=== PATIENT | female | born 1940 | race Caucasian/White ===

== ENCOUNTER 2017-01-22 14:42 | Observation (INO) | payer MEDICARE ==
[2017-01-22 16:17] LABS: #Basophils 0.1 thou/uL (0.0-0.2); #Eosinphils 0.3 thou/uL (0.0-0.7); #Lymphocytes 1.6 thou/uL (1.20-3.40); #Monocytes 0.5 thou/uL (0.11-0.59); #Neutrophils 5.8 thou/uL (1.40-6.50); %Basophils 1.3 % (0.0-1.0); %Eosinophils 4.1 % (0.0-10.0); %Lymphocytes 18.6 % (21.0-51.0); %Monocytes 6.5 % (0.0-10.0); Red Blood Cell (RBC) Count 4.32 mill/uL (4.20-5.40); White Blood Cell (WBC) Count 8.3 thou/uL (4.8-10.8)
[2017-01-22 16:23] LABS: PTT 33.2 SEC (22.9-36.1); Prothrombin Time 12.8 SEC (12.0-14.7)
--- NOTE | 2017-01-22 16:36 | CT ---
CT OF THE BRAIN WITHOUT CONTRAST: Date: 01/22/17 INDICATION: Multiple falls, patient feeling weak. COMPARISON: Prior exam dated 08/03/16. FINDINGS: Generalized cerebral atrophy is similar. Chronic small vessel white matter ischemic changes similar. Septum pellucidum and third ventricle are midline. Skull and extracranial soft tissues are unremark able. IMPRESSION: 1. No acute intracranial abnormality. 2. Stable chronic findings as above. POS: [facility]
[2017-01-22 16:43] LABS: Troponin I Less than 0.010 ng/mL (< 0.028)
[2017-01-22 17:20] LABS: Calcium 8.7 mg/dL (7.8-10.44); Chloride 104 mmol/L (98-107)
[2017-01-22 17:23] LABS: Anion Gap 17 mmol/L (10-20); Carbon Dioxide 21 mmol/L (23-31)
[2017-01-22 17:24] LABS: Calc. Creatinine Clearance 0 mL/min (70-130); Estimated GFR-MDRD 71
[2017-01-22 17:25] LABS: BUN (Urea Nitrogen) 35 mg/dL (9.8-20.1)
[2017-01-22 17:27] LABS: CK (CPK) 881 U/L (29-168)
[2017-01-22] MEDS ORDERED: Aspirin 325 MG TAB ONE ×2 (17:55→18:00)
[2017-01-22] MEDS ORDERED: Bacitracin Zinc 1 Packet ONE (18:59)
[2017-01-22 20:59] VITALS: BMI 16.2
[2017-01-23] MEDS ORDERED: Sodium Chloride 0.9% 1,000 ML IV SCH (03:45)
[2017-01-23] MEDS ORDERED: Acetaminophen 325 MG TAB PO PRN (04:04)
[2017-01-23] MEDS ORDERED: Ondansetron HCl/PF 4 MG/2 ML Vial IVP PRN (04:04)
[2017-01-23] MEDS ORDERED: Calcium Carbonate 500 MG ChewTAB PO PRN (04:04)
[2017-01-23] MEDS ORDERED: hydrALAZINE 20 MG/ML VIAL SLOW IVP PRN (04:04)
[2017-01-23] MEDS ORDERED: HYDROcodone/Acetaminophen 5/325 mg Tablet PO PRN (04:04)
[2017-01-23] MEDS ORDERED: Nicotine 21 MG PATCH TD SCH ×2 (04:30→09:00)
[2017-01-23] MEDS ORDERED: Levothyroxine Sodium 75 MCG TAB PO SCH (06:00)
[2017-01-23 06:11] LABS: #Basophils 0.1 thou/uL (0.0-0.2); #Eosinphils 0.3 thou/uL (0.0-0.7); #Lymphocytes 1.4 thou/uL (1.20-3.40); #Monocytes 0.6 thou/uL (0.11-0.59); #Neutrophils 4.6 thou/uL (1.40-6.50); %Basophils 0.7 % (0.0-1.0); %Eosinophils 4.6 % (0.0-10.0); %Lymphocytes 20.6 % (21.0-51.0); %Monocytes 8.3 % (0.0-10.0); Hematocrit 32.2 % (36.0-47.0); Mean Platelet Volume 8.3 fL (7.4-10.4); Red Blood Cell (RBC) Count 3.12 mill/uL (4.20-5.40)
[2017-01-23 06:22] LABS: Anion Gap 9 mmol/L (10-20); BUN (Urea Nitrogen) 28 mg/dL (9.8-20.1); Calc. Creatinine Clearance 52 mL/min (70-130); Calcium 8.4 mg/dL (7.8-10.44); Carbon Dioxide 25 mmol/L (23-31); Chloride 108 mmol/L (98-107); Cholesterol 110 mg/dl (< 200 Desired); Estimated GFR-MDRD Greater than 90; LDL Cholesterol, Calculated 62 mg/dL
[2017-01-23] MEDS: Ipratropium Bromide 2.5 ml Neb NEB SCH ×3 (07:03→18:26)
--- NOTE | 2017-01-23 07:33 | HP ---
CHIEF COMPLAINT: History of falls, right leg weakness, and weight loss. BRIEF HOSPITAL COURSE: This is a 76-year-old pleasant lady who came into the hospital for weakness and falls. She reports that 2 days ago she was walking fine without a walker and cane, but she repo rts this weakness and frequent falls for the last 2 weeks. She reports her right leg is weak and devine s been giving out and giving rise to the falls. Family also reported that the patient was trembling and called the PCP who told her to bring her to the hospital. Patient has also lost 35 pounds. Brooke jorge has been scheduled for outpatient colonoscopy. The patient smokes e-cigarettes for now, and says that she eats okay. The patient denies any chest pain, fever, chills or dizziness. PAST MEDICAL HISTORY: Significant for macular degeneration; coronary artery disease, status post st ent; restless leg syndrome; hypothyroidism; hyperlipidemia; hypertension; COPD on 3 liters of home O 2; right inguinal hernia; headache; osteoarthritis of both hips; osteoarthritis of the right shoulde r; some chronic cystitis in the past; degenerative disk disease of the lumbar spine; peripheral erickson rial disease. PAST SURGICAL HISTORY: Significant for monthly eye injections; cholecystectomy; cardiac stents x2, Dr. Howe is her insurance adviser; bladder wash in the past; right inguinal hernia repair with mesh; spin al surgery was done by Dr. Winslow earlier this year. PSYCHIATRIC HISTORY: Sometimes gets depressed. SOCIAL HISTORY: She was a former tobacco user, right now uses e-cigarettes. Denies alcohol use, de nies drug use. ALLERGIES: No known drug allergies. MEDICATIONS: Please see MAR. REVIEW OF SYSTEMS: Significant for right leg weakness, falls, and weight loss. Otherwise, no fever , no chills, no headache, no appetite, no hearing loss, no latencies. No cough, no chest pain, diar fifi, dysuria, or polyuria. No memory or mood changes. No neck pain. PHYSICAL EXAMINATION: VITAL SIGNS: Blood pressure is 120/81, pulse is 69, respiration is 16, temperature afebrile. GENERAL: Patient is sitting up in bed and right now in no apparent respiratory distress. HEENT: Atraumatic, normocephalic. Pupils equally round, react to light. Extraocular movements are intact. Mucous membranes are moist. Head shows moderate-sized bruise on the right forehead. CHEST: Breath sounds heard. No rales or rhonchi. HEART: S1, S2 normal. No murmurs or gallops. ABDOMEN: Soft, nontender. EXTREMITIES: No cyanosis, clubbing, or edema. Distal pulses present. NEUROLOGIC: Patient is alert, awake, oriented. No cranial deficits noted. Patient's motor strengt h on the right side is 4/5, left is 5/5, some hyporeflexia noted compared to the left side on the ri ght. Patient's speech is normal. No sensory deficits. SKIN: Normal. Warm and dry. LABORATORY AND DIAGNOSTIC DATA: EKG shows normal sinus rhythm at 65. ST segments are normal. Shima ent's CT scan was normal, short term stable chronic changes. Troponin is 0.01, creatinine is 0.7. Potassium is 3.9. WBC count is 8.3 and hemoglobin is 14. ASSESSMENT AND PLAN: 1. Falls with recent onset of right leg weakness for the last 2 days, rule out transient ischemic a ttack or possible causes could be central versus peripheral. We will do MRI of the brain. We will also consult neurology. The patient had surgery on the lumbar spine earlier this year as well. We will do echocardiogram and carotid Doppler as well and work with neurology and further caring for th e patient. 2. Underweight secondary to weight loss of 35 pounds. The patient has been scheduled for colonosco py as an outpatient. We will monitor for any concerning. We will monitor the patient for that as w ell this hospital stay. 3. Tobacco use, right now using e-cigarettes. Patient has been counseled about it. 4. Restless leg syndrome, stable. 5. Macular degeneration, appears to be stable. 6. Coronary artery disease, status post stent, stable. We will consult Dr. Howe if needed. 7. Hyperlipidemia, stable. 8. Hypertension, stable. 9. Chronic obstructive pulmonary disease with 3 liters of oxygen. We will continue home medication s and p.r.n. nebs. 10. Sequential compression devices for deep venous thrombosis prophylaxis. I will work with chantell burns and further caring for the patient.
--- NOTE | 2017-01-23 07:58 | RAD ---
2 VIEW CHEST: Date: 01/23/17 COMPARISON: 10/04/16. HISTORY: COPD. FINDINGS: Two views of the chest show a normal sized cardiomediastinal silhouette. Increased interstitial lung markings and hyperexpansion of lungs is likely secondary to COPD. There is no evidence of consolida tion, mass, or pleural effusions. Degenerative changes are seen in the spine. IMPRESSION: No evidence of acute cardiopulmonary disease. POS: [facility]
[2017-01-23 08:27] VITALS: TEMP 98.2
[2017-01-23] MEDS ORDERED: Aspirin 81 mg Enteric Coated Tablet PO SCH (09:00)
[2017-01-23] MEDS ORDERED: Lisinopril 10 MG TAB PO SCH (09:00)
[2017-01-23] MEDS ORDERED: Famotidine 20 MG TAB PO SCH (09:00)
--- NOTE | 2017-01-23 09:25 | MRI ---
MRI BRAIN WITHOUT CONTRAST: TECHNIQUE: Multiplanar, multisequential images of brain obtained according to brain protocol. HISTORY: Stroke. Multiple falls and weakness. COMPARISON: Correlation is made to CT scan of 01/22/17. FINDINGS: There is cortical atrophy. Moderate to severe chronic ischemic white matter changes are seen in bot h cerebral hemispheres. There is no evidence of restricted diffusion. No evidence of acute infarct . No mass or edema identified. The intracranial internal carotid arteries, proximal cerebral arteries, and basilar artery are paten t with flow voids seen. Paranasal sinuses and mastoids appear clear. IMPRESSION: Moderate cortical atrophy. Moderate to severe chronic ischemic white matter changes. No evidence o f acute infarct. POS: [facility]
[2017-01-23] MEDS ORDERED: Melatonin 3 MG TAB PO PRN (09:27)
--- NOTE | 2017-01-23 11:12 | ULT ---
CAROTID ULTRASOUND: History: Syncope. Technique: Multiplanar grayscale and color doppler images were obtained in a carotid ultrasound. Spe ctral analysis with doppler waveforms were performed. FINDINGS: There is a small amount of echogenic plaque seen in both carotid bifurcations. The doppler waveforms are normal bilaterally. Peak systolic velocity in the right ICA is 51 cm/sec. Peak systolic velocity in the right CCA is 67 cm/sec. The right ICA/CCA ratio is 0.9. Peak systolic velocity in the left ICA is 81 cm/sec. Peak systolic velocity in the left CCA is 75 cm /sec. The left ICA/CCA ratio is 1.1. Both vertebral arteries demonstrate antegrade flow without focal stenosis. IMPRESSION: No evidence of hemodynamically significant stenosis. POS: [facility]
--- NOTE | 2017-01-23 14:49 | PDOC.PN ---
- Subjective Encounter Start Date: 01/23/17 Encounter Start Time: 14:47 Subjective: still feels weak,maily on right side. -: denies any chest pain/palpitations/dizziness.no F/C.no cough/sob -: no dysuria - Objective MAR Reviewed: Yes Vital Signs & Weight: Vital Signs (12 hours) Temp Pulse Pulse Pulse Resp BP BP 01/23/17 13:38 76 14 01/23/17 11:50 98.2 F 68 16 01/23/17 10:30 74 67 141/72 H 01/23/17 10:10 118/63 01/23/17 08:00 98.2 F 68 16 01/23/17 07:33 98.2 F 70 18 01/23/17 07:03 70 12 01/23/17 04:20 98.4 F 73 20 BP BP Pulse Ox Pulse Ox Pulse Ox 01/23/17 13:38 97 01/23/17 11:50 133/73 96 01/23/17 10:30 133/75 96 95 01/23/17 10:10 01/23/17 08:00 01/23/17 07:33 118/63 96 01/23/17 07:03 01/23/17 04:20 113/62 94 L Weight Weight 94 lb 14.4 oz I&O: 01/22/17 01/23/17 01/24/17 06:59 06:59 06:59 Intake Total 395 Output Total 300 250 Balance 95 -250 Result Diagrams: 01/23/17 05:47 01/23/17 05:47 Additional Labs: Laboratory Tests 01/23/17 05:47 Triglycerides 54 Cholesterol 110 LDL Cholesterol, Calc 62 HDL Cholesterol 37 Radiology Reviewed by me: Yes (MRI-no acute infarct.carotid doppler-no stenosis) Phys Exam - Physical Examination Constitutional: NAD HEENT: PERRLA, moist MMs, sclera anicteric, oral pharynx no lesions Neck: no nodes, no JVD, supple, full ROM Respiratory: no wheezing, no rales, no rhonchi, clear to auscultation bilateral Cardiovascular: RRR, no significant murmur Gastrointestinal: soft, non-tender, no distention, positive bowel sounds Musculoskeletal: no edema, pulses present Neurological: non-focal, normal sensation, moves all 4 limbs Psychiatric: normal affect, A&O x 3 Skin: no rash Dx/Plan (1) Right sided weakness Code(s): R53.1 - WEAKNESS Status: Acute (2) CAD (coronary artery disease) Code(s): I25.10 - ATHSCL HEART DISEASE OF [place] CORONARY ARTERY W/O ANG PCTRS Status: Chronic (3) HTN (hypertension) Code(s): I10 - ESSENTIAL (PRIMARY) HYPERTENSION Status: Chronic (4) COPD (chronic obstructive pulmonary disease) Status: Chronic (5) Hypothyroid Code(s): E03.9 - HYPOTHYROIDISM, UNSPECIFIED Status: Chronic (6) Fall Code(s): W19.XXXA - UNSPECIFIED FALL, INITIAL ENCOUNTER Status: Acute Qualifiers: Encounter type: initial encounter Qualified Code(s): W19.XXXA - Unspecified fall, initial encounter - Plan PT/OT, out of bed/ambulate, DVT proph w/SCDs cont ASA w statin.ECHO pending.neurology consulted -: check UA. restart select home meds.avoid muscle relaxants -: restart coreg w close monitoring of BP. -: high BUN/Cr ratio-likley dehydration.cont IVF.add ensure -: Pt will benefit from rehab. * .check B12/FA level given macrocytosis .H/H lower today due to dilutional anemia Review of Systems - Review of Systems Constitutional: Weakness, Malaise. negative: Fever, Chills, Sweats, Other Respiratory: negative: Cough, Dry, Shortness of Breath, Hemoptysis, SOB with Excertion, Pleuritic Pain, Sputum, Wheezing Cardiovascular: negative: Chest Pain, Palpitations, Orthopnea, Paroxysmal Noc. Dyspnea, Edema, Light Headedness, Other Gastrointestinal: negative: Nausea, Vomiting, Abdominal Pain, Diarrhea, Constipation, Melena, Hematochezia, Other Genitourinary: negative: Dysuria, Frequency, Incontinence, Hematuria, Retention , Other Musculoskeletal: negative: Neck Pain, Shoulder Pain, Arm Pain, Back Pain, Hand Pain, Leg Pain, Foot Pain, Other Neurological: Weakness - Medications/Allergies Allergies/Adverse Reactions: Allergies Allergy/AdvReac Type Severity Reaction Status Date / Time No Known Drug Allergies Allergy Verified 01/22/17 20:29 Medications: Current Medications Acetaminophen (Tylenol) 650 mg PO Q4H PRN PRN Reason: Headache/Fever or Pain Hydrocodone Bitart/Acetaminophen ([place] 5/325) 1 tab PO Q4H PRN PRN Reason: Moderate Pain (4-6) Albuterol/Ipratropium (Duoneb) 3 ml NEB Q6H PRN PRN Reason: SOB &/or Wheezing Aspirin (Ecotrin) 81 mg PO DAILY [facility] Last Admin: 01/23/17 10:09 Dose: 81 mg Atorvastatin Calcium (Lipitor) 20 mg PO HS [facility] Calcium Carbonate (Tums) 1,000 mg PO Q4H PRN PRN Reason: Heartburn or Indigestion Famotidine (Pepcid) 20 mg PO BID [facility] Last Admin: 01/23/17 10:09 Dose: 20 mg Gabapentin (Neurontin) 300 mg PO DAILY [facility] Gabapentin (Neurontin) 600 mg PO HS [facility] Hydralazine HCl (Apresoline) 10 mg SLOW IVP Q4H PRN PRN Reason: BP > 220/110 Sodium Chloride (Normal Saline 0.9%) 1,000 mls @ 75 mls/hr IV .[id number] [facility] Stop: 01/24/17 03:46 Last Admin: 01/23/17 04:20 Dose: 1,000 mls Ipratropium [place] (Atrovent) 2.5 ml NEB [id number] [facility] Last Admin: 01/23/17 13:38 Dose: 2.5 ml Levothyroxine Sodium (Synthroid) 75 mcg PO 0600 [facility] Last Admin: 01/23/17 05:48 Dose: 75 mcg Lisinopril (Zestril) 10 mg PO BID [facility] Last Admin: 01/23/17 10:10 Dose: 10 mg Melatonin (Melatonin) 4.5 mg PO HS PRN PRN Reason: Insomnia Nicotine (Nicoderm Patch) 21 mg TD 0900 [facility] Last Admin: 01/23/17 10:10 Dose: 21 mg Ondansetron HCl (Zofran) 4 mg IVP Q6H PRN PRN Reason: Nausea/Vomiting Pramipexole Dihydrochloride (Mirapex) 0.25 mg PO BID [facility]
[2017-01-23 16:47] LABS: Bilirubin Negative (Negative); Blood, Urine Negative (Negative); Glucose, Urine (Dipstick) Negative (Negative); Ketone, Urine Negative (Negative); Nitrite Negative (Negative); Protein, Urine (Dipstick) Negative (Neg-Trace)
[2017-01-23 16:50] LABS: Bacteria/HPF None Seen HPF (None Seen); Hyaline Casts/LPF 0-3 HYALINE CAST LPF (0-3 Hyaline); RBC/HPF 0-3 HPF (0-3); Squamous Epithelial 0-3 HPF (0-3); WBC/HPF 21-50 HPF (0-3)
[2017-01-23] MEDS ORDERED: Carvedilol 3.125 MG TAB PO SCH (17:00)
[2017-01-23 18:15] VITALS: BP 135/77
[2017-01-23] MEDS ORDERED: Gabapentin 300 MG CAP PO SCH (21:00)
[2017-01-23] MEDS ORDERED: Pramipexole Di-HCl 0.25 MG TAB PO SCH (21:00)
[2017-01-23] MEDS ORDERED: Atorvastatin Calcium 20 MG TAB PO SCH (21:00)
--- NOTE | 2017-01-24 00:20 | CON ---
DATE OF CONSULTATION: 01/23/2017 NEUROLOGY CONSULTATION CONSULTING PHYSICIAN: Hospitalist Service. HISTORY OF PRESENT ILLNESS: Ms. Carias was admitted for evaluation of what she complained of a 3-da y history of right-sided weakness. She has been losing her balance and fallen on several occasions. She had an MRI of the brain done, which shows fairly extensive chronic small vessel ischemic valero es, but no acute abnormalities. Her CT of the brain did not show any evidence of bleeding. Her car otid ultrasound did not show any stenosis. Her CK was elevated at 881 likely secondary to her falls . Her exam at this time appears nonfocal. She is little unsteady on her feet. Her speech is fluen t and clear. I will continue her aspirin and statin as she has previously been taking. I will see her in the office for followup and have recommended that she use a walker on a regular ba sis to try to avoid further falls.
--- NOTE | 2017-01-24 08:49 | DIS ---
DATE OF ADMISSION: 01/22/2017 DATE OF DISCHARGE: 01/23/2017 CONDITION AT THE TIME OF DISCHARGE: Stable and improved. DISCHARGE DISPOSITION: Home with home health. PRIMARY CARE PHYSICIAN: Dr. Susanne Taveras in [place]. DISCHARGE MEDICATIONS: Resume the home medications including as follows, MiraLax daily, melatonin 5 mg at bedtime, docusate 100 mg daily, aspirin 325 mg daily, tizanidine 4 mg as needed every 8 hours , hydrochlorothiazide 25 mg daily, gabapentin 600 mg at bedtime, Coreg 3.125 mg p.o. b.i.d., Lipitor 40 mg daily, Synthroid 75 mcg daily, gabapentin 300 mg in the morning, lisinopril 10 mg p.o. b.i.d. , Mirapex 0.25 mg p.o. b.i.d., tramadol as needed, Spiriva daily, trazodone 100 mg at bedtime. New medication: Levofloxacin 500 mg p.o. daily, Florastor 250 mg p.o. daily. DISCHARGE DIAGNOSES: 1. Urinary tract infection. 2. Dehydration. 3. Transient ischemic attack, ruled out. 4. Rhabdomyolysis secondary to fall. PROCEDURES DURING THE HOSPITAL COURSE: 1. A CT scan of the brain upon admission, which showed chronic small vessel ischemic changes, but n o acute abnormality. 2. Chest x-ray, which was negative for any infiltrates. 3. MRI of the brain, which showed moderate cortical atrophy and [id number] chronic ischemic white matter changes, no evidence of acute infarction. 4. Carotid Doppler ultrasound, which is negative for any hemodynamically significant stenosis delroy zavala. CONSULTATIONS: Include Neurology, Dr. Casa Redding. HISTORY OF PRESENT ILLNESS: Ms. Carias is a pleasant 76-year-old female with past medical history o f coronary artery disease, hypothyroidism, hypertension, dyslipidemia, chronic respiratory failure d ue to chronic obstructive pulmonary disease on home oxygen, who presented to the emergency room with complaints of 3-day onset of weakness and falls. She was admitted under observation status for TIA rule out. The patient gave history of poor appetite and nutrition leading to weight loss. Upon ad mission, she was found to be somewhat dehydrated with elevated BUN to creatinine ratio, but was othe rwise hemodynamically stable with normal neurological exam as per the HPI. Please see admission his tory and physical for further details. HOSPITAL COURSE: The patient underwent the CVA/TIA workup, which was unremarkable. She was seen by Dr. Redding who agreed that this was not TIA and she can be discharged home. She was treated with IV fluids for mild rhabdomyolysis after fall as well as mild dehydration and her symptoms improved. She was walking in the hallways with the help of a walker and physical therapist. Home health ther apy was arranged for her. She was encouraged to add Ensure type supplements to her daily meals 3 ti mes a day for nutrition improvement. She was found to have a urinalysis with moderate leukocyte esterase and WBCs 21-50 with urine cultur e pending at the time of discharge. For this reason, she was treated with empiric antibiotics, whic h she will finish as an outpatient. She was seen and examined on the day of discharge and is hemodynamically stable and eager to go home . She lives with her daughter who is here to pick her up. Discharge plan was discussed with the ayden vann who verbalized understanding. She is instructed to follow up with Neurology and PCP as an out patient.
[2017-01-24] MEDS ORDERED: Gabapentin 300 MG CAP PO SCH (09:00)
== END 2017-01-23 19:00 | disposition home or self-care (01) ==
LOC: ERS 14:42 → 2SW 18:45
PROVIDERS: ADMIT Internal Medicine; ATTEND Internal Medicine
DX: N39.0 Urinary tract infection, site not specified (principal); E86.0 Dehydration; M62.82 Rhabdomyolysis; I25.10 Atherosclerotic heart disease of native coronary artery without angina pectoris; E03.9 Hypothyroidism, unspecified; I10 Essential (primary) hypertension; E78.5 Hyperlipidemia, unspecified; J96.10 Chronic respiratory failure, unspecified whether with hypoxia or hypercapnia; J44.9 Chronic obstructive pulmonary disease, unspecified; R63.4 Abnormal weight loss; I73.9 Peripheral vascular disease, unspecified; F17.290 Nicotine dependence, other tobacco product, uncomplicated; H35.30 Unspecified macular degeneration; G25.81 Restless legs syndrome; M16.0 Bilateral primary osteoarthritis of hip; M19.011 Primary osteoarthritis, right shoulder; M51.36 Other intervertebral disc degeneration, lumbar region; Z68.1 Body mass index [BMI] 19.9 or less, adult; Z79.82 Long term (current) use of aspirin; Z79.899 Other long term (current) drug therapy; Z99.81 Dependence on supplemental oxygen; Z95.818 Presence of other cardiac implants and grafts; Z90.49 Acquired absence of other specified parts of digestive tract; Z98.890 Other specified postprocedural states; Z91.81 History of falling
CPT/HCPCS: 70450; 70551; 71020; 80048 ×2; 80061; 81001; 82550; 82553; 82607; 82746; 84484; 85025 ×2; 85610; 85730; 86850; 86900; 86901; 93005; 93880; 94640 ×2; 96360 ×2; 96361; 97116; 97139 ×3; 97530; 99285; 99406; G0378; G8978; G8979; G8987; G8988; 36415; G8996-GN-CH; G8997-GN-CH; J7644

== ENCOUNTER 2017-03-31 14:29 | Inpatient (IN) | payer MEDICARE ==
--- NOTE | 2017-03-31 15:05 | RAD ---
SINGLE VIEW OF THE CHEST: Comparison: 10-04-16 History: COPD exacerbation for two weeks. FINDINGS: Single view of the chest shows a normal sized cardiomediastinal silhouette. Increased interstitial ma rkings are present. There is no evidence of consolidation, mass, or pleural effusion. Degenerative ch anges are seen in the spine. IMPRESSION: 1. No evidence of acute cardiopulmonary disease. 2. Increased interstitial lung disease in the lung bases. POS: [facility]
[2017-03-31] MEDS ORDERED: methylPREDNISolone Sod Succ/PF 125 MG/2 ML VIAL ONE (15:34)
[2017-03-31] MEDS ORDERED: Magnesium Sulfate 2 GM/100 ML BAG ONE (15:34)
[2017-03-31 16:05] LABS: #Basophils 0.1 thou/uL (0.0-0.2); #Eosinphils 0.5 thou/uL (0.0-0.7); #Lymphocytes 0.8 thou/uL (1.20-3.40); #Monocytes 0.3 thou/uL (0.11-0.59); #Neutrophils 5.3 thou/uL (1.40-6.50); %Basophils 1.1 % (0.0-1.0); %Eosinophils 7.3 % (0.0-10.0); %Lymphocytes 11.9 % (21.0-51.0); %Monocytes 4.4 % (0.0-10.0); %Neutrophils 75.3 % (42.0-75.0); Hemoglobin 13.9 g/dL (12.0-16.0); Mean Corpuscular HGB CONC 33.2 g/dL (32.0-36.0); Mean Corpuscular Hemoglobin 34.9 pg (27.0-31.0); Mean Platelet Volume 8.6 fL (7.4-10.4); Platelet Count 185 thou/uL (130-400); RBC Distribution Width 12.4 % (11.5-14.5); White Blood Cell (WBC) Count 7.1 thou/uL (4.8-10.8)
[2017-03-31 16:24] LABS: ALT (SGPT) 15 U/L (8-55); AST (SGOT) 24 U/L (5-34); Alkaline Phosphatase 89 U/L (40-150); Anion Gap 15 mmol/L (10-20); BUN (Urea Nitrogen) 11 mg/dL (9.8-20.1); Bilirubin, Total 0.5 mg/dL (0.2-1.2); Calc. Creatinine Clearance 0 mL/min (70-130); Calcium 9.2 mg/dL (7.8-10.44); Carbon Dioxide 24 mmol/L (23-31); Chloride 96 mmol/L (98-107); Estimated GFR-MDRD Greater than 90; Globulin 2.5 g/dL (2.4-3.5); Glucose 111 mg/dL (83-110); Potassium 3.7 mmol/L (3.5-5.1); Protein, Total 6.5 g/dL (6.0-8.3); Sodium 131 mmol/L (136-145)
[2017-03-31 16:28] LABS: CKMB 2.2 ng/mL (0-6.6); Troponin I 0.022 ng/mL (< 0.028)
--- NOTE | 2017-03-31 20:40 | HP ---
DATE OF ADMISSION: 03/31/2017 CHIEF COMPLAINT: Shortness of breath. HISTORY OF PRESENT ILLNESS: This is a 76-year-old white female patient of Dr. Vickers, has a known hist ory of COPD, has been suffering with some cough and congestion for the past 1 week, which progressive ly got worsen this afternoon where she was unable to breathe. The patient said that she was supposed to see Dr. Vickers this following Friday, but her cough was getting worse and she tried to take nebu lizer treatments every 3 hours, which did not work. She tried her steroid, which did not work and sh e decided to come to the ER. When patient presented to the ER, her saturations are 88% on room air a nd her respiratory rate was 22-25. She was started on albuterol nebulizer treatments along with the DuoNebs. Saturations did come up to 95%, but she was acutely short of breath and even with mild exer tions. The patient was admitted for further monitoring of her COPD. The patient is a nonsmoker and she continues to smoke and she lives with her daughter who is also a smoker. She denies having any c hest pain, denies having any recent fever or any sick contacts. She did get a flu vaccine this seaso n. PAST MEDICAL HISTORY: 1. Coronary artery disease status post stents. 2. Restless leg syndrome. 3. Hypothyroidism. 4. Hyperlipidemia. 5. Hypertension. 6. History of COPD, on home oxygen of 2 liters. 7. History of osteoarthritis in both hips. 8. Chronic cystitis. 9. Peripheral arterial disease. PAST SURGICAL HISTORY: 1. Cholecystectomy. 2. Cardiac stents x2 by Dr. Howe, who is a short order fry cook. 3. Right inguinal hernia repair with mesh and spinal surgery by Dr. Winslow. SOCIAL HISTORY: The patient is a known smoker. She continues to smoke. She lives with her daughter who is also a smoker. Denies any alcohol. No history of illicit drug use. ALLERGIES: No known drug allergies. MEDICATIONS: Medications have been reconciled. Please see the medication list. REVIEW OF SYSTEMS: All 12 systems are reviewed with the patient thoroughly and found to be negative at this time. The following complete review of systems was negative, unless otherwise mentioned in t he HPI or below: Constitutional: Weight loss or gain, sense of well-being, ability to conduct usual activities, exerc ise tolerance. Skin/Breast: Rash, itching, changes in hair growth or loss, nail changes, breast lumps, tenderness, swelling, nipple discharge. Eyes: Vision, double vision, tearing, blind spots, pain. ENT/Mouth: Headaches (location, time of onset, duration, precipitating factors), vertigo, lightheade dness, injury. Vision, double vision, tearing, blind spots, pain, nose bleeding, colds, obstruction, discharge, dental difficulties, gingival bleeding, dentures, neck stiffness, pain, tenderness, masses in thyroid or other areas. Cardiovascular: Precordial pain, substernal distress, palpitations, syncope, dyspnea on exertion, or thopnea, nocturnal paroxysmal dyspnea, edema, cyanosis, hypertension, heart murmurs, varicosities, ph lebitis, claudication. Respiratory: Pain, shortness of breath, wheezing, stridor, cough, hemoptysis, fever or night sweats. Gastrointestinal: Poor appetite, dysphagia, indigestion, abdominal pain, heartburn, eructation, naus ea, vomiting, hematemesis, jaundice, constipation, or diarrhea, abnormal stools (terri-colored, tarry, bloody, greasy, foul smelling), flatulence, hemorrhoids, recent changes in bowel habits. Genitourinary: Urgency, frequency, dysuria, nocturia, hematuria, polyuria, oliguria, unusual (or pierre nge in) color of urine, stones, hesitancy, change in size of stream, dribbling, acute retention or in continence, libido, potency. Musculoskeletal: Pain, swelling, redness or heat of muscles or joints, limitation, of motion, muscul ar weakness, atrophy, cramps. Neurologic/Psychiatric: Convulsions, paralyses, tremor, incoordination, paresthesias, difficulties w ith memory of speech, sensory or motor disturbances, or muscular coordination (ataxia, tremor), emoti onal problems, anxiety, depression, previous psychiatric care, unusual perceptions, hallucinations. Allergy/Immunologic: Skin rash, anemia, bleeding tendency, polydipsia, polyuria, intolerance to heat or cold. PHYSICAL EXAMINATION: VITAL SIGNS: Blood pressures are 110/80, heart rate is 88, respiratory rate is 22. Saturation is 92 % on 3 liters. GENERAL: The patient is moderately built, moderately nourished. She does not appear in acute distre ss at this time. HEENT: Atraumatic, normocephalic. PERRLA. Extraocular muscles were intact. Oral mucosa is pink an d moist. CARDIOVASCULAR: S1, S2 normal. No murmurs, no rubs or gallops. LUNGS: Bilateral air entry was equal. No wheezing, no crackles. ABDOMEN: Soft, nontender, no guarding, no rebound tenderness. Bowel sounds normal. MUSCULOSKELETAL: No calf tenderness. No pedal edema, no joint tenderness, no joint swelling. SKIN: No cyanosis, no erythema, no rash, no pallor. MIXER FOAM RUBBER: Cranial nerve examination II-XII intact. No focal deficits were noted. NECK: No thyromegaly. No lymphadenopathy was noted. PSYCHIATRIC: No signs of suicidal ideation, no signs of marlo was noted. LABORATORY DATA: WBC 7.1, hemoglobin 13.9, hematocrit is 42, platelets 485. Sodium 131, potassium 3 .7, chloride is 96, BUN is 11, creatinine is 0.59. ASSESSMENT: 1. Acute chronic obstructive pulmonary disease exacerbation. 2. History of coronary artery disease, status post stents. 3. History of restless leg syndrome. 4. Active smoker. 5. History of macular degeneration. 6. History of hyperlipidemia. 7. History of hypertension. PLAN: 1. The plan is to admit this patient and to closely monitor her saturations. Dr. Vickers has been cons ulted. We will follow his recommendations. At this time, we will start the patient on Solu-Medrol a t 40 mg IV q.6 hours and we will do DuoNebs q.4 hours scheduled and albuterol nebulizer treatments ev mellissa 2 hours as needed, and we will do Mucinex 1200 mg p.o. b.i.d. The patient does not report any di scolored sputum. At this time, we will not start any antibiotics. 2. The patient has coronary artery disease. We will restart the patient's home medications. Start the patient on aspirin, beta blockers, and statin. 3. The patient has a known history of hypertension. We will continue the patient's home medications . Blood pressure seems to be very stable at this time. 4. History of chronic smoker. We will continue to genetic counselor the patient to quit smoking. We will do a nicotine patch 14 mcg. 5. Deep venous thrombosis prophylaxis. Lovenox 40 mg subcu daily. I spent 70 minutes of this patient.
[2017-03-31] MEDS ORDERED: Sodium Chloride 0.9% 1,000 ML IV SCH (21:28)
[2017-03-31] MEDS ORDERED: Ondansetron HCl/PF 4 MG/2 ML Vial IVP PRN ×2 (21:28→21:35)
[2017-03-31] MEDS ORDERED: Ondansetron ODT 4 MG TAB SL PRN (21:28)
[2017-03-31] MEDS ORDERED: Albuterol Sulfate 2.5 mg/3 ml Neb NEB PRN (21:35)
[2017-03-31] MEDS ORDERED: HYDROcodone/Acetaminophen 5/325 mg Tablet PO PRN (21:35)
[2017-03-31] MEDS ORDERED: Ondansetron ODT 4 MG TAB PO PRN (21:35)
[2017-03-31] MEDS ORDERED: Pramipexole Di-HCl 0.25 MG TAB PO SCH (22:00)
[2017-04-01 05:09] LABS: #Lymphocytes 0.7 thou/uL (1.20-3.40); #Monocytes 0.8 thou/uL (0.11-0.59); #Neutrophils 4.8 thou/uL (1.40-6.50); %Basophils 0.3 % (0.0-1.0); %Eosinophils 0.3 % (0.0-10.0); %Lymphocytes 11.8 % (21.0-51.0); %Monocytes 11.9 % (0.0-10.0); %Neutrophils 75.7 % (42.0-75.0); Hemoglobin 12.2 g/dL (12.0-16.0); Mean Corpuscular HGB CONC 33.9 g/dL (32.0-36.0); Mean Corpuscular Hemoglobin 35.8 pg (27.0-31.0); Mean Platelet Volume 8.7 fL (7.4-10.4); Platelet Count 166 thou/uL (130-400); RBC Distribution Width 12.2 % (11.5-14.5); Red Blood Cell (RBC) Count 3.41 mill/uL (4.20-5.40); White Blood Cell (WBC) Count 6.3 thou/uL (4.8-10.8)
[2017-04-01 05:36] LABS: Anion Gap 14 mmol/L (10-20); BUN (Urea Nitrogen) 16 mg/dL (9.8-20.1); Calc. Creatinine Clearance 53 mL/min (70-130); Calcium 8.7 mg/dL (7.8-10.44); Carbon Dioxide 24 mmol/L (23-31); Chloride 101 mmol/L (98-107); Estimated GFR-MDRD Greater than 90; Glucose 116 mg/dL (83-110); Potassium 3.9 mmol/L (3.5-5.1); Sodium 135 mmol/L (136-145)
[2017-04-01] MEDS: Enoxaparin Sodium 40 MG/0.4 ML SYRINGE SC SCH (08:14)
[2017-04-01] MEDS: Docusate 100 MG CAP PO SCH ×3 (08:14→20:24)
[2017-04-01] MEDS: Aspirin 325 mg Enteric Coated Tablet PO SCH (08:14)
[2017-04-01] MEDS: Saccharomyces boulardii 250 MG CAP PO SCH (08:14)
[2017-04-01] MEDS: Lisinopril 10 MG TAB PO SCH ×2 (08:14→20:25)
[2017-04-01] MEDS: Nicotine 14 MG PATCH TD SCH (08:14)
[2017-04-01] MEDS: Gabapentin 300 MG CAP PO SCH ×2 (08:14→20:24)
[2017-04-01] MEDS: Pramipexole Di-HCl 0.25 MG TAB PO SCH ×2 (08:14→20:25)
[2017-04-01] MEDS: Famotidine/PF 20 mg/2ml Vial SLOW IVP SCH ×2 (08:14→20:24)
[2017-04-01] MEDS: Carvedilol 3.125 MG TAB PO SCH ×2 (08:14→17:16)
[2017-04-01] MEDS ORDERED: Spiriva 18 MCG CAP (Box of 5 Caps) INH SCH (09:00)
[2017-04-01 09:25] VITALS: BMI 16.2
[2017-04-01] MEDS: Acetaminophen 325 MG TAB PO PRN ×2 (09:59→20:25)
--- NOTE | 2017-04-01 10:33 | CON ---
DATE OF CONSULTATION: 04/01/2017 She is well known to me who has a history of chronic obstructive pulmonary disease, asthma. She pre sented with increasing shortness of breath and cough without any associated fever or chills. Unrespo nsive to usual home medication. An x-ray taken yesterday which showed some nonspecific bibasilar atelectatic changes. No obvious con solidation was seen. She is now admitted. She was here recently in January with apparently a TIA issue. She was seen in the office shortly th ereafter. She has been doing well. Her discharge diagnosis included a TIA. PAST MEDICAL HISTORY: Severe chronic obstructive pulmonary disease, coronary artery disease, reflux, restless leg. PAST SURGICAL HISTORY: Cataract, gallbladder. A recent TIA. Recent cardiac catheterization. Gayle LOVELACE. MEDICATIONS FROM HOME: Trazodone 100, tramadol, tizanidine, Spiriva, lisinopril 10, Synthroid 75, Ne urontin 600, gabapentin, Coreg 3.125, calcium 40, aspirin. She is now started on steroids, scheduled neb treatment. ALLERGIES: None. SOCIAL HISTORY: Former smoker. REVIEW OF SYSTEMS: Ten point negative. PHYSICAL EXAMINATION: VITAL SIGNS: Blood pressure is 143/74, saturation is 94%, respirations 16, temperature 98. CHEST: Chest revealed decreased breath sounds and bilateral wheezing. CARDIAC: Sinus tachycardia. ABDOMEN: Soft. No masses. LABORATORY: White count 6000, H&H 12 and 37, platelet count is normal. IMPRESSION: 1. Chronic obstructive pulmonary disease exacerbation. 2. Bronchitis. 3. Congestive heart failure. PLAN: I agree with present treatment, steroids, neb treatments, supportive care. Hopefully, stable enough in the next 24-48 hours may be able to discharge her home.
--- NOTE | 2017-04-01 11:32 | CON ---
consult deleted. MTDD
--- NOTE | 2017-04-01 12:22 | PDOC.PN ---
- Subjective Encounter Start Date: 04/01/17 Encounter Start Time: 12:21 Subjective: feels better. coughing and SOB improved - Objective MAR Reviewed: Yes Vital Signs & Weight: Vital Signs (12 hours) Temp Pulse Resp BP Pulse Ox 04/01/17 11:34 97.6 F 75 16 101/61 94 L 04/01/17 10:03 92 20 93 L 04/01/17 08:34 98.5 F 92 16 143/74 H 93 L 04/01/17 08:00 98.5 F 92 16 93 L 04/01/17 05:57 81 16 94 L 04/01/17 04:00 97.8 F 81 20 99/61 94 L 04/01/17 02:09 86 14 95 Weight Admit Weight 98 lb Weight 98 lb Result Diagrams: 04/01/17 04:49 04/01/17 04:49 Additional Labs: Microbiology 03/31/17 22:35 Sputum Respiratory Culture - Preliminary 03/31/17 22:08 Venous blood - Right Arm Blood Culture - Preliminary Specimen has been received and culture in progress. No Growth to date. 03/31/17 22:08 Venous blood - Left Arm Blood Culture - Preliminary Specimen has been received and culture in progress. No Growth to date. Phys Exam - Physical Examination Constitutional: NAD sitting up in chair HEENT: PERRLA, moist MMs, sclera anicteric, oral pharynx no lesions Neck: no nodes, no JVD, supple, full ROM Respiratory: no wheezing, no rales, no rhonchi, clear to auscultation bilateral Cardiovascular: RRR, no significant murmur Gastrointestinal: soft, non-tender, no distention, positive bowel sounds Musculoskeletal: no edema, pulses present Neurological: non-focal, normal sensation, moves all 4 limbs Psychiatric: normal affect, A&O x 3 Skin: no rash Dx/Plan (1) Acute respiratory failure Code(s): J96.00 - ACUTE RESPIRATORY FAILURE, UNSP W HYPOXIA OR HYPERCAPNIA Status: Acute (2) Acute exacerbation of chronic obstructive pulmonary disease (COPD) Code(s): J44.1 - CHRONIC OBSTRUCTIVE PULMONARY DISEASE W (ACUTE) EXACERBATION Status: Acute (3) Chronic respiratory failure Code(s): J96.10 - CHRONIC RESPIRATORY FAILURE, UNSP W HYPOXIA OR HYPERCAPNIA Status: Acute (4) HLD (hyperlipidemia) Code(s): E78.5 - HYPERLIPIDEMIA, UNSPECIFIED Status: Acute (5) CAD (coronary artery disease) Code(s): I25.10 - ATHSCL HEART DISEASE OF [place] CORONARY ARTERY W/O ANG PCTRS Status: Chronic (6) HTN (hypertension) Code(s): I10 - ESSENTIAL (PRIMARY) HYPERTENSION Status: Chronic (7) Hypothyroid Code(s): E03.9 - HYPOTHYROIDISM, UNSPECIFIED Status: Chronic - Plan continue antibiotics, PT/OT, respiratory therapy, incentive spirometry, out of bed/ambulate, DVT proph w/SCDs cont nebs,steroids,O2 prn,Dulera,ABx.clinically better -: PCCM following -: home meds as below.Hemodynamically stable. -: restart ASA,statin,BB,irena-I. -: am labs * . Review of Systems - Review of Systems Constitutional: weakness, malaise. negative: fever, chills, sweats, other Respiratory: SOB with Excertion. negative: Cough, Dry, Shortness of Breath, Hemoptysis, Pleuritic Pain, Sputum, Wheezing Cardiovascular: negative: chest pain, palpitations, orthopnea, paroxysmal nocturnal dyspnea, edema, light headedness, other Gastrointestinal: negative: Nausea, Vomiting, Abdominal Pain, Diarrhea, Constipation, Melena, Hematochezia, Other Genitourinary: negative: Dysuria, Frequency, Incontinence, Hematuria, Retention , Other Musculoskeletal: negative: Neck Pain, Shoulder Pain, Arm Pain, Back Pain, Hand Pain, Leg Pain, Foot Pain, Other Neurological: negative: Weakness, Numbness, Incoordination, Change in Speech, Confusion, Seizures, Other - Medications/Allergies Allergies/Adverse Reactions: Allergies Allergy/AdvReac Type Severity Reaction Status Date / Time No Known Drug Allergies Allergy Verified 03/31/17 21:37 Medications: Current Medications Acetaminophen (Tylenol) 650 mg PO Q4H PRN PRN Reason: Headache/Fever or Pain Last Admin: 04/01/17 09:59 Dose: 650 mg Hydrocodone Bitart/Acetaminophen ([place] 5/325) 1 tab PO Q4H PRN PRN Reason: Moderate Pain (4-6) Albuterol Sulfate (Ventolin) 2.5 mg NEB Q2H PRN PRN Reason: SOB &/or Wheezing Albuterol/Ipratropium (Duoneb) 3 ml NEB [id number] [facility] Last Admin: 04/01/17 10:03 Dose: 3 ml Aspirin (Ecotrin) 325 mg PO DAILY [facility] Last Admin: 04/01/17 08:14 Dose: 325 mg Atorvastatin Calcium (Lipitor) 40 mg PO HS [facility] Bisacodyl (Dulcolax) 10 mg PO DAILYPRN PRN PRN Reason: Constipation Carvedilol (Coreg) 3.125 mg PO BID-[facility] Last Admin: 04/01/17 08:14 Dose: 3.125 mg Docusate Sodium (Colace) 100 mg PO BID [facility] Last Admin: 04/01/17 08:14 Dose: 100 mg Docusate Sodium (Colace) 100 mg PO DAILY [facility] Last Admin: 04/01/17 08:14 Dose: Not Given Doxycycline Hyclate (Vibramycin) 100 mg PO BID [facility] Enoxaparin Sodium (Lovenox) 40 mg SC 0900 [facility] Last Admin: 04/01/17 08:14 Dose: 40 mg Famotidine (Pepcid) 20 mg SLOW IVP Q12HR [facility] Last Admin: 04/01/17 08:14 Dose: 20 mg Gabapentin (Neurontin) 300 mg PO DAILY [facility] Last Admin: 04/01/17 08:14 Dose: 300 mg Gabapentin (Neurontin) 600 mg PO HS [facility] Guaifenesin/Dextromethorphan (Robitussin Dm) 15 ml PO Q4H PRN PRN Reason: Cough Levothyroxine Sodium (Synthroid) 75 mcg PO 0600 [facility] Lisinopril (Zestril) 10 mg PO BID [facility] Last Admin: 04/01/17 08:14 Dose: 10 mg Methylprednisolone Sodium Succinate (Solu-Medrol) 40 mg IVP Q6HR [facility] Last Admin: 04/01/17 12:02 Dose: 40 mg Mometasone Furoate/Formoterol Fumar (Dulera 200 Mcg/5 Mcg Inhaler) 2 puff INH BID-RT [facility] Nicotine (Nicoderm Patch) 14 mg TD Q24HR [facility] Last Admin: 04/01/17 08:14 Dose: 14 mg Ondansetron HCl (Zofran Odt) 4 mg PO Q6H PRN PRN Reason: Nausea/Vomiting Ondansetron HCl (Zofran) 4 mg IVP Q6H PRN PRN Reason: Nausea/Vomiting Pramipexole Dihydrochloride (Mirapex) 0.25 mg PO BID [facility] Last Admin: 04/01/17 08:14 Dose: 0.25 mg Saccharomyces Boulardii (Florastor) 250 mg PO DAILY [facility] Last Admin: 04/01/17 08:14 Dose: 250 mg Sodium Chloride (Flush - Normal Saline) 10 ml IVF Q12HR [facility] Last Admin: 04/01/17 08:15 Dose: Not Given Sodium Chloride (Flush - Normal Saline) 10 ml IVF PRN PRN PRN Reason: Saline Flush Tramadol HCl (Ultram) 50 mg PO Q6H PRN PRN Reason: Pain Trazodone HCl (Desyrel) 100 mg PO HS [facility]
[2017-04-01] MEDS: Mometasone/Formoterol 120 PUFF INHALER INH SCH (18:21)
[2017-04-01] MEDS: Doxycycline 100 MG CAP PO SCH (20:24)
[2017-04-01] MEDS: Atorvastatin Calcium 40 MG TAB PO SCH (20:24)
[2017-04-01] MEDS: traZODone HCl 50 MG TAB PO SCH (20:25)
[2017-04-02] MEDS: Guaifenesin DM 100-10/5 ML UDCUP PO PRN ×2 (02:57→20:52)
[2017-04-02] MEDS: Levothyroxine Sodium 75 MCG TAB PO SCH (06:10)
[2017-04-02] MEDS: Mometasone/Formoterol 120 PUFF INHALER INH SCH ×2 (06:24→20:31)
[2017-04-02 06:31] LABS: Anion Gap 14 mmol/L (10-20); BUN (Urea Nitrogen) 16 mg/dL (9.8-20.1); Calc. Creatinine Clearance 51 mL/min (70-130); Calcium 8.7 mg/dL (7.8-10.44); Carbon Dioxide 24 mmol/L (23-31); Chloride 101 mmol/L (98-107); Estimated GFR-MDRD 88; Glucose 127 mg/dL (83-110); Potassium 4.9 mmol/L (3.5-5.1); Sodium 134 mmol/L (136-145)
[2017-04-02] MEDS: Carvedilol 3.125 MG TAB PO SCH ×2 (07:58→17:56)
[2017-04-02] MEDS: Docusate 100 MG CAP PO SCH ×3 (07:58→20:51)
[2017-04-02] MEDS: Nicotine 14 MG PATCH TD SCH (08:00)
[2017-04-02] MEDS: Saccharomyces boulardii 250 MG CAP PO SCH (08:01)
[2017-04-02] MEDS: Aspirin 325 mg Enteric Coated Tablet PO SCH (08:01)
[2017-04-02] MEDS: Gabapentin 300 MG CAP PO SCH ×2 (08:02→20:50)
[2017-04-02] MEDS: Doxycycline 100 MG CAP PO SCH ×2 (08:02→20:50)
[2017-04-02] MEDS: Famotidine/PF 20 mg/2ml Vial SLOW IVP SCH ×2 (08:02→20:51)
[2017-04-02] MEDS: Pramipexole Di-HCl 0.25 MG TAB PO SCH ×2 (08:02→20:50)
[2017-04-02] MEDS: Enoxaparin Sodium 40 MG/0.4 ML SYRINGE SC SCH (08:03)
[2017-04-02] MEDS: Lisinopril 10 MG TAB PO SCH ×2 (08:04→20:50)
--- NOTE | 2017-04-02 10:57 | PRG ---
DATE OF SERVICE: 04/02/2017 SUBJECTIVE: This morning, she is better. She is less short of breath, less coughing, less wheezing. OBJECTIVE: VITAL SIGNS: Blood pressure 158/50, O2 sats 95% on 2 liters, temperature 98. CHEST: Chest reveals decreased breath sounds, no wheezing. CARDIAC: Normal S1, S2. No gallops. ABDOMEN: Soft, no masses. IMPRESSION: 1. Chronic obstructive pulmonary disease exacerbation. 2. Bronchitis. PLAN: Switch over to oral prednisone. If she is ambulating, tomorrow we will consider discharge. In the meantime, neb treatments, steroids, and antibiotics. We will follow.
[2017-04-02] MEDS: Bisacodyl 5 MG TAB PO PRN (12:06)
--- NOTE | 2017-04-02 13:20 | PDOC.PN ---
- Subjective Encounter Start Date: 04/02/17 Encounter Start Time: 13:18 Subjective: feels better - Objective MAR Reviewed: Yes Vital Signs & Weight: Vital Signs (12 hours) Temp Pulse Resp BP BP BP Pulse Ox 04/02/17 12:07 98.4 F 85 16 102/69 91 L 04/02/17 09:31 86 12 93 L 04/02/17 08:04 155/88 H 04/02/17 08:00 98.7 F 86 12 04/02/17 07:45 98.7 F 83 16 155/88 H 92 L 04/02/17 06:24 75 16 94 L 04/02/17 06:22 75 16 94 L 04/02/17 06:00 97.8 F 76 19 120/76 93 L 04/02/17 02:33 71 16 94 L Weight Admit Weight 98 lb Weight 98 lb I&O: 04/01/17 04/02/17 04/03/17 06:59 06:59 06:59 Intake Total 480 240 Balance 480 240 Result Diagrams: 04/01/17 04:49 04/02/17 04:58 Phys Exam - Physical Examination Constitutional: NAD HEENT: PERRLA, moist MMs, sclera anicteric, TM's clear, oral pharynx no lesions , 2+ tonsils Respiratory: wheezing present Cardiovascular: RRR, no significant murmur Gastrointestinal: soft, non-tender, no distention, positive bowel sounds Musculoskeletal: no edema, pulses present Neurological: non-focal, normal sensation, moves all 4 limbs Psychiatric: normal affect, A&O x 3 Skin: no rash Dx/Plan (1) Acute exacerbation of chronic obstructive pulmonary disease (COPD) Code(s): J44.1 - CHRONIC OBSTRUCTIVE PULMONARY DISEASE W (ACUTE) EXACERBATION Status: Acute (2) Acute respiratory failure Code(s): J96.00 - ACUTE RESPIRATORY FAILURE, UNSP W HYPOXIA OR HYPERCAPNIA Status: Resolved (3) Chronic respiratory failure Code(s): J96.10 - CHRONIC RESPIRATORY FAILURE, UNSP W HYPOXIA OR HYPERCAPNIA Status: Acute (4) HLD (hyperlipidemia) Code(s): E78.5 - HYPERLIPIDEMIA, UNSPECIFIED Status: Acute (5) CAD (coronary artery disease) Code(s): I25.10 - ATHSCL HEART DISEASE OF [place] CORONARY ARTERY W/O ANG PCTRS Status: Chronic (6) HTN (hypertension) Code(s): I10 - ESSENTIAL (PRIMARY) HYPERTENSION Status: Chronic (7) Hypothyroid Code(s): E03.9 - HYPOTHYROIDISM, UNSPECIFIED Status: Chronic (8) Malnutrition Code(s): E46 - UNSPECIFIED PROTEIN-CALORIE MALNUTRITION Status: Acute Qualifiers: Malnutrition type: protein-calorie malnutrition Protein-calorie malnutrition severity: moderate Qualified Code(s): E44.0 - Moderate protein- calorie malnutrition - Plan continue antibiotics, PT/OT, respiratory therapy, incentive spirometry, out of bed/ambulate Clinically better.cont steroids,nebs,O2,ABx -: OT,PT. -: Home when ok w PCCM.willl need HH -: hemodynamically stable.increase ambulation * . Review of Systems - Review of Systems Constitutional: malaise. negative: fever, chills, sweats, weakness, other ENT: negative: Ear Pain, Ear Discharge, Nose Pain, Nose Discharge, Nose Congestion, Mouth Pain, Mouth Swelling, Throat Pain, Throat Swelling, Other Respiratory: SOB with Excertion. negative: Cough, Dry, Shortness of Breath, Hemoptysis, Pleuritic Pain, Sputum, Wheezing Cardiovascular: negative: chest pain, palpitations, orthopnea, paroxysmal nocturnal dyspnea, edema, light headedness, other Gastrointestinal: negative: Nausea, Vomiting, Abdominal Pain, Diarrhea, Constipation, Melena, Hematochezia, Other Genitourinary: negative: Dysuria, Frequency, Incontinence, Hematuria, Retention , Other Musculoskeletal: negative: Neck Pain, Shoulder Pain, Arm Pain, Back Pain, Hand Pain, Leg Pain, Foot Pain, Other Neurological: negative: Weakness, Numbness, Incoordination, Change in Speech, Confusion, Seizures, Other - Medications/Allergies Allergies/Adverse Reactions: Allergies Allergy/AdvReac Type Severity Reaction Status Date / Time No Known Drug Allergies Allergy Verified 03/31/17 21:37 Medications: Current Medications Acetaminophen (Tylenol) 650 mg PO Q4H PRN PRN Reason: Headache/Fever or Pain Last Admin: 04/01/17 20:25 Dose: 650 mg Hydrocodone Bitart/Acetaminophen ([place] 5/325) 1 tab PO Q4H PRN PRN Reason: Moderate Pain (4-6) Albuterol Sulfate (Ventolin) 2.5 mg NEB Q2H PRN PRN Reason: SOB &/or Wheezing Albuterol/Ipratropium (Duoneb) 3 ml NEB A8CG-HB [facility] Last Admin: 04/02/17 09:31 Dose: 3 ml Aspirin (Ecotrin) 325 mg PO DAILY [facility] Last Admin: 04/02/17 08:01 Dose: 325 mg Atorvastatin Calcium (Lipitor) 40 mg PO HS [facility] Last Admin: 04/01/17 20:24 Dose: 40 mg Bisacodyl (Dulcolax) 10 mg PO DAILYPRN PRN PRN Reason: Constipation Last Admin: 04/02/17 12:06 Dose: 10 mg Carvedilol (Coreg) 3.125 mg PO BID-[facility] Last Admin: 04/02/17 07:58 Dose: 3.125 mg Docusate Sodium (Colace) 100 mg PO BID [facility] Last Admin: 04/02/17 07:58 Dose: 100 mg Docusate Sodium (Colace) 100 mg PO DAILY [facility] Last Admin: 04/02/17 08:04 Dose: Not Given Doxycycline Hyclate (Vibramycin) 100 mg PO BID [facility] Last Admin: 04/02/17 08:02 Dose: 100 mg Enoxaparin Sodium (Lovenox) 40 mg SC 0900 [facility] Last Admin: 04/02/17 08:03 Dose: 40 mg Famotidine (Pepcid) 20 mg SLOW IVP Q12HR [facility] Last Admin: 04/02/17 08:02 Dose: 20 mg Gabapentin (Neurontin) 300 mg PO DAILY [facility] Last Admin: 04/02/17 08:02 Dose: 300 mg Gabapentin (Neurontin) 600 mg PO HS [facility] Last Admin: 04/01/17 20:24 Dose: 600 mg Guaifenesin/Dextromethorphan (Robitussin Dm) 15 ml PO Q4H PRN PRN Reason: Cough Last Admin: 04/02/17 02:57 Dose: 15 ml Levothyroxine Sodium (Synthroid) 75 mcg PO 0600 [facility] Last Admin: 04/02/17 06:10 Dose: 75 mcg Lisinopril (Zestril) 10 mg PO BID [facility] Last Admin: 04/02/17 08:04 Dose: 10 mg Mometasone Furoate/Formoterol Fumar (Dulera 200 Mcg/5 Mcg Inhaler) 2 puff INH BID-RT [facility] Last Admin: 04/02/17 06:24 Dose: 2 puff Nicotine (Nicoderm Patch) 14 mg TD Q24HR [facility] Last Admin: 04/02/17 08:00 Dose: 14 mg Ondansetron HCl (Zofran Odt) 4 mg PO Q6H PRN PRN Reason: Nausea/Vomiting Ondansetron HCl (Zofran) 4 mg IVP Q6H PRN PRN Reason: Nausea/Vomiting Pramipexole Dihydrochloride (Mirapex) 0.25 mg PO BID [facility] Last Admin: 04/02/17 08:02 Dose: 0.25 mg Prednisone (Prednisone) 20 mg PO BID [facility] Saccharomyces Boulardii (Florastor) 250 mg PO DAILY [facility] Last Admin: 04/02/17 08:01 Dose: 250 mg Sodium Chloride (Flush - Normal Saline) 10 ml IVF Q12HR [facility] Last Admin: 04/02/17 08:04 Dose: 10 ml Sodium Chloride (Flush - Normal Saline) 10 ml IVF PRN PRN PRN Reason: Saline Flush Tramadol HCl (Ultram) 50 mg PO Q6H PRN PRN Reason: Pain Trazodone HCl (Desyrel) 100 mg PO HS [facility] Last Admin: 04/01/17 20:25 Dose: 100 mg
--- NOTE | 2017-04-02 14:39 | PQF ---
Date: 04-02-17 ATTN: DR. ROSAURA FARAH Please exercise your independent, professional judgment in responding to the clarification form. Clinical indicators are provided on the bottom of this form for your review Please check appropriate box(s): [X ] Protein Calorie Malnutrition: [ ] Mild [ X] Moderate [ ] Cachexia [ ] Other diagnosis [ ] Unable to determine In addition, please specify: Present on Admission (POA): [X ] Yes [ ] No [ ] Unable to determine CLINICAL INDICATORS - SIGNS / SYMPTOMS / LABS BMI of 16.3 WASTE SPECIALIST CONSULT 04-01-17: The pt notes her appetite was low at home for a couple of weeks, but it has improved since admit. She denies having any GI issues, just says she was not hungry.1 year ago she weighed 125# and she has lost down to 94-96# slowly over time. At home she takes 3 Ensure per day, POOR APPETITE, 22% wt loss in last 1 year, poor intake for last 2 weeks RISK FACTORS: H&P: HX OF COPD, SMOKER WASTE SPECIALIST CONSULT 04-01-17: CAD, restless leg syndrome, hypothyroidism, HTN, hyperlipidemia, COPD, osteoarthritis in both hips, chronic cystitis, peripheral artery disease TREATMENT:WASTE SPECIALIST CONSULT 04-01-17: DIETARY CONSULT: 22% wt loss in last 1 year, poor intake for last 2 weeks (This form is maintained as a part of the permanent medical record) 2014 [employer], [employer]. All Rights Reserved [email or web address] Office: [phone] [facility]
[2017-04-02] MEDS: traMADol HCl 50 MG TAB PO PRN (16:30)
[2017-04-02] MEDS: traZODone HCl 50 MG TAB PO SCH (20:50)
[2017-04-02] MEDS: Atorvastatin Calcium 40 MG TAB PO SCH (20:51)
[2017-04-02] MEDS: predniSONE 20 MG TAB PO SCH (20:51)
[2017-04-03] MEDS: traMADol HCl 50 MG TAB PO PRN (04:55)
[2017-04-03] MEDS: Levothyroxine Sodium 75 MCG TAB PO SCH (05:11)
[2017-04-03] MEDS: Bisacodyl 5 MG TAB PO PRN (05:11)
[2017-04-03] MEDS: Mometasone/Formoterol 120 PUFF INHALER INH SCH (07:10)
[2017-04-03] MEDS: predniSONE 20 MG TAB PO SCH (08:31)
[2017-04-03] MEDS: Gabapentin 300 MG CAP PO SCH (08:31)
[2017-04-03] MEDS: Saccharomyces boulardii 250 MG CAP PO SCH (08:31)
[2017-04-03] MEDS: Carvedilol 3.125 MG TAB PO SCH (08:32)
[2017-04-03] MEDS: Aspirin 325 mg Enteric Coated Tablet PO SCH (08:32)
[2017-04-03] MEDS: Docusate 100 MG CAP PO SCH ×2 (08:32→11:11)
[2017-04-03] MEDS: Lisinopril 10 MG TAB PO SCH (08:32)
[2017-04-03] MEDS: Pramipexole Di-HCl 0.25 MG TAB PO SCH (08:33)
[2017-04-03] MEDS: Doxycycline 100 MG CAP PO SCH (08:33)
[2017-04-03] MEDS: Enoxaparin Sodium 40 MG/0.4 ML SYRINGE SC SCH (08:33)
[2017-04-03] MEDS: Famotidine/PF 20 mg/2ml Vial SLOW IVP SCH (08:33)
[2017-04-03] MEDS: Nicotine 14 MG PATCH TD SCH (08:40)
--- NOTE | 2017-04-03 09:49 | PRG ---
DATE OF SERVICE: 04/03/2017 This morning she is awake, alert, responsive. She is better. She wants to go home. PHYSICAL EXAMINATION: VITAL SIGNS: Sats are 90% on 2 liters, blood pressure 104/67, temperature 97, respirations 18. CHEST: Chest reveals decreased breath sounds, no wheezing. CARDIAC: Normal S1, S2. ABDOMEN: Soft, no masses. IMPRESSION: 1. Chronic obstructive pulmonary disease exacerbation. 2. Bronchitis. PLAN: She can be discharged home today on oral antibiotics, tapering dose of steroids. Follow up wi th her primary care physician and Dr. Vickers.
[2017-04-03 11:33] VITALS: BP 129/79; TEMP 97.1
--- NOTE | 2017-04-03 21:43 | DIS ---
DATE OF ADMISSION: 03/31/2017 DATE OF DISCHARGE: 04/03/2017 CONDITION AT THE TIME OF DISCHARGE: Stable and improved. DISCHARGE DISPOSITION: Home with home health. PRIMARY CARE PHYSICIAN: Dr. Roseanna Faust. PRIMARY NITRO MAN: Dr. Yves Vickers. DISCHARGE MEDICATIONS: Doxycycline 100 mg p.o. b.i.d., Advair Diskus 250/50 one inhalation b.i.d., D uoNebs as needed, Medrol Dosepak nebulizers as needed, nicotine patch 14 mg daily. PROCEDURE DONE IN THE HOSPITAL: Chest x-ray. CONSULTATIONS: Pulmonary Medicine, Dr. Vickers and Dr. Fountain. DISCHARGE DIAGNOSES: 1. Acute respiratory failure due to acute chronic obstructive pulmonary disease exacerbation. 2. Chronic respiratory failure on home oxygen. 3. Dyslipidemia. 4. Coronary artery disease. 5. Hypertension. 6. Hypothyroidism. 7. Moderate protein calorie malnutrition. HISTORY OF PRESENTING ILLNESS: Ms. Carias is a very pleasant 77-year-old female with a [facility] history of coronary artery disease, status post stenting, hypothyroidism, dyslipidemia, hypertensi on, COPD on chronic home oxygen of 2 liters, who presented to the emergency room with complaints of w orsening shortness of breath. She tried to take nebulizer treatment at home which did not work. She tried her steroids which did not work and she came to the ER. Upon presentation to the ER, her oxyg en saturation was 88% on room air and she was somewhat tachypneic with a respiratory rate of 22-25. Her situation improved with nebulizers, was admitted with a presumptive diagnosis of acute respirator y failure due to acute chronic obstructive pulmonary disease exacerbation. She was started on nebuli zer as well as IV steroids and all the supportive care. Pulmonary Medicine was consulted. She is a patient of Dr. Vickers as an outpatient. HOSPITAL COURSE: The patient had significant improvement over the course of the next few days. She was seen by Pulmonary Medicine and they followed along. Eventually the patient was back to her [facility] [place] and was cleared for discharge by Dr. Vickers this morning. She was seen and examined prior to discharge. Home health has been arranged for her. PHYSICAL EXAMINATION: This morning includes, VITAL SIGNS: Temperature 97.1, pulse of 71, respirations 16, saturating 94% on 2 liters oxygen, blo od pressure 129/79. GENERAL: No acute distress, awake, alert, oriented. CHEST: Clear to auscultation with very few rhonchi without any significant wheezes. Rate and rhythm is regular. NEUROLOGICAL: Nonfocal. She is awake, alert, oriented x3, in no acute respiratory distress. LABORATORY DATA: CBC unremarkable. Serum chemistries show sodium 134, blood sugar 127. BNP is 108. Blood culture negative x2 till date. Respiratory culture without any organisms. At this time, she will follow up with primary care physician as an outpatient and finish the course o f antibiotics and oral steroids as an outpatient as well. She will also follow with Pulmonary Medici ne as an outpatient basis. Discharge plan was discussed with the patient who verbalized yung goldman
== END 2017-04-03 14:41 | disposition home health service (06) | DRG 189 ==
LOC: ERS 14:29 → T4-A 21:32
PROVIDERS: ADMIT Family Medicine; ATTEND Family Medicine
DX: J96.20 Acute and chronic respiratory failure, unspecified whether with hypoxia or hypercapnia (principal); E44.0 Moderate protein-calorie malnutrition; Z99.81 Dependence on supplemental oxygen; J44.1 Chronic obstructive pulmonary disease with (acute) exacerbation; Z68.1 Body mass index [BMI] 19.9 or less, adult; E78.5 Hyperlipidemia, unspecified; F17.210 Nicotine dependence, cigarettes, uncomplicated; Z95.5 Presence of coronary angioplasty implant and graft; I10 Essential (primary) hypertension; I25.10 Atherosclerotic heart disease of native coronary artery without angina pectoris; E03.9 Hypothyroidism, unspecified; Z86.73 Personal history of transient ischemic attack (TIA), and cerebral infarction without residual deficits; G25.81 Restless legs syndrome; M16.0 Bilateral primary osteoarthritis of hip; I73.9 Peripheral vascular disease, unspecified; H35.30 Unspecified macular degeneration
CPT/HCPCS: 36415; 71045; 80048; 80053; 82553; 83880; 84484; 85025; 87040; 87070; 87205; 93005; 94640; 94664; 96365; 96375; A4216; G8978-GP-CJ; G8979-GP-CJ; G8980-GP-CJ; G8987-GO-CI; G8988-GO-CI; G8989-GO-CI; J1650; J2920; J2930; J3475; J7506; J7620; S0028

== ENCOUNTER 2017-05-29 16:32 | Inpatient (IN) | payer MEDICARE ==
[~2017-05-29 16:32] MED LIST: ISOVUE-370 76%-LOCM 1 ML ONE
[2017-05-29 17:11] LABS: #Eosinphils 0.2 thou/uL (0.0-0.7); #Lymphocytes 0.4 thou/uL (1.20-3.40); #Monocytes 0.5 thou/uL (0.11-0.59); #Neutrophils 12.2 thou/uL (1.40-6.50); %Basophils 0.2 % (0.0-1.0); %Eosinophils 1.4 % (0.0-10.0); %Lymphocytes 3.2 % (21.0-51.0); %Monocytes 3.9 % (0.0-10.0); %Neutrophils 91.3 % (42.0-75.0); Hemoglobin 13.7 g/dL (12.0-16.0); Mean Corpuscular HGB CONC 33.9 g/dL (32.0-36.0); Mean Corpuscular Hemoglobin 33.8 pg (27.0-31.0); Mean Corpuscular Volume 99.7 fl (81.0-99.0); Mean Platelet Volume 8.1 fL (7.4-10.4); Platelet Count 166 thou/uL (130-400); Red Blood Cell (RBC) Count 4.05 mill/uL (4.20-5.40); White Blood Cell (WBC) Count 13.3 thou/uL (4.8-10.8)
[2017-05-29 17:34] LABS: Lactic Acid 1.7 mmol/L (0.5-2.2)
[2017-05-29 17:38] LABS: ALT (SGPT) 18 U/L (8-55); AST (SGOT) 25 U/L (5-34); Alkaline Phosphatase 112 U/L (40-150); Anion Gap 14 mmol/L (10-20); BUN (Urea Nitrogen) 19 mg/dL (9.8-20.1); Bilirubin, Total 0.6 mg/dL (0.2-1.2); CK (CPK) 64 U/L (29-168); Calc. Creatinine Clearance 0 mL/min (70-130); Calcium 9.1 mg/dL (7.8-10.44); Carbon Dioxide 26 mmol/L (23-31); Chloride 95 mmol/L (98-107); Estimated GFR-MDRD 90; Globulin 2.6 g/dL (2.4-3.5); Glucose 105 mg/dL (83-110); Potassium 4.2 mmol/L (3.5-5.1); Protein, Total 6.6 g/dL (6.0-8.3); Sodium 131 mmol/L (136-145)
[2017-05-29 17:40] LABS: CKMB 1.4 ng/mL (0-6.6); Troponin I Less than 0.010 ng/mL (< 0.028)
[2017-05-29] MEDS ORDERED: Acetaminophen 500 MG TAB ONE (18:15)
[2017-05-29] MEDS ORDERED: Piperacillin/Tazobactam 3.375 GM in Sodium Chloride 0.9% 100 ML IVPB SCH (18:30)
--- NOTE | 2017-05-29 20:43 | RAD ---
PORTABLE CHEST: 05/29/17 HISTORY: Dyspnea. Shortness of breath. COMPARISON: 03/31/17. Diffuse interstitial prominence again seen throughout both lungs. This is a stable finding. No new in filtrate or atelectasis seen. Heart is mildly enlarged and stable. The aortic calcification and hilar node calcification again noted. IMPRESSION: Interstitial markings again noted. The chest findings are stable from prior exam. POS: TE
--- NOTE | 2017-05-29 21:30 | CT ---
CT PULMONARY ANGIO OF CHEST WITH CONTRAST: 05/29/17 Multiple axial tomograms were obtained through the chest following pulmonary angio protocol. Multipla luis reconstruction. Postprocessing obtained. HISTORY: Cough, dyspnea, COPD, fever. Pulmonary arteries show adequate opacification. No evidence of pulmonary embolus identified. The lungs show severe chronic change with bullous changes and hyperexpansion. No interstitial thicken ing. Early honeycombing. Bullous changes are prominent in the posterior lung bases. There is a focal area of patchy infiltrate in the posterior right lung base abutting the diaphragm. T his could represent inflammatory infiltrate given history of fever. Mild linear atelectasis in the left lung base. Mediastinum unremarkable. Images through upper abdomen unremarkable. there is compression deformity involving a lower thoracic vertebra. Scoliotic curvature of the upper thoracic spine. The thoracic aorta shows atherosclerotic change but no evidence of dissection or aneurysmal dilatatio n. IMPRESSION: 1. No evidence of pulmonary embolus. 2. Severe chronic lung changes. 3. Patchy infiltrate in the right lung base abutting the diaphragm worrisome for pneumonia given history of fever. POS: [facility]
[2017-05-29] MEDS ORDERED: Ondansetron HCl/PF 4 MG/2 ML Vial IVP PRN (21:37)
[2017-05-29] MEDS ORDERED: Acetaminophen 325 MG TAB PO PRN (21:37)
[2017-05-29] MEDS ORDERED: Ondansetron ODT 4 MG TAB SL PRN (21:37)
[2017-05-29] MEDS ORDERED: traZODone HCl 50 MG TAB PO SCH (23:00)
[2017-05-29] MEDS ORDERED: Gabapentin 300 MG CAP PO SCH (23:00)
[2017-05-29] MEDS ORDERED: tiZANidine HCl 4 MG TAB PO SCH (23:00)
[2017-05-29] MEDS ORDERED: Melatonin 3 MG TAB PO SCH (23:00)
[2017-05-29] MEDS ORDERED: Pramipexole Di-HCl 0.25 MG TAB PO SCH (23:59)
[2017-05-30 00:19] VITALS: BMI 21.7
[2017-05-30] MEDS ORDERED: Acetaminophen 325 MG TAB PO PRN (01:31)
[2017-05-30] MEDS ORDERED: Mag-Al 1200 mg/1200 mg/30 ML UDCUP PO PRN (01:31)
[2017-05-30] MEDS ORDERED: traMADol HCl 50 MG TAB PO PRN (01:31)
[2017-05-30] MEDS ORDERED: Senokot 8.6 MG TAB PO PRN (01:31)
[2017-05-30] MEDS ORDERED: Guaifenesin DM 100-10/5 ML UDCUP PO PRN (01:31)
[2017-05-30] MEDS ORDERED: Calcium Carbonate 500 MG ChewTAB PO PRN (01:31)
--- NOTE | 2017-05-30 03:21 | HP ---
REASON FOR ADMISSION: COPD exacerbation, right lung pneumonia. HISTORY OF PRESENT ILLNESS: The patient gives history of having fever, shaking chills, and shortness of breath with feeling of freezing from yesterday evening. On arrival, she had temperature of 100 degrees here. She has a cough with expectoration of clear sputum. The patient is normally on 2 liters nasal cannula at bedtime, but has been using it during daytime as well. She has been using her nebulizer 4 times a day. She has no complaints of urinary frequency or urgency. No complaints of chest pain or palpitation. PAST MEDICAL AND SURGICAL HISTORY: History of COPD on home oxygen, coronary artery disease with prior stent, restless leg syndrome, hypertension, dyslipidemia, hypothyroidism, COPD on home oxygen, osteoarthritis, peripheral vascular disease, cholecystectomy, right inguinal hernia repair, spine surgery, coronary artery disease with cardiac catheterization done on 08/06/2016. CURRENT MEDICATIONS: The patient is on aspirin 325 mg p.o. daily, Lipitor 40 mg p.o. daily, Coreg 3.125 mg p.o. twice daily, Colace 100 mg p.o. daily, Advair Diskus 250/50 mcg inhaler twice daily, Breo Ellipta inhaler daily, gabapentin 600 mg at bedtime, hydrochlorothiazide 25 mg daily, DuoNeb 4 times daily p.r.n., levothyroxine 75 mcg daily, lisinopril 10 mg twice daily, melatonin 5 mg p.o. at bedtime, MiraLax 17 grams daily, pramipexole 0.25 mg p.o. twice daily, tizanidine p.r.n., Ultram p.r.n., trazodone 100 mg p.o. at bedtime. ALLERGIES: No known drug allergies. PERSONAL HISTORY: Smokes one pack a day. Does not abuse alcohol or drugs. She stays with her daughter. The patient states she quit smoking for 3 years, but started back after her a year and three months back. FAMILY HISTORY: Mother of old age at the age of 78 years. Father had unknown cancer and in his 70s. REVIEW OF SYSTEMS: The following complete review of systems was negative, unless otherwise mentioned in the HPI or below: Constitutional: Weight loss or gain, ability to conduct usual activities. Skin: Rash, itching. Eyes: Double vision, pain. ENT/Mouth: Nose bleeding, neck stiffness, pain, tenderness. Cardiovascular: Palpitations, dyspnea on exertion, orthopnea. Respiratory: Shortness of breath, wheezing, cough, hemoptysis, fever or night sweats. Gastrointestinal: Poor appetite, abdominal pain, heartburn, nausea, vomiting, constipation, or diarrhea. Genitourinary: Urgency, frequency, dysuria, nocturia. Musculoskeletal: Pain, swelling. Neurologic/Psychiatric: Anxiety, depression. Allergy/Immunologic: Skin rash, bleeding tendency. CODE STATUS: DNR, this was confirmed with patient at bedside. PHYSICAL EXAMINATION: GENERAL: The patient is a 77-year-old female who is currently not in any acute distress. VITAL SIGNS: Blood pressure 136/64, pulse 100 per minute, respiratory rate 24 per minute, temperature 100.3 degrees Fahrenheit, saturating 98% on 3 liters nasal cannula. NECK: Supple, no elevated JVD. HEENT: Eyes: Extraocular muscles intact. Pupils reacting to light. Oral cavity mucous membranes are moist. No exudates or congestion. CARDIOVASCULAR SYSTEM: S1, S2 heard. Regular rhythm. RESPIRATORY SYSTEM: Air entry 1+ bilateral. Scattered wheezes plus bilateral. ABDOMEN: Soft, bowel sounds heard. No tenderness, rigidity or guarding. EXTREMITIES: There is mild peripheral edema, no calf tenderness. VASCULAR SYSTEM: Peripheral pulses 1+ bilateral, no ischemic ulcerations or gangrene. CENTRAL NERVOUS SYSTEM: No gross focal deficits noted. The patient is alert, awake, and oriented well. PSYCHIATRIC SYSTEM: The patient's mood is euthymic. No hallucinations or delusions. LABORATORY DATA AND X-RAY FINDINGS: CT angio chest done shows no evidence of PE. There are chronic lung changes seen, this suspected patchy infiltrate at the right lung base. Sodium 131, potassium 4.2, serum bicarbonate 26, BUN 19, creatinine 0.6, glucose 105. Liver enzymes within normal limits. Cardiac enzymes are negative. Albumin is 4.0. Influenza A and B antigens are negative. Lactic acid is 1.7. White count of 13, H and H 13 and 40, platelet count 166 with 91% neutrophils, MCV is 99. EKG done shows sinus tachycardia at 126 beats per minute. CLINICAL IMPRESSION AND PLAN: The patient will be admitted to telemetry for acute on chronic obstructive pulmonary disease exacerbation with likely right lung pneumonia. Blood cultures have been obtained in the ER. She will be placed on Levaquin along with DuoNebs. She will also have steroid in view of her history of chronic obstructive pulmonary disease on home oxygen. It is unclear if patient is steroid dependent at home. We will consult Dr. Vickers, her microbiology teacher during her stay here. She will also continue her aspirin, Lipitor , Coreg, Colace, Neurontin, Synthroid, melatonin, MiraLax, Mirapex, Ultram and trazodone as before. Code status was discussed with the patient and she would like to be a DNR. The patient can most likely be transferred to medical floor once she is more stable today. Please note I have seen and examined the patient on 05/29/2017. VILMA
[2017-05-30 05:46] LABS: Anion Gap 11 mmol/L (10-20); BUN (Urea Nitrogen) 21 mg/dL (9.8-20.1); Calc. Creatinine Clearance 61 mL/min (70-130); Calcium 8.2 mg/dL (7.8-10.44); Carbon Dioxide 26 mmol/L (23-31); Chloride 97 mmol/L (98-107); Estimated GFR-MDRD 87; Glucose 111 mg/dL (83-110); Potassium 3.9 mmol/L (3.5-5.1); Sodium 130 mmol/L (136-145)
[2017-05-30] MEDS: Levothyroxine Sodium 75 MCG TAB PO SCH (05:48)
[2017-05-30 05:57] LABS: Band 15 % (5-11); Eosinophils 1 % (0-10); Hemoglobin 11.4 g/dL (12.0-16.0); Lymphocytes 4 % (21-51); MDiff Complete? YES; Mean Corpuscular HGB CONC 32.7 g/dL (32.0-36.0); Mean Corpuscular Hemoglobin 33.5 pg (27.0-31.0); Mean Platelet Volume 8.7 fL (7.4-10.4); Monocytes 3 % (0-10); Neutrophil 76 % (42-75); Platelet Count 158 thou/uL (130-400); RBC Distribution Width 11.9 % (11.5-14.5); Reactive Lymphocytes 1 % (0-10); White Blood Cell (WBC) Count 19.6 thou/uL (4.8-10.8)
[2017-05-30] MEDS: Carvedilol 3.125 MG TAB PO SCH ×2 (08:52→17:27)
[2017-05-30] MEDS: Gabapentin 300 MG CAP PO SCH ×2 (08:52→21:11)
[2017-05-30] MEDS: Famotidine 20 MG TAB PO SCH ×2 (08:52→21:10)
[2017-05-30] MEDS: Atorvastatin Calcium 40 MG TAB PO SCH (08:52)
[2017-05-30] MEDS: Pramipexole Di-HCl 0.25 MG TAB PO SCH ×2 (08:53→21:09)
[2017-05-30] MEDS: Saccharomyces boulardii 250 MG CAP PO SCH (08:53)
[2017-05-30] MEDS: Docusate 100 MG CAP PO SCH (08:53)
[2017-05-30] MEDS: Polyethylene Glycol 3350 17 GM Packet PO SCH (08:53)
[2017-05-30] MEDS: Aspirin 325 mg Enteric Coated Tablet PO SCH (08:53)
[2017-05-30] MEDS: Enoxaparin Sodium 30 MG/0.3 ML SYRINGE SC SCH (08:54)
[2017-05-30] MEDS: Nicotine 21 MG PATCH TD SCH (08:54)
[2017-05-30] MEDS ORDERED: Vancomycin HCl 1.5 GM in Sodium Chloride 0.9% 250 ML 300 ML IVPB ONE (11:50)
[2017-05-30] MEDS ORDERED: cefTRIAXone Sodium 2 MG in Syringe 0 ML IVPB SCH (12:00)
[2017-05-30] MEDS: Vancomycin HCl 500 MG in Sodium Chloride 0.9% 100 ML IVPB SCH (12:36)
[2017-05-30] MEDS: cefTRIAXone\\ROCEPHIN 2 GM in Sodium Chloride 0.9% 100 ML IVPB SCH (12:40)
--- NOTE | 2017-05-30 12:59 | CON ---
DATE OF CONSULTATION: 05/30/2017 HISTORY: A 77-year-old female admitted with chronic obstructive pulmonary disease exacerbation, vijaya mathew. She is well known to me, has severe end-stage chronic obstructive pulmonary disease. She de nies any chest pain, chills, sweats, hemoptysis. In fact, she was just recently discharged from the hospital, no more than several months ago. X-ray on admission shows no acute infiltrates. A CT of t he chest was done to rule out pulmonary emboli, shows no evidence of any infiltrates, questionable so me scarring in the bibasilar areas, left greater than right. Her sputum is clear. The patient on can barely walk even 20 feet without getting markedly short of breath. PAST MEDICAL HISTORY: Pertinent otherwise for COPD, coronary artery disease, reflux, restless leg. PAST SURGICAL HISTORY: Previous cardiac cath, gallbladder surgery, cataract surgery. MEDICATIONS FROM HOME: Includes trazodone 100, tramadol, tizanidine 4, Spiriva inhaler, Mirapex 0.25 , nicotine patch, nebulizer, lisinopril 10, Synthroid 75, hydrochlorothiazide 25 Advair inhaler, Core g 3.25, aspirin. ALLERGIES: None. SOCIAL/FAMILY HISTORY: Tobacco abuse. It is unclear whether she is going to quit smoking. Alcohol: None. REVIEW OF SYSTEMS: Otherwise, 10 point negative. Please note I reviewed her old x-rays and chart personally. No family members to get additional info rmation. PHYSICAL EXAMINATION: VITAL SIGNS: Blood pressure is 102/52, sats are 98 on 3 liters, temperature 97, pulse 88. CHEST: Chest revealed diffuse wheezing. CARDIAC: Normal S1, S2. No gallops. ABDOMEN: Soft, no masses. LABORATORY: White count 19,000, H&H 9 and 34, platelet count is 158. Electrolytes are normal. Sodi um was 130. Influenza titer was negative. IMPRESSION: 1. Chronic obstructive pulmonary disease exacerbation. 2. Bronchitis. 3. Tobacco abuse. 4. Coronary disease. 5. Severe deconditioning. PLAN: She has scheduled neb treatments, antibiotic, Synthroid, steroids. I added Dulera. Prognosis is guarded. She is to refrain from smoking. She is a full code. This is a consultation note, 70 minutes, 50% of that time was with direct patient care.
[2017-05-30] MEDS: Mometasone/Formoterol 120 PUFF INHALER INH SCH (19:22)
--- NOTE | 2017-05-30 20:10 | PDOC.PN ---
- Subjective Encounter Start Date: 05/30/17 Encounter Start Time: 12:45 Subjective: pt up in bed appears ill - Objective Resuscitation Status: Resuscitation Status DNR:Do Not Resuscitate Vital Signs & Weight: Vital Signs (12 hours) Temp Pulse Resp BP BP Pulse Ox 05/30/17 19:26 92 L 05/30/17 19:24 93 L 05/30/17 19:22 94 L 05/30/17 16:11 97.3 F L 86 14 98/60 91 L 05/30/17 15:45 97.5 F L 70 18 103/59 L 90 L 05/30/17 13:20 90 14 05/30/17 12:09 98.1 F 80 16 117/59 L 88 L Weight Weight 118 lb 6.4 oz I&O: 05/29/17 05/30/17 05/31/17 06:59 06:59 06:59 Intake Total 1050 240 Output Total 450 Balance 600 240 Result Diagrams: 05/30/17 04:31 05/30/17 04:31 Phys Exam - Physical Examination HEENT: PERRLA Neck: no nodes Respiratory: wheezing present mild rhonchi all over Cardiovascular: RRR Gastrointestinal: soft, non-tender Musculoskeletal: no edema, pulses present Neurological: non-focal Dx/Plan - Plan * 1) sepsis * 2) pna * 3) bactremia * 4) copd exab secondary to pna * * plan: pt's blood cx positive for strep pneumonia. will change abx and consult id. pt still smokes recommended not stop. pt has a nicotine patch on. will continue iv steroids bid. pt on duonebs. Review of Systems - Review of Systems ENT: negative: Ear Pain, Ear Discharge, Nose Pain, Nose Discharge, Nose Congestion, Mouth Pain, Mouth Swelling, Throat Pain, Throat Swelling, Other Respiratory: Shortness of Breath Cardiovascular: negative: chest pain, palpitations, orthopnea, paroxysmal nocturnal dyspnea, edema, light headedness, other Gastrointestinal: negative: Nausea, Vomiting, Abdominal Pain, Diarrhea, Constipation, Melena, Hematochezia, Other - Medications/Allergies Allergies/Adverse Reactions: Allergies Allergy/AdvReac Type Severity Reaction Status Date / Time No Known Drug Allergies Allergy Verified 05/29/17 22:09 Medications: Current Medications Acetaminophen (Tylenol) 650 mg PO Q4H PRN PRN Reason: Headache/Fever or Pain Last Admin: 05/30/17 15:52 Dose: 650 mg Al Hydroxide/Mg Hydroxide (Maalox) 30 ml PO Q6H PRN PRN Reason: Heartburn or Indigestion Albuterol/Ipratropium (Duoneb) 3 ml NEB [id number] [facility] Last Admin: 05/30/17 19:24 Dose: 3 ml Aspirin (Ecotrin) 325 mg PO DAILY [facility] Last Admin: 05/30/17 08:53 Dose: 325 mg Atorvastatin Calcium (Lipitor) 40 mg PO DAILY [facility] Last Admin: 05/30/17 08:52 Dose: 40 mg Calcium Carbonate (Tums) 1,000 mg PO Q4H PRN PRN Reason: Heartburn or Indigestion Carvedilol (Coreg) 3.125 mg PO BID-[facility] Last Admin: 05/30/17 17:27 Dose: 3.125 mg Docusate Sodium (Colace) 100 mg PO DAILY [facility] Last Admin: 05/30/17 08:53 Dose: 100 mg Enoxaparin Sodium (Lovenox) 30 mg SC 0900 [facility] Last Admin: 05/30/17 08:54 Dose: 30 mg Famotidine (Pepcid) 20 mg PO BID [facility] Last Admin: 05/30/17 08:52 Dose: 20 mg Gabapentin (Neurontin) 300 mg PO DAILY [facility] Last Admin: 05/30/17 08:52 Dose: 300 mg Gabapentin (Neurontin) 600 mg PO HS [facility] Guaifenesin/Dextromethorphan (Robitussin Dm) 15 ml PO Q4H PRN PRN Reason: Cough Ceftriaxone Sodium 2 gm/ (Sodium Chloride) 100 mls @ 200 mls/hr IVPB Q24HR [facility] Stop: 06/04/17 23:59 Last Admin: 05/30/17 12:40 Dose: 100 mls Vancomycin HCl 500 mg/ Sodium (Chloride) 100 mls @ 100 mls/hr IVPB 0100,1300 [facility] Last Admin: 05/30/17 12:36 Dose: 100 mls Levothyroxine Sodium (Synthroid) 75 mcg PO 0600 [facility] Last Admin: 05/30/17 05:48 Dose: 75 mcg Melatonin (Melatonin) 6 mg PO [facility] Methylprednisolone Sodium Succinate (Solu-Medrol) 40 mg IVP BID [facility] Miscellaneous Medication (Pharmacy To Dose) 1 each IVPB ONE PRN PRN Reason: Pharmacy to dose Stop: 06/29/17 11:46 Mometasone Furoate/Formoterol Fumar (Dulera 200 Mcg/5 Mcg Inhaler) 2 puff INH BID-RT [facility] Last Admin: 05/30/17 19:22 Dose: 2 puff Nicotine (Nicoderm Patch) 21 mg TD 0900 [facility] Last Admin: 05/30/17 08:54 Dose: 21 mg Polyethylene Glycol (Miralax) 17 gm PO DAILY [facility] Last Admin: 05/30/17 08:53 Dose: 17 gm Pramipexole Dihydrochloride (Mirapex) 0.25 mg PO BID [facility] Last Admin: 05/30/17 08:53 Dose: 0.25 mg Saccharomyces Boulardii (Florastor) 250 mg PO DAILY [facility] Last Admin: 05/30/17 08:53 Dose: 250 mg Senna (Senokot) 2 tab PO HSPRN PRN PRN Reason: Constipation Tramadol HCl (Ultram) 50 mg PO Q6H PRN PRN Reason: Pain Last Admin: 05/30/17 15:51 Dose: 50 mg Trazodone HCl (Desyrel) 100 mg PO HS [facility]
[2017-05-30] MEDS: Melatonin 3 MG TAB PO SCH (21:09)
[2017-05-30] MEDS: traZODone HCl 50 MG TAB PO SCH (21:10)
[2017-05-30] MEDS ORDERED: diphenhydrAMINE 25 MG CAP PO SCH (22:00)
[2017-05-31] MEDS: Vancomycin HCl 500 MG in Sodium Chloride 0.9% 100 ML IVPB SCH (00:35)
[2017-05-31] MEDS: Levothyroxine Sodium 75 MCG TAB PO SCH (05:25)
[2017-05-31] MEDS: Mometasone/Formoterol 120 PUFF INHALER INH SCH ×2 (06:30→19:40)
[2017-05-31] MEDS: Saccharomyces boulardii 250 MG CAP PO SCH (08:44)
[2017-05-31] MEDS: Polyethylene Glycol 3350 17 GM Packet PO SCH (08:44)
[2017-05-31] MEDS: Enoxaparin Sodium 30 MG/0.3 ML SYRINGE SC SCH (08:44)
[2017-05-31] MEDS: Nicotine 21 MG PATCH TD SCH (08:44)
[2017-05-31] MEDS: Docusate 100 MG CAP PO SCH (08:44)
[2017-05-31] MEDS: Carvedilol 3.125 MG TAB PO SCH ×2 (08:45→17:27)
[2017-05-31] MEDS: Gabapentin 300 MG CAP PO SCH ×2 (08:45→21:39)
[2017-05-31] MEDS: Aspirin 325 mg Enteric Coated Tablet PO SCH (08:45)
[2017-05-31] MEDS: Atorvastatin Calcium 40 MG TAB PO SCH (08:45)
[2017-05-31] MEDS: Famotidine 20 MG TAB PO SCH ×2 (08:45→21:40)
[2017-05-31] MEDS: Pramipexole Di-HCl 0.25 MG TAB PO SCH ×2 (09:15→21:41)
[2017-05-31] MEDS: cefTRIAXone\\ROCEPHIN 2 GM in Sodium Chloride 0.9% 100 ML IVPB SCH (12:12)
--- NOTE | 2017-05-31 14:02 | PDOC.PN ---
- Subjective Encounter Start Date: 05/31/17 Encounter Start Time: 11:45 Subjective: pt up in bed no complains today - Objective Resuscitation Status: Resuscitation Status DNR:Do Not Resuscitate Vital Signs & Weight: Vital Signs (12 hours) Temp Pulse Resp BP BP Pulse Ox 05/31/17 13:34 72 24 H 05/31/17 12:10 98.0 F 73 18 143/72 H 94 L 05/31/17 08:40 97.9 F 77 18 105/59 L 93 L 05/31/17 06:30 84 20 92 L 05/31/17 06:15 92 L 05/31/17 06:11 64 20 92 L 05/31/17 04:15 97.4 F L 80 13 110/55 L 93 L Weight Weight 118 lb I&O: 05/30/17 05/31/17 06/01/17 06:59 06:59 06:59 Intake Total 1050 640 Output Total 450 Balance 600 640 Result Diagrams: 05/30/17 04:31 05/30/17 04:31 Phys Exam - Physical Examination HEENT: PERRLA Neck: no nodes Respiratory: wheezing present mild rhonchi all over lungs Cardiovascular: RRR, no significant murmur Gastrointestinal: soft, non-tender Musculoskeletal: no edema Dx/Plan - Plan * . 1) sepsis * 2) pna * 3) bactremia * 4) copd exab secondary to pna * 5) smoking cessation * * plan: pt's blood cx positive for strep pneumonia. will change abx and consult id. pt still smokes recommended not stop. pt has a nicotine patch on. will continue iv steroids bid. pt on duonebs. * 05/31 pt up ambulating is doing well today. oxygen at 3L which is at baseline. pt uses oxygen 3L at night and prn day time. pt on ceftriaxone Review of Systems - Review of Systems Eyes: negative: Pain, Vision Change, Conjunctivae Inflammation, Eyelid Inflammation, Redness, Other ENT: negative: Ear Pain, Ear Discharge, Nose Pain, Nose Discharge, Nose Congestion, Mouth Pain, Mouth Swelling, Throat Pain, Throat Swelling, Other Respiratory: negative: Cough, Dry, Shortness of Breath, Hemoptysis, SOB with Excertion, Pleuritic Pain, Sputum, Wheezing Cardiovascular: negative: chest pain, palpitations, orthopnea, paroxysmal nocturnal dyspnea, edema, light headedness, other - Medications/Allergies Allergies/Adverse Reactions: Allergies Allergy/AdvReac Type Severity Reaction Status Date / Time No Known Drug Allergies Allergy Verified 05/29/17 22:09 Medications: Current Medications Acetaminophen (Tylenol) 650 mg PO Q4H PRN PRN Reason: Headache/Fever or Pain Last Admin: 05/30/17 15:52 Dose: 650 mg Al Hydroxide/Mg Hydroxide (Maalox) 30 ml PO Q6H PRN PRN Reason: Heartburn or Indigestion Albuterol/Ipratropium (Duoneb) 3 ml NEB [id number] [facility] Last Admin: 05/31/17 13:34 Dose: 3 ml Aspirin (Ecotrin) 325 mg PO DAILY [facility] Last Admin: 05/31/17 08:45 Dose: 325 mg Atorvastatin Calcium (Lipitor) 40 mg PO DAILY [facility] Last Admin: 05/31/17 08:45 Dose: 40 mg Calcium Carbonate (Tums) 1,000 mg PO Q4H PRN PRN Reason: Heartburn or Indigestion Carvedilol (Coreg) 3.125 mg PO BID-[facility] Last Admin: 05/31/17 08:45 Dose: 3.125 mg Docusate Sodium (Colace) 100 mg PO DAILY [facility] Last Admin: 05/31/17 08:44 Dose: 100 mg Enoxaparin Sodium (Lovenox) 30 mg SC 0900 [facility] Last Admin: 05/31/17 08:44 Dose: 30 mg Famotidine (Pepcid) 20 mg PO BID [facility] Last Admin: 05/31/17 08:45 Dose: 20 mg Gabapentin (Neurontin) 300 mg PO DAILY [facility] Last Admin: 05/31/17 08:45 Dose: 300 mg Gabapentin (Neurontin) 600 mg PO HS [facility] Last Admin: 05/30/17 21:11 Dose: 600 mg Guaifenesin/Dextromethorphan (Robitussin Dm) 15 ml PO Q4H PRN PRN Reason: Cough Ceftriaxone Sodium 2 gm/ (Sodium Chloride) 100 mls @ 200 mls/hr IVPB Q24HR [facility] Stop: 06/04/17 23:59 Last Admin: 05/31/17 12:12 Dose: 100 mls Levothyroxine Sodium (Synthroid) 75 mcg PO 0600 [facility] Last Admin: 05/31/17 05:25 Dose: 75 mcg Melatonin (Melatonin) 6 mg PO HS [facility] Last Admin: 05/30/17 21:09 Dose: 6 mg Methylprednisolone Sodium Succinate (Solu-Medrol) 40 mg IVP BID [facility] Last Admin: 05/31/17 08:44 Dose: 40 mg Miscellaneous Medication (Pharmacy To Dose) 1 each IVPB ONE PRN PRN Reason: Pharmacy to dose Stop: 06/29/17 11:46 Mometasone Furoate/Formoterol Fumar (Dulera 200 Mcg/5 Mcg Inhaler) 2 puff INH BID-RT [facility] Last Admin: 05/31/17 06:30 Dose: 2 puff Nicotine (Nicoderm Patch) 21 mg TD 0900 [facility] Last Admin: 05/31/17 08:44 Dose: 21 mg Polyethylene Glycol (Miralax) 17 gm PO DAILY [facility] Last Admin: 05/31/17 08:44 Dose: 17 gm Pramipexole Dihydrochloride (Mirapex) 0.25 mg PO BID [facility] Last Admin: 05/31/17 09:15 Dose: 0.25 mg Saccharomyces Boulardii (Florastor) 250 mg PO DAILY [facility] Last Admin: 05/31/17 08:44 Dose: 250 mg Senna (Senokot) 2 tab PO HSPRN PRN PRN Reason: Constipation Tramadol HCl (Ultram) 50 mg PO Q6H PRN PRN Reason: Pain Last Admin: 05/30/17 15:51 Dose: 50 mg Trazodone HCl (Desyrel) 100 mg PO [facility] Last Admin: 05/30/17 21:10 Dose: 100 mg
--- NOTE | 2017-05-31 15:22 | CON ---
DATE OF CONSULTATION: 05/31/2017 REASON FOR CONSULTATION: Pneumonia, bacteremia. HISTORY OF PRESENT ILLNESS: A 77-year-old patient with history of COPD, on home oxygen, and still ac tively smoking as well as coronary artery disease, hypertension with new onset of fevers, shaking chi lls, and worsening dyspnea for the 24 hours prior to admission. On arrival, the patient had a BP 130 /60, pulse 100, respiratory rate 24, and temperature 100.3, O2 sat 98% on 3 liters nasal cannula O2. Pertinent findings on the exam on admission showed scattered wheezing. The remainder of the exam wa s not remarkable. A CT chest showed no evidence of pulmonary embolism, and there was a patchy infilt rate right lung base. Creatinine 0.6 and glucose 105, liver profile normal, and the white cell count of 13,000 with predominance of mature neutrophils, albumin 4.0. Patient's initial impression was po ssible decompensation of COPD with pneumonia. She was given antimicrobial therapy with Levaquin. Hu vann has now developed a positive blood culture for Streptococcus pneumoniae. The influenza nasal s wab was negative. She is sitting by the bedside at this time. Awake, oriented, in no distress. No headaches, visual symptoms, sore throat, odynophagia, dysphagia, no cough or sputum production or jan st pain, no abdominal pain or diarrhea. She is having cramps and was a little bit constipated and to ok some laxative. No neurological symptoms. PAST MEDICAL HISTORY: COPD, coronary artery disease. She is on home O2 and is still actively smokin g, history of hypertension, dyslipidemia, hypothyroidism, osteoarthritis, PVD, cholecystectomy, ingui nal hernia, spine surgery. Previous cardiac catheterization. ALLERGIES: None. MEDICATIONS: Aspirin, Lipitor, Coreg, Colace, Advair, gabapentin, hydrochlorothiazide, inhalers, lev othyroxine, lisinopril, melatonin, Marlex, pramipexole, tizanidine, trazodone, and currently in the h ospital, she is on Tylenol, Maalox, DuoNeb, Ecotrin, Lipitor, Tums, Coreg, ceftriaxone, Colace, gabap entin. SOCIAL HISTORY: The patient is still actively smoking a pack a day. Lives with daughter. FAMILY HISTORY: Noncontributory. PHYSICAL EXAMINATION: VITAL SIGNS: T-max 98.3, currently 98.0; BP 140/72; pulse 72; respirations 18-24; O2 saturation 94% on 3 liters. SKIN EXAM: No areas of skin breakdown. Peripheral IV access. She is voiding spontaneously. No lym phadenopathy. HEENT: Ocular movements conjugate. Oral cavity with no abnormalities. NECK: Supple. LUNGS: With faint wheezing, left side. No crackles. HEART: S1, S2, regular rate. No S3 or S4. ABDOMEN: Soft, not distended or tender. Bowel sounds are present. EXTREMITIES: No joint inflammatory activity. No edema. Pulses 1+ in dorsalis pedis. Cap refill is normal. Plantar responses are flexor. NEUROLOGIC: Cognitive function appears to be intact. LABORATORY DATA: White cell count is up to 19,000, hemoglobin 11, platelets 158, 76% neutrophils. S odium 131. All other elements of the chemistry is not remarkable. ASSESSMENT: Chronic obstructive pulmonary disease with still actively smoking despite being on home O2, now with community-acquired pneumonia secondary to Streptococcus pneumoniae. The patient recalls having been given a pneumococcal vaccine last year. This needs to be verified and see which type th at she received. She might be eligible for Prevnar, which is the conjugate vaccine if she received t he polysaccharide vaccine last year. If she received the Prevnar last year then she would get a deep ter with the polysaccharide this year. Continue Rocephin and eventually transition to oral antimicro bial for discharge planning depending on susceptibility profile results. No evidence of complication s at this point, such as empyema, bone or joint involvement.
--- NOTE | 2017-05-31 17:34 | PRG ---
DATE OF SERVICE: 05/31/2017 SUBJECTIVE: She states she is better this morning. She is coughing up some clear sputum. OBJECTIVE: VITAL SIGNS: Temperature is 97, sats 92% on 3 liters, respiration 18, blood pressure 130/80. CHEST: With diffuse wheezing upon expiration. CARDIAC: Normal S1, S2. ABDOMEN: Soft, no masses. IMPRESSION: 1. Streptococcus pneumonia and sepsis. 2. Chronic obstructive pulmonary disease exacerbation. 3. Ongoing tobacco abuse. PLAN: Vancomycin is being discontinued today. The Rocephin should be more than adequate. Switch ov er to oral medication tomorrow. Continue IV steroids, nebulizer treatment. We will follow.
[2017-05-31] MEDS: traZODone HCl 50 MG TAB PO SCH (21:40)
[2017-05-31] MEDS: Melatonin 3 MG TAB PO SCH (21:40)
[2017-06-01 00:25] LABS: Vancomycin, Trough 6.6 ug/mL
[2017-06-01] MEDS: Levothyroxine Sodium 75 MCG TAB PO SCH (06:07)
[2017-06-01] MEDS: Mometasone/Formoterol 120 PUFF INHALER INH SCH (07:04)
[2017-06-01] MEDS: Nicotine 21 MG PATCH TD SCH (08:04)
[2017-06-01] MEDS: Enoxaparin Sodium 30 MG/0.3 ML SYRINGE SC SCH (08:04)
[2017-06-01] MEDS: Polyethylene Glycol 3350 17 GM Packet PO SCH (08:04)
[2017-06-01] MEDS: Saccharomyces boulardii 250 MG CAP PO SCH (08:05)
[2017-06-01] MEDS: Atorvastatin Calcium 40 MG TAB PO SCH (08:05)
[2017-06-01] MEDS: Docusate 100 MG CAP PO SCH (08:05)
[2017-06-01] MEDS: Gabapentin 300 MG CAP PO SCH (08:05)
[2017-06-01] MEDS: Aspirin 325 mg Enteric Coated Tablet PO SCH (08:05)
[2017-06-01] MEDS: Pramipexole Di-HCl 0.25 MG TAB PO SCH (08:05)
[2017-06-01] MEDS: Famotidine 20 MG TAB PO SCH (08:05)
[2017-06-01] MEDS: Carvedilol 3.125 MG TAB PO SCH (08:05)
[2017-06-01] MEDS ORDERED: Cefdinir 300 MG CAP PO SCH (09:00)
[2017-06-01 09:50] VITALS: BP 135/75; TEMP 97.6
--- NOTE | 2017-06-01 14:03 | PRG ---
DATE OF SERVICE: 06/01/2017 SUBJECTIVE: She is better, less short of breath, less coughing. OBJECTIVE: VITAL SIGNS: Sats are 90% on 4 liters, respirations 22, temperature 97, pulse 80, blood pressure 130 /75. CHEST: Decreased breath sounds, no wheezing. CARDIAC: Normal S1, S2. No gallops. IMPRESSION: 1. Streptococcus pneumonia sepsis. 2. Severe chronic obstructive pulmonary disease. 3. Tobacco abuse. PLAN: Discharge home on pain medication. Follow up with primary care physician and health program specialist in next several weeks.
--- NOTE | 2017-06-01 17:19 | DIS ---
DATE OF ADMISSION: 05/29/2017 DATE OF DISCHARGE: 06/01/2017 PRIMARY DIAGNOSES: Streptococcal pneumonia, sepsis, severe chronic obstructive pulmonary disease and tobacco abuse. SECONDARY DIAGNOSES: Coronary artery disease, hypertension, hypothyroidism, chronic respiratory failure on 3 liters home oxygen, hyperlipidemia and malnutrition. HOSPITAL COURSE: A 77-year-old female who presented to the emergency room with history of fever, chills and shortness of breath, which started the day before presentation. At the emergency room, she was found to have a temperature of 100 degrees. She had a cough with clear sputum. She usually uses oxygen at nighttime, but has been increasingly using it during the day and used her nebulizer 4 times daily without much improvement in her symptoms. She had no urinary symptoms. There was no chest pain or palpitations. Physical examination was significant for reduced air entries bilaterally with scattered wheezes. Labs and x-ray findings: CT angio showed no evidence of PE. There were chronic lung changes seen with suspected patchy infiltrates at the right lung base. Influenza A and B antigens were negative. She had leukocytosis with 91% neutrophils. EKG done showed sinus tachycardia at 126 beats per minute. She was admitted for acute on chronic COPD and right lung pneumonia. Microbiology grew Streptococcal pneumonia. She was started on nebulizer therapy , steroids and antibiotics intravenously. She was eventually converted to p.o. antibiotics and deemed stable for discharge home. Infectious Disease and Pulmonology were also on board and their recommendations were greatly appreciated. On day of discharge, the patient felt she was back to her baseline and was agreeable with the plan to be sent home. DISCHARGE MEDICATIONS: Cefdinir 300 mg twice daily, guaifenesin 50 mg every 4 hours as needed for cough, prednisone 40 mg orally, tiotropium 18 mcg inhaled daily, levothyroxine 75 mcg daily, lisinopril 10 mg daily, atorvastatin 40 mg daily, pramipexole 0.25 mg twice a day, trazodone 100 mg at bedtime, gabapentin 300 mg daily, carvedilol 3.125 mg twice a day with meals, acetaminophen 500- 1000 mg orally every 6 hours as needed for pain, MiraLax 17 grams daily, melatonin 5 mg at bedtime, docusate 100 mg daily, aspirin 325 mg daily, tizanidine 4 mg every 8 hours as needed for pain, hydrochlorothiazide 25 mg daily, gabapentin 600 mg at bedtime, tramadol 50 mg every 6 hours as needed for pain, Saccharomyces boulardii 250 mg daily, nicotine patch 14 mg transdermally daily, ipratropium/albuterol sulfate 3 mL nebulized 4 times daily as needed for shortness of breath or wheezing, Advair 1 inhalation twice daily and fluticasone /vilanterol one inhalation daily. DISCONTINUED MEDICATIONS: Doxycycline 100 mg twice a day. PHYSICAL EXAMINATION: The patient was examined on the day of discharge. VITAL SIGNS: Temperature 97.6 degree Fahrenheit, pulse rate 80, respiratory rate 20, oxygen saturation 90% on 4 liters of oxygen and blood pressure 135/75. GENERAL: Not in acute distress, sitting comfortably on the chair and playing cards. HEENT: Normocephalic and atraumatic. Not pale, anicteric. EOMI. PERRLA. RESPIRATORY: Vesicular breath sounds bilaterally with no wheezes or rales. CARDIOVASCULAR: S1 and S2, only. Regular rate and rhythm. No murmurs, rubs or gallops. ABDOMEN: Soft, nontender and nondistended. Bowel sounds positive. No hepatosplenomegaly. MUSCULOSKELETAL: No edema. SKIN: Warm, dry and well-perfused. NEUROLOGIC: Alert and oriented with no focal deficit. PSYCHIATRIC: Normal mood and affect. LABORATORY DATA: WBC 19.6, hemoglobin 11.4 and platelet counts 158. Chemistry with a sodium of 130, potassium 3.9, chloride 97, carbon dioxide 26, anion gap 11, BUN 21, creatinine 0.66, glucose 111 and calcium 8.2. IMAGING DATA: CTA chest and chest x-ray results as described in HPI. CONSULTS: Pulmonology and Infectious Disease. CONDITION AT DISCHARGE: Stable and improved. PROCEDURES: None. DIET: Heart healthy. CARE GOALS: To follow up with Pulmonology after discharge. She will also follow up with her primary care physician within 1 week of discharge. ACTIVITY: To resume as tolerated. Discharge time 65 minutes including chart review and documentation. VILMA
--- NOTE | 2017-06-22 00:24 | EKG ---
Test Reason : Blood Pressure : / mmHG Vent. Rate : 126 BPM Atrial Rate : 126 BPM P-R Int : 118 ms QRS Dur : 074 ms QT Int : 300 ms P-R-T Axes : 079 -21 041 degrees QTc Int : 434 ms Sinus tachycardia with Premature supraventricular complexes with occasional Premature ventricular com plexes and Fusion complexes Nonspecific T wave abnormality Abnormal ECG Confirmed by HOLLIE MATHEW ([id number]), slot editor KEERTHI PARKER ([id number]) on 06/22/2017 12:24:06 AM Referred By: Confirmed By:HOLLIE MATHEW
== END 2017-06-01 12:54 | disposition home or self-care (01) | DRG 871 ==
LOC: ERS 16:32 → 2NO 19:40
PROVIDERS: ADMIT Emergency Medicine; ATTEND Emergency Medicine
DX: A40.3 Sepsis due to Streptococcus pneumoniae (principal); J96.21 Acute and chronic respiratory failure with hypoxia; E46 Unspecified protein-calorie malnutrition; Z99.81 Dependence on supplemental oxygen; J13 Pneumonia due to Streptococcus pneumoniae; J44.0 Chronic obstructive pulmonary disease with (acute) lower respiratory infection; J44.1 Chronic obstructive pulmonary disease with (acute) exacerbation; I25.10 Atherosclerotic heart disease of native coronary artery without angina pectoris; Z95.5 Presence of coronary angioplasty implant and graft; I10 Essential (primary) hypertension; E78.5 Hyperlipidemia, unspecified; E03.9 Hypothyroidism, unspecified; I73.9 Peripheral vascular disease, unspecified; F17.210 Nicotine dependence, cigarettes, uncomplicated; Z66 Do not resuscitate; Z68.20 Body mass index [BMI] 20.0-20.9, adult; K21.9 Gastro-esophageal reflux disease without esophagitis
CPT/HCPCS: 36415; 71045; 71275; 80048; 80053; 80202; 82550; 82553; 83605; 84484; 85025; 87040; 87070; 87077; 87149; 87186; 87205; 87804; 93005; 94640; 94760; 96365; 96367; J0696; J1650; J1956; J2543; J2920; J3370; J7050; J7620

== ENCOUNTER 2017-06-16 22:01 | Emergency (ER) | payer MEDICARE ==
--- NOTE | 2017-06-16 22:54 | RAD ---
SEMIUPRIGHT PORTABLE CHEST ONE VIEW: HISTORY: A 77-year-old female with a history of dyspnea, weakness, and shortness of breath for three days. Hi story of COPD and hypotension previously. COMPARISON: 05/29/2017 FINDINGS: Fairly extensive chronic appearing linear and interstitial parenchymal changes noted throughout both lungs, evidence for fairly extensive underlying chronic interstitial lung disease. Atherosclerosis o f the aorta with ectasia. No confluent pneumonia or overt edema. IMPRESSION: stable appearing bilateral mostly interstitial chronic appearing lung disease. No new confluent proc ess. POS: [facility]
[2017-06-16 22:58] LABS: #Eosinphils 0.4 thou/uL (0.0-0.7); #Lymphocytes 1.4 thou/uL (1.20-3.40); #Monocytes 0.8 thou/uL (0.11-0.59); #Neutrophils 2.8 thou/uL (1.40-6.50); %Basophils 0.9 % (0.0-1.0); %Eosinophils 7.3 % (0.0-10.0); %Lymphocytes 26.3 % (21.0-51.0); %Monocytes 13.8 % (0.0-10.0); %Neutrophils 51.6 % (42.0-75.0); Hemoglobin 12.2 g/dL (12.0-16.0); Mean Corpuscular HGB CONC 32.9 g/dL (32.0-36.0); Mean Corpuscular Hemoglobin 33.1 pg (27.0-31.0); Mean Platelet Volume 8.5 fL (7.4-10.4); Platelet Count 135 thou/uL (130-400); RBC Distribution Width 12.7 % (11.5-14.5); White Blood Cell (WBC) Count 5.4 thou/uL (4.8-10.8)
[2017-06-16 23:16] LABS: ALT (SGPT) 18 U/L (8-55); AST (SGOT) 27 U/L (5-34); Albumin 3.4 g/dL (3.4-4.8); Alkaline Phosphatase 81 U/L (40-150); Anion Gap 12 mmol/L (10-20); BUN (Urea Nitrogen) 20 mg/dL (9.8-20.1); Bilirubin, Total 0.4 mg/dL (0.2-1.2); CK (CPK) 42 U/L (29-168); Calc. Creatinine Clearance 0 mL/min (70-130); Calcium 8.6 mg/dL (7.8-10.44); Carbon Dioxide 31 mmol/L (23-31); Chloride 98 mmol/L (98-107); Estimated GFR-MDRD 80; Globulin 2.4 g/dL (2.4-3.5); Glucose 89 mg/dL (83-110); Potassium 3.6 mmol/L (3.5-5.1); Protein, Total 5.8 g/dL (6.0-8.3); Sodium 137 mmol/L (136-145)
[2017-06-16 23:20] LABS: CKMB 1.1 ng/mL (0-6.6); Troponin I Less than 0.010 ng/mL (< 0.028)
[2017-06-17] MEDS ORDERED: Albuterol Sulfate 2.5 mg/3 ml Neb ONE (00:58)
== END 2017-06-17 02:55 | disposition home or self-care (01) ==
LOC: ERS 22:01
DX: J44.1 Chronic obstructive pulmonary disease with (acute) exacerbation (principal); I25.10 Atherosclerotic heart disease of native coronary artery without angina pectoris; E03.9 Hypothyroidism, unspecified; E78.5 Hyperlipidemia, unspecified; I10 Essential (primary) hypertension; M16.0 Bilateral primary osteoarthritis of hip; M19.011 Primary osteoarthritis, right shoulder; M19.049 Primary osteoarthritis, unspecified hand; M17.11 Unilateral primary osteoarthritis, right knee; F17.210 Nicotine dependence, cigarettes, uncomplicated; Z79.899 Other long term (current) drug therapy
CPT/HCPCS: 36415; 71045; 80053; 82553; 84484; 85025; 93005; J7611

== ENCOUNTER 2017-07-09 12:39 | Observation (INO) | payer MEDICARE ==
[2017-07-09 13:21] LABS: #Eosinphils 0.5 thou/uL (0.0-0.7); #Lymphocytes 1.5 thou/uL (1.20-3.40); #Monocytes 0.5 thou/uL (0.11-0.59); %Basophils 0.7 % (0.0-1.0); %Eosinophils 9.4 % (0.0-10.0); %Lymphocytes 26.7 % (21.0-51.0); %Monocytes 8.8 % (0.0-10.0); %Neutrophils 54.3 % (42.0-75.0); Mean Corpuscular HGB CONC 32.8 g/dL (32.0-36.0); Mean Corpuscular Hemoglobin 32.8 pg (27.0-31.0); Mean Platelet Volume 8.7 fL (7.4-10.4); Platelet Count 128 thou/uL (130-400); RBC Distribution Width 13.2 % (11.5-14.5); Red Blood Cell (RBC) Count 3.98 mill/uL (4.20-5.40); White Blood Cell (WBC) Count 5.5 thou/uL (4.8-10.8)
[2017-07-09] MEDS ORDERED: Albuterol Sulfate 2.5 mg/0.5 ml Neb ONE (13:30)
--- NOTE | 2017-07-09 13:40 | RAD ---
AP CHEST: HISTORY: Shortness of breath. Cough. COMPARISON: 06/16/2017 and 05/29/2017 FINDINGS: There are chronic lung changes again noted with hyperexpansion and interstitial prominence. Patchy a telectatic change in the lung bases, more prominent on the right, has a similar appearance to the CT chest of 05/29/2017. An element of acute inflammatory infiltrate cannot be excluded. The lungs othe rwise appear clear and unchanged. IMPRESSION: Bibasilar atelectasis and/or infiltrates, more prominent on the right. The findings are similar in a ppearance to the CT from 05/29/2017. POS: [facility]
[2017-07-09 13:41] LABS: ALT (SGPT) 15 U/L (8-55); AST (SGOT) 26 U/L (5-34); Albumin 3.9 g/dL (3.4-4.8); Alkaline Phosphatase 88 U/L (40-150); Anion Gap 12 mmol/L (10-20); BUN (Urea Nitrogen) 15 mg/dL (9.8-20.1); Bilirubin, Total 0.6 mg/dL (0.2-1.2); Calc. Creatinine Clearance 0 mL/min (70-130); Calcium 9.4 mg/dL (7.8-10.44); Carbon Dioxide 32 mmol/L (23-31); Chloride 93 mmol/L (98-107); Estimated GFR-MDRD 90; Globulin 2.7 g/dL (2.4-3.5); Glucose 99 mg/dL (83-110); Potassium 4.3 mmol/L (3.5-5.1); Protein, Total 6.6 g/dL (6.0-8.3); Sodium 133 mmol/L (136-145)
[2017-07-09 13:46] LABS: CKMB 1.4 ng/mL (0-6.6); Troponin I Less than 0.010 ng/mL (< 0.028)
[2017-07-09] MEDS ORDERED: Ibuprofen 200 MG TAB ONE (15:19)
--- NOTE | 2017-07-09 16:26 | HP ---
PRIMARY CARE PHYSICIAN: Dr. Roseanna Faust. REASON FOR ADMISSION: COPD exacerbation. HISTORY OF PRESENT ILLNESS: A 77-year-old female who has severe COPD; chronic respiratory failure, o n home oxygen, who came to emergency room with complaint of increasing shortness of breath. The steve ent is sick for last 2-3 weeks, but her shortness of breath gradually gotten worse. She does have co ugh with scanty amount of sputum. She does report chest pain with coughing. For the last couple of days, she was not able to sleep during night time. She was trying all her inhalers without any signi ficant improvement. She does not have any fever or chills. She does not have any upper respiratory infections. She denies any flu-like illness. She denies any constipation, diarrhea, melena or hemat ochezia. The patient denies any UTI symptoms. The patient was not feeling good and that is why she decided to come to emergency room. When she came to emergency room, she appeared in mild respiratory distress. She was saturating 88% on room air. The patient was given DuoNeb x3, Solu-Medrol. Even after that , the patient was continued to wheeze in her lungs and she was not feeling good to go home from emerg ency room and that is why we decided to keep this patient in the hospital for observation. Lately, the patient has several admissions in our hospital for COPD flare up. Her most recent admiss ion was in 05/30/2017, and she was discharged home on 06/01/2017. REVIEW OF SYSTEMS: Please see my HPI for pertinent positive and negative. All other review of syste ms reviewed and negative except as mentioned in the HPI. Constitutional: Weight loss or gain, ability to conduct usual activities. Skin: Rash, itching. Eyes: Double vision, pain. ENT/Mouth: Nose bleeding, neck stiffness, pain, tenderness. Cardiovascular: Palpitations, dyspnea on exertion, orthopnea. Respiratory: Shortness of breath, wheezing, cough, hemoptysis, fever or night sweats. Gastrointestinal: Poor appetite, abdominal pain, heartburn, nausea, vomiting, constipation, or diarrhea. Genitourinary: Urgency, frequency, dysuria, nocturia. Musculoskeletal: Pain, swelling. Neurologic/Psychiatric: Anxiety, depression. Allergy/Immunologic: Skin rash, bleeding tendency. ALLERGIES: No known drug allergy. CURRENT HOME MEDICATIONS: Aspirin 325 mg p.o. daily, Lipitor 40 mg p.o. daily, Coreg 3.125 mg p.o. b .i.d., Colace 100 mg p.o. b.i.d., Advair inhalation b.i.d., Breo Ellipta one inhalation daily, gabape ntin 300 mg p.o. daily in the morning and 600 mg p.o. at bedtime, hydrochlorothiazide 25 mg p.o. elena y, DuoNeb q.6 hourly, Synthroid 75 mcg p.o. daily, lisinopril 10 mg p.o. b.i.d., melatonin 5 mg p.o. at bedtime, Mirapex 0.25 mg p.o. b.i.d., MiraLax 17 grams p.o. daily, Spiriva 18 mcg inhalation daily , Zanaflex 4 mg q.8 hourly p.r.n., tramadol 50 mg q.6 hourly p.r.n., trazodone 100 mg p.o. at bedtime . PAST MEDICAL HISTORY: Chronic respiratory failure, on home oxygen; severe COPD; moderate protein enrico orie malnutrition; coronary artery disease with stent; restless leg syndrome; hypertension; dyslipide all; hypothyroidism; osteoarthritis; peripheral vascular disease; history of recurrent UTI; oropharyn geal dysphagia; lumbar degenerative spine disease. PAST SURGICAL HISTORY: Cholecystectomy, cardiac catheterization with stent placement, cystoscopy, ri ght inguinal hernia repair with mesh, spinal surgery for lumbar stenosis. PAST PSYCHIATRIC HISTORY: Anxiety and depression. SOCIAL HISTORY: The patient lives at home with her daughter. The patient currently denies any alcoh ol abuse. He denies any other illicit drug abuse. The patient has a history of smoking about 1 pack per day. He is still actively smoking. FAMILY HISTORY: No strong family history of stroke. The patient's mother in her old age, by ag e of 78. Father also from cancer by age of 70. EMERGENCY ROOM COURSE: The patient is given DuoNeb therapy, albuterol nebulization therapy. The pat ient is given Solu-Medrol by paramedics and several times DuoNeb prior to arrival by paramedics. The patient is also given Motrin 400 mg. PHYSICAL EXAMINATION: VITAL SIGNS: On arrival, blood pressure 113/79, pulse 93, respiratory rate 23, temperature 98.3, sat uration 99% on room air, weight 49.4 kilograms. GENERAL: The patient is currently alert, awake, follows command. No obvious acute distress. HEAD: Normocephalic, atraumatic. EYES: Pupils round, reactive to light. Extraocular muscle intact. ENT: Oropharynx within normal limits. Moist mucous membranes. No oral lesion, no pharyngeal erythe ma, no exudate. NECK: Supple, no JVD, no thyromegaly, no carotid bruit. LUNGS: Bilateral end expiratory wheezing. No accessory muscles of respiration in use. No partially partially breathing, no rales noted. CARDIAC: S1, S2 regular. No murmur, no gallop, no rub. ABDOMEN: Soft, bowel sounds present, nontender, nondistended. No organomegaly, no mass, no suprapub ic tenderness. BACK: Unremarkable, no CVA tenderness. EXTREMITIES: Upper extremity: Passive movements of all joints are normal. Lower extremities: No e ingrid. Good peripheral pulsation, no calf tenderness. SKIN: No skin rash. HEMATOLOGICAL: No lymphadenopathy. PSYCHIATRIC: Normal affect. NEUROLOGIC: Nonfocal examination. She moves all 4 limbs. Plantar bilateral flexor. No cerebellar sign. Sensation intact. SIGNIFICANT LABS: EKG showing normal sinus rhythm, sinus arrhythmia. Chest x-ray based on my review , COPD changes, bibasilar atelectasis and/or infiltration, more on the right side. No change from pr evious. CBC: WBC 5.5, hemoglobin 13.0, MCV 100, platelet 128. BMP: Sodium 133, potassium 4.3, chl oride 93, carbon dioxide 32, BUN 15, creatinine 0.64, glucose 99, calcium 9.4. LFT: AST 26, ALT 15, alkaline phosphatase 88, albumin 3.9, CK-MB 1.4, troponin I less than 0.010. B BLACK LEATHER BUFFER 76.3. ASSESSMENT AND PLAN: 1. Acute on chronic respiratory failure with hypoxia. This patient was hypoxic on arrival. The pat ient's saturation is currently maintained with her home oxygen therapy likely respiratory failure is related with a chronic obstructive pulmonary disease flareup. 2. Acute on chronic obstructive pulmonary disease exacerbation, failed emergency room treatment. We will keep this patient in the hospital for observation. We are hoping that with conservative optimu m treatment for chronic obstructive pulmonary disease should get better in 24-48 hours. If her condi tion does not improve, then we will consider changing to inpatient status, but looking at her current situation, I am hoping that within 24 hours this should get better. We will treat her aggressively with DuoNeb every 4 hourly, Solu-Medrol 40 mg IV q.6 hourly, Dulera two puff inhalation b.i.d., Mucin ex 600 mg twice daily, Tessalon and Robitussin p.r.n. basis, empiric antibiotic therapy with azithrom ycin 250 mg p.o. daily. We will also continue Spiriva 18 mcg inhalation daily. Upon discharge, we w ill prescribe tapering doses of prednisone. 3. Dyslipidemia. Continue Lipitor 40 mg p.o. at bedtime. 4. Coronary artery disease. We will do serial cardiac enzymes to rule out acute coronary syndrome. The patient does not have any real anginal chest pain. EKG is not showing any ischemic changes. We will continue aspirin 81 mg p.o. daily, Coreg 3.125 mg twice daily along with statin therapy, SWETA in hibitor. 5. Hypertension. If blood pressure permits, then we will continue lisinopril 10 mg p.o. b.i.d., Cor eg 3.125 mg p.o. b.i.d. We will hold blood pressure medication for systolic blood pressure less than 120. 6. Hypothyroidism. We will continue Synthroid 75 mcg p.o. daily. 7. Protein calorie malnutrition, moderate. The patient will be given nutritional supplement with En sure b.i.d. 8. Macrocytosis. We will start folic acid and vitamin B12 therapy. 9. Chronic low back pain. We will continue gabapentin 300 mg p.o. daily and 600 mg p.o. at bedtime along with Zanaflex q.8 hourly p.r.n., [place] will be given p.r.n. basis and tramadol. will be given p.r.n. basis for pain. 9. Deep venous thrombosis prophylaxis not needed because, we are expecting discharge in 24-48 hours. 10. Gastrointestinal prophylaxis, Protonix 40 mg p.o. daily. CODE STATUS: I spoke with the patient and the patient wants to be a DNR. The patient's daughter is surrogate decision maker. Disposition plan based on clinical course. We are expecting patient's stay in hospital 24-48 hours. Plan of care discussed with the patient in detail.
[2017-07-09] MEDS ORDERED: Milk Of Magnesia 30 ML UDCUP PO PRN (17:22)
[2017-07-09] MEDS ORDERED: Loperamide HCl 2 MG CAP PO PRN (17:22)
[2017-07-09] MEDS ORDERED: Loratadine 10 MG TAB PO PRN (17:22)
[2017-07-09] MEDS ORDERED: Ondansetron ODT 4 MG TAB PO PRN (17:22)
[2017-07-09] MEDS ORDERED: Sodium Chloride 0.65% Nasal 44 ML BOT EA NARE PRN (17:22)
[2017-07-09] MEDS ORDERED: traMADol HCl 50 MG TAB PO PRN (17:22)
[2017-07-09] MEDS ORDERED: HYDROcodone/Acetaminophen 5/325 mg Tablet PO PRN (17:22)
[2017-07-09] MEDS ORDERED: Artificial Tears 18 DROP/0.9 ML EA EYE PRN (17:22)
[2017-07-09] MEDS ORDERED: Mag-Al 1200 mg/1200 mg/30 ML UDCUP PO PRN (17:22)
[2017-07-09] MEDS ORDERED: cloNIDine 0.1 MG TAB PO PRN (17:22)
[2017-07-09] MEDS ORDERED: Chloraseptic Spray 180 ml Bottle PO PRN (17:22)
[2017-07-09] MEDS ORDERED: Eucerin (Mineral Oil/Petrolatum,White) 30 gm Jar TOP PRN (17:22)
[2017-07-09] MEDS ORDERED: Docusate 100 MG CAP PO PRN (17:22)
[2017-07-09] MEDS ORDERED: Benzonatate 100 MG CAP PO PRN (17:22)
[2017-07-09] MEDS ORDERED: hydrALAZINE 20 MG/ML VIAL SLOW IVP PRN (17:22)
[2017-07-09] MEDS ORDERED: Diabetic Tussin 200 MG/10 ML UDCUP PO PRN (17:22)
[2017-07-09] MEDS ORDERED: traZODone HCl 50 MG TAB PO PRN (17:22)
[2017-07-09] MEDS ORDERED: Senokot 8.6 MG TAB PO PRN (17:22)
[2017-07-09] MEDS ORDERED: Ondansetron HCl/PF 4 MG/2 ML Vial IVP PRN (17:22)
[2017-07-09 17:23] VITALS: BMI 18.8
[2017-07-09 17:23] LABS: Troponin I Less than 0.010 ng/mL (< 0.028)
[2017-07-09] MEDS ORDERED: Carvedilol 3.125 MG TAB PO SCH (17:45)
[2017-07-09] MEDS: Mometasone/Formoterol 120 PUFF INHALER INH SCH (19:12)
[2017-07-09 19:54] LABS: Troponin I Less than 0.010 ng/mL (< 0.028)
[2017-07-09] MEDS: Atorvastatin Calcium 40 MG TAB PO SCH (20:13)
[2017-07-09] MEDS: Lisinopril 10 MG TAB PO SCH (20:14)
[2017-07-09] MEDS: Gabapentin 300 MG CAP PO SCH (20:14)
[2017-07-09] MEDS: Nicotine 14 MG PATCH TOP SCH (20:15)
[2017-07-09] MEDS: Pramipexole Di-HCl 0.25 MG TAB PO SCH (20:17)
[2017-07-10] MEDS: Acetaminophen 325 MG TAB PO PRN ×3 (00:16→20:12)
[2017-07-10] MEDS: Levothyroxine Sodium 75 MCG TAB PO SCH (05:22)
[2017-07-10] MEDS: Mometasone/Formoterol 120 PUFF INHALER INH SCH ×2 (06:35→18:28)
[2017-07-10] MEDS: Carvedilol 3.125 MG TAB PO SCH ×2 (07:48→17:11)
[2017-07-10] MEDS: Pramipexole Di-HCl 0.25 MG TAB PO SCH ×2 (08:03→20:11)
[2017-07-10] MEDS: Azithromycin 250 MG TAB PO SCH (08:03)
[2017-07-10] MEDS: Saccharomyces boulardii 250 MG CAP PO SCH (08:04)
[2017-07-10] MEDS: Gabapentin 300 MG CAP PO SCH ×2 (08:04→20:09)
[2017-07-10] MEDS: Lisinopril 10 MG TAB PO SCH ×2 (08:04→20:09)
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
[2017-07-10] MEDS: Atorvastatin Calcium 40 MG TAB PO SCH (20:09)
[2017-07-10] MEDS: Nicotine 14 MG PATCH TOP SCH (20:12)
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
[2017-07-11] MEDS: Melatonin 3 MG TAB PO PRN (00:22)
[2017-07-11] MEDS: Acetaminophen 325 MG TAB PO PRN ×4 (00:22→18:46)
[2017-07-11] MEDS: Mometasone/Formoterol 120 PUFF INHALER INH SCH ×2 (06:03→18:25)
[2017-07-11] MEDS: Levothyroxine Sodium 75 MCG TAB PO SCH (06:23)
[2017-07-11] MEDS: Pramipexole Di-HCl 0.25 MG TAB PO SCH ×2 (08:23→20:40)
[2017-07-11] MEDS: predniSONE 20 MG TAB PO SCH (08:23)
[2017-07-11] MEDS: Saccharomyces boulardii 250 MG CAP PO SCH (08:24)
[2017-07-11] MEDS: Azithromycin 250 MG TAB PO SCH (08:24)
[2017-07-11] MEDS: Carvedilol 3.125 MG TAB PO SCH ×2 (08:24→17:33)
[2017-07-11] MEDS: Lisinopril 10 MG TAB PO SCH ×2 (08:24→20:39)
[2017-07-11] MEDS: Gabapentin 300 MG CAP PO SCH ×2 (08:25→20:39)
--- NOTE | 2017-07-11 09:17 | PRG ---
DATE OF SERVICE: 07/11/2017 She is still short of breath, still wheezing, but better. No fever or chills. Ongoing tobacco abuse. She is not going to quit smoking until she dies. PHYSICAL EXAMINATION: VITAL SIGNS: Sats are 97% on 2 liters, blood pressure 110/72, temperature 98, respiration rate 18. CHEST: Bilateral wheezing. CARDIAC: Normal S1, S2, no gallops. IMPRESSION: 1. Chronic obstructive pulmonary disease, end-stage. 2. DNR. 3. Ongoing tobacco use. 4. Bronchitis. PLAN: Continue prednisone, neb treatments, supportive care. Hopefully, when the wheezing gets makenzie r she can be discharged home.
--- NOTE | 2017-07-11 10:03 | PDOC.PN ---
- Subjective Encounter Start Date: 07/11/17 Encounter Start Time: 10:02 Subjective: nsg notes rev, twin ovn, pt on phone conversing, no new c/o - Objective Resuscitation Status: Resuscitation Status DNR:Do Not Resuscitate Vital Signs & Weight: Vital Signs (12 hours) Temp Pulse Resp BP BP Pulse Ox 07/11/17 09:33 84 18 97 07/11/17 08:24 111/72 07/11/17 08:00 98.1 F 84 18 95/58 L 97 07/11/17 06:03 78 16 94 L 07/11/17 06:01 78 16 94 L 07/11/17 04:00 97.7 F 76 16 101/64 07/11/17 02:11 72 18 94 L 07/11/17 00:00 97.8 F 83 18 107/60 07/10/17 22:42 78 16 94 L Weight Admit Weight 110 lb Weight 110 lb I&O: 07/10/17 07/11/17 07/12/17 06:59 06:59 06:59 Intake Total 3.0 1010 Output Total 400 Balance 3.0 610 Result Diagrams: 07/09/17 13:08 07/09/17 13:08 Phys Exam - Physical Examination Constitutional: NAD seated in hospital bed HEENT: moist MMs, sclera anicteric, oral pharynx no lesions Respiratory: no rales, no rhonchi diminished throughout with end exp wheezes Cardiovascular: RRR, no rub Gastrointestinal: soft, non-tender, no distention, positive bowel sounds Musculoskeletal: pulses present Neurological: moves all 4 limbs Psychiatric: normal affect Dx/Plan - Plan * copd exac * with 3LNC baseline * was recently burning brush yesterday befpre onset of SOB * apprec pulm c/s * transition to oral regimen and monitor respiratory status HLD stable hx CAD stable HTN stable tobacco use - counseling re: cessation, pt is contemplative w/o plan diet: cardiac activity: as sagrario dvt ppx Review of Systems - Medications/Allergies Allergies/Adverse Reactions: Allergies Allergy/AdvReac Type Severity Reaction Status Date / Time No Known Drug Allergies Allergy Verified 05/29/17 22:09 Medications: Current Medications Acetaminophen (Tylenol) 650 mg PO Q4H PRN PRN Reason: Headache/Fever or Pain Last Admin: 07/11/17 04:30 Dose: 650 mg Hydrocodone Bitart/Acetaminophen ([place] 5/325) 1 tab PO Q4H PRN PRN Reason: Moderate Pain (4-6) Al Hydroxide/Mg Hydroxide (Maalox) 30 ml PO Q6H PRN PRN Reason: Heartburn or Indigestion Albuterol/Ipratropium (Duoneb) 3 ml NEB [id number] [facility] Last Admin: 07/11/17 09:33 Dose: 3 ml Artificial Tears (Tears Naturale) 0 drop EA EYE PRN PRN PRN Reason: Dry Eyes Aspirin (Aspirin Chewable) 81 mg PO DAILY [facility] Last Admin: 07/11/17 08:24 Dose: 81 mg Atorvastatin Calcium (Lipitor) 40 mg PO [facility] Last Admin: 07/10/17 20:09 Dose: 40 mg Azithromycin (Zithromax) 250 mg PO DAILY [facility] Stop: 07/13/17 09:01 Last Admin: 07/11/17 08:24 Dose: 250 mg Benzonatate (Tessalon) 100 mg PO Q4H PRN PRN Reason: Cough Carvedilol (Coreg) 3.125 mg PO BID-[facility] Last Admin: 07/11/17 08:24 Dose: 3.125 mg Clonidine (Catapres) 0.1 mg PO Q4H PRN PRN Reason: Systolic BP > 180 Docusate Sodium (Colace) 100 mg PO BIDPRN PRN PRN Reason: Constipation Gabapentin (Neurontin) 300 mg PO DAILY [facility] Last Admin: 07/11/17 08:25 Dose: 300 mg Gabapentin (Neurontin) 600 mg PO [facility] Last Admin: 07/10/17 20:09 Dose: 600 mg Guaifenesin (Robitussin Sf) 200 mg PO Q4H PRN PRN Reason: Cough Hydralazine HCl (Apresoline) 10 mg SLOW IVP Q4H PRN PRN Reason: Systolic BP > 180 Levothyroxine Sodium (Synthroid) 75 mcg PO 0600 [facility] Last Admin: 07/11/17 06:23 Dose: 75 mcg Lisinopril (Zestril) 10 mg PO BID [facility] Last Admin: 07/11/17 08:24 Dose: 10 mg Loperamide HCl (Imodium) 2 mg PO PRN PRN PRN Reason: Diarrhea/Loose Stools Loratadine (Claritin) 10 mg PO DAILYPRN PRN PRN Reason: Sinus Symptoms Magnesium Hydroxide (Milk Of Magnesium) 30 ml PO DAILYPRN PRN PRN Reason: Constipation Melatonin (Melatonin) 6 mg PO HS PRN PRN Reason: Insomnia Last Admin: 07/11/17 00:22 Dose: 6 mg Mineral Oil/White Petrolatum (Eucerin Cream) 0 gm TOP BIDPRN PRN PRN Reason: Dry Skin Mometasone Furoate/Formoterol Fumar (Dulera 200 Mcg/5 Mcg Inhaler) 2 puff INH BID-RT [facility] Last Admin: 07/11/17 06:03 Dose: 2 puff Nicotine (Nicoderm Patch) 14 mg TOP Q24HR [facility] Last Admin: 07/10/17 20:12 Dose: 14 mg Ondansetron HCl (Zofran Odt) 4 mg PO Q6H PRN PRN Reason: Nausea/Vomiting Ondansetron HCl (Zofran) 4 mg IVP Q6H PRN PRN Reason: Nausea/Vomiting Pantoprazole Sodium (Protonix) 40 mg PO DAILY [facility] Last Admin: 07/11/17 08:24 Dose: 40 mg Phenol (Chloraseptic [place] 180 Ml Bot) 0 ml PO PRN PRN PRN Reason: Sore Throat Pramipexole Dihydrochloride (Mirapex) 0.25 mg PO BID [facility] Last Admin: 07/11/17 08:23 Dose: 0.25 mg Prednisone (Prednisone) 40 mg PO QA-[facility] Last Admin: 07/11/17 08:23 Dose: 40 mg Saccharomyces Boulardii (Florastor) 250 mg PO DAILY [facility] Last Admin: 07/11/17 08:24 Dose: 250 mg Senna (Senokot) 2 tab PO HSPRN PRN PRN Reason: Constipation Sodium Chloride ([place] Nasal [place] 0.65%) 0 ml EA NARE QIDPRN PRN PRN Reason: Nasal Congestion Tizanidine HCl (Zanaflex) 4 mg PO TID PRN PRN Reason: Muscle Spasm Tramadol HCl (Ultram) 50 mg PO Q6H PRN PRN Reason: Pain Trazodone HCl (Desyrel) 50 mg PO HS PRN PRN Reason: Insomnia Last Admin: 07/10/17 00:16 Dose: 50 mg
[2017-07-11] MEDS: Nicotine 14 MG PATCH TOP SCH (20:39)
[2017-07-11] MEDS: Atorvastatin Calcium 40 MG TAB PO SCH (20:39)
[2017-07-12] MEDS: Melatonin 3 MG TAB PO PRN (00:44)
[2017-07-12] MEDS: Levothyroxine Sodium 75 MCG TAB PO SCH (05:52)
[2017-07-12] MEDS: Mometasone/Formoterol 120 PUFF INHALER INH SCH (06:33)
[2017-07-12] MEDS: predniSONE 20 MG TAB PO SCH (08:36)
[2017-07-12] MEDS: tiZANidine HCl 4 MG TAB PO PRN ×2 (08:36→14:52)
[2017-07-12] MEDS: Azithromycin 250 MG TAB PO SCH (08:37)
[2017-07-12] MEDS: Lisinopril 10 MG TAB PO SCH (08:37)
[2017-07-12] MEDS: Saccharomyces boulardii 250 MG CAP PO SCH (08:37)
[2017-07-12] MEDS: Gabapentin 300 MG CAP PO SCH (08:37)
[2017-07-12] MEDS: Carvedilol 3.125 MG TAB PO SCH ×2 (08:37→16:41)
--- NOTE | 2017-07-12 10:29 | PDOC.PN ---
- Subjective Encounter Start Date: 07/12/17 Encounter Start Time: 10:29 Subjective: nsg notes rev, twin ovn, pt feels overall that her breathing is better. did -: not sleep well overnight. will try to quit smoking when she gets home. - Objective Resuscitation Status: Resuscitation Status DNR:Do Not Resuscitate Vital Signs & Weight: Vital Signs (12 hours) Temp Pulse Resp BP BP Pulse Ox 07/12/17 10:01 70 16 91 L 07/12/17 08:37 119/71 07/12/17 08:00 97.7 F 63 18 119/71 96 07/12/17 06:35 76 16 91 L 07/12/17 06:33 76 16 91 L 07/12/17 03:19 60 18 95 07/12/17 01:02 95 22 H 93 L Weight Admit Weight 110 lb Weight 110 lb I&O: 07/11/17 07/12/17 07/13/17 06:59 06:59 06:59 Intake Total 1010 1200 Output Total 400 Balance 610 1200 Result Diagrams: 07/09/17 13:08 07/09/17 13:08 Phys Exam - Physical Examination Constitutional: NAD lying in hospital bed HEENT: moist MMs, sclera anicteric, oral pharynx no lesions Respiratory: no rales end expiratory wheezing throughout, coarse and rhonchorous throughout Cardiovascular: RRR, no rub Gastrointestinal: soft, positive bowel sounds Musculoskeletal: no edema, pulses present Neurological: moves all 4 limbs Psychiatric: normal affect, A&O x 3 Dx/Plan - Plan * copd exac * with 3LNC baseline * was recently burning brush yesterday befpre onset of SOB * apprec pulm c/s * transition to oral regimen HLD stable hx CAD stable HTN stable tobacco use - counseling re: cessation pt states she quit for 3 yrs but then her and she picked up smoking again diet: cardiac activity: as sagrario, consult PT, will likely need home PT/ OT dvt ppx d/w pt and bedside nsg t/c d/c Review of Systems - Review of Systems Constitutional: chills - Medications/Allergies Allergies/Adverse Reactions: Allergies Allergy/AdvReac Type Severity Reaction Status Date / Time No Known Drug Allergies Allergy Verified 05/29/17 22:09 Medications: Current Medications Acetaminophen (Tylenol) 650 mg PO Q4H PRN PRN Reason: Headache/Fever or Pain Last Admin: 07/11/17 18:46 Dose: 650 mg Hydrocodone Bitart/Acetaminophen ([place] 5/325) 1 tab PO Q4H PRN PRN Reason: Moderate Pain (4-6) Last Admin: 07/12/17 00:54 Dose: 1 tab Al Hydroxide/Mg Hydroxide (Maalox) 30 ml PO Q6H PRN PRN Reason: Heartburn or Indigestion Albuterol/Ipratropium (Duoneb) 3 ml NEB [id number] [facility] Last Admin: 07/12/17 10:01 Dose: 3 ml Artificial Tears (Tears Naturale) 0 drop EA EYE PRN PRN PRN Reason: Dry Eyes Aspirin (Aspirin Chewable) 81 mg PO DAILY [facility] Last Admin: 07/12/17 08:37 Dose: 81 mg Atorvastatin Calcium (Lipitor) 40 mg PO HS [facility] Last Admin: 07/11/17 20:39 Dose: 40 mg Azithromycin (Zithromax) 250 mg PO DAILY [facility] Stop: 07/13/17 09:01 Last Admin: 07/12/17 08:37 Dose: 250 mg Benzonatate (Tessalon) 100 mg PO Q4H PRN PRN Reason: Cough Carvedilol (Coreg) 3.125 mg PO BID-[facility] Last Admin: 07/12/17 08:37 Dose: 3.125 mg Clonidine (Catapres) 0.1 mg PO Q4H PRN PRN Reason: Systolic BP > 180 Docusate Sodium (Colace) 100 mg PO BIDPRN PRN PRN Reason: Constipation Gabapentin (Neurontin) 300 mg PO DAILY [facility] Last Admin: 07/12/17 08:37 Dose: 300 mg Gabapentin (Neurontin) 600 mg PO HS [facility] Last Admin: 07/11/17 20:39 Dose: 600 mg Guaifenesin (Robitussin Sf) 200 mg PO Q4H PRN PRN Reason: Cough Hydralazine HCl (Apresoline) 10 mg SLOW IVP Q4H PRN PRN Reason: Systolic BP > 180 Levothyroxine Sodium (Synthroid) 75 mcg PO 0600 [facility] Last Admin: 07/12/17 05:52 Dose: 75 mcg Lisinopril (Zestril) 10 mg PO BID [facility] Last Admin: 07/12/17 08:37 Dose: 10 mg Loperamide HCl (Imodium) 2 mg PO PRN PRN PRN Reason: Diarrhea/Loose Stools Loratadine (Claritin) 10 mg PO DAILYPRN PRN PRN Reason: Sinus Symptoms Magnesium Hydroxide (Milk Of Magnesium) 30 ml PO DAILYPRN PRN PRN Reason: Constipation Last Admin: 07/11/17 20:44 Dose: 30 ml Melatonin (Melatonin) 6 mg PO HS PRN PRN Reason: Insomnia Last Admin: 07/12/17 00:44 Dose: 6 mg Mineral Oil/White Petrolatum (Eucerin Cream) 0 gm TOP BIDPRN PRN PRN Reason: Dry Skin Mometasone Furoate/Formoterol Fumar (Dulera 200 Mcg/5 Mcg Inhaler) 2 puff INH BID-RT [facility] Last Admin: 07/12/17 06:33 Dose: 2 puff Nicotine (Nicoderm Patch) 14 mg TOP Q24HR [facility] Last Admin: 07/11/17 20:39 Dose: 14 mg Ondansetron HCl (Zofran Odt) 4 mg PO Q6H PRN PRN Reason: Nausea/Vomiting Ondansetron HCl (Zofran) 4 mg IVP Q6H PRN PRN Reason: Nausea/Vomiting Pantoprazole Sodium (Protonix) 40 mg PO DAILY [facility] Last Admin: 07/12/17 08:37 Dose: 40 mg Phenol (Chloraseptic [place] 180 Ml Bot) 0 ml PO PRN PRN PRN Reason: Sore Throat Pramipexole Dihydrochloride (Mirapex) 0.25 mg PO BID [facility] Last Admin: 07/11/17 20:40 Dose: 0.25 mg Prednisone (Prednisone) 40 mg PO QAM-[facility] Last Admin: 07/12/17 08:36 Dose: 40 mg Saccharomyces Boulardii (Florastor) 250 mg PO DAILY [facility] Last Admin: 07/12/17 08:37 Dose: 250 mg Senna (Senokot) 2 tab PO HSPRN PRN PRN Reason: Constipation Sodium Chloride ([place] Nasal [place] 0.65%) 0 ml EA NARE QIDPRN PRN PRN Reason: Nasal Congestion Tizanidine HCl (Zanaflex) 4 mg PO TID PRN PRN Reason: Muscle Spasm Last Admin: 07/12/17 08:36 Dose: 4 mg Tramadol HCl (Ultram) 50 mg PO Q6H PRN PRN Reason: Pain Last Admin: 07/11/17 20:47 Dose: 50 mg Trazodone HCl (Desyrel) 50 mg PO HS PRN PRN Reason: Insomnia Last Admin: 07/10/17 00:16 Dose: 50 mg
--- NOTE | 2017-07-12 14:10 | PRG ---
DATE OF SERVICE: 07/12/2017 SERVICE: Pulmonary Medicine. INTERVAL HISTORY: The patient is doing really well from a respiratory standpoint. She is up walking around her room. She indicates that she is essentially back to baseline. She has been in the [facility] for about 3 days now. Since being here, she had a profound improvement in her symptoms. Otherwi se, there has been no interval change to her condition. She continues to cough and has a little bit of sputum production. This is much improved. PHYSICAL EXAMINATION: VITAL SIGNS: Afebrile, pulse 72, blood pressure 97/60, respirations 18, saturation 97% on 2 liters n carlos cannula. GENERAL: The patient is awake, alert, no apparent distress. LUNGS: Reduced air entry. There is polyphonic wheezing and rhonchi present. I do not appreciate an y crackles. HEART: Normal rate and regular. ABDOMEN: Soft, nontender, nondistended. Bowel sounds positive. MUSCULOSKELETAL: No cyanosis or clubbing. No pitting in the bilateral lower extremities. NEUROLOGIC: Grossly nonfocal. LABORATORY DATA: Respiratory virus panel was negative. ASSESSMENT: 1. Acute on chronic hypoxic respiratory failure, resolved to baseline. 2. Chronic obstructive pulmonary disease with acute exacerbation. 3. Tobacco abuse, ongoing. PLAN: We can continue steroids, nebulized medications, and antibiotics. At this point, she is stabl e for transition home. She can complete a 7-day course of steroids and antibiotics. Pulmonary will continue to follow while she remains in this location. When she leaves the hospital, she can follow up with Dr. Vickers in 2-4 weeks.
[2017-07-12 16:26] VITALS: BP 91/51; TEMP 97.6
== END 2017-07-12 16:50 | disposition home or self-care (01) ==
LOC: ERS 12:39 → T4-A 15:32
PROVIDERS: ADMIT Internal Medicine; ATTEND Internal Medicine
DX: J44.1 Chronic obstructive pulmonary disease with (acute) exacerbation (principal); J96.21 Acute and chronic respiratory failure with hypoxia; G25.81 Restless legs syndrome; G89.29 Other chronic pain; M54.5 Low back pain; I73.9 Peripheral vascular disease, unspecified; D75.89 Other specified diseases of blood and blood-forming organs; I25.10 Atherosclerotic heart disease of native coronary artery without angina pectoris; I10 Essential (primary) hypertension; E78.5 Hyperlipidemia, unspecified; M19.90 Unspecified osteoarthritis, unspecified site; F32.9 Major depressive disorder, single episode, unspecified; F41.9 Anxiety disorder, unspecified; F17.210 Nicotine dependence, cigarettes, uncomplicated; E44.0 Moderate protein-calorie malnutrition; Z79.899 Other long term (current) drug therapy; Z99.81 Dependence on supplemental oxygen; Z95.5 Presence of coronary angioplasty implant and graft; Z98.890 Other specified postprocedural states
CPT/HCPCS: 71045; 80053; 82553; 83880; 84484 ×2; 85025; 87633; 87798 ×2; 93005; 94640 ×9; 96374; 96376; 99285; 99406; G0378 ×2; 36415; J2920; J7506; J7611; J7620

== ENCOUNTER 2017-09-10 10:06 | Inpatient (IN) | payer MEDICARE ==
[2017-09-10] MEDS ORDERED: Fentanyl 100 MCG/2 ML VIAL ONE ×3 (11:00→15:15)
[2017-09-10 11:22] LABS: #Basophils 0.1 thou/uL (0.0-0.2); #Eosinphils 0.2 thou/uL (0.0-0.7); #Monocytes 0.9 thou/uL (0.11-0.59); #Neutrophils 7.7 thou/uL (1.40-6.50); %Basophils 0.6 % (0.0-1.0); %Eosinophils 2.2 % (0.0-10.0); %Lymphocytes 9.9 % (21.0-51.0); %Monocytes 8.8 % (0.0-10.0); %Neutrophils 78.6 % (42.0-75.0); Hemoglobin 12.5 g/dL (12.0-16.0); Mean Corpuscular HGB CONC 32.3 g/dL (32.0-36.0); Mean Corpuscular Hemoglobin 33.2 pg (27.0-31.0); Mean Platelet Volume 8.4 fL (7.4-10.4); Platelet Count 171 thou/uL (130-400); RBC Distribution Width 13.9 % (11.5-14.5); Red Blood Cell (RBC) Count 3.78 mill/uL (4.20-5.40); White Blood Cell (WBC) Count 9.8 thou/uL (4.8-10.8)
--- NOTE | 2017-09-10 11:27 | RAD ---
LEFT WRIST THREE VIEWS: 09/10/2017 HISTORY: Fall. Trauma. Pain. COMPARISON: None. FINDINGS: There is an obliquely oriented, impacted distal left ulnar fracture. There is also a mildly displace d fracture at the base of the ulnar styloid. There is an impacted transverse fracture of the distal left radius. There is dorsal displacement and mild dorsal angulation of the distal radial and ulnar fractures, best seen on the lateral examination. There is prominent degenerative change involving th e distal carpal row laterally, in the first carpometacarpal joint. IMPRESSION: Impacted, displaced, and angulated fractures of the distal left radius and ulna. POS: TERESO
--- NOTE | 2017-09-10 11:29 | RAD ---
FRONTAL RADIOGRAPH CHEST: 09/10/2017 HISTORY: Fall. Trauma. Pain. COMPARISON: 08/25/2017 FINDINGS: Interstitial density with pulmonary hyperinflation suggesting COPD. Multiple old left-sided rib fractures are noted. There is no pneumothorax, lobar consolidation, or a lveolar edema. There is a questionable nodule in the left lung base versus an osseous shadow. A fol low-up nonemergent PA and lateral chest radiograph is best advised. IMPRESSION: Interstitial prominence and pulmonary hyperinflation suggests chronic obstructive pulmonary disease. Possible 1.5cm pulmonary nodule versus vascular shadow in left costophrenic angle. Follow-up PA and lateral chest imaging advised. CODE LN POS: TE
[2017-09-10] MEDS ORDERED: Lidocaine 1% w/Epinephrine 1:100K 20 ML VIAL ONE (11:46)
[2017-09-10] MEDS ORDERED: Lidocaine 1% PF 5 ML VIAL ONE ×2 (11:47→14:40)
[2017-09-10 11:51] LABS: ALT (SGPT) 17 U/L (8-55); AST (SGOT) 35 U/L (5-34); Albumin 3.5 g/dL (3.4-4.8); Alkaline Phosphatase 69 U/L (40-150); Anion Gap 14 mmol/L (10-20); BUN (Urea Nitrogen) 35 mg/dL (9.8-20.1); Bilirubin, Total 0.6 mg/dL (0.2-1.2); Calc. Creatinine Clearance 0 mL/min (70-130); Calcium 9.1 mg/dL (7.8-10.44); Carbon Dioxide 26 mmol/L (23-31); Chloride 100 mmol/L (98-107); Estimated GFR-MDRD 77; Globulin 3.2 g/dL (2.4-3.5); Glucose 81 mg/dL (83-110); Potassium 5.5 mmol/L (3.5-5.1); Protein, Total 6.7 g/dL (6.0-8.3); Sodium 134 mmol/L (136-145)
[2017-09-10] MEDS ORDERED: Adacel (T-DAP) 0.5 ML VIAL ONE ×2 (12:05)
[2017-09-10] MEDS ORDERED: CEFAZOLIN/Water 2 GM/20 ML SYRINGE SLOW IVP SCH (12:15)
[2017-09-10] MEDS ORDERED: CEFAZOLIN/Water 2 GM/20 ML SYRINGE ONE (12:45)
--- NOTE | 2017-09-10 13:19 | RAD ---
LEFT WRIST THREE VIEWS: History: Post reduction films. FINDINGS/IMPRESSION: The fracture of the distal radius and ulna are again noted. These fractures continue to show dorsal d isplacement of the distal fragments. There has been slight reduction. Splint material is noted. POS: TE
--- NOTE | 2017-09-10 13:35 | HP ---
DATE OF ADMISSION: 09/10/2017 ADMITTING PHYSICIAN: Dr. Devyn Ornelas. CONSULTING PHYSICIAN: Dr. Skinner, Orthopedics. PRESENTING COMPLAINT: Fall with left arm pain. HISTORY OF PRESENT ILLNESS: Ms. Carias is a 77-year-old female who reports that she was standing in her bedroom today when she was rolling up her oxygen tubing and fell to the ground landing on her lef t wrist. She denies syncope, weakness, dizziness, loss of consciousness, chest pain or any other com plaint. She reports that she simply lost her balance and fell onto her left arm and laid on the floo r for approximately 30 minutes until her daughter who lives with her found her on the floor and was a ble to [facility] in EMS. She was transported to [facility] where a left open radiu s and ulnar fracture were identified. She continues to deny any other pain. She does report that sh e bit her lip as she fell. She was recently admitted earlier this month for COPD exacerbation. She has been admitted 3 other times this year for the same. Dr. Skinner, Orthopedics, was consulted by ER physician. The patient was placed in a left arm splint. Dr. Skinner plans to take patient to OR later today for fixation of fracture. PAST MEDICAL HISTORY: 1. Macular degeneration. 2. Chronic obstructive pulmonary disease. 3. Gastroesophageal reflux disease. 4. Coronary artery disease. 5. Restless legs syndrome. 6. Hypertension. 7. Hyperlipidemia. 8. Hypothyroidism. 9. Osteoarthritis. 10. Peripheral vascular disease. PAST SURGICAL HISTORY: 1. Cholecystectomy. 2. Right inguinal hernia repair. 3. Cardiac catheterization with stent placement x2. 4. Cystoscopy. 5. Spinal surgery for lumbar stenosis. SOCIAL HISTORY: Tobacco: The patient stopped smoking cigarettes 3 weeks ago. Alcohol, none. Drugs , none. ALLERGIES: No known drug allergies. MEDICATIONS: 1. Aspirin 325 mg at bedtime. 2. Atorvastatin 10 mg daily. 3. Tylenol 500-1000 mg q.6 hours as needed. 4. Carvedilol 3.125 mg twice daily. 5. Docusate 100 mg daily. 6. Advair Diskus 1 inhalation b.i.d. 7. Breo Ellipta 1 inhalation b.i.d. 8. Gabapentin 100 mg daily, 300 mg at bedtime. 9. Hydrochlorothiazide 25 mg daily. 10. DuoNeb 3 mL q.i.d. p.r.n. 11. Levothyroxine 25 mcg daily. 12. Lisinopril 10 mg b.i.d. 13. Melatonin 5 mg at bedtime. 14. Mirtazapine 30 mg daily. 15. Dulera inhaler 2 puffs b.i.d. 16. Protonix 40 mg daily. 17. MiraLax 17 grams daily. 18. Pramipexole 0.25 mg b.i.d. 19. Saccharomyces boulardii 250 mg daily. 20. Spiriva 18 mcg daily. 21. Tizanidine 2 mg q.8 hours p.r.n. 22. Tramadol 50 mg q.6 hours p.r.n. 23. Trazodone 100 mg at bedtime. LABORATORY DATA AND IMAGING DATA: CBC: WBC 9.8, RBC 3.78, hemoglobin 12.5, hematocrit 38.9, platele ts 171. Chemistry: Sodium 134, potassium 5.5, chloride 100, carbon dioxide 26, anion gap 14, BUN 35 , creatinine 0.73, GFR 77, glucose 81, and calcium 9.1. EKG sinus rhythm with PVCs. Imaging of left distal and ulna fracture. REVIEW OF SYSTEMS: CONSTITUTIONAL: The patient denies chills, fever, generalized malaise or recent weight loss. HEENT: Denies eye pain, vision changes, sore throat, or neck pain. CARDIOVASCULAR: D enies chest pain, syncope, palpitations. RESPIRATORY: Reports using 3 liters O2 nasal cannula at [facility]. Denies any recent increase in shortness of breath. ABDOMEN: Denies abdominal pain, nausea, vom iting, diarrhea or constipation. GENITOURINARY: Denies dysuria, hematuria. MUSCULOSKELETAL/EXTREMI TIES: Reports left arm pain. SKIN: Denies rash or skin changes. NEUROLOGIC: Denies headache, diz ziness, seizures. Denies abnormal bleeding. PHYSICAL EXAMINATION: VITAL SIGNS: Blood pressure 124/71, pulse 74, respirations 20, O2 sat 95% on 4 liters O2. CONSTITUTIONAL: Elderly female lying in bed in no acute distress, nontoxic appearing. HEENT: Dried blood around lips. Small avulsion noted to upper lip. No active bleeding. No other o ral trauma noted. NECK: Nontender. Trachea midline. RESPIRATORY: Bilateral breath sounds are clear. No respiratory distress. Chest movement symmetrica l. CARDIOVASCULAR: Regular rate and rhythm. Heart sounds normal. ABDOMEN: Soft, nontender and nondistended. Bowel sounds normal. Pelvis stable. EXTREMITIES: Left upper extremity with splint in place. Cap refill brisk. Neurovascular intact all extremities. NEUROLOGIC: GCS 15. Awake, alert and oriented x3. No focal deficits. SKIN: Warm and dry, normal in color. ASSESSMENT AND PLAN: 1. Status post ground level fall. 2. Left radius and ulna fracture. 3. History of chronic obstructive pulmonary disease, present on admission. 4. History of hypertension, present on admission. 5. History of coronary artery disease, present on admission. 6. History of hypothyroidism, present on admission. 7. Acute traumatic pain. PLAN: 1. Admit to hospital by Trauma Services. 2. Patient to go to OR today with Dr. Skinner for repair of fracture. 3. Antibiotics per Orthopedic Service. 4. N.p.o. and IV fluids. 5. IV analgesia. 6. Resume home medications as appropriate postoperatively. 7. PT/OT consult. 8. Case management consult for discharge planning. The patient was reviewed with Dr. Ornelas at the time of this dictation. Dr. Ornelas, attending surgeon, agrees with plan.
[2017-09-10] MEDS ORDERED: ePHEDrine/0.9% NaCl/PF SYRINGE 50 mg/10 ml ONE (14:40)
[2017-09-10] MEDS ORDERED: Metoclopramide HCl 10 MG/2 ML VIAL ONE (14:40)
[2017-09-10] MEDS ORDERED: Ketorolac Tromethamine 30 MG/ML VIAL ONE (14:40)
[2017-09-10] MEDS ORDERED: Dexamethasone 20 MG/5 ML VIAL ONE (14:40)
[2017-09-10] MEDS ORDERED: PROPOFOL 200 MG/20 ML VIAL ONE (14:40)
[2017-09-10] MEDS ORDERED: Ondansetron HCl/PF 4 MG/2 ML Vial ONE (14:40)
[2017-09-10] MEDS ORDERED: PHENYLEPHRINE-NS 100 MCG/ML 10 ML SYRINGE ONE ×2 (14:40)
--- NOTE | 2017-09-10 16:55 | RAD ---
FLUOROSCOPY 09/10/17 HISTORY: Fracture. ORIF. EXPOSURE: 14.7 seconds. 0.24 mGy. FINDINGS: Two fluoroscopic images demonstrate a minimally displaced distal ulnar fracture. There is a fusion pl ate with osseous screws involving the distal radius. Alignment is near anatomic. IMPRESSION: Internal fixation as above. POS: TERESO
[2017-09-10] MEDS ORDERED: Acetaminophen 500 MG TAB PO SCH (18:25)
[2017-09-10] MEDS ORDERED: Dextrose 50% Abboject 50 ML SYRINGE SLOW IVP PRN (18:25)
[2017-09-10] MEDS ORDERED: Dextrose 5% in Water 1,000 ML IV PRN (18:25)
[2017-09-10] MEDS ORDERED: traMADol HCl 50 MG TAB PO SCH (18:30)
[2017-09-10] MEDS: CEFAZOLIN 1 GM in Sodium Chloride 0.9% 100 ML IVPB SCH (21:46)
[2017-09-11] MEDS: traMADol HCl 50 MG TAB PO SCH ×3 (02:31→12:26)
[2017-09-11] MEDS: Acetaminophen 500 MG TAB PO SCH ×3 (02:33→12:26)
[2017-09-11] MEDS: CEFAZOLIN 1 GM in Sodium Chloride 0.9% 100 ML IVPB SCH (06:56)
[2017-09-11 08:43] LABS: #Basophils 0.1 thou/uL (0.0-0.2); #Lymphocytes 1.2 thou/uL (1.20-3.40); #Monocytes 0.7 thou/uL (0.11-0.59); #Neutrophils 6.3 thou/uL (1.40-6.50); %Basophils 0.7 % (0.0-1.0); %Eosinophils 0.5 % (0.0-10.0); %Lymphocytes 14.8 % (21.0-51.0); %Monocytes 8.1 % (0.0-10.0); %Neutrophils 75.9 % (42.0-75.0); Hemoglobin 10.8 g/dL (12.0-16.0); Mean Corpuscular HGB CONC 32.1 g/dL (32.0-36.0); Mean Corpuscular Hemoglobin 32.8 pg (27.0-31.0); Mean Platelet Volume 8.1 fL (7.4-10.4); Platelet Count 169 thou/uL (130-400); RBC Distribution Width 13.8 % (11.5-14.5); Red Blood Cell (RBC) Count 3.28 mill/uL (4.20-5.40); White Blood Cell (WBC) Count 8.3 thou/uL (4.8-10.8)
[2017-09-11] MEDS ORDERED: Bisacodyl 10 MG SUPP PR SCH (09:00)
[2017-09-11 09:05] LABS: Anion Gap 11 mmol/L (10-20); BUN (Urea Nitrogen) 30 mg/dL (9.8-20.1); Calc. Creatinine Clearance 50 mL/min (70-130); Calcium 8.8 mg/dL (7.8-10.44); Carbon Dioxide 30 mmol/L (23-31); Chloride 100 mmol/L (98-107); Estimated GFR-MDRD 80; Glucose 134 mg/dL (83-110); Magnesium 1.7 mg/dL (1.6-2.6); Phosphorus 3.1 mg/dL (2.3-4.7); Potassium 4.8 mmol/L (3.5-5.1); Sodium 136 mmol/L (136-145)
[2017-09-11 15:31] VITALS: BP 148/73; TEMP 97.6
--- NOTE | 2017-09-12 01:37 | DIS-2 ---
DATE OF ADMISSION: 09/10/2017 DATE OF DISCHARGE: 09/11/2017 RESIDENT: Richard Werner MD ADMITTING ATTENDING: Devyn Ornelas DO DISCHARGE ATTENDING: Devyn Ornelas DO CONSULTATIONS: Orthopedics, Dr. Skinner; and Case Management. PROCEDURES: 1. On 09/10/2017, the patient underwent a wrist x-ray of the left wrist that showed impacted, displa keren, and angulated fracture of the distal left radius and ulna. 2. On 09/10/2017, the patient underwent a chest x-ray that showed an interstitial prominence and pul monary hyperinflation suggesting COPD, possible 1.5-cm pulmonary nodule versus vascular shadow in lef t costophrenic angle. 3. On 09/10/2017, the patient had a followup left wrist x-ray after reduction that showed the fractu re of the distal radius and ulna are again noted. Fractures continued to show dorsal displacement of the distal fragments. There has been slight reduction. Splint material was noted. 4. On 09/10/2017, the patient underwent ORIF of the left radius and ulnar fracture by Dr. Skinner. 5. On 09/10/2017, the patient underwent a wrist x-ray that showed internal fixation described above as a minimally displaced distal ulna fracture, fusion plate with osseous screws involving the distal radius. Alignment is near anatomic. PRIMARY DIAGNOSES: 1. Status post ground level fall. 2. Left radius and ulna fracture, postop day 1. 3. History of chronic obstructive pulmonary disease. 4. History of hypertension. 5. History of coronary artery disease. 6. History of hypothyroidism. 7. Acute traumatic pain. DISCHARGE MEDICATIONS: 1. Spiriva 18 mcg inhaled daily. 2. Synthroid 75 mcg p.o. daily. 3. Lisinopril 10 mg p.o. b.i.d. 4. Atorvastatin 10 mg p.o. daily. 5. Trazodone 100 mg p.o. at bedtime. 6. Carvedilol 3.125 mg p.o. b.i.d. with meals. 7. Acetaminophen 500 mg p.o. q.6 hours p.r.n. 8. MiraLax 17 grams p.o. daily. 9. Melatonin 5 mg p.o. at bedtime. 10. Docusate 100 mg p.o. at bedtime. 11. Aspirin 325 mg p.o. at bedtime. 12. Tizanidine 2 mg p.o. q.8 hours p.r.n. 13. Hydrochlorothiazide 25 mg p.o. b.i.d. 14. Gabapentin 600 mg p.o. at bedtime. 15. Tramadol 50 mg p.o. q.6 hours p.r.n. 16. Florastor 250 mg p.o. daily. 17. Advair Diskus 250/50 one inhaled b.i.d. 18. Breo Ellipta 100 mcg/25 mcg one inhaled daily. 19. Robitussin DM 50 mL p.o. q.4 hours p.r.n. 20. Prednisone 40 mg p.o. b.i.d. with meals. 21. Mirtazapine 30 mg p.o. daily. 22. Protonix 40 mg p.o. daily. 23. Mirapex 0.25 mg p.o. b.i.d. 24. Potassium chloride 10 mEq p.o. b.i.d. 25. Dulera 200 mcg/5 mcg, 2 puffs inhaled daily. 26. DuoNeb 3 mL nebs t.i.d. DISCONTINUED MEDICATIONS: None. HISTORY OF PRESENT ILLNESS AND HOSPITAL COURSE: The patient is a 77-year-old female who reports that she was standing in the bedroom today when she was rolling up her oxygen tubing and fell to the [facility], landing on her left wrist. Denies extremity weakness, dizziness, loss of consciousness, chest pa in, or any other complaint. She reports she simply lost her balance and fell on to her left arm and laid on the floor for approximately 30 minutes until her daughter who lives with her found her on the floor and was able to summon EMS. She was transported to [place] ED, where left open radius and ulnar fracture were identified. She continued to deny any other pain. She does report that she bit her lip as well. She was recently admitted earlier this month for COPD exacerbation. She has been a dmitted 3 other times here for the same. Dr. Skinner of Orthopedics was consulted by the ER giuliana lopez. The patient was placed on a left arm splint. The patient remained afebrile during this hospitalization, had normotensive blood pressure and a norm al rate pulse. The patient was at her baseline oxygen flow rate that she uses at home. She had some notable lab values of white blood cell count of 8.3, platelet count of 169 on day of discharge. Her sodium was 136, potassium 4.8. Her BUN was 30 and creatinine was 0.71 on day of discharge. The pat ient otherwise underwent the procedure by Dr. Skinner with an open reduction internal fixation of th e open wound. Had a successful and noncomplicated postoperative course and was deemed ready for disc harge. The patient will follow up with Dr. Skinner for a routine postop care in the outpatient sett ing. Otherwise, the patient tolerated the hospitalization well and was discharged in appropriate con dition. PHYSICAL EXAMINATION: On day of discharge, VITAL SIGNS: Temperature 98.3, pulse of 69, respirations 14, oxygen saturation was 94% on 3 liters, blood pressure was 137/73. GENERAL: Elderly female resting in a chair. No acute distress. HEENT: Atraumatic, normocephalic. NECK: Nontender. Trachea midline. RESPIRATORY: Clear lungs to auscultation bilaterally. No wheezing. CARDIOVASCULAR: Regular rate and rhythm. No murmurs. ABDOMEN: Soft, nontender, nondistended. Bowel sounds normoactive. EXTREMITIES: Left upper extremity has a postoperative dressing, which is clean, dry, and intact. Ne urovascularly intact in all extremities. NEUROLOGIC: GCS of 15. She is awake, alert, and oriented x4. No focal deficits. SKIN: Warm and dry. Normal color. This patient was seen and evaluated previously by Dr. Ornelas, the trauma attending, and he is in agree ment with this plan and for discharge. DISPOSITION: Stable. DISCHARGE INSTRUCTIONS: 1. Location: To be discharged home under the care of herself and her daughter. 2. Diet will be as tolerated with no restrictions. 3. Activity will be with orthopedic limitations of her left wrist following the surgery. 4. Followup will be with Dr. Skinner with Orthopedic Surgery in 10 days as well as her primary care provider within the next week.
== END 2017-09-11 16:19 | disposition home or self-care (01) | DRG 512 ==
LOC: ERS 10:06 → SURG B 18:19
PROVIDERS: ADMIT Surgery; ATTEND Surgery
PROC: 0PSL04Z Reposition Left Ulna with Internal Fixation Device, Open Approach (ICD-10-PCS; principal; 2017-09-10)
PROC: 0PSJ04Z Reposition Left Radius with Internal Fixation Device, Open Approach (ICD-10-PCS; 2017-09-10)
DX: S52.602A Unspecified fracture of lower end of left ulna, initial encounter for closed fracture (principal); W18.39XA Other fall on same level, initial encounter; S52.502A Unspecified fracture of the lower end of left radius, initial encounter for closed fracture; I10 Essential (primary) hypertension; I25.10 Atherosclerotic heart disease of native coronary artery without angina pectoris; E03.9 Hypothyroidism, unspecified; E78.5 Hyperlipidemia, unspecified; J44.9 Chronic obstructive pulmonary disease, unspecified; K21.9 Gastro-esophageal reflux disease without esophagitis; I73.9 Peripheral vascular disease, unspecified; Z79.82 Long term (current) use of aspirin; M16.0 Bilateral primary osteoarthritis of hip
CPT/HCPCS: 25565; 36415; 71045; 76001; 80048; 80053; 83735; 84100; 85025; 90471; 90715; 93005; 96361; 96374; 96376; C1713; G0390; J0131; J0690; J1100; J1885; J2001; J2405; J2704; J2765; J3010; J7050

== ENCOUNTER 2017-12-26 02:49 | Inpatient (IN) | payer MEDICARE ==
[2017-12-26] MEDS ORDERED: cefTRIAXone\\ROCEPHIN 1 GM in Sodium Chloride 0.9% 100 ML IVPB SCH (09:00)
[2017-12-26] MEDS ORDERED: NS 0.9% w/ 20 MEQ KCL 1,000 ML IV SCH (09:00)
[2017-12-26 12:14] LABS: CKMB 3.9 ng/mL (0-6.6); Troponin I Less than 0.010 ng/mL (< 0.028)
--- NOTE | 2017-12-26 12:16 | CT ---
CT HEAD NONCONTRAST: Date: 12/26/17 INDICATION: Syncope. FINDINGS: There is prominent patient motion. No intracranial hemorrhage, mass effect, or midline shift. There i s prominence of the ventricular system, which may be on the basis of parenchymal atrophy, as well as moderate chronic ischemic disease. IMPRESSION: No acute intracranial hemorrhage or mass effect. POS: [facility]
[2017-12-26 12:25] LABS: Actual Bicarbonate (HCO3a) 28.4 mEq/L (22-28); Analyzer IN Cardio ER; CO2 Tension 57.1 mmHg (35.0-45.0); Calcium, Ionized 1.12 mmol/L (1.12-1.30); Carboxyhemoglobin (COHb) 2.4 gm% (0.0-3.0); Hemoglobin (Hb) 13.3 g/dL (12.0-16.0); O2 Tension (PaO2) 60.7 mmHg (> 70.0); Potassium - ABG Lab 3.69 mmol/L (3.70-5.30); pH, Arterial 7.31 (7.35-7.45)
[2017-12-26 12:26] LABS: ALV-art Gradient 67.565 (0-20); Puncture Site RBA
[2017-12-26 12:26] LABS: Clarity CLOUDY (Clear)
[2017-12-26] MEDS ORDERED: hydrALAZINE 20 MG/ML VIAL SLOW IVP PRN (12:26)
[2017-12-26] MEDS ORDERED: Ondansetron ODT 4 MG TAB PO PRN ×2 (12:26→13:44)
[2017-12-26] MEDS ORDERED: Artificial Tears 18 DROP/0.9 ML EA EYE PRN (12:26)
[2017-12-26] MEDS ORDERED: Eucerin (Mineral Oil/Petrolatum,White) 30 gm Jar TOP PRN (12:26)
[2017-12-26] MEDS ORDERED: Chloraseptic Spray 180 ml Bottle PO PRN (12:26)
[2017-12-26] MEDS ORDERED: HYDROcodone/Acetaminophen 5/325 mg Tablet PO PRN (12:26)
[2017-12-26] MEDS ORDERED: Loperamide HCl 2 MG CAP PO PRN ×3 (12:26→13:36)
[2017-12-26] MEDS ORDERED: Calcium Carbonate 500 MG ChewTAB PO PRN ×2 (12:26→13:43)
[2017-12-26] MEDS ORDERED: Sodium Chloride 0.65% Nasal 44 ML BOT EA NARE PRN ×2 (12:26→13:36)
[2017-12-26] MEDS ORDERED: Loratadine 10 MG TAB PO PRN ×2 (12:26→13:44)
[2017-12-26] MEDS ORDERED: Ondansetron HCl/PF 4 MG/2 ML Vial IVP PRN ×2 (12:26→13:36)
[2017-12-26] MEDS ORDERED: Acetaminophen 325 MG TAB PO PRN (12:26)
[2017-12-26] MEDS ORDERED: Zolpidem Tartrate 5 MG TAB PO PRN (12:26)
[2017-12-26] MEDS ORDERED: Senokot S 8.6-50 MG TAB PO PRN ×2 (12:26→13:45)
[2017-12-26 12:27] LABS: Leukocyte Moderate (Negative); Nitrite Negative (Negative); Specific Gravity, Urine 1.016 (1.002-1.036); pH, Urine 5.5 (5.0-9.0)
[2017-12-26 12:28] LABS: Bacteria/HPF None Seen HPF (None Seen); Bilirubin Negative (Negative); Blood, Urine Moderate (Negative); Glucose, Urine (Dipstick) Negative (Negative); Hyaline Casts/LPF NONE SEEN LPF (0-3 Hyaline); Protein, Urine (Dipstick) Trace mg/dL (Neg-Trace); Squamous Epithelial 0-3 HPF (0-3); Urobilinogen 0.2 mg/dL (0.2-1.0)
--- NOTE | 2017-12-26 12:44 | HP ---
PRIMARY CARE PHYSICIAN: Dr. Darcy Skinner. REASON FOR ADMISSION: Altered mental status. HISTORY OF PRESENT ILLNESS: A 77-year-old female who lives at home with her daughter. She has a history of COPD and she is using 2 liter nasal cannula oxygen. Last night, the patient woke up for bathroom and as she did not use her oxygen. She was feeling very weak. She fell down stairs. The patient's daughter called paramedics and paramedics checked her blood pressure which was very low and that is why she was sent to emergency room. In the emergency room without doing anything, her blood pressure improved. She was given oxygen, her oxygen saturation was normal. The patient was planned for discharge from the ER , but patient became unresponsive. She was lethargic, weak and less responsive and that is why ER physician did CT brain which was unremarkable. When I saw this morning, at that time, patient appeared to be lethargic and we suspected CO2 retention and that is why ABG was done and ABG was not super impressive. Subsequently, patient became more alert and she was talking and following commands. At that point, we thought that the patient did not have any good quality sleep last night. That is why she was lethargic this morning. It was unclear what happened to patient's altered mental status and she did not have any focal weakness, but she was having overall weak. There was concern of TIA versus stroke and that is why we admitted this patient in the hospital for observation. REVIEW OF SYSTEMS: The following complete review of systems was negative, unless otherwise mentioned in the HPI or below: Constitutional: Weight loss or gain, ability to conduct usual activities. Skin: Rash, itching. Eyes: Double vision, pain. ENT/Mouth: Nose bleeding, neck stiffness, pain, tenderness. Cardiovascular: Palpitations, dyspnea on exertion, orthopnea. Respiratory: Shortness of breath, wheezing, cough, hemoptysis, fever or night sweats. Gastrointestinal: Poor appetite, abdominal pain, heartburn, nausea, vomiting, constipation, or diarrhea. Genitourinary: Urgency, frequency, dysuria, nocturia. Musculoskeletal: Pain, swelling. Neurologic/Psychiatric: Anxiety, depression. Allergy/Immunologic: Skin rash, bleeding tendency. Please see my HPI for pertinent positive and negative. All other review of systems reviewed and negative except as mentioned in the HPI. PAST MEDICAL HISTORY: Hypertension, dyslipidemia, hypothyroidism, macular degeneration, restless legs syndrome, COPD, tobacco abuse disorder, chronic respiratory failure on home oxygen therapy, osteoarthritis. PAST SURGICAL HISTORY: Patient requires monthly eye injection, cholecystectomy , cardiac catheterization with stent placement, cystoscopy, right inguinal hernia repair with mesh, back surgery. PAST PSYCHIATRIC HISTORY: Anxiety and depression. SOCIAL HISTORY: The patient is living at home with her daughter. She smokes about 1 pack per day. She denies any alcohol abuse. She denies any other illicit drug abuse. FAMILY HISTORY: No strong family history of coronary artery disease, stroke or cancer. ALLERGIES: No known drug allergy. CURRENT HOME MEDICATIONS: Diazepam 2.5 mg daily at bedtime, Lasix 20 mg every other day, potassium chloride one tablet daily, trazodone 50 mg p.o. at bedtime , Flexeril 5 mg q.8 hourly p.r.n., Mobic 7.5 mg daily, Fosamax 70 mg every weekly, Synthroid 75 mcg p.o. daily, Incruse Ellipta 1 inhalation daily, Lipitor 40 mg p.o. at bedtime, lisinopril 10 mg p.o. b.i.d., pramipexole 0.25 mg twice daily, ICAPS 1 capsule p.o. daily, Ecotrin 325 mg p.o. daily, Tylenol # 3 one tablet q.4 hourly p.r.n., senna laxative one tablet daily. EMERGENCY ROOM COURSE: Reviewed. PHYSICAL EXAMINATION: VITAL SIGNS: On arrival, temperature 98.5, pulse 98, respiratory rate 16, saturation 98% on 2-liter oxygen, blood pressure 140/60. GENERAL: Patient is currently chronically ill, frail. HEENT: Normocephalic, atraumatic. Eyes: Pupils round, reactive to light. Extraocular muscle intact. ENT: Oropharynx within normal limits. Moist mucous membranes. No oral lesion, no pharyngeal erythema, no exudate. NECK: Supple, no JVD, no thyromegaly, no carotid bruit. LUNGS: Air entry reduced bilaterally, but no wheeze, no rhonchi, no rales. CARDIAC: S1, S2 regular without any significant murmur. No gallop. No rub. ABDOMEN: Soft, bowel sounds present, no organomegaly, no mass, no peritoneal sign, no suprapubic tenderness. BACK: Unremarkable. No CVA tenderness. EXTREMITIES: Upper extremities; passive movement of all joints are normal. Lower extremities; no edema. Good distal pulsation. SKIN: No rash. PSYCHIATRIC: Normal affect. NEUROLOGIC: Nonfocal examination. SIGNIFICANT LABORATORY DATA AND IMAGING DATA: Cardiac enzymes negative. The patient's CBC is unremarkable. BMP is also unremarkable. LFTs are unremarkable without any abnormality. The patient had CT chest at other emergency room which showed emphysema, right lower lobe infiltrate, nodular changes in left lower chest. Patient had an emergency room visit yesterday evening and patient was given Rocephin, azithromycin, and patient was given empiric antibiotic therapy. ASSESSMENT AND PLAN: 1. Acute altered mental status, etiology uncertain suspecting from hypotension and poor perfusion. Orthostatic hypotension is also possible, underlying volume depletion is also possible, focal neurological deficit is not obvious on clinical examination, so less likely to be stroke, but we will do neuro check and obtain MRI brain, carotid Doppler for further evaluation. We will obtain echocardiography as well to assess ejection fraction and other structural abnormality. 2. Right lower lobe pneumonia. Patient will be given Rocephin 1 gram q.24 hours, Levaquin 500 mg IV daily and Mucinex 600 mg twice daily. 3. Chronic obstructive pulmonary disease. Without any gross flareup we will continue DuoNeb q.6 hourly, Dulera two puffs inhalation b.i.d., Mucinex 600 mg twice daily along with empiric antibiotic therapy. 4. Chronic low back pain. We will continue Flexeril 5 mg q.8 hourly p.r.n., diazepam 2.5 mg at bedtime along with [place] on a p.r.n. basis. 5. Anxiety and depression. Continue trazodone and diazepam as per home dosage. 6. Hypothyroidism. Continue Synthroid 75 mcg p.o. daily. 7. Dyslipidemia. Continue Lipitor 40 mg p.o. at bedtime. 8. Hypertension, but currently low blood pressure and that is why we will hold on antihypertensive medication. We will continue with IV fluid and we will monitor vitals while in hospital. 9. Tobacco abuse disorder. Smoking cessation counseling given. Healthy lifestyle measures discussed with the patient. 10. Hypotension was found at home, but currently normotensive. We will hold on antihypertensive medication. We will check lactic acid. 11. Deep venous thrombosis prophylaxis, Lovenox 30 mg subcutaneously daily. 12. Gastrointestinal prophylaxis, Pepcid 20 mg p.o. b.i.d. 13. Code status: The patient is FULL CODE. Patient's daughter is surrogate decision maker. Disposition plan based on clinical course. We are expecting patient's stay in hospital 24-48 hours. Plan of care discussed with the patient in detail. MTDD
[2017-12-26] MEDS: Cyanocobalamin (Vitamin B-12) 1,000 MCG TAB PO SCH (12:59)
[2017-12-26] MEDS: Aspirin 325 MG TAB PO SCH (12:59)
[2017-12-26] MEDS: Folic Acid 1 MG TAB PO SCH (12:59)
[2017-12-26] MEDS: Multivitamin W/ Minerals 1 TAB PO SCH (13:00)
[2017-12-26 13:11] VITALS: BMI 23.8
[2017-12-26] MEDS ORDERED: Diabetic Tussin 200 MG/10 ML UDCUP PO PRN (13:36)
[2017-12-26] MEDS ORDERED: cloNIDine 0.1 MG TAB PO PRN (13:36)
[2017-12-26] MEDS ORDERED: Hydrocerin (Eucerin) Cream 120 gm Jar TOP PRN (13:36)
[2017-12-26] MEDS ORDERED: Artificial Tear Sol 15 ML BOT EA EYE PRN (13:36)
[2017-12-26] MEDS ORDERED: Acetaminophen 500 MG TAB PO PRN ×2 (13:36)
[2017-12-26] MEDS ORDERED: hydrALAZINE 20 MG/ML VIAL IVP PRN (13:36)
--- NOTE | 2017-12-26 13:37 | RAD ---
PORTABLE CHEST: HISTORY: Syncope. COMPARISON: 12/09/2017 FINDINGS: Patchy infiltrate in the right lower lung is more prominent today. Mild left basilar atelectasis. T he lungs otherwise appear well aerated and clear. Location distorts the chest and mediastinum. IMPRESSION: Evidence of right basilar infiltrate or atelectasis. POS: [facility]
[2017-12-26 13:43] LABS: Hemoglobin 13.1 g/dL (12.0-16.0); Mean Corpuscular HGB CONC 32.4 g/dL (32.0-36.0); Mean Corpuscular Hemoglobin 32.3 pg (27.0-31.0); Mean Corpuscular Volume 99.7 fL (78.0-98.0); Mean Platelet Volume 9.4 fL (7.4-10.4); Platelet Count 145 thou/uL (130-400); RBC Distribution Width 12.9 % (11.5-14.5); Red Blood Cell (RBC) Count 4.07 mill/uL (4.20-5.40); White Blood Cell (WBC) Count 7.5 thou/uL (4.8-10.8)
[2017-12-26] MEDS ORDERED: Bisacodyl 10 MG SUPP PR PRN (13:44)
[2017-12-26] MEDS ORDERED: Temazepam 15 MG CAP PO PRN (13:46)
[2017-12-26 15:00] LABS: ALT (SGPT) 14 U/L (8-55); AST (SGOT) 28 U/L (5-34); Albumin 3.6 g/dL (3.4-4.8); Alkaline Phosphatase 68 U/L (40-150); Anion Gap 15 mmol/L (10-20); BUN (Urea Nitrogen) 25 mg/dL (9.8-20.1); Bilirubin, Total 0.3 mg/dL (0.2-1.2); CK (CPK) 253 U/L (29-168); Calc. Creatinine Clearance 33 mL/min (70-130); Calcium 8.6 mg/dL (7.8-10.44); Carbon Dioxide 24 mmol/L (23-31); Chloride 99 mmol/L (98-107); Estimated GFR-MDRD 41; Globulin 2.5 g/dL (2.4-3.5); Glucose 102 mg/dL (83-110); Potassium 3.5 mmol/L (3.5-5.1); Protein, Total 6.1 g/dL (6.0-8.3); Sodium 134 mmol/L (136-145)
[2017-12-26] MEDS: cefTRIAXone\\ROCEPHIN 1 GM in Sodium Chloride 0.9% 100 ML IVPB SCH (15:40)
[2017-12-26] MEDS ORDERED: Prevnar 13-Val Conj/PF 0.5 ML SYRINGE IM ONE (15:45)
[2017-12-26] MEDS ORDERED: Sodium Chloride 0.9% 1,000 ML IV SCH (15:45)
--- NOTE | 2017-12-26 15:45 | ULT ---
CAROTID ULTRASOUND WITH CONNELLY SCALE AND DOPPLER DUPLEX COLOR FLOW IMAGING SPECTRAL ANALYSIS PERFORMED: CLINICAL INDICATION: Syncope, altered mental status. FINDINGS: There is mild to moderate scattered atherosclerotic calcification of the carotid arteries. PEAK SYSTOLIC VELOCITY (CM/S): Right CCA 83 Left CCA 94 Right ICA 81 Left ICA 129 There is antegrade flow within the visualized bilateral vertebral arteries. IMPRESSION: 1. Elevated velocity indicating moderate (50-69%) stenosis of the left internal carotid artery. 2. No hemodynamically significant stenosis of the visualized right internal carotid artery. POS: TE
--- NOTE | 2017-12-26 15:48 | PRG ---
DATE OF SERVICE: 12/26/2017 Please see my history and physical dictated earlier today for further details. This patient was reevaluated and she became hypotensive with systolic blood pressure 71/45 and then reduced to 60 systolic. Patient was mentating well. We decided to change to inpatient status. We are going to give her 1 liter IV fluid bolus and we are also starting Solu-Medrol 20 mg IV q.8 hourly. We will closely monitor for any further drop in her blood pressure. At this point, the patient also has another problem as urinary tract infection, but patient is already kept on Rocephin and Levaquin and we will follow up on urine culture result. Patient's status is changed from observation to inpatient status Her AMS is likley related with encephalopathy due to sepsis with acute organ dysfunction with hypotension due to CAP and UTI. MTDD
[2017-12-26] MEDS: NS 0.9% w/ 20 MEQ KCL 1,000 ML/1,000 ML BAG IV SCH (17:03)
[2017-12-26] MEDS: Mometasone/Formoterol 120 PUFF INHALER INH SCH (19:24)
[2017-12-26 19:36] LABS: Lactic Acid 0.9 mmol/L (0.5-2.2)
[2017-12-26 19:46] LABS: CKMB 2.4 ng/mL (0-6.6); Troponin I Less than 0.010 ng/mL (< 0.028)
[2017-12-26] MEDS ORDERED: Famotidine 20 MG TAB PO SCH (21:00)
[2017-12-26] MEDS ORDERED: Atorvastatin Calcium 40 MG TAB PO SCH (21:00)
[2017-12-26] MEDS ORDERED: Pramipexole Di-HCl 0.125 MG TAB PO SCH (21:00)
[2017-12-26] MEDS: Pramipexole Di-HCl 0.25 MG TAB PO SCH (21:32)
[2017-12-26] MEDS: Famotidine 20 MG TAB PO SCH (21:32)
[2017-12-26] MEDS: guaiFENesin ER 600 MG TAB PO SCH (21:32)
[2017-12-26 22:38] LABS: CKMB 2.3 ng/mL (0-6.6); Troponin I Less than 0.010 ng/mL (< 0.028)
[2017-12-27] MEDS: NS 0.9% w/ 20 MEQ KCL 1,000 ML/1,000 ML BAG IV SCH ×2 (04:19→14:30)
[2017-12-27 04:36] LABS: #Lymphocytes 0.6 thou/uL (1.20-3.40); #Monocytes 0.2 thou/uL (0.11-0.59); #Neutrophils 5.7 thou/uL (1.40-6.50); %Basophils 0.3 % (0.0-1.0); %Eosinophils 0.4 % (0.0-10.0); %Lymphocytes 8.7 % (21.0-51.0); %Monocytes 2.6 % (0.0-10.0); Hemoglobin 11.8 g/dL (12.0-16.0); Mean Corpuscular HGB CONC 31.4 g/dL (32.0-36.0); Mean Corpuscular Hemoglobin 31.5 pg (27.0-31.0); Mean Platelet Volume 9.3 fL (7.4-10.4); Platelet Count 144 thou/uL (130-400); RBC Distribution Width 12.8 % (11.5-14.5); Red Blood Cell (RBC) Count 3.73 mill/uL (4.20-5.40); White Blood Cell (WBC) Count 6.5 thou/uL (4.8-10.8)
[2017-12-27 04:41] LABS: Anion Gap 10 mmol/L (10-20); BUN (Urea Nitrogen) 15 mg/dL (9.8-20.1); Calc. Creatinine Clearance 57 mL/min (70-130); Calcium 7.9 mg/dL (7.8-10.44); Carbon Dioxide 23 mmol/L (23-31); Chloride 106 mmol/L (98-107); Estimated GFR-MDRD 79; Glucose 180 mg/dL (83-110); Potassium 4.7 mmol/L (3.5-5.1); Sodium 134 mmol/L (136-145)
[2017-12-27] MEDS ORDERED: Levothyroxine 150 MCG TAB PO SCH (06:00)
[2017-12-27] MEDS ORDERED: Levothyroxine Sodium 75 MCG TAB PO SCH (06:00)
[2017-12-27] MEDS: Mometasone/Formoterol 120 PUFF INHALER INH SCH ×2 (06:55→18:45)
[2017-12-27] MEDS: Cyanocobalamin (Vitamin B-12) 1,000 MCG TAB PO SCH (08:18)
[2017-12-27] MEDS: Aspirin 325 MG TAB PO SCH (08:18)
[2017-12-27] MEDS: Pramipexole Di-HCl 0.25 MG TAB PO SCH ×2 (08:19→20:29)
[2017-12-27] MEDS: Multivitamin W/ Minerals 1 TAB PO SCH (08:19)
[2017-12-27] MEDS: Folic Acid 1 MG TAB PO SCH (08:19)
[2017-12-27] MEDS: guaiFENesin ER 600 MG TAB PO SCH ×2 (08:19→20:29)
[2017-12-27] MEDS: Famotidine 20 MG TAB PO SCH ×2 (08:19→20:29)
[2017-12-27] MEDS: Diabetic Tussin 200 MG/10 ML UDCUP PO PRN ×4 (08:22→23:25)
[2017-12-27] MEDS ORDERED: Enoxaparin Sodium 30 MG/0.3 ML SYRINGE SC SCH ×2 (09:00)
[2017-12-27] MEDS ORDERED: Saccharomyces boulardii 250 MG CAP PO SCH (09:00)
--- NOTE | 2017-12-27 11:38 | MRI ---
BRAIN MRI NONCONTRAST: Date: 12/27/17 INDICATION: Altered mental status with syncope. FINDINGS: There is parenchymal volume loss with compensatory dilatation of the ventricular system. No acute ter ritorial infarction, mass effect, or midline shift. Moderate chronic ischemic disease of the cerebral white matter is present. There is a right mastoid effusion. [place] intraocular lenses are absent. Im aged skull base flow-voids are grossly patent. IMPRESSION: 1. No acute territorial infarction or mass effect. 2. Moderate chronic ischemic disease. POS: TE
[2017-12-27] MEDS: cefTRIAXone\\ROCEPHIN 1 GM in Sodium Chloride 0.9% 100 ML IVPB SCH (12:24)
--- NOTE | 2017-12-27 14:32 | PDOC.PN ---
- Subjective Encounter Start Date: 12/27/17 Encounter Start Time: 14:10 Pt seen for followup re: pneumonia. Reports feeling better. Cough+, no sputum. c/o generalized weakness. No nausea or vomiting. - Objective Resuscitation Status: Resuscitation Status FULL:Full Resuscitation MAR Reviewed: Yes Vital Signs & Weight: Vital Signs (12 hours) Temp Pulse Pulse Pulse Resp BP BP 12/27/17 14:00 76 16 12/27/17 12:00 98.1 F 76 20 12/27/17 09:10 74 84 118/60 136/63 12/27/17 08:00 98.0 F 77 16 12/27/17 07:30 12/27/17 06:58 12/27/17 06:53 80 18 12/27/17 04:00 98.0 F 71 19 BP Pulse Ox Pulse Ox Pulse Ox 12/27/17 14:00 95 12/27/17 12:00 130/61 92 L 12/27/17 09:10 90 L 80 L 12/27/17 08:00 138/63 92 L 12/27/17 07:30 93 L 12/27/17 06:58 88 L 12/27/17 06:53 88 L 12/27/17 04:00 100/51 L 86 L Weight Weight 122 lb 5 oz I&O: 12/26/17 12/27/17 12/28/17 06:59 06:59 06:59 Intake Total 300 Output Total 250 Balance -250 300 Result Diagrams: 12/27/17 03:59 12/27/17 03:59 EKG Reviewed by me: Yes (Tele: NSR) Phys Exam - Physical Examination Constitutional: NAD HEENT: moist MMs, sclera anicteric, oral pharynx no lesions, 2+ tonsils Neck: no nodes, no JVD, supple, full ROM Respiratory: no rales, no rhonchi, wheezing present Cardiovascular: RRR, no rub S1, S2 Gastrointestinal: soft, non-tender, no distention, positive bowel sounds Neurological: moves all 4 limbs Psychiatric: normal affect Deviation from normal: Oriented to person and place, not to time Dx/Plan (1) Pneumonia Code(s): J18.9 - PNEUMONIA, UNSPECIFIED ORGANISM Status: Acute Qualifiers: Laterality: right Comment: continue IV ceftriaxone and levofloxacin (2) UTI (urinary tract infection) Status: Acute Comment: continue IV ceftriaxone and levofloxacin (3) CAD (coronary artery disease) Code(s): I25.10 - ATHSCL HEART DISEASE OF [place] CORONARY ARTERY W/O ANG PCTRS Status: Chronic Qualifiers: Coronary Disease-Associated Artery/Lesion type: unspecified vessel or lesion type [place] vs. transplanted heart: [place] heart Associated angina: without angina Qualified Code(s): I25.10 - Atherosclerotic heart disease of [place] coronary artery without angina pectoris Comment: Stable (4) COPD (chronic obstructive pulmonary disease) Status: Chronic Comment: stable (5) HLD (hyperlipidemia) Code(s): E78.5 - HYPERLIPIDEMIA, UNSPECIFIED Status: Chronic Qualifiers: Hyperlipidemia type: unspecified Qualified Code(s): E78.5 - Hyperlipidemia , unspecified Comment: continue statin (6) HTN (hypertension) Code(s): I10 - ESSENTIAL (PRIMARY) HYPERTENSION Status: Chronic Qualifiers: Hypertension type: essential hypertension Qualified Code(s): I10 - Essential (primary) hypertension Comment: controlled (7) Hypothyroid Code(s): E03.9 - HYPOTHYROIDISM, UNSPECIFIED Status: Chronic Qualifiers: Hypothyroidism type: unspecified Qualified Code(s): E03.9 - Hypothyroidism , unspecified Comment: continue synthroid - Plan * . check CTA chest to r/o PE, pt has pulmonary hypertension on 2D echo. Review of Systems - Review of Systems Constitutional: weakness. negative: fever, chills, sweats, malaise Respiratory: Cough, Sputum. negative: Dry, Shortness of Breath, Hemoptysis, SOB with Excertion, Pleuritic Pain, Wheezing Cardiovascular: negative: chest pain, palpitations, orthopnea, paroxysmal nocturnal dyspnea, edema, light headedness Gastrointestinal: negative: Nausea, Vomiting, Abdominal Pain, Diarrhea, Constipation, Melena, Hematochezia Genitourinary: negative: Dysuria, Frequency, Incontinence, Hematuria, Retention Skin: negative: Rash, Lesions, Gus, Bruising - Medications/Allergies Allergies/Adverse Reactions: Allergies Allergy/AdvReac Type Severity Reaction Status Date / Time No Known Drug Allergies Allergy Verified 09/10/17 20:04 Medications: Current Medications Acetaminophen (Tylenol) 500 mg PO Q4H PRN PRN Reason: Fever > 101 Acetaminophen (Tylenol) 1,000 mg PO Q6H PRN PRN Reason: Mild Pain (1-3) Acetaminophen (Tylenol) 650 mg PO Q4H PRN PRN Reason: Headache/Fever/Mild Pain (1-3) Hydrocodone Bitart/Acetaminophen ([place] 5/325) 1 tab PO Q4H PRN PRN Reason: Moderate Pain (4-6) Albuterol/Ipratropium (Duoneb) 3 ml NEB [id number] [facility] Last Admin: 12/27/17 14:00 Dose: 3 ml Artificial Tears (Tears Naturale) 0 drop EA EYE PRN PRN PRN Reason: Dry Eyes Aspirin (Aspirin) 325 mg PO DAILY [facility] Last Admin: 12/27/17 08:18 Dose: 325 mg Atorvastatin Calcium (Lipitor) 40 mg PO HS [facility] Last Admin: 12/26/17 21:32 Dose: 40 mg Bisacodyl (Dulcolax) 10 mg PA DAILY PRN PRN Reason: Constipation Calcium Carbonate (Tums) 1,000 mg PO Q4H PRN PRN Reason: Heartburn or Indigestion Clonidine (Catapres) 0.1 mg PO Q4H PRN PRN Reason: Blood Pressure Cyanocobalamin (Vitamin B-12) 1,000 mcg PO DAILY [facility] Last Admin: 12/27/17 08:18 Dose: 1,000 mcg Emollient Cream (Hydrocerin Cream) 0 gm TOP Q12H PRN PRN Reason: Dry Skin Enoxaparin Sodium (Lovenox) 30 mg SC 0900 [facility] Last Admin: 12/27/17 08:18 Dose: 30 mg Famotidine (Pepcid) 20 mg PO BID [facility] Last Admin: 12/27/17 08:19 Dose: 20 mg Folic Acid (Folvite) 1 mg PO DAILY [facility] Last Admin: 12/27/17 08:19 Dose: 1 mg Guaifenesin (Mucinex) 600 mg PO Q12HR [facility] Last Admin: 12/27/17 08:19 Dose: 600 mg Guaifenesin (Robitussin Sf) 200 mg PO Q4H PRN PRN Reason: Cough Last Admin: 12/27/17 12:35 Dose: 200 mg Hydralazine HCl (Apresoline) 10 mg IVP Q4H PRN PRN Reason: SBP Greater Than 180 Hydralazine HCl (Apresoline) 10 mg SLOW IVP Q4H PRN PRN Reason: Systolic BP > 180 Levofloxacin 500 mg/ Device 100 mls @ 100 mls/hr IVPB DAILY [facility] Last Admin: 12/27/17 08:13 Dose: 100 mls Ceftriaxone Sodium 1 gm/ (Sodium Chloride) 100 mls @ 200 mls/hr IVPB Q24HR [facility] Last Admin: 12/27/17 12:24 Dose: 100 mls Iron/Minerals/Multivitamins (Theragran M) 1 tab PO DAILY [facility] Last Admin: 12/27/17 08:19 Dose: 1 tab Levothyroxine Sodium (Synthroid) 75 mcg PO 0600 [facility] Last Admin: 12/27/17 06:00 Dose: 75 mcg Loperamide HCl (Imodium) 2 mg PO PRN PRN PRN Reason: Diarrhea/Loose Stools Loratadine (Claritin) 10 mg PO DAILYPRN PRN PRN Reason: Sinus Symptoms Methylprednisolone Sodium Succinate (Solu-Medrol) 20 mg IVP Q8HR [facility] Last Admin: 12/27/17 12:30 Dose: 20 mg Mineral Oil/White Petrolatum (Eucerin Cream) 0 gm TOP BIDPRN PRN PRN Reason: Dry Skin Mometasone Furoate/Formoterol Fumar (Dulera 100 Mcg/5 Mcg Inhaler) 2 puff INH BID-RT [facility] Last Admin: 12/27/17 06:55 Dose: 2 puff Ondansetron HCl (Zofran Odt) 4 mg PO Q6H PRN PRN Reason: Nausea/Vomiting Ondansetron HCl (Zofran) 4 mg IVP Q6H PRN PRN Reason: Nausea/Vomiting Phenol (Chloraseptic [place] 180 Ml Bot) 0 ml PO PRN PRN PRN Reason: Sore Throat Pramipexole Dihydrochloride (Mirapex) 0.5 mg PO BID [facility] Last Admin: 12/27/17 08:19 Dose: 0.5 mg Saccharomyces Boulardii (Florastor) 250 mg PO DAILY [facility] Last Admin: 12/27/17 08:19 Dose: 250 mg Senna/Docusate Sodium (Senokot S) 2 tab PO BID PRN PRN Reason: Constipation Sodium Chloride (Flush - Normal Saline) 10 ml IVF PRN PRN PRN Reason: Saline Flush Sodium Chloride (Flush - Normal Saline) 10 ml IVF Q12HR [facility] Last Admin: 12/27/17 08:18 Dose: Not Given Sodium Chloride (Lares Nasal [place] 0.65%) 0 ml EA NARE Q6H PRN PRN Reason: NASAL CONGESTION/DRAINAGE Temazepam (Restoril) 15 mg PO HS PRN PRN Reason: Insomnia Zolpidem Tartrate (Ambien) 5 mg PO HSPRN PRN PRN Reason: Insomnia
[2017-12-27] MEDS ORDERED: ISOVUE-370 76%-LOCM 1 ML ONE (15:13)
--- NOTE | 2017-12-27 15:36 | CT ---
CTA CHEST WITH CONTRAST AND 3D VOLUME RENDERING: Date: 12/27/17 INDICATION: Elevated pulmonary artery pressure, hypotension. COMPARISON: 12/25/17 CT thorax. FINDINGS: There is no significant filling defect of the pulmonary arteries. There is ectasia of the ascending t horacic aorta. Diffuse vascular disease, including coronary artery calcium, is present. There is bila teral mild pleural fluid with adjacent bilateral consolidation. Pulmonary emphysema is present diffus bennett, throughout each lung. Borderline size mediastinal lymph nodes are nonspecific. There is a modera te compression fracture of T10, similar to 12/25/17 exam. There are bilateral areas of remote appeari ng sclerosis of the ribs. IMPRESSION: 1. No definite evidence for pulmonary embolus. 2. Bilateral pleural effusions with adjacent consolidation, which may relate to progressive atelecta sis and/or pneumonia, given interval increase since recent exam 2 days prior. Continued follow-up is recommended. 3. Prominent pulmonary emphysema. POS: TE
[2017-12-27] MEDS ORDERED: Acetaminophen 500 MG TAB PO PRN (17:02)
[2017-12-27] MEDS ORDERED: Hydrocerin (Eucerin) Cream 120 gm Jar TOP PRN (17:02)
[2017-12-27] MEDS ORDERED: cloNIDine 0.1 MG TAB PO PRN (17:02)
[2017-12-27] MEDS ORDERED: hydrALAZINE 20 MG/ML VIAL IVP PRN (17:02)
[2017-12-27] MEDS ORDERED: Sodium Chloride 0.65% Nasal 44 ML BOT EA NARE PRN (17:03)
[2017-12-27] MEDS ORDERED: Bisacodyl 10 MG SUPP PR PRN (17:03)
[2017-12-27] MEDS ORDERED: Acetaminophen 325 MG TAB PO PRN (17:05)
[2017-12-27] MEDS ORDERED: hydrALAZINE 20 MG/ML VIAL SLOW IVP PRN (17:06)
[2017-12-27] MEDS ORDERED: Calcium Carbonate 500 MG ChewTAB PO PRN (17:06)
[2017-12-27] MEDS ORDERED: Artificial Tears 18 DROP/0.9 ML EA EYE PRN (17:06)
[2017-12-27] MEDS ORDERED: HYDROcodone/Acetaminophen 5/325 mg Tablet PO PRN (17:07)
[2017-12-27] MEDS ORDERED: Loperamide HCl 2 MG CAP PO PRN (17:07)
[2017-12-27] MEDS ORDERED: Loratadine 10 MG TAB PO PRN (17:09)
[2017-12-27] MEDS ORDERED: Eucerin (Mineral Oil/Petrolatum,White) 30 gm Jar TOP PRN (17:09)
[2017-12-27] MEDS ORDERED: Ondansetron ODT 4 MG TAB PO PRN (17:10)
[2017-12-27] MEDS ORDERED: Ondansetron HCl/PF 4 MG/2 ML Vial IVP PRN (17:10)
[2017-12-27] MEDS ORDERED: Chloraseptic Spray 180 ml Bottle PO PRN (17:10)
[2017-12-27] MEDS ORDERED: Senokot S 8.6-50 MG TAB PO PRN (17:11)
[2017-12-27] MEDS ORDERED: Zolpidem Tartrate 5 MG TAB PO PRN (17:12)
[2017-12-27] MEDS: Acetaminophen 500 MG TAB PO PRN (20:28)
[2017-12-27] MEDS ORDERED: Atorvastatin Calcium 40 MG TAB PO SCH (21:00)
[2017-12-28] MEDS: Nicotine 21 MG PATCH TOP SCH (04:29)
[2017-12-28] MEDS: Mometasone/Formoterol 120 PUFF INHALER INH SCH ×2 (06:53→18:19)
[2017-12-28] MEDS: Levothyroxine Sodium 75 MCG TAB PO SCH (07:13)
[2017-12-28 08:45] LABS: #Lymphocytes 0.9 thou/uL (1.20-3.40); #Monocytes 0.6 thou/uL (0.11-0.59); #Neutrophils 6.4 thou/uL (1.40-6.50); %Basophils 0.5 % (0.0-1.0); %Eosinophils 0.5 % (0.0-10.0); %Lymphocytes 11.2 % (21.0-51.0); %Monocytes 7.1 % (0.0-10.0); %Neutrophils 80.8 % (42.0-75.0); Hemoglobin 11.8 g/dL (12.0-16.0); Mean Corpuscular HGB CONC 32.8 g/dL (32.0-36.0); Mean Corpuscular Hemoglobin 32.6 pg (27.0-31.0); Mean Corpuscular Volume 99.2 fL (78.0-98.0); Mean Platelet Volume 8.9 fL (7.4-10.4); Platelet Count 146 thou/uL (130-400); RBC Distribution Width 12.9 % (11.5-14.5); Red Blood Cell (RBC) Count 3.64 mill/uL (4.20-5.40); White Blood Cell (WBC) Count 7.9 thou/uL (4.8-10.8)
[2017-12-28] MEDS: Aspirin 325 MG TAB PO SCH (08:54)
[2017-12-28] MEDS: Enoxaparin Sodium 30 MG/0.3 ML SYRINGE SC SCH (08:54)
[2017-12-28] MEDS: Cyanocobalamin (Vitamin B-12) 1,000 MCG TAB PO SCH (08:54)
[2017-12-28] MEDS: Folic Acid 1 MG TAB PO SCH (08:55)
[2017-12-28] MEDS: Famotidine 20 MG TAB PO SCH ×2 (08:55→21:20)
[2017-12-28] MEDS: Multivitamin W/ Minerals 1 TAB PO SCH (08:55)
[2017-12-28] MEDS: guaiFENesin ER 600 MG TAB PO SCH ×2 (08:55→21:21)
[2017-12-28] MEDS: Pramipexole Di-HCl 0.25 MG TAB PO SCH ×2 (08:55→21:22)
[2017-12-28] MEDS: Diabetic Tussin 200 MG/10 ML UDCUP PO PRN (08:56)
[2017-12-28 09:00] LABS: Anion Gap 14 mmol/L (10-20); BUN (Urea Nitrogen) 10 mg/dL (9.8-20.1); Calc. Creatinine Clearance 57 mL/min (70-130); Calcium 8.5 mg/dL (7.8-10.44); Carbon Dioxide 21 mmol/L (23-31); Chloride 101 mmol/L (98-107); Estimated GFR-MDRD 77; Glucose 120 mg/dL (83-110); Potassium 4.2 mmol/L (3.5-5.1); Sodium 132 mmol/L (136-145)
[2017-12-28] MEDS ORDERED: Saccharomyces boulardii 250 MG CAP PO SCH (09:00)
[2017-12-28] MEDS: cefTRIAXone\\ROCEPHIN 1 GM in Sodium Chloride 0.9% 100 ML IVPB SCH (12:48)
[2017-12-28] MEDS ORDERED: Senokot 8.6 MG TAB PO PRN (16:14)
[2017-12-28] MEDS ORDERED: Alendronate Sodium 70 mg Tablet PO SCH (16:15)
--- NOTE | 2017-12-28 17:18 | PDOC.PN ---
- Subjective Encounter Start Date: 12/28/17 Encounter Start Time: 07:40 Pt seen for followup re: pneumonia. Feels slightly better. Cough+, sputum+. No fevers. - Objective Resuscitation Status: Resuscitation Status FULL:Full Resuscitation MAR Reviewed: Yes Vital Signs & Weight: Vital Signs (12 hours) Temp Pulse Resp BP BP BP BP 12/28/17 17:13 91 148/70 H 12/28/17 16:00 98.3 F 95 20 186/85 H 186/85 H 12/28/17 14:20 81 18 12/28/17 12:00 98.5 F 79 16 169/77 H 12/28/17 08:20 98.2 F 98 24 H 147/81 H 12/28/17 07:42 12/28/17 07:11 12/28/17 06:53 75 15 Pulse Ox 12/28/17 17:13 12/28/17 16:00 90 L 12/28/17 14:20 92 L 12/28/17 12:00 95 12/28/17 08:20 90 L 12/28/17 07:42 90 L 12/28/17 07:11 95 12/28/17 06:53 95 Weight Weight 122 lb 5 oz I&O: 12/27/17 12/28/17 12/29/17 06:59 06:59 06:59 Intake Total 600 300 Output Total 250 Balance -250 600 300 Result Diagrams: 12/28/17 08:37 12/28/17 08:37 EKG Reviewed by me: Yes (Tele: NSR) Phys Exam - Physical Examination Constitutional: NAD HEENT: moist MMs Neck: supple Respiratory: clear to auscultation bilateral Cardiovascular: RRR Gastrointestinal: soft Neurological: moves all 4 limbs Psychiatric: normal affect Dx/Plan (1) Pneumonia Code(s): J18.9 - PNEUMONIA, UNSPECIFIED ORGANISM Status: Acute Qualifiers: Laterality: right Comment: on IV ceftriaxone and levofloxacin (2) UTI (urinary tract infection) Status: Acute Comment: on IV ceftriaxone and levofloxacin (3) Left carotid artery stenosis Code(s): I65.22 - OCCLUSION AND STENOSIS OF LEFT CAROTID ARTERY Status: Acute Comment: Moderate stenosis, no evidence of stroke on MRI (4) CAD (coronary artery disease) Code(s): I25.10 - ATHSCL HEART DISEASE OF [place] CORONARY ARTERY W/O ANG PCTRS Status: Chronic Qualifiers: Coronary Disease-Associated Artery/Lesion type: unspecified vessel or lesion type [place] vs. transplanted heart: [place] heart Associated angina: without angina Qualified Code(s): I25.10 - Atherosclerotic heart disease of [place] coronary artery without angina pectoris Comment: Stable (5) COPD (chronic obstructive pulmonary disease) Status: Chronic Comment: stable (6) HLD (hyperlipidemia) Code(s): E78.5 - HYPERLIPIDEMIA, UNSPECIFIED Status: Chronic Qualifiers: Hyperlipidemia type: unspecified Qualified Code(s): E78.5 - Hyperlipidemia , unspecified Comment: continue statin (7) HTN (hypertension) Code(s): I10 - ESSENTIAL (PRIMARY) HYPERTENSION Status: Chronic Qualifiers: Hypertension type: essential hypertension Qualified Code(s): I10 - Essential (primary) hypertension Comment: controlled (8) Hypothyroid Code(s): E03.9 - HYPOTHYROIDISM, UNSPECIFIED Status: Chronic Qualifiers: Hypothyroidism type: unspecified Qualified Code(s): E03.9 - Hypothyroidism , unspecified Comment: on synthroid - Plan * . No evidence of stroke Review of Systems - Review of Systems Respiratory: Cough, Sputum. negative: Shortness of Breath, SOB with Excertion, Pleuritic Pain, Wheezing Cardiovascular: negative: chest pain, palpitations, orthopnea, paroxysmal nocturnal dyspnea, edema, light headedness - Medications/Allergies Allergies/Adverse Reactions: Allergies Allergy/AdvReac Type Severity Reaction Status Date / Time No Known Drug Allergies Allergy Verified 09/10/17 20:04 Medications: Current Medications Acetaminophen (Tylenol) 500 mg PO Q4H PRN PRN Reason: Fever > 101 Acetaminophen (Tylenol) 1,000 mg PO Q6H PRN PRN Reason: Mild Pain (1-3) Last Admin: 12/27/17 20:28 Dose: 1,000 mg Acetaminophen (Tylenol) 650 mg PO Q4H PRN PRN Reason: Headache/Fever/Mild Pain (1-3) Last Admin: 12/28/17 08:56 Dose: 650 mg Hydrocodone Bitart/Acetaminophen ([place] 5/325) 1 tab PO Q4H PRN PRN Reason: Moderate Pain (4-6) Albuterol/Ipratropium (Duoneb) 3 ml NEB [id number] LAURA Last Admin: 12/28/17 14:20 Dose: 3 ml Artificial Tears (Tears Naturale) 0 drop EA EYE PRN PRN PRN Reason: Dry Eyes Aspirin (Aspirin) 325 mg PO DAILY [facility] Last Admin: 12/28/17 08:54 Dose: 325 mg Atorvastatin Calcium (Lipitor) 40 mg PO HS [facility] Bisacodyl (Dulcolax) 10 mg [place] DAILY PRN PRN Reason: Constipation Calcium Carbonate (Tums) 1,000 mg PO Q4H PRN PRN Reason: Heartburn or Indigestion Clonidine (Catapres) 0.1 mg PO Q4H PRN PRN Reason: Blood Pressure Cyanocobalamin (Vitamin B-12) 1,000 mcg PO DAILY [facility] Last Admin: 12/28/17 08:54 Dose: 1,000 mcg Docusate Sodium (Colace) 100 mg PO HS [facility] Emollient Cream (Hydrocerin Cream) 0 gm TOP Q12H PRN PRN Reason: Dry Skin Enoxaparin Sodium (Lovenox) 30 mg SC 0900 [facility] Last Admin: 12/28/17 08:54 Dose: 30 mg Famotidine (Pepcid) 20 mg PO BID [facility] Last Admin: 12/28/17 08:55 Dose: 20 mg Folic Acid (Folvite) 1 mg PO DAILY [facility] Last Admin: 12/28/17 08:55 Dose: 1 mg Gabapentin (Neurontin) 300 mg PO BID [facility] Guaifenesin (Mucinex) 600 mg PO Q12HR [facility] Last Admin: 12/28/17 08:55 Dose: 600 mg Guaifenesin (Robitussin Sf) 200 mg PO Q4H PRN PRN Reason: Cough Last Admin: 12/28/17 08:56 Dose: 200 mg Hydralazine HCl (Apresoline) 10 mg SLOW IVP Q4H PRN PRN Reason: Systolic BP > 180 Levofloxacin 500 mg/ Device 100 mls @ 100 mls/hr IVPB DAILY [facility] Last Admin: 12/28/17 08:46 Dose: 100 mls Ceftriaxone Sodium 1 gm/ (Sodium Chloride) 100 mls @ 200 mls/hr IVPB Q24HR@ 1300 [facility] Last Admin: 12/28/17 12:48 Dose: 100 mls Iron/Minerals/Multivitamins (Theragran M) 1 tab PO DAILY [facility] Last Admin: 12/28/17 08:55 Dose: 1 tab Levothyroxine Sodium (Synthroid) 75 mcg PO 0600 [facility] Last Admin: 12/28/17 07:13 Dose: 75 mcg Lisinopril (Zestril) 10 mg PO BID [facility] Loperamide HCl (Imodium) 2 mg PO PRN PRN PRN Reason: Diarrhea/Loose Stools Loratadine (Claritin) 10 mg PO DAILYPRN PRN PRN Reason: Sinus Symptoms Methylprednisolone Sodium Succinate (Solu-Medrol) 20 mg IVP Q8HR [facility] Last Admin: 12/28/17 12:48 Dose: 20 mg Mineral Oil/White Petrolatum (Eucerin Cream) 0 gm TOP BIDPRN PRN PRN Reason: Dry Skin Mometasone Furoate/Formoterol Fumar (Dulera 100 Mcg/5 Mcg Inhaler) 2 puff INH BID-RT [facility] Nicotine (Nicoderm Patch) 21 mg TOP Q24HR [facility] Last Admin: 12/28/17 04:29 Dose: 21 mg Ondansetron HCl (Zofran Odt) 4 mg PO Q6H PRN PRN Reason: Nausea/Vomiting Ondansetron HCl (Zofran) 4 mg IVP Q6H PRN PRN Reason: Nausea/Vomiting Phenol (Chloraseptic [place] 180 Ml Bot) 0 ml PO PRN PRN PRN Reason: Sore Throat Polyethylene Glycol (Miralax) 17 gm PO DAILY [facility] Pramipexole Dihydrochloride (Mirapex) 0.5 mg PO BID [facility] Last Admin: 12/28/17 08:55 Dose: 0.5 mg Primidone (Mysoline) 50 mg PO HS [facility] Saccharomyces Boulardii (Florastor) 250 mg PO DAILY [facility] Senna (Senokot) 1 tab PO HS PRN PRN Reason: Constipation Senna/Docusate Sodium (Senokot S) 2 tab PO BID PRN PRN Reason: Constipation Sodium Chloride (Flush - Normal Saline) 10 ml IVF PRN PRN PRN Reason: Saline Flush Sodium Chloride (Flush - Normal Saline) 10 ml IVF Q12HR [facility] Last Admin: 12/28/17 08:53 Dose: 10 ml Sodium Chloride ([place] Nasal [place] 0.65%) 0 ml EA NARE Q6H PRN PRN Reason: NASAL CONGESTION/DRAINAGE Temazepam (Restoril) 15 mg PO HS PRN PRN Reason: Insomnia Zolpidem Tartrate (Ambien) 5 mg PO HSPRN PRN PRN Reason: Insomnia
[2017-12-28] MEDS: Docusate 100 MG CAP PO SCH (21:20)
[2017-12-28] MEDS: Gabapentin 300 MG CAP PO SCH (21:20)
[2017-12-28] MEDS: Atorvastatin Calcium 40 MG TAB PO SCH (21:20)
[2017-12-28] MEDS: Lisinopril 10 MG TAB PO SCH (21:21)
[2017-12-28] MEDS: Primidone 50 MG TAB PO SCH (21:22)
[2017-12-28] MEDS: Acetaminophen 500 MG TAB PO PRN (21:24)
[2017-12-28] MEDS: Temazepam 15 MG CAP PO PRN (21:25)
[2017-12-29] MEDS: Nicotine 21 MG PATCH TOP SCH (03:50)
[2017-12-29] MEDS: Levothyroxine Sodium 75 MCG TAB PO SCH (06:07)
[2017-12-29] MEDS: Mometasone/Formoterol 120 PUFF INHALER INH SCH ×2 (06:36→19:16)
[2017-12-29] MEDS ORDERED: Polyethylene Glycol 3350 17 GM Packet PO SCH (09:00)
[2017-12-29] MEDS ORDERED: Spiriva 18 MCG CAP (Box of 5 Caps) INH SCH (09:00)
[2017-12-29] MEDS: guaiFENesin ER 600 MG TAB PO SCH ×2 (09:37→22:05)
[2017-12-29] MEDS: Multivitamin W/ Minerals 1 TAB PO SCH (09:37)
[2017-12-29] MEDS: Cyanocobalamin (Vitamin B-12) 1,000 MCG TAB PO SCH (09:37)
[2017-12-29] MEDS: Saccharomyces boulardii 250 MG CAP PO SCH (09:37)
[2017-12-29] MEDS: Famotidine 20 MG TAB PO SCH ×2 (09:37→22:04)
[2017-12-29] MEDS: Lisinopril 10 MG TAB PO SCH ×2 (09:41→22:05)
[2017-12-29] MEDS: Gabapentin 300 MG CAP PO SCH ×2 (09:41→22:05)
[2017-12-29] MEDS: Folic Acid 1 MG TAB PO SCH (09:41)
[2017-12-29] MEDS: Enoxaparin Sodium 30 MG/0.3 ML SYRINGE SC SCH (09:42)
[2017-12-29] MEDS: Pramipexole Di-HCl 0.25 MG TAB PO SCH ×2 (09:43→22:06)
[2017-12-29] MEDS: Aspirin 325 MG TAB PO SCH ×2 (10:04→22:04)
[2017-12-29] MEDS: cefTRIAXone\\ROCEPHIN 1 GM in Sodium Chloride 0.9% 100 ML IVPB SCH (13:15)
--- NOTE | 2017-12-29 16:08 | PDOC.PN ---
- Subjective Encounter Start Date: 12/29/17 Encounter Start Time: 13:40 -: old records requested/rev Pt seen and examined, chart reviewed in its entirety, this is my first visit with this patient No F/C,no N/V/D/C, no CP or SOB, cough, but non-productive. No acute events overnight, no new complaints All systems reviewed and neg except as above - Objective Resuscitation Status: Resuscitation Status FULL:Full Resuscitation MAR Reviewed: Yes Vital Signs & Weight: Vital Signs (12 hours) Temp Pulse Resp BP BP BP BP 12/29/17 15:42 98.6 F 85 14 161/99 H 12/29/17 14:00 174/90 H 156/83 H 151/77 H 12/29/17 13:09 85 18 12/29/17 11:26 98.1 F 93 20 137/75 12/29/17 08:00 97.5 F L 95 16 158/81 H 12/29/17 06:34 96 18 Pulse Ox 12/29/17 15:42 92 L 12/29/17 14:00 12/29/17 13:09 93 L 12/29/17 11:26 92 L 12/29/17 08:00 92 L 12/29/17 06:34 96 Weight Weight 122 lb 5 oz I&O: 12/28/17 12/29/17 12/30/17 06:59 06:59 06:59 Intake Total 600 1080 Balance 600 1080 Result Diagrams: 12/28/17 08:37 12/28/17 08:37 Radiology Reviewed by me: Yes EKG Reviewed by me: Yes Phys Exam - Physical Examination Constitutional: NAD HEENT: PERRLA, moist MMs, sclera anicteric, oral pharynx no lesions Neck: no nodes, no JVD, supple, full ROM Respiratory: no wheezing, no rhonchi coarse bilateral breath sounds Cardiovascular: RRR, no significant murmur, no rub Gastrointestinal: soft, non-tender, no distention, positive bowel sounds Musculoskeletal: no edema Neurological: non-focal, normal sensation, moves all 4 limbs Lymphatic: no nodes Psychiatric: normal affect, A&O x 3 Skin: no rash, normal turgor, cap refill <2 seconds Dx/Plan (1) Left carotid artery stenosis Code(s): I65.22 - OCCLUSION AND STENOSIS OF LEFT CAROTID ARTERY Status: Chronic Comment: Moderate stenosis, no evidence of stroke on MRI (2) Pneumonia Code(s): J18.9 - PNEUMONIA, UNSPECIFIED ORGANISM Status: Acute Qualifiers: Pneumonia type: due to unspecified organism Laterality: right Lung location: lower lobe of lung Qualified Code(s): J18.1 - Lobar pneumonia, unspecified organism Comment: on IV ceftriaxone and levofloxacin (3) UTI (urinary tract infection) Status: Acute Qualifiers: Urinary tract infection type: acute cystitis Hematuria presence: without hematuria Qualified Code(s): N30.00 - Acute cystitis without hematuria Comment: on IV ceftriaxone and levofloxacin (4) Acute exacerbation of chronic obstructive pulmonary disease (COPD) Code(s): J44.1 - CHRONIC OBSTRUCTIVE PULMONARY DISEASE W (ACUTE) EXACERBATION Status: Acute Comment: Improving with treatment. (5) Chronic respiratory failure Code(s): J96.10 - CHRONIC RESPIRATORY FAILURE, UNSP W HYPOXIA OR HYPERCAPNIA Status: Acute Qualifiers: Respiratory failure complication: hypoxia Qualified Code(s): J96.11 - Chronic respiratory failure with hypoxia Comment: on 3L NC at home, stable - Plan cont current plan of care, continue antibiotics, PT/OT, [employer] and crm, out of bed/ambulate * . plan home in 1-2 days with [facility]
[2017-12-29] MEDS: Atorvastatin Calcium 40 MG TAB PO SCH (22:04)
[2017-12-29] MEDS: Docusate 100 MG CAP PO SCH (22:04)
[2017-12-29] MEDS: Primidone 50 MG TAB PO SCH (22:06)
[2017-12-29] MEDS: Temazepam 15 MG CAP PO PRN (22:07)
[2017-12-29] MEDS: Acetaminophen 500 MG TAB PO PRN (22:07)
[2017-12-30] MEDS: Nicotine 21 MG PATCH TOP SCH (03:21)
[2017-12-30 04:22] LABS: #Lymphocytes 0.9 thou/uL (1.20-3.40); #Monocytes 0.6 thou/uL (0.11-0.59); #Neutrophils 5.3 thou/uL (1.40-6.50); %Basophils 0.2 % (0.0-1.0); %Eosinophils 0.3 % (0.0-10.0); %Lymphocytes 13.1 % (21.0-51.0); %Monocytes 9.2 % (0.0-10.0); %Neutrophils 77.2 % (42.0-75.0); Hemoglobin 13.2 g/dL (12.0-16.0); Mean Corpuscular HGB CONC 33.9 g/dL (32.0-36.0); Mean Corpuscular Hemoglobin 33.2 pg (27.0-31.0); Mean Corpuscular Volume 97.9 fL (78.0-98.0); Mean Platelet Volume 8.6 fL (7.4-10.4); Platelet Count 182 thou/uL (130-400); RBC Distribution Width 12.8 % (11.5-14.5); Red Blood Cell (RBC) Count 3.97 mill/uL (4.20-5.40); White Blood Cell (WBC) Count 6.9 thou/uL (4.8-10.8)
[2017-12-30 04:43] LABS: Anion Gap 13 mmol/L (10-20); BUN (Urea Nitrogen) 11 mg/dL (9.8-20.1); Calc. Creatinine Clearance 55 mL/min (70-130); Calcium 8.4 mg/dL (7.8-10.44); Carbon Dioxide 23 mmol/L (23-31); Chloride 96 mmol/L (98-107); Estimated GFR-MDRD 75; Glucose 114 mg/dL (83-110); Magnesium 1.9 mg/dL (1.6-2.6); Potassium 4.5 mmol/L (3.5-5.1); Sodium 127 mmol/L (136-145)
[2017-12-30] MEDS: Levothyroxine Sodium 75 MCG TAB PO SCH (05:35)
[2017-12-30] MEDS: Mometasone/Formoterol 120 PUFF INHALER INH SCH ×2 (06:52→19:03)
[2017-12-30] MEDS: Multivitamin W/ Minerals 1 TAB PO SCH (10:27)
[2017-12-30] MEDS: Polyethylene Glycol 3350 17 GM Packet PO SCH (10:28)
[2017-12-30] MEDS: Enoxaparin Sodium 30 MG/0.3 ML SYRINGE SC SCH (10:28)
[2017-12-30] MEDS: Pramipexole Di-HCl 0.25 MG TAB PO SCH ×2 (10:28→20:26)
[2017-12-30] MEDS: predniSONE 20 MG TAB PO SCH (10:29)
[2017-12-30] MEDS: guaiFENesin ER 600 MG TAB PO SCH ×2 (10:29→20:26)
[2017-12-30] MEDS: Saccharomyces boulardii 250 MG CAP PO SCH (10:29)
[2017-12-30] MEDS: Lisinopril 10 MG TAB PO SCH ×2 (10:30→20:24)
[2017-12-30] MEDS: Diabetic Tussin 200 MG/10 ML UDCUP PO PRN (10:31)
[2017-12-30] MEDS: Cyanocobalamin (Vitamin B-12) 1,000 MCG TAB PO SCH (10:31)
[2017-12-30] MEDS: Folic Acid 1 MG TAB PO SCH (10:31)
[2017-12-30] MEDS: Gabapentin 300 MG CAP PO SCH ×2 (10:31→20:25)
[2017-12-30] MEDS: Famotidine 20 MG TAB PO SCH ×2 (10:31→20:25)
[2017-12-30] MEDS ORDERED: ISOVUE-370 76%-LOCM 1 ML ONE (15:58)
--- NOTE | 2017-12-30 16:27 | CT ---
CT ANGIOGRAM GREAT VESSELS OF THE NECK WITH IV CONTRAST AND 3D MIP RECONSTRUCTIONS: 12/30/17 PROVIDED CLINICAL HISTORY: Altered mental status and syncope. FINDINGS: There is a normal three vessel configuration of the great vessels at the arch. There is mild calcifie d plaque involving the carotid bulbs bilaterally without evidence for significant stenosis. The subcl gisela innominate, common carotid and internal carotid arteries demonstrate no significant stenosis. T he vertebral arteries demonstrate no significant stenosis. The visualized lung apices demonstrate extensive emphysematous change and partially visualized, at le ast moderate if not large bilateral pleural effusions. The osseous structures demonstrate no concern ing lytic or blastic lesions. Degenerative changes are seen involving the cervical spine. IMPRESSION: No CT evidence for a hemodynamically significant stenosis involving the great vessels of the neck. POS: TE
--- NOTE | 2017-12-30 16:38 | PDOC.PN ---
- Subjective Encounter Start Date: 12/30/17 Encounter Start Time: 13:30 Subjective: pt up in bed no complains - Objective Resuscitation Status: Resuscitation Status FULL:Full Resuscitation Vital Signs & Weight: Vital Signs (12 hours) Temp Pulse Resp BP BP Pulse Ox 12/30/17 15:57 98 F 93 20 157/82 H 95 12/30/17 14:09 89 18 94 L 12/30/17 12:00 98.1 F 83 20 132/74 96 12/30/17 10:30 149/79 H 12/30/17 08:50 93 L 12/30/17 08:00 98.3 F 95 26 H 149/79 H 88 L 12/30/17 06:50 91 18 90 L Weight Weight 122 lb 5 oz I&O: 12/29/17 12/30/17 12/31/17 06:59 06:59 06:59 Intake Total 1080 480 840 Balance 1080 480 840 Result Diagrams: 12/30/17 04:08 12/30/17 04:08 Phys Exam - Physical Examination Neck: no nodes, no JVD, supple, full ROM Respiratory: no wheezing, no rales, no rhonchi, wheezing present, clear to auscultation bilateral Cardiovascular: RRR, no significant murmur, no rub, gallop, irregular Gastrointestinal: soft, non-tender, no distention, positive bowel sounds Dx/Plan (1) Pneumonia Code(s): J18.9 - PNEUMONIA, UNSPECIFIED ORGANISM Status: Acute Qualifiers: Pneumonia type: due to unspecified organism Laterality: right Lung location: lower lobe of lung Qualified Code(s): J18.1 - Lobar pneumonia, unspecified organism Comment: on IV ceftriaxone and levofloxacin (2) UTI (urinary tract infection) Status: Acute Qualifiers: Urinary tract infection type: acute cystitis Hematuria presence: without hematuria Qualified Code(s): N30.00 - Acute cystitis without hematuria Comment: on IV ceftriaxone and levofloxacin (3) Left carotid artery stenosis Code(s): I65.22 - OCCLUSION AND STENOSIS OF LEFT CAROTID ARTERY Status: Chronic Comment: Moderate stenosis, no evidence of stroke on MRI (4) Acute exacerbation of chronic obstructive pulmonary disease (COPD) Code(s): J44.1 - CHRONIC OBSTRUCTIVE PULMONARY DISEASE W (ACUTE) EXACERBATION Status: Acute Comment: Improving with treatment. - Plan pna possible gram + organism -: will get CT neck to make sure no significant stenosis -: will continue prednisone -: possible discharge in am * . Review of Systems - Review of Systems Respiratory: negative: Cough, Dry, Shortness of Breath, Hemoptysis, SOB with Excertion, Pleuritic Pain, Sputum, Wheezing Cardiovascular: negative: chest pain, palpitations, orthopnea, paroxysmal nocturnal dyspnea, edema, light headedness, other Gastrointestinal: negative: Nausea, Vomiting, Abdominal Pain, Diarrhea, Constipation, Melena, Hematochezia, Other - Medications/Allergies Allergies/Adverse Reactions: Allergies Allergy/AdvReac Type Severity Reaction Status Date / Time No Known Drug Allergies Allergy Verified 09/10/17 20:04 Medications: Current Medications Acetaminophen (Tylenol) 500 mg PO Q4H PRN PRN Reason: Fever > 101 Acetaminophen (Tylenol) 1,000 mg PO Q6H PRN PRN Reason: Mild Pain (1-3) Last Admin: 12/29/17 22:07 Dose: 1,000 mg Acetaminophen (Tylenol) 650 mg PO Q4H PRN PRN Reason: Headache/Fever/Mild Pain (1-3) Last Admin: 12/28/17 08:56 Dose: 650 mg Hydrocodone Bitart/Acetaminophen ([place] 5/325) 1 tab PO Q4H PRN PRN Reason: Moderate Pain (4-6) Albuterol/Ipratropium (Duoneb) 3 ml NEB [id number] [facility] Last Admin: 12/30/17 14:09 Dose: 3 ml Artificial Tears (Tears Naturale) 0 drop EA EYE PRN PRN PRN Reason: Dry Eyes Aspirin (Aspirin) 325 mg PO QPM [facility] Last Admin: 12/29/17 22:04 Dose: 325 mg Atorvastatin Calcium (Lipitor) 40 mg PO HS [facility] Last Admin: 12/29/17 22:04 Dose: 40 mg Bisacodyl (Dulcolax) 10 mg [place] DAILY PRN PRN Reason: Constipation Calcium Carbonate (Tums) 1,000 mg PO Q4H PRN PRN Reason: Heartburn or Indigestion Clonidine (Catapres) 0.1 mg PO Q4H PRN PRN Reason: Blood Pressure Cyanocobalamin (Vitamin B-12) 1,000 mcg PO DAILY [facility] Last Admin: 10/16/18 10:31 Dose: 1,000 mcg Diazepam (Valium) 5 mg PO HS [facility] Docusate Sodium (Colace) 100 mg PO HS [facility] Last Admin: 12/29/17 22:04 Dose: 100 mg Emollient Cream (Hydrocerin Cream) 0 gm TOP Q12H PRN PRN Reason: Dry Skin Enoxaparin Sodium (Lovenox) 30 mg SC 0900 [facility] Last Admin: 12/30/17 10:28 Dose: 30 mg Famotidine (Pepcid) 20 mg PO BID [facility] Last Admin: 12/30/17 10:31 Dose: 20 mg Folic Acid (Folvite) 1 mg PO DAILY [facility] Last Admin: 12/30/17 10:31 Dose: 1 mg Gabapentin (Neurontin) 300 mg PO BID [facility] Last Admin: 12/30/17 10:31 Dose: 300 mg Guaifenesin (Mucinex) 600 mg PO Q12HR [facility] Last Admin: 12/30/17 10:29 Dose: 600 mg Guaifenesin (Robitussin Sf) 200 mg PO Q4H PRN PRN Reason: Cough Last Admin: 12/30/17 10:31 Dose: 200 mg Hydralazine HCl (Apresoline) 10 mg SLOW IVP Q4H PRN PRN Reason: Systolic BP > 180 Levofloxacin 500 mg/ Device 100 mls @ 100 mls/hr IVPB DAILY [facility] Last Admin: 12/30/17 11:08 Dose: 100 mls Iron/Minerals/Multivitamins (Theragran M) 1 tab PO DAILY [facility] Last Admin: 12/30/17 10:27 Dose: 1 tab Levothyroxine Sodium (Synthroid) 75 mcg PO 0600 [facility] Last Admin: 12/30/17 05:35 Dose: 75 mcg Lisinopril (Zestril) 10 mg PO BID [facility] Last Admin: 12/30/17 10:30 Dose: 10 mg Loperamide HCl (Imodium) 2 mg PO PRN PRN PRN Reason: Diarrhea/Loose Stools Loratadine (Claritin) 10 mg PO DAILYPRN PRN PRN Reason: Sinus Symptoms Mineral Oil/White Petrolatum (Eucerin Cream) 0 gm TOP BIDPRN PRN PRN Reason: Dry Skin Mometasone Furoate/Formoterol Fumar (Dulera 100 Mcg/5 Mcg Inhaler) 2 puff INH BID-RT [facility] Last Admin: 12/30/17 06:52 Dose: 2 puff Nicotine (Nicoderm Patch) 21 mg TOP Q24HR [facility] Last Admin: 12/30/17 03:21 Dose: 21 mg Ondansetron HCl (Zofran Odt) 4 mg PO Q6H PRN PRN Reason: Nausea/Vomiting Ondansetron HCl (Zofran) 4 mg IVP Q6H PRN PRN Reason: Nausea/Vomiting Phenol (Chloraseptic [place] 180 Ml Bot) 0 ml PO PRN PRN PRN Reason: Sore Throat Polyethylene Glycol (Miralax) 17 gm PO QAM [facility] Last Admin: 12/30/17 10:28 Dose: 17 gm Pramipexole Dihydrochloride (Mirapex) 0.5 mg PO BID [facility] Last Admin: 12/30/17 10:28 Dose: 0.5 mg Prednisone (Prednisone) 40 mg PO QAM-WM [facility] Last Admin: 12/30/17 10:29 Dose: 40 mg Primidone (Mysoline) 50 mg PO HS [facility] Last Admin: 12/29/17 22:06 Dose: 50 mg Saccharomyces Boulardii (Florastor) 250 mg PO DAILY [facility] Last Admin: 12/30/17 10:29 Dose: 250 mg Senna (Senokot) 1 tab PO HS PRN PRN Reason: Constipation Senna/Docusate Sodium (Senokot S) 2 tab PO BID PRN PRN Reason: Constipation Last Admin: 12/30/17 15:27 Dose: 2 tab Sodium Chloride (Flush - Normal Saline) 10 ml IVF PRN PRN PRN Reason: Saline Flush Sodium Chloride (Flush - Normal Saline) 10 ml IVF Q12HR [facility] Last Admin: 12/30/17 10:32 Dose: 10 ml Sodium Chloride ([place] Nasal [place] 0.65%) 0 ml EA NARE Q6H PRN PRN Reason: NASAL CONGESTION/DRAINAGE Temazepam (Restoril) 15 mg PO HS PRN PRN Reason: Insomnia Last Admin: 12/29/17 22:07 Dose: 15 mg Zolpidem Tartrate (Ambien) 5 mg PO HSPRN PRN PRN Reason: Insomnia
--- NOTE | 2017-12-30 16:40 | PQF ---
CLINICAL DOCUMENTATION IMPROVEMENT CLARIFICATION FORM: ICD-10 Updated PLEASE DO AN ADDENDUM TO THE PROGRESS NOTE WITH ANY DOCUMENTATION UPDATES OR ADDITIONS AND CARRY THROUGH TO DC SUMMARY. THANK YOU. DATE: 12/30/17 ATTN: Dr. Kauffman Please exercise your independent, professional judgment in responding to the clarification form. Clinical indicators are provided on the bottom of this form for your review Please check appropriate box(s) to clarify if the following diagnosis has been ruled in or ruled out: SEPSIS WITH ACUTE ORGAN DYSFUNCTION WITH HYPOTENSION DUE TO CAP AND UTI__ [ x] Ruled in diagnosis [ ] Continue to treat [ ] Resolved [ ] Ruled out diagnosis [ ] Cannot rule out diagnosis [ ] Other diagnosis [ ] Unable to determine In addition, please specify: Present on Admission (POA): [ x ] Yes [ ] No [ ] Unable to determine For continuity of documentation, please document condition throughout progress notes and discharge summary. Thank You. CLINICAL INDICATORS - SIGNS / SYMPTOMS / LABS PN 12/26/17: PT WAS REEVALUATED AND SHE BECAME HYPOTENSIVE WITH SBP 71/45 AND REDUCED TO 60 SYSTOLIC. HER AMS IS LIKELY RELATED WITH ENCEPHALOPATHY DUE TO SEPSIS WITH ACUTE ORGAN DYSFUNCTION WITH HYPOTENSION DUE TO CAP AND UTI RISKS: H&P 12/26: ACUTE ALTERED MENTAL STATUS. R LOWER LOBE PNEUMONIA. COPD TREATMENT: ORDER 12/27: ROCEPHIN 1 GM. DC'D 12/30 ORDER 12/27: LEVAQUIN 500MG IV DAILY Thank you, Avani (This form is maintained as a part of the permanent medical record) 2015 [employer] All Rights Reserved Avani Lee RN, BSN [email or web address] Office: [phone] [facility]
[2017-12-30] MEDS: Docusate 100 MG CAP PO SCH (20:25)
[2017-12-30] MEDS: Aspirin 325 MG TAB PO SCH (20:25)
[2017-12-30] MEDS: Atorvastatin Calcium 40 MG TAB PO SCH (20:25)
[2017-12-30] MEDS: Primidone 50 MG TAB PO SCH (20:26)
[2017-12-30] MEDS ORDERED: Diazepam 5 MG TAB PO SCH (21:00)
[2017-12-31] MEDS: Nicotine 21 MG PATCH TOP SCH (03:48)
[2017-12-31] MEDS: Levothyroxine Sodium 75 MCG TAB PO SCH (05:19)
[2017-12-31] MEDS: Mometasone/Formoterol 120 PUFF INHALER INH SCH (07:16)
[2017-12-31] MEDS: Enoxaparin Sodium 30 MG/0.3 ML SYRINGE SC SCH (09:52)
[2017-12-31] MEDS: Multivitamin W/ Minerals 1 TAB PO SCH (09:53)
[2017-12-31] MEDS: Pramipexole Di-HCl 0.25 MG TAB PO SCH (09:53)
[2017-12-31] MEDS: Saccharomyces boulardii 250 MG CAP PO SCH (09:53)
[2017-12-31] MEDS: Polyethylene Glycol 3350 17 GM Packet PO SCH (09:53)
[2017-12-31] MEDS: predniSONE 20 MG TAB PO SCH (09:53)
[2017-12-31] MEDS: Folic Acid 1 MG TAB PO SCH (09:54)
[2017-12-31] MEDS: Lisinopril 10 MG TAB PO SCH (09:54)
[2017-12-31] MEDS: Gabapentin 300 MG CAP PO SCH (09:54)
[2017-12-31] MEDS: guaiFENesin ER 600 MG TAB PO SCH (09:54)
[2017-12-31] MEDS: Famotidine 20 MG TAB PO SCH (09:55)
[2017-12-31] MEDS: Cyanocobalamin (Vitamin B-12) 1,000 MCG TAB PO SCH (09:55)
[2017-12-31 11:56] VITALS: BP 137/78; TEMP 98.3
[2017-12-31 12:10] LABS: Anion Gap 9 mmol/L (10-20); BUN (Urea Nitrogen) 9 mg/dL (9.8-20.1); Calc. Creatinine Clearance 65 mL/min (70-130); Calcium 8.3 mg/dL (7.8-10.44); Carbon Dioxide 29 mmol/L (23-31); Chloride 93 mmol/L (98-107); Estimated GFR-MDRD Greater than 90; Glucose 90 mg/dL (83-110); Potassium 3.8 mmol/L (3.5-5.1); Sodium 127 mmol/L (136-145)
--- NOTE | 2017-12-31 21:41 | DIS ---
DATE OF ADMISSION: 12/26/2017 DATE OF DISCHARGE: 12/31/2017 DISCHARGE DIAGNOSES: As of the followin. Pneumonia. 2. Urinary tract infection. 3. Left carotid stenosis. 4. Possible sepsis. HOSPITAL COURSE: Patient is a very pleasant 77-year-old female who is a smoker who presented to the hospital on 12/26 with actually altered mental status. Patient is on chronic oxygen use. At this time, a CT brain was done, which was negative. ABG did not indicate significant hypercapnia or hypox ia. However, patient was admitted and was treated with broad spectrum antibiotics and stroke workup was also started on this patient. Patient improved throughout the hospital stay. She also had a bra in MRI done, which indicated no acute territorial infarct or masses. Moderate chronic small ischemic disease was noted. She also had an echocardiogram, which indicated EF of 60%-65% with some diastoli c dysfunction. She did have an enlarged right ventricle; however, everything else appeared to be sig nificantly normal. She had a carotid which indicated 50%-69% moderate stenosis in her left carotid, so at that time, she underwent a CT angiogram, which indicated no hemodynamically significant stenosi s of the great vessels of the neck. She also had a CTA of the chest, which did not indicate any pulm onary emboli, but indicated possible bilateral effusion with some consolidation. Patient improved th roughout the hospital stay. She will be discharged home. She is at baseline, she does not require a ny higher oxygen that she uses at home. Patient will follow up with her PCP and also with pulmonolog ist as an outpatient. PHYSICAL EXAMINATION: VITAL SIGNS: 98.3, 62, 14, 95% on 2 liters, 137/78. GENERAL: She is awake, alert, oriented x3, does not appear in distress. CARDIOVASCULAR: S1, S2 present. No murmurs, rubs, or gallops. ABDOMEN: Soft, nontender. Bowel sounds are present x2. EXTREMITIES: No edema. LUNGS: Clear to auscultation. HOME MEDICATIONS: As of the following: She is going to go home with diazepam 5 mg at bedtime, Senok ot 8.6 at bedtime p.r.n., Fosamax 70 mg every 7 days, trazodone 100 mg at bedtime, mirtazapine 50 mg at bedtime, lisinopril 10 mg b.i.d., Neurontin 300 b.i.d., Colace 100 mg at bedtime, Spiriva 18 mcg d aily, prednisone 40 mg for another day, lisinopril 20 b.i.d. as I mentioned, Levaquin 500 mg for anot her 4 days, folic acid 1 p.o. daily, Pepcid 20 mg b.i.d. for the next 5-10 days, and atorvastatin 40 mg daily. Patient was on hydrochlorothiazide; however, I have discontinued it since she did have some hyponatre all. I have increased her lisinopril to 20 mg b.i.d. dosing. She will follow up with her primary care doctor and also her PCP. Patient has been advised against s moking; however, she feels that she is not ready to quit yet, but she does want a patch, a nicotine p atch. I have advised her multiple times that she cannot have a patch on and also smoke cigarettes, b ecause that can be very hazardous and can cause a heart attack. She understands this and verbally ac knowledges it and states that she will not do so and again she will be discharged home. Follow up wi th her primary care doctor and auto travel counselor.
--- NOTE | 2018-01-03 12:30 | EKG ---
Test Reason : Blood Pressure : / mmHG Vent. Rate : 086 BPM Atrial Rate : 086 BPM P-R Int : 150 ms QRS Dur : 080 ms QT Int : 388 ms P-R-T Axes : 057 -22 021 degrees QTc Int : 464 ms Poor data quality, interpretation may be adversely affected Normal sinus rhythm Normal ECG Confirmed by DERICK HINTON D.O. ([id number]), movie editor HUBER PLUMMER ([id number]) on 01/03/2018 12:30:34 PM Referred By: Confirmed By:DERICK HINTON D.O.
== END 2017-12-31 15:17 | disposition home or self-care (01) | DRG 871 ==
LOC: ERS 02:49 → 2SE 11:54 → OBSVTOIN 15:36 → 2SE 18:34 → UNDODISIN 12-27 13:47
PROVIDERS: ADMIT Internal Medicine; ATTEND Internal Medicine
DX: A41.9 Sepsis, unspecified organism (principal); J18.9 Pneumonia, unspecified organism; N39.0 Urinary tract infection, site not specified; J44.1 Chronic obstructive pulmonary disease with (acute) exacerbation; J44.0 Chronic obstructive pulmonary disease with (acute) lower respiratory infection; J96.11 Chronic respiratory failure with hypoxia; I27.20 Pulmonary hypertension, unspecified; Z99.81 Dependence on supplemental oxygen; F41.9 Anxiety disorder, unspecified; F32.9 Major depressive disorder, single episode, unspecified; I10 Essential (primary) hypertension; E78.5 Hyperlipidemia, unspecified; E03.9 Hypothyroidism, unspecified; H35.30 Unspecified macular degeneration; G25.81 Restless legs syndrome; F17.210 Nicotine dependence, cigarettes, uncomplicated; M19.90 Unspecified osteoarthritis, unspecified site; Z79.899 Other long term (current) drug therapy; Z79.1 Long term (current) use of non-steroidal anti-inflammatories (NSAID); G89.29 Other chronic pain; M54.5 Low back pain; I65.22 Occlusion and stenosis of left carotid artery
CPT/HCPCS: 36415; 70450; 70498; 70551; 71045; 71275; 80048; 80053; 81001; 82550; 82553; 82805; 83605; 83735; 84443; 84484; 85025; 85027; 87086; 90471; 90662; 90670; 93005; 93306; 93880; 94640; 94664; G0008; G0009; G8978-GP-CI; G8979-GP-CI; G8980-GP-CI; G8987-GO-CI; G8988-GO-CI; G8989-GO-CI; J0696; J1650; J1956; J2920; J7050; J7506; J7620

== ENCOUNTER 2018-01-28 06:58 | Inpatient (IN) | payer MEDICARE ==
[2018-01-28 07:29] LABS: #Basophils 0.1 thou/uL (0.0-0.2); #Eosinphils 0.2 thou/uL (0.0-0.7); #Lymphocytes 1.5 thou/uL (1.20-3.40); #Monocytes 0.9 thou/uL (0.11-0.59); #Neutrophils 5.6 thou/uL (1.40-6.50); %Basophils 0.7 % (0.0-1.0); %Lymphocytes 18.3 % (21.0-51.0); %Monocytes 10.5 % (0.0-10.0); %Neutrophils 67.6 % (42.0-75.0); Hemoglobin 13.4 g/dL (12.0-16.0); Mean Corpuscular HGB CONC 31.7 g/dL (32.0-36.0); Mean Corpuscular Hemoglobin 32.1 pg (27.0-31.0); Platelet Count 169 thou/uL (130-400); RBC Distribution Width 13.6 % (11.5-14.5); Red Blood Cell (RBC) Count 4.18 mill/uL (4.20-5.40); White Blood Cell (WBC) Count 8.3 thou/uL (4.8-10.8)
[2018-01-28] MEDS ORDERED: Magnesium 2 GM/50 ML BAG (IN WATER) ONE (07:35)
[2018-01-28] MEDS ORDERED: methylPREDNISolone Sod Succ/PF 125 MG/2 ML VIAL ONE (07:35)
[2018-01-28 07:49] LABS: CKMB 1.9 ng/mL (0-6.6); Troponin I Less than 0.010 ng/mL (< 0.028)
[2018-01-28 07:51] LABS: ALT (SGPT) 15 U/L (8-55); AST (SGOT) 34 U/L (5-34); Alkaline Phosphatase 76 U/L (40-150); Anion Gap 17 mmol/L (10-20); BUN (Urea Nitrogen) 26 mg/dL (9.8-20.1); Bilirubin, Total 0.5 mg/dL (0.2-1.2); Calc. Creatinine Clearance 0 mL/min (70-130); Calcium 9.5 mg/dL (7.8-10.44); Carbon Dioxide 26 mmol/L (23-31); Chloride 95 mmol/L (98-107); Estimated GFR-MDRD 63; Globulin 3.2 g/dL (2.4-3.5); Glucose 121 mg/dL (83-110); Potassium 5.5 mmol/L (3.5-5.1); Protein, Total 7.2 g/dL (6.0-8.3); Sodium 132 mmol/L (136-145)
--- NOTE | 2018-01-28 08:09 | RAD ---
CHEST ONE VIEW: History: Dyspnea. Comparison: 12-26-17 FINDINGS: Cardiac silhouette is magnified by projection. Pulmonary vasculature is unremarkable. Mediastinum is midline allowing for slight rightward rotation of the patient. Calcification within the aorta. Left lung is approximately 50% collapsed. Displaced fracture at the lateral aspect of left ribs 5 thr ough 8. Extensive left chest wall gas. Old right rib fractures. IMPRESSION: Large left pneumothorax with left rib fractures and extensive left chest wall gas. Findings were called to Dr. Ellis in the Emergency Department at 0736 hours 01-28-18. Code CR POS: [facility]
[2018-01-28] MEDS ORDERED: Lidocaine 1% PF 5 ML VIAL ONE (08:12)
[2018-01-28] MEDS ORDERED: Lidocaine 1% (PF) 30 ML VIAL ONE (08:34)
--- NOTE | 2018-01-28 10:40 | RAD ---
FRONTAL VIEW CHEST: Comparison: 01-28-18 Indication: Emergency exam. Fall with injury. FINDINGS: There is extensive left chest and neck soft tissue emphysema. Left thoracostomy tube has been placed, with interval improvement in size of left pneumothorax with a mild residual component remaining, geronimo miguel at the apex. There is patchy density throughout the left lung and involving the right lung bas e. Evidence of CHF is present. Probable pleural fluid obscuring the left costophrenic sulcus. Re-demonstration of mildly displaced multilevel left rib fractures. IMPRESSION: 1. Interval placement of left sided chest tube with improved left pneumothorax, a mild component of w hich resides at the left apex. 2. Patchy opacities bilaterally with enlargement of the cardiac silhouette and pulmonary vasculature indicating CHF. 3. Left basilar density may relate to component of superimposed pleural fluid. 4. Recommend continued follow up. POS: [facility]
[2018-01-28] MEDS ORDERED: Promethazine HCl 25 MG/ML VIAL IM PRN (11:23)
[2018-01-28] MEDS ORDERED: Dextrose 50% Abboject 50 ML SYRINGE SLOW IVP PRN (11:23)
[2018-01-28] MEDS ORDERED: Dextrose 5% in Water 1,000 ML IV PRN (11:23)
[2018-01-28] MEDS ORDERED: Ondansetron ODT 4 MG TAB PO PRN (11:23)
[2018-01-28] MEDS ORDERED: Ondansetron PF 4 MG/2 ML Vial IVP PRN (11:23)
[2018-01-28] MEDS ORDERED: Rib Fracture Protocol PO SCH (11:30)
[2018-01-28] MEDS: Sodium Chloride 0.9% 1,000 ML IV SCH ×2 (13:07→22:46)
[2018-01-28] MEDS: Acetaminophen 500 MG TAB PO SCH ×3 (13:10→23:24)
[2018-01-28] MEDS: traMADol HCl 50 MG TAB PO SCH ×3 (13:10→23:24)
[2018-01-28] MEDS: Ibuprofen 600 MG TAB PO SCH ×2 (13:11→21:32)
[2018-01-28 13:12] VITALS: BMI 26.4
[2018-01-28] MEDS: Gabapentin 100 MG CAP PO SCH ×2 (15:48→20:15)
[2018-01-28] MEDS ORDERED: Senokot 8.6 MG TAB PO PRN (16:08)
[2018-01-28] MEDS: Mometasone/Formoterol 120 PUFF INHALER INH SCH (18:46)
[2018-01-28] MEDS: Docusate 100 MG CAP PO SCH (20:14)
[2018-01-28] MEDS: Aspirin 81 mg Enteric Coated Tablet PO SCH (20:14)
[2018-01-28] MEDS: Mirtazapine 15 MG TAB PO SCH (20:15)
[2018-01-28] MEDS: Famotidine 20 MG TAB PO SCH (20:15)
[2018-01-28] MEDS: Lisinopril 10 MG TAB PO SCH (20:16)
[2018-01-28] MEDS: Diazepam 5 MG TAB PO SCH (20:16)
[2018-01-28] MEDS: Gabapentin 300 MG CAP PO SCH (20:16)
[2018-01-28] MEDS ORDERED: Famotidine 20 MG TAB PO SCH (21:00)
[2018-01-28] MEDS ORDERED: tiZANidine HCl 4 MG TAB PO PRN (21:00)
[2018-01-28] MEDS ORDERED: traZODone HCl 50 MG TAB PO PRN (21:00)
[2018-01-28] MEDS ORDERED: Non-Formulary Item 1 EACH (Ipratropium/Albuterol Sulfate 3 ML) NEB SCH (21:00)
[2018-01-28] MEDS: Primidone 50 MG TAB PO SCH (21:31)
--- NOTE | 2018-01-28 23:32 | HP ---
DATE OF ADMISSION: 01/28/2018 HISTORY OF PRESENT ILLNESS: Ms. aCrias is a 77-year-old woman with significant history of COPD. The patient slipped and fell this morning, landing on her left side. She denies any head trau ma or loss of consciousness. She immediately felt a left-sided chest wall pain. The patient was bro ught to the emergency department by ground EMS. She arrived with Mingo coma scale of 15, complaini ng of dyspnea and left-sided chest pain. She is usually on 5 liters of FiO2 at home with that her ox ygen saturation was 75%. At the time of my arrival, she had received some intravenous analgesics. S he is on 5 liters by nasal cannula oxygen. Her oxygen saturation is improved to 92%. PAST MEDICAL HISTORY: Pertinent for severe COPD, essential hypertension, coronary artery disease, ch ronic congestive heart failure, bipolar disorder, chronic anxiety and depression. She also has hypot hyroidism, macular degeneration and degenerative arthritic disease. PAST SURGICAL HISTORY: Pertinent for cholecystectomy, coronary angiography with stent placement. Brooke jorge has had right inguinal herniorrhaphy with mesh and some back surgery, level unknown. She requires monthly injection to her eye for her history of macular degeneration. SOCIAL HISTORY: She has 1 pack per day cigarette smoking history which spans over 25 years. She den ies any ethanol or illicit drug abuse. FAMILY HISTORY: Noncontributory for this patient's age. PREHOSPITALIZATION MEDICATIONS: Include acetaminophen with codeine No. 3 p.o. q.6 hours p.r.n. pain, Fosamax 70 mg p.o. q.7 days, aspirin 81 mg p.o. daily, atorvastatin 40 mg p.o. daily, diazepam 5 mg p.o. at bedtime, Colace 100 mg p.o. at bedtime, Pepcid 20 mg p.o. b.i.d., Breo Ellipta 100 mcg/25 one inhalation daily, folic acid 1 mg p.o. daily, gabapentin 300 mg p.o. b.i.d., DuoNeb t.i.d., lisinopr il 20 mg p.o. b.i.d., mirtazapine 15 mg p.o. at bedtime, prednisone 40 mg p.o. daily, Mysoline 50 mg p.o. at bedtime, Florastor 250 mg p.o. daily, Senokot p.o. at bedtime, tizanidine 4 mg p.o. q.8 hours , tramadol 50 mg 1-2 p.o. q.6 hours p.r.n. pain, trazodone 100 mg p.o. at bedtime. ALLERGIES: The patient denies any known drug allergies. REVIEW OF SYSTEMS: A 10-point review of systems is essentially unremarkable except for as stated in past medical history and chief complaint. PHYSICAL EXAMINATION: GENERAL: This reveals a 77-year-old normally developed woman who is otherwise coherent and interacti ve and appears stated age. The patient is alert and oriented x3. She appears to be in moderate acut e distress secondary to chest wall pain. VITAL SIGNS: Initial vital signs this includes blood pressure 141/85, pulse 90, respiratory rate is 20, temperature 97.5 degrees Fahrenheit, oxygen saturation 100% by nonrebreather mask. HEENT: Reveals normocephalic and atraumatic. Pupils equal, round, and reactive to light and accommo dation. Extraocular muscles are intact bilaterally. HEART: Reveals regular rate and rhythm, no murmurs or gallops auscultated. LUNGS: Reveals scattered rhonchi. Breathing regular and unlabored with a few expiratory wheezes. ABDOMEN: Soft and nontender and nondistended. Liver and spleen nonpalpable below costal margin. EXTREMITIES: With 2+ radial and pedal pulses bilaterally. No ankle edema is present. NEUROLOGIC: Reveals no focal deficits present. MUSCULOSKELETAL: Reveals 5/5 muscle strength in both upper and lower extremities bilaterally. She h as no motor or sensory deficits identified. Palpation of the left chest wall and neck reveals subcut aneous crepitance. Cervical spine is nontender to palpation, active or passive range of motion. Tho racic and lumbar spine revealed no palpable bony step-offs or tenderness. LABORATORY FINDINGS: Today include CBC with 8300 white blood cell, hemoglobin and hematocrit 13.4 an d 42.2 respectively. Platelet count is 169,000. Metabolic profile: Sodium 132, potassium is 5.5, c hloride is 95, bicarbonate 26, BUN 26, creatinine 0.87, glucose 121. Total bilirubin 0.5, AST and AL T normal at 34 and 15 respectively. Beta natriuretic peptide is 81. Troponin I is less than 0.10. I have personally reviewed the chest x-ray which reveals large left pneumothorax with associated mult iple left-sided rib fractures involving ribs 5 through 8. There is fair amount of left-sided chest a nd neck subcutaneous emphysema. IMPRESSION: 1. Status post ground level fall. 2. Large left pneumothorax. 3. Multiple left rib fractures. 4. History of severe chronic obstructive pulmonary disease, home O2 and steroid dependent. 5. History of coronary artery disease. 6. History of essential hypertension. 7. History of chronic depression and bipolar disorder. PLAN: 1. Left-sided thoracostomy tube will be placed to resolve the left pneumothorax. The patient will b e admitted to the general surgical floor where we will continue to optimize pain management and pulmo nary toilet as this patient is at high risk for pulmonary decompensation. 2. We will initiate prophylaxis against VTE. 3. We will ask Physical and Occupational Therapy to evaluate the patient and increase activity as to lerated. We will also ask PM&R to evaluate the patient for possible inpatient rehabilitation post-di scharge. Above findings and plan discussed with the patient who indicates understanding of the information marija la. I have answered her questions.
[2018-01-29 05:41] LABS: #Lymphocytes 1.1 thou/uL (1.20-3.40); #Monocytes 1.1 thou/uL (0.11-0.59); #Neutrophils 5.3 thou/uL (1.40-6.50); %Basophils 0.5 % (0.0-1.0); %Eosinophils 0.3 % (0.0-10.0); %Lymphocytes 15.2 % (21.0-51.0); %Monocytes 14.1 % (0.0-10.0); %Neutrophils 69.8 % (42.0-75.0); Hemoglobin 12.2 g/dL (12.0-16.0); Mean Corpuscular HGB CONC 32.5 g/dL (32.0-36.0); Mean Corpuscular Hemoglobin 32.8 pg (27.0-31.0); Mean Platelet Volume 8.7 fL (7.4-10.4); Platelet Count 132 thou/uL (130-400); RBC Distribution Width 13.5 % (11.5-14.5); Red Blood Cell (RBC) Count 3.71 mill/uL (4.20-5.40); White Blood Cell (WBC) Count 7.5 thou/uL (4.8-10.8)
[2018-01-29] MEDS: traMADol HCl 50 MG TAB PO SCH ×3 (05:42→18:00)
[2018-01-29] MEDS: Ibuprofen 600 MG TAB PO SCH ×3 (05:44→21:11)
[2018-01-29] MEDS: Acetaminophen 500 MG TAB PO SCH ×3 (05:44→18:00)
[2018-01-29 05:56] LABS: Anion Gap 9 mmol/L (10-20); BUN (Urea Nitrogen) 28 mg/dL (9.8-20.1); Calc. Creatinine Clearance 63 mL/min (70-130); Calcium 8.4 mg/dL (7.8-10.44); Carbon Dioxide 30 mmol/L (23-31); Chloride 98 mmol/L (98-107); Estimated GFR-MDRD 73; Glucose 76 mg/dL (83-110); Magnesium 1.8 mg/dL (1.6-2.6); Potassium 4.2 mmol/L (3.5-5.1); Sodium 133 mmol/L (136-145)
[2018-01-29] MEDS: Mometasone/Formoterol 120 PUFF INHALER INH SCH ×2 (07:09→18:57)
--- NOTE | 2018-01-29 08:09 | RAD ---
CHEST 1 VIEW: Date: 01/29/18 HISTORY: Pneumothorax. Chest tube. Follow-up. COMPARISON: 01/28/18. FINDINGS: Cardiac silhouette is magnified and enlarged. Pulmonary vasculature is upper limits of normal. Medias tinum is midline with aortic calcification. Large caliber left thoracostomy tube remains in place. No significant residual pneumothorax. Large am ount of left chest wall gas is similar in appearance to the prior study. Bibasilar atelectasis, left greater than right. IMPRESSION: Left thoracostomy tube and other findings appear stable. POS: [facility]
[2018-01-29] MEDS: Sodium Chloride 0.9% 1,000 ML IV SCH ×2 (08:24→18:01)
[2018-01-29] MEDS: Saccharomyces boulardii 250 MG CAP PO SCH (08:26)
[2018-01-29] MEDS: Aspirin 81 mg Enteric Coated Tablet PO SCH ×2 (08:26→21:08)
[2018-01-29] MEDS: predniSONE 20 MG TAB PO SCH (08:26)
[2018-01-29] MEDS: Famotidine 20 MG TAB PO SCH ×2 (08:26→21:06)
[2018-01-29] MEDS: Gabapentin 300 MG CAP PO SCH ×2 (08:27→21:07)
[2018-01-29] MEDS: Folic Acid 1 MG TAB PO SCH (08:27)
[2018-01-29] MEDS: Lisinopril 10 MG TAB PO SCH ×2 (08:27→21:08)
--- NOTE | 2018-01-29 08:36 | PRG ---
DATE OF SERVICE: 01/29/2018 She is a 77-year-old female who is well known to me. She left the office, went home, fell at home, s ustained a fracture of ribs and pneumothorax. She has been admitted to Trauma. Her daughter came to my office to let me know that patient was hospitalized for me to see her. This morning, she is complaining of some chest pain and difficulty breathing, but no fever, chills or sweats. She has end-stage COPD, continues to smoke. She was in the hospital in December with a presumed diagnosis of pneumonia. The other time when I rev iewed her CAT scan I did not see any obvious pneumonia. She has bibasilar chronic scarring, small pl eural effusion. She can barely walk even 20 feet without getting markedly short of breath. PAST MEDICAL HISTORY: Extensive past medical history outlined in our notes. Chronic hypertension, h ypothyroidism, arthritis, multiple surgeries extensively outlined. PHYSICAL EXAMINATION: VITAL SIGNS: Sats are 93 on 4 liters, respiration 16, temperature 97, pulse 65, blood pressure 105/6 9. LUNGS: She has got crepitus in her left lung. CHEST: Chest reveals bilateral rhonchi. CARDIAC: Normal S1-S2. No gallops. ABDOMEN: Soft. No masses. LABORATORY: White count 7000. Sodium 133. Electrolytes are normal. X-ray shows subcutaneous air, questionable right basilar density. IMPRESSION: 1. Chronic obstructive pulmonary disease, end-stage. 2. Ongoing tobacco abuse. 3. Left-sided pneumothorax. PLAN: She is apparently as per her wishes to be a DNR. Continue neb treatments, supportive care. P T.
[2018-01-29] MEDS ORDERED: Magnesium 2 GM/50 ML 2 GM in Premix Bag 1 BAG IVPB SCH (09:00)
--- NOTE | 2018-01-29 10:44 | PRG-2 ---
DATE OF SERVICE: 01/29/2018 RESIDENT: Gabi Nuno M.D. ATTENDING: Dr. Ornelas. SUBJECTIVE: This is a 77-year-old female status post mechanical fall , found to have left-sided rib fractures with large left pneumothorax. Chest tube is in place. Upon exam this morning, the patient states her pain is a 2-3/ 10. The patient states she has been using the incentive spirometer already 20 times this morning. OBJECTIVE: VITAL SIGNS: Temperature 97.6, pulse 65, respirations 16, O2 saturation 93% on 4 liters nasal cannula, blood pressure 105/69. GENERAL: Elderly female resting in bed, no acute distress. HEENT: Normocephalic, atraumatic. Pupils are equal, round, and reactive to light and accommodation. Extraocular muscles intact. CARDIOVASCULAR: Regular rate and rhythm. No murmurs, rubs or gallops. RESPIRATORY: Bilateral symmetrical chest rise, nonlabored breathing, clear to auscultation bilaterally. ABDOMEN: Soft, nontender, nondistended. EXTREMITIES: Moves all four extremities, with 5/5 strength. NEUROLOGIC: Nonfocal exam. Alert and oriented x3. MUSCULOSKELETAL: Palpation of the left chest wall and neck reveals subcutaneous crepitance, improved from yesterday. LABORATORY DATA: WBC 7.5, hemoglobin 12.2, hematocrit 37.5, platelets 132. Sodium 133, potassium 4.2, BUN 28, creatinine 0.77. ASSESSMENT: 1. Status post ground level fall. 2. Large left pneumothorax, chest tube in place. 3. Multiple left rib fractures. 4. History of severe chronic obstructive pulmonary disease, home O2 and steroid dependent. 5. History of coronary artery disease. 6. History of essential hypertension. 7. History of chronic depression and bipolar disorder. PLAN: The patient had a chest x-ray this morning that showed left thoracostomy tube in place and other findings, stable. We will repeat chest x-ray tomorrow morning. Chest tube will be put on water-seal today. Importance of incentive spirometry and pulmonary toileting discussed with the patient extensively with her hx of recent pneumonia and COPD. The patient demonstrated using the incentive spirometer and got to 500 w/ difficulty. Patient's pain is being adequately controlled with p.o. analgesics. Patient will be participating with physical and occupational therapy today. Rehab screen in place. The patient was seen by Dr. Yves Vickers and will be followed by pulmonology. Dr. Vickers states the patient wishes to be DNR and to continue neb treatments and supportive care. The plan was discussed with the patient, who was in agreement. The patient was seen and evaluated by Dr. Ornelas. VILAM
--- NOTE | 2018-01-29 15:12 | PQF ---
CLINICAL DOCUMENTATION IMPROVEMENT CLARIFICATION FORM: ICD-10 Updated PLEASE DO AN ADDENDUM TO THE PROGRESS NOTE WITH ANY DOCUMENTATION UPDATES OR ADDITIONS AND CARRY THROUGH TO DC SUMMARY. THANK YOU. DATE: 01/29/18 ATTN: DR. WALKER Please exercise your independent, professional judgment in responding to the clarification form. Clinical indicators are provided on the bottom of this form for your review Please check appropriate box(s): [ ] Acute Respiratory Failure: [ ] with Hypoxia[ ] with Hypercapnia [ X ] Acute On Chronic Respiratory Failure: [X ] with Hypoxia [ ] with Hypercapnia [ ] Acute Respiratory Failure due to: (etiology) [ ] Chronic Respiratory Failure only [ ] with Hypoxia [ ] with Hypercapnia [ ] Other diagnosis [ ] Unable to determine In addition, please specify: Present on Admission (POA): [ ] Yes [X ] No [ ] Unable to determine For continuity of documentation, please document condition throughout progress notes and discharge summary. Thank You. CLINICAL INDICATORS - SIGNS / SYMPTOMS / LABS ER NOTE: "EMS REPORTS PATIENT ON 5L O2 AT HOME AND HAD AN O2 SAT OF 75%." "LABORED RESPIRATIONS" RR 32 RISKS: COPD CHF H/O TOBACCO USE CURRENT PNEUMOTHORAX RIB FRACTURES TREATMENT: SUPPLEMENTAL OXYGEN WITH USE OF NONREBREATHER MASK DUONEBS (ER-PRESENT) IV METHYLPREDNISOLONE (ER) PO PREDNISONE (STARTED 01/29) DULERA (03/30-PRESENT) CHEST TUBE INSERTION (This form is maintained as a part of the permanent medical record) 2014 [employer]. All Rights Reserved [email or web address] Office: [phone] [facility] HOSPITALHolly
[2018-01-29] MEDS: Primidone 50 MG TAB PO SCH (21:06)
[2018-01-29] MEDS: Docusate 100 MG CAP PO SCH (21:07)
[2018-01-29] MEDS: Mirtazapine 15 MG TAB PO SCH (21:11)
[2018-01-29] MEDS: Diazepam 5 MG TAB PO SCH (21:11)
[2018-01-30] MEDS: Cyclobenzaprine 10 MG TAB PO PRN ×2 (00:40→19:41)
[2018-01-30] MEDS: Acetaminophen 500 MG TAB PO SCH ×5 (00:40→23:34)
[2018-01-30] MEDS: traMADol HCl 50 MG TAB PO SCH ×5 (00:56→23:34)
[2018-01-30] MEDS: Sodium Chloride 0.9% 1,000 ML IV SCH (04:22)
[2018-01-30] MEDS: Ibuprofen 600 MG TAB PO SCH ×3 (06:35→19:35)
[2018-01-30] MEDS: Mometasone/Formoterol 120 PUFF INHALER INH SCH ×2 (07:06→18:36)
[2018-01-30] MEDS ORDERED: Magnesium 2 GM/50 ML 2 GM in Premix Bag 1 BAG IVPB SCH ×2 (08:00→08:15)
--- NOTE | 2018-01-30 08:06 | RAD ---
CHEST 1 VIEW: Date: 01/30/18 COMPARISON: 01/29/18. HISTORY: Left-sided chest tube placement. Pneumothorax. Follow-up exam. FINDINGS: Redemonstration of extensive left hemithoracic and left neck subcutaneous emphysema. Multiple left ri b fractures are redemonstrated. Left-sided chest tube is identified. Pneumothorax is not appreciated on the current exam. Persistent opacification of the lung parenchyma likely due to a combination of a telectasis and pulmonary contusion. Pneumonia cannot be excluded. Atherosclerosis of aorta. Stable ca rdiomegaly. IMPRESSION: No significant interval change. POS: [facility]
[2018-01-30] MEDS: Saccharomyces boulardii 250 MG CAP PO SCH (08:31)
[2018-01-30] MEDS: Famotidine 20 MG TAB PO SCH ×2 (08:31→19:35)
[2018-01-30] MEDS: Gabapentin 300 MG CAP PO SCH ×2 (08:31→19:35)
[2018-01-30] MEDS: Folic Acid 1 MG TAB PO SCH (08:31)
[2018-01-30] MEDS: Aspirin 81 mg Enteric Coated Tablet PO SCH ×2 (08:31→19:34)
[2018-01-30] MEDS: Polyethylene Glycol 3350 17 GM Packet PO SCH (08:32)
[2018-01-30] MEDS: predniSONE 20 MG TAB PO SCH (08:32)
[2018-01-30] MEDS: Lisinopril 10 MG TAB PO SCH ×2 (08:32→19:34)
--- NOTE | 2018-01-30 09:25 | PRG ---
DATE OF SERVICE: 01/30/2018 This morning she is awake, alert, responsive. She says she is feeling better, less pain. PHYSICAL EXAMINATION: VITAL SIGNS: Sats are 91 on 4 liters, blood pressure 163/88, temperature 97. CHEST: Chest reveals bilateral rhonchi and crackles. CARDIAC: Normal S1, S2. No gallops. ABDOMEN: Soft, no masses. X-ray shows bibasilar infiltrates, left greater than right, unchanged. A chest tube in place. IMPRESSION: 1. Fractured ribs. 2. Left pneumothorax. 3. Subcutaneous emphysema with end-stage chronic obstructive pulmonary disease. 4. Tobacco abuse. PLAN: Pulmonary souza, continue CT drainage. Home when CT is removed. Once again, neb treatments, s upportive care. Refrain from smoking.
[2018-01-30] MEDS ORDERED: Furosemide 40 MG/4 ML VIAL SLOW IVP SCH (09:30)
--- NOTE | 2018-01-30 12:46 | PRG ---
DATE OF SERVICE: 01/30/2018 SUBJECTIVE: Ms. Carias is a 77-year-old woman who fell from a ground level position, sustaining mult iple left rib fractures as well as a left pneumothorax which required a left tube thoracostomy. Ches t tube was placed to water seal yesterday. Today, she reports no dyspnea. She endorses adequate russell n control. She is tolerating general diet, having normal bowel and urinary function. Repeat chest x -ray today reveals no residual left pneumothorax. OBJECTIVE: VITAL SIGNS: Today includes blood pressure 146/80, pulse is 82, respiratory rate is 15, temperature is 97.5 degrees Fahrenheit, oxygen saturation is 92% on room air. HEENT: Pupils equal, round, reactive to light and accommodation. HEART: Reveals regular rate and rhythm, no murmurs or gallops auscultated. CHEST: Clear to auscultation bilaterally. Her breathing is regular and unlabored. ABDOMEN: Soft, nontender, nondistended. Chest tube is in place, no air leak. NEUROLOGIC: Reveals no focal deficits present. IMPRESSION: 1. Post-injury day #2, status post ground level fall. 2. Resolved acute left pneumothorax. 3. Multiple left rib fractures, patient is hemodynamically stable. 4. History of chronic obstructive pulmonary disease, no acute exacerbation. PLAN: Chest tube will be removed. We will increase activity per physical and occupational therapy a nd anticipate discharge to swing bed. Above findings and plan discussed with the patient who indicat es understanding of the information given. I have answered her questions.
[2018-01-30] MEDS: Diazepam 5 MG TAB PO SCH (19:34)
[2018-01-30] MEDS: Docusate 100 MG CAP PO SCH (19:35)
[2018-01-30] MEDS: Primidone 50 MG TAB PO SCH (19:35)
[2018-01-30] MEDS: Mirtazapine 15 MG TAB PO SCH (19:35)
[2018-01-31] MEDS: Cyclobenzaprine 10 MG TAB PO PRN ×2 (02:13→12:02)
[2018-01-31] MEDS: Ibuprofen 600 MG TAB PO SCH ×2 (05:22→13:23)
[2018-01-31] MEDS: Acetaminophen 500 MG TAB PO SCH ×2 (05:22→12:00)
[2018-01-31] MEDS: traMADol HCl 50 MG TAB PO SCH ×2 (05:22→12:00)
[2018-01-31] MEDS: Mometasone/Formoterol 120 PUFF INHALER INH SCH (06:41)
[2018-01-31] MEDS: Polyethylene Glycol 3350 17 GM Packet PO SCH (08:37)
[2018-01-31] MEDS: predniSONE 20 MG TAB PO SCH (08:37)
[2018-01-31] MEDS: Saccharomyces boulardii 250 MG CAP PO SCH (08:37)
[2018-01-31] MEDS: Famotidine 20 MG TAB PO SCH (08:37)
[2018-01-31] MEDS: Folic Acid 1 MG TAB PO SCH (08:38)
[2018-01-31] MEDS: Aspirin 81 mg Enteric Coated Tablet PO SCH (08:38)
[2018-01-31] MEDS: Gabapentin 300 MG CAP PO SCH (08:38)
[2018-01-31] MEDS: Lisinopril 10 MG TAB PO SCH (08:38)
--- NOTE | 2018-01-31 09:51 | RAD ---
RADIOGRAPH CHEST 1 VIEW: Date: 01/31/18 Time: 0757 hours HISTORY: 77-year-old female with pneumothorax, status post chest tube removal. COMPARISON: 01/30/18 at 0720 hours. FINDINGS: The left-sided chest tube has been removed. Again noted are the recent left lateral rib fractures. Sl ight interval improvement in the subcutaneous emphysema in left chest wall, axilla, and neck. Air spa ce densities bilateral lung bases remain unchanged. No pulmonary edema. No pneumothorax visible. Prob able bilateral small pleural effusions. IMPRESSION: 1. Interval removal of left-sided thoracostomy tube. 2. No pneumothorax visualized. 3. Several acute, traumatic, displaced left rib fractures. 4. Left-sided subcutaneous emphysema has improved. 5. No interval change in the air space opacities at bilateral lung bases, with probable small bilate ral pleural effusions. RENETTA [] POS: [facility]
[2018-01-31] MEDS ORDERED: Alendronate Sodium 70 mg Tablet PO SCH (10:45)
--- NOTE | 2018-01-31 11:53 | PRG-2 ---
DATE OF SERVICE: 01/31/2018 SUBJECTIVE: Mayi Carias is a 77-year-old female who is status post ground level fall resulting in m ultiple left rib fractures and a left pneumothorax status post chest tube placement. Chest tube was removed yesterday morning. This morning, she had a repeat chest x-ray which was stable. The patient states pain is well controlled. She is ambulating with physical therapy. She is back to her baseli ne oxygen requirements. The pain is controlled with p.o. analgesics and she is tolerating a general diet. OBJECTIVE: VITAL SIGNS: Temperature 97.4, pulse 90, respirations 16, O2 sat 94% on 4 liters nasal cannula, bloo d pressure 147/82. GENERAL: Elderly appearing female in no acute distress, sitting in a chair, out of bed. PULMONARY: Normal work of breathing. Symmetric rise. LUNGS: Coarse rhonchi bilaterally. CARDIOVASCULAR: Regular rate and rhythm. GASTROINTESTINAL: Soft, nontender, nondistended. MUSCULOSKELETAL: Moves all extremities x4. NEUROLOGIC: No focal deficit noted. LABORATORY FINDINGS: No new laboratory findings. RADIOGRAPHIC FINDINGS: X-ray on 01/31/2018 with no evidence of a recurrent pneumothorax, coarse inte rstitial markings bilaterally, multiple left-sided rib fractures, bibasilar atelectasis and subcutane ous emphysema. ASSESSMENT: 1. Status post ground level fall post-injury day #3. 2. Multiple left rib fractures. 3. Left traumatic pneumothorax status post tube thoracostomy. 4. History of chronic obstructive pulmonary disease and chronic hypoxic respiratory failure, stable. 5. Acute traumatic pain. 6. History of hypertension. 7. History of coronary artery disease. 8. History of chronic depression and bipolar disorder. PLAN: Continue pain management as ordered. Continue to encourage incentive spirometry and pulmonary toileting. Continue to encourage mobility. The patient is medically stable for discharge at this [facility]. We will follow up with case management regarding disposition. The patient has signed a choice letter from [facility]. Plan of care was discussed with the patient at bedside and all quest ions were answered at the time of this dictation. The patient was seen and evaluated with Dr. Ornelas.
--- NOTE | 2018-01-31 14:20 | PRG ---
DATE OF SERVICE: 01/31/2018 SUBJECTIVE: Chest tubes removed. She is doing well. She is weak. She is still coughing. PHYSICAL EXAMINATION: VITAL SIGNS: Sats are 94% on 4 liters, blood pressure 140/84, temperature 97, respirations 16. CHEST: Bilateral rhonchi and crackles. CARDIAC: Normal S1, S2, no gallops. ABDOMEN: Soft, no masses. IMPRESSION: 1. End-stage chronic obstructive pulmonary disease. 2. Pneumothorax, fractured left-sided rib. PLAN: I agree with rehabilitation. Continue present home medication, O2 nebs, steroids. She is to refrain from smoking. PROGNOSIS: Guarded.
[2018-01-31 14:51] VITALS: BP 163/92; TEMP 97.9
[2018-01-31] MEDS ORDERED: Atorvastatin Calcium 40 MG TAB PO SCH (21:00)
--- NOTE | 2018-02-02 09:34 | DIS ---
The patient was deemed medically stable for discharge to detention facility on 01/31/2018. DISCHARGE DISPOSITION: retirement facility. DISCHARGE CONDITION: Fair. PHYSICAL EXAMINATION: As documented in daily progress note dated 01/31/2018. DISCHARGE INSTRUCTIONS: Discharge instructions were provided to the patient and the accepting facili ty, are as documented in the electronic medical record. DISCHARGE MEDICATIONS: Discharge medications as documented in the electronic medical record, a list of which was provided to the accepting facility. FOLLOWUP APPOINTMENTS: The patient should follow up with her primary care provider and production support engineer for chronic medical illnesses and her COPD. She should follow up with [facility] in 2 weeks wi th a repeat chest x-ray prior to her appointment. This is merely a summary of the patient's hospital ization. For more in depth information, please see her medical record in its entirety. HOSPITAL COURSE: Mayi Carias is a 77-year-old female, who presented to [facility], status post m echanical fall. She was seen and evaluated in the emergency room and found to have the above injurie s. A left-sided chest tube was placed. The patient was admitted for pain control and further manage ment to the general surgical floor. Chest tube was placed to waterseal on hospital day #2 and remove d on hospital day #3. On hospital day #4, post-chest tube removal, chest x-ray demonstrated a stable reexpanded lung. She was on her home dose of nasal cannula . .
== END 2018-01-31 15:57 | DRG 199 ==
LOC: ERS 06:58 → ERHOLD 08:40 → SURG A 12:45
PROVIDERS: ADMIT Surgery; ATTEND Surgery
PROC: 0W9B30Z Drainage of Left Pleural Cavity with Drainage Device, Percutaneous Approach (ICD-10-PCS; principal; 2018-01-28)
PROC: 0WPBX0Z Removal of Drainage Device from Left Pleural Cavity, External Approach (ICD-10-PCS; 2018-01-31)
DX: S27.0XXA Traumatic pneumothorax, initial encounter (principal); J96.01 Acute respiratory failure with hypoxia; S22.42XA Multiple fractures of ribs, left side, initial encounter for closed fracture; I50.9 Heart failure, unspecified; J44.9 Chronic obstructive pulmonary disease, unspecified; I11.0 Hypertensive heart disease with heart failure; F20.9 Schizophrenia, unspecified; W01.0XXA Fall on same level from slipping, tripping and stumbling without subsequent striking against object, initial encounter; I25.10 Atherosclerotic heart disease of native coronary artery without angina pectoris; F31.9 Bipolar disorder, unspecified; F41.9 Anxiety disorder, unspecified; E03.9 Hypothyroidism, unspecified; H35.30 Unspecified macular degeneration; M19.90 Unspecified osteoarthritis, unspecified site; Z95.5 Presence of coronary angioplasty implant and graft; F17.210 Nicotine dependence, cigarettes, uncomplicated; Z79.899 Other long term (current) drug therapy; Z79.891 Long term (current) use of opiate analgesic; Z79.82 Long term (current) use of aspirin; Z79.52 Long term (current) use of systemic steroids; Z66 Do not resuscitate
CPT/HCPCS: 32551; 36415; 71045; 80048; 80053; 82553; 83735; 83880; 84484; 85025; 90471; 90662; 93005; 94640; 96365; 96375; G0008; G0390; G8978-GP-CM; G8979-GP-CJ; G8987-GO-CK; G8988-GO-CJ; J1940; J2001; J2930; J7506; J7620

== ENCOUNTER 2018-02-01 15:10 | Inpatient (IN) | payer MEDICARE ==
[2018-02-01] MEDS ORDERED: Dextrose 5% in Water 1,000 ML IV PRN (15:37)
[2018-02-01] MEDS ORDERED: Ondansetron ODT 4 MG TAB PO PRN (15:37)
[2018-02-01] MEDS ORDERED: Dextrose 50% Abboject 50 ML SYRINGE SLOW IVP PRN (15:37)
--- NOTE | 2018-02-01 15:43 | RAD ---
PORTABLE CHEST 1 VIEW: Date: 02/01/18 Time: 1436 hours HISTORY: Rib fractures, chest tube placement. FINDINGS/IMPRESSION: Comparison made with exam at 1300 hours. Multiple left-sided rib fractures are present. There is a left-sided chest tube. No significant pneum othorax is seen. There is subcutaneous emphysema in the left lateral chest wall. The heart size is st able. The aorta is tortuous. Bibasilar infiltrates are again noted with probable small effusions. POS: [facility]
[2018-02-01] MEDS ORDERED: Rib Fracture Protocol PO SCH (15:45)
[2018-02-01] MEDS ORDERED: Senokot 8.6 MG TAB PO SCH (16:15)
[2018-02-01] MEDS ORDERED: Cyclobenzaprine 10 MG TAB PO PRN (16:45)
[2018-02-01] MEDS: Acetaminophen 500 MG TAB PO SCH ×2 (18:29→23:57)
[2018-02-01] MEDS: traMADol HCl 50 MG TAB PO SCH ×2 (18:29→23:57)
[2018-02-01] MEDS: Mometasone/Formoterol 120 PUFF INHALER INH SCH (18:39)
--- NOTE | 2018-02-01 20:55 | HP ---
DATE OF SERVICE: 02/01/[address] Izaiah Xavier of the Emergency Department. TRAUMA ATTENDING: Gómez Wagoner MD HISTORY OF PRESENT ILLNESS: Ms. Carias is a 77-year-old female with a past medical history of COPD, recently discharged from our facility status post mechanical fall resulting in multiple left-sided rib fractures and a left pneumothorax. The patient had tube thoracostomy placed and subsequently had this removed over her hospital stay and was discharged on 01/31/2018 to [facility]. However, today started having some shortness of air after vomiting after breakfast this morning and had worsening shortness of air. She was taken to the Emergency Department, had a chest x-ray that demonstrated a left pneumothorax. A tube thoracostomy was placed. Resolution of the pneumothorax was seen and the patient was transferred to our facility for further management and evaluation. I have reviewed the films and previous hospitalization of Ms. Carias. She is now on 4 liters of oxygen nasal cannula saturating 92% with a left chest tube in place, 24-Portuguese mid axillary line, to wall suction with 400ml bloody output and a small air leak that is still noted. The patient states that her shortness of breath has completely resolved. She has not nauseated any longer. She has not had any fever and her pain is generally controlled. REVIEW OF SYSTEMS: Pertinent positive and negative per the HPI, otherwise is regarded as negative. PAST MEDICAL HISTORY: 1. Severe chronic obstructive pulmonary disease. 2. Hypertension. 3. Coronary artery disease. 4. Congestive heart failure. 5. Bipolar. 6. Chronic anxiety. 7. Hypothyroidism. 8. Macular degeneration. 9. Degenerative arthritis disease. PAST SURGICAL HISTORY: 1. Cholecystectomy. 2. Stent placement. 3. Right inguinal hernia repair. 4. Monthly eye injections. SOCIAL HISTORY: One pack per day smoking. Denies any illicit drugs or alcohol. FAMILY HISTORY: Noncontributory; however, reviewed in her hospitalization. ALLERGIES: No known drug allergies. MEDICATIONS: Prednisone 40 mg daily, Senna 8.6 mg nightly, mirtazapine 15 mg at night, lisinopril 20 mg daily, gabapentin 300 mg b.i.d., folic acid 1 mg daily, Pepcid 20 mg b.i.d., Colace 100 mg nightly, diazepam 5 mg at night, Flexeril 5 mg 3 times daily as needed, atorvastatin 40 mg daily, aspirin 81 mg b.i.d., Fosamax 70 mg weekly, Tylenol 1000 mg every 6 hours. PHYSICAL EXAMINATION: VITAL SIGNS: Today, temperature is 98.3, blood pressure 107/67, heart rate is 99. She is saturating 93% on 4 liters of oxygen nasal cannula, breathing 18 times per minute. GENERAL: This is a 77-year-old female lying supine in bed in no acute distress. HEENT: Normocephalic, atraumatic. Trachea is midline. NECK: No JVD is appreciated. RESPIRATORY: Equal rise and fall. She does have subcutaneous emphysema noted on the left. Left chest tube is in place. She does have lung sounds in all lung barth. Mild expiratory wheezes are appreciated. No tachypnea or retractions are noted. CARDIOVASCULAR: Regular rate and rhythm. No murmurs are appreciated. Strong pulses. ABDOMEN: Soft and nontender. PELVIS: Deferred. MUSCULOSKELETAL: Moves all extremities well. No deformities are appreciated. SKIN: Thermal, warm, and dry. NEUROLOGIC: Alert and oriented to person, place, time, and event. PSYCHIATRIC: Normal mood and affect. DIAGNOSTIC DATA: Today, chest x-ray does show a left pneumothorax approximately 30% initially and secondary chest x-ray shows a chest tube placement with resolution of the pneumothorax. LABORATORY DATA: Sodium is 128, potassium 4.8, chloride is 93, CO2 is 24, BUN is 23, creatinine 0.76, glucose 129, bilirubin total 0.6, albumin is 3.68. AST and ALT 22 and 13 respectively. CBC, white blood cell count of 10.6, platelets are 200, hemoglobin and hematocrit 14.2 and 43.1 respectively. Lactic acid was 1.7. She did have a venous blood gas, pH is 7.376, pCO2 is 46, bicarbonate of 27, base excess of 1.1, pO2 is 73. Troponin was less than 0.01 and a CK-MB of 2.9. ASSESSMENT: 1. Pneumothorax, recurrent. 2. Chronic obstructive pulmonary disease, acute on chronic. 3. Hyponatremia, acute on chronic. 4. Left-sided rib fractures. PLAN: 1. We will admit her to the surgery isbell. 2. Rib fracture protocol. 3. Continue IS and EzPAP. 4. Repeat chest x-ray now for CT placement/positioning. 5. Chest x-ray in the morning. 6. Continue chest tube to suction for tonight. 7. Oxygen as needed to maintain SpO2 equal or greater than 90%; the patient at home is 4 liters, which is where she is at now. 8. DuoNeb q.4 hours as needed. 9. Continue home medications. 10. Prophylaxis will be famotidine. 11. Activity: As tolerated. 12. Full code. 13. Access: Peripheral IVs and a left-sided chest tube. DISPOSITION: Surgery isbell. DIET: Cardiac diet. I have coordinated care with the Emergency Department physician. I have updated Mr. Carias at the bedside. This plan can be updated as needed. VILMA
[2018-02-01] MEDS: Aspirin 81 mg Enteric Coated Tablet PO SCH (20:56)
[2018-02-01] MEDS: Diazepam 5 MG TAB PO SCH (20:56)
[2018-02-01] MEDS: Senokot 8.6 MG TAB PO SCH (20:57)
[2018-02-01] MEDS: Mirtazapine 15 MG TAB PO SCH (20:57)
[2018-02-01] MEDS: Ibuprofen 600 MG TAB PO SCH (20:57)
[2018-02-01] MEDS: Famotidine 20 MG TAB PO SCH (20:57)
[2018-02-01] MEDS: Gabapentin 300 MG CAP PO SCH (20:57)
[2018-02-01] MEDS: Docusate 100 MG CAP PO SCH (20:57)
[2018-02-01] MEDS: Ascorbic Acid 500 mg Chewable Tablet PO SCH (20:57)
--- NOTE | 2018-02-01 22:36 | PDOC.EVN ---
Event Note - Event Note Event Note: Patient in room and fell. I happened to be on the surgical isbell at the time. Patient states she was unsteady and just fell to the floor. Has no pain. No hip pain, no neck pain, no cp, sob. She did strike her head with no LOC. Was having a BM. CT is still in place with + leak and output I did note on the repeat CXR from our facility the CT is not completely seated at the apex of the chest, will re-enforce so it does not come out. Advised to tape better. Patient was lifted up after exam. Mental status GCS of 15, A&O x4, no acute distress. Has hematoma noted to right forehead. Plan: No signs of new acute fracture to the lower extremity CT head and C-spine given fall and head trauma Replace IV as it came out Apply better tape to the Chest tube Requested a bed alarm Coordinated with RN and hot car charger of tower 3.
--- NOTE | 2018-02-01 23:08 | CT ---
HEAD CT WITHOUT CONTRAST: 02/01/2018 HISTORY: Fall. Trauma. Pain. COMPARISON: 12/16/2017 TECHNIQUE: Axial CT imaging at 5 mm intervals from the vertex through the skull base without contrast. FINDINGS: The imaged paranasal sinuses and mastoid air cells are well aerated. No displaced calvarial fracture . There is moderate diffuse cerebral volume loss with associated prominence of the CSF containing space s. There is periventricular deep and subcortical white matter hypodensity, evidence of small vessel disease. These findings are stable when compared to the prior exam. There is a focal area of mild s calp swelling in the right frontal region. No displaced calvarial fracture. IMPRESSION: No intracranial hemorrhage or displaced calvarial fracture. POS: [facility]
--- NOTE | 2018-02-01 23:26 | CT ---
CT CERVICAL SPINE WITHOUT CONTRAST: 02/01/2018 HISTORY: Fall. Trauma. Pain. COMPARISON: None. TECHNIQUE: Axial CT imaging at 2.5 mm intervals, from the lung apices through the skull base, without contrast. Coronal and sagittal reformatted imaging obtained. FINDINGS: Piston Maker imaging demonstrates an incompletely imaged left-sided chest tube. There is subcutaneous emphy sema in the left supraclavicular region and in the imaged left chest wall. There are severe emphysem atous changes noted within the imaged lung apices. The patient's head is tilted to the left, which slightly limits a detailed assessment of the osseous structures. Coronal imaging demonstrates a tiny pneumothorax in the left lung apex. The C1 ring is intact. The dens and the C1-C2 articulation appear within normal limits. The craniocervical junction and the atlantoaxial interspace demonstrate no acute findings. There is mild anterolisthesis at C4-C5 and at C5-C6. There is prominent multilevel facet hypertrophic change, most prominent on the left, at C3-C4, C4-C5, and C5-C6. No prevertebral soft tissue swelling. No displaced fracture or evidence of dislocation. IMPRESSION: 1. Multilevel cervical spine degenerative change with no displaced fracture or dislocation. 2. Tiny apical pneumothorax in left lung apex. 3. Prominent bilateral apical emphysematous change. 4. Subcutaneous emphysema noted within the left supraclavicular region and the imaged left chest wal l. POS: [facility]
[2018-02-02 01:23] VITALS: BMI 22.4
[2018-02-02] MEDS ORDERED: Sodium Chloride 0.9% 500 ML IVPB SCH (04:15)
[2018-02-02 05:13] LABS: ALT (SGPT) 13 U/L (8-55); AST (SGOT) 21 U/L (5-34); Albumin 2.6 g/dL (3.4-4.8); Alkaline Phosphatase 66 U/L (40-150); Anion Gap 13 mmol/L (10-20); BUN (Urea Nitrogen) 30 mg/dL (9.8-20.1); Bilirubin, Total 0.6 mg/dL (0.2-1.2); Calc. Creatinine Clearance 45 mL/min (70-130); Calcium 8.1 mg/dL (7.8-10.44); Carbon Dioxide 25 mmol/L (23-31); Chloride 94 mmol/L (98-107); Estimated GFR-MDRD 58; Globulin 1.7 g/dL (2.4-3.5); Glucose 85 mg/dL (83-110); Potassium 4.6 mmol/L (3.5-5.1); Protein, Total 4.3 g/dL (6.0-8.3); Sodium 127 mmol/L (136-145)
[2018-02-02 05:49] LABS: Hemoglobin 11.8 g/dL (12.0-16.0); Mean Corpuscular HGB CONC 31.7 g/dL (32.0-36.0); Mean Corpuscular Hemoglobin 31.9 pg (27.0-31.0); Platelet Count 125 thou/uL (130-400); RBC Distribution Width 13.7 % (11.5-14.5)
[2018-02-02 06:03] LABS: Band 3 % (5-11); Lymphocytes 22 % (21-51); MDiff Complete? YES; Macrocytosis SLIGHT = 6-15 cells (100X) (0-5/hpf); Monocytes 1 % (0-10); Neutrophil 74 % (42-75); PLT Morphology Comment Appears Decreased
[2018-02-02] MEDS: Ibuprofen 600 MG TAB PO SCH ×3 (06:04→22:50)
[2018-02-02] MEDS: traMADol HCl 50 MG TAB PO SCH ×3 (06:04→20:33)
[2018-02-02] MEDS: Acetaminophen 500 MG TAB PO SCH ×3 (06:04→20:50)
--- NOTE | 2018-02-02 07:45 | RAD ---
ONE VIEW CHEST: HISTORY: Chest tube. Low blood pressure. COMPARISON: 02/01/2018 at 2:36 p.m. FINDINGS: Left-sided chest tube appears to have changed in position. The side hole is now external to the pleu ral margin. Repositioning is recommended. Stable subcutaneous emphysema in the left hemithorax and left neck. Stable parenchymal change in the left lung. Pneumothorax is difficult to appreciate. Stable configuration of the cardiac silhouette. IMPRESSION: Left-sided chest tube as above. Side hole is external to the pleural margin. CODE T POS: [facility]
[2018-02-02] MEDS: Mometasone/Formoterol 120 PUFF INHALER INH SCH ×2 (08:07→18:37)
[2018-02-02] MEDS ORDERED: Lisinopril 20 MG TAB PO SCH (09:00)
[2018-02-02] MEDS ORDERED: Prevnar 13-Val Conj/PF 0.5 ML SYRINGE IM ONE (09:00)
[2018-02-02] MEDS ORDERED: Polyethylene Glycol 3350 17 GM Packet PO SCH (09:00)
[2018-02-02] MEDS: Famotidine 20 MG TAB PO SCH (09:27)
[2018-02-02] MEDS: predniSONE 20 MG TAB PO SCH (09:27)
[2018-02-02] MEDS: Gabapentin 300 MG CAP PO SCH ×3 (09:27→21:05)
[2018-02-02] MEDS: Ascorbic Acid 500 mg Chewable Tablet PO SCH ×2 (09:27→20:49)
[2018-02-02] MEDS: Folic Acid 1 MG TAB PO SCH (09:27)
[2018-02-02] MEDS: Aspirin 81 mg Enteric Coated Tablet PO SCH ×2 (09:27→20:49)
[2018-02-02] MEDS: Atorvastatin Calcium 40 MG TAB PO SCH (09:27)
[2018-02-02] MEDS ORDERED: Hydrocortisone Sod Succ/PF 100 mg/2 ml Vial IVP SCH (10:15)
[2018-02-02 10:54] LABS: Bilirubin Small (Negative); Blood, Urine Large (Negative); Clarity CLOUDY (Clear); Glucose, Urine (Dipstick) Negative (Negative); Leukocyte Small (Negative); Nitrite Negative (Negative); Protein, Urine (Dipstick) Negative (Neg-Trace); Specific Gravity, Urine 1.025 (1.002-1.036); Urobilinogen 0.2 mg/dL (0.2-1.0)
[2018-02-02 10:58] LABS: Bacteria/HPF None Seen HPF (None Seen); RBC/HPF GREATER THAN 50-TNTC HPF (0-3); WBC/HPF 0-3 HPF (0-3)
[2018-02-02] MEDS ORDERED: Calcium Chloride 1 GM/10 ML Abboject SYRINGE IVP SCH (11:00)
[2018-02-02 11:01] LABS: Pathc Cast-AUWi Flag 4.65 (0-2.49)
[2018-02-02 11:20] LABS: Hyaline Casts/LPF 0-3 HYALINE CAST LPF (0-3 Hyaline); Transitional Epithelial 0-3 HPF (0-3)
[2018-02-02 11:21] LABS: Other Casts/LPF None Seen LPF (0-3 Hyaline)
[2018-02-02 11:27] LABS: #Basophils 0.1 thou/uL (0.0-0.2); #Eosinphils 0.1 thou/uL (0.0-0.7); #Lymphocytes 1.5 thou/uL (1.20-3.40); #Monocytes 1.7 thou/uL (0.11-0.59); %Basophils 0.5 % (0.0-1.0); %Eosinophils 0.5 % (0.0-10.0); %Lymphocytes 8.7 % (21.0-51.0); %Monocytes 9.5 % (0.0-10.0); %Neutrophils 80.8 % (42.0-75.0); Hemoglobin 10.6 g/dL (12.0-16.0); MDiff Complete? YES; Mean Corpuscular HGB CONC 31.3 g/dL (32.0-36.0); Mean Corpuscular Hemoglobin 32.2 pg (27.0-31.0); Mean Platelet Volume 9.3 fL (7.4-10.4); PLT Morphology Comment Appears Decreased; Platelet Count 118 thou/uL (130-400); RBC Distribution Width 13.8 % (11.5-14.5); White Blood Cell (WBC) Count 17.3 thou/uL (4.8-10.8)
[2018-02-02 11:31] LABS: Troponin I 0.389 ng/mL (< 0.028)
--- NOTE | 2018-02-02 11:40 | PRG-2 ---
DATE OF SERVICE: 02/02/2018 The patient was seen with Dr. Devyn Ornelas. SUBJECTIVE: Ms. Carias is hospital day #1 after being readmitted for left pneumothorax that is recurrent in nature secondary to a fall and rib fractures. Over the night, the patient had somewhat of a difficult night. She fell, striking her head. CT head and CT C-spine were both negative. No loss of consciousness. No hip pain. Further the patient was noted to be hypotensive over the evening. Her blood pressure medicine was held. She was given 500 mL of fluid with some improvement, but decreased again. Mental status remains preserved. No chest pain, no shortness of air. However, on morning rounds, the patient was also noted to be hypotensive again with blood pressures as low as 60s systolic. She remains to have peripheral perfusion. No chest pain, no shortness of air. Mental status is preserved. An additional liter of fluid was ordered and 100 mg of hydrocortisone was given. OBJECTIVE: VITAL SIGNS: Temperature is 98.2, heart rate is 96, blood pressure 77/45, O2 sat is 92% on room air, respiratory rate is 20. GENERAL: This is a 77-year-old female sitting up in bed. Chest tube in place with no air leak. States that she feels much improved. HEENT: Normocephalic, atraumatic. Trachea is midline. She does have dry mucous membranes. NECK: No JVD is appreciated. CHEST: Equal rise and fall. Bilateral breath sounds are clear to auscultation upper and lower bilaterally with trace expiratory wheezes. CARDIOVASCULAR: Regular rate and rhythm. No murmurs. No edema. Strong pulses. ABDOMEN: Soft and nontender. CHEST WALL: She does have a [address] chest tube in place that is to wall suction. There is no air leak at this time, we placed this to a water seal. ABDOMEN: Soft, nontender. No grimace. Pelvis is stable. MUSCULOSKELETAL: Moves extremities well. NEUROLOGIC: Alert and oriented to person, place, time, and event. The patient did endorse hallucination earlier today, but is not currently hallucinating. PSYCHIATRIC: Normal mood and affect. SKIN: Dry, pink and warm. LABORATORY DATA: From today, sodium is 127, potassium is 4.6, chloride is 94, CO2 is 25, creatinine 0.93 with a BUN of 30. Glucose is 85, total bilirubin 0.6. AST, ALT 21 and 13 respectively, alkaline phosphatase of 66, albumin is 2.6. White blood cell count is 11.0, platelets 125, hemoglobin and hematocrit 11.8 and 37.3 respectively. Chest x-ray from this morning demonstrates a chest tube that is in place in the left chest, has moved in position; however, there is no pneumothorax visualized by chest x-ray. CT head overnight was negative for intracranial hemorrhage. CT C-spine showed no acute fracture, did have degenerative changes and a small apical left pneumothorax was appreciated on this film. ASSESSMENT AND PLAN: 1. Left-sided recurrent pneumothorax. 2. Left rib fractures. 3. Hyponatremia. 4. Dehydration with hypotension, preserved mental status. 5. Generalized weakness. PLAN: 1. We will place a Kovacs catheter to monitor in and out. 2. Additional 1 liter of fluid. 3. Encourage p.o. intake. 4. Continue steroids and given hydrocortisone today. 5. Likely consult Pulmonary as the patient follows with Dr. Vickers on last hospital visit. 6. Continue steroids and nebulizers. Currently, not in acute respiratory distress. 7. Chest tube to water seal. We will repeat chest x-ray in the morning. 8. Continue all other supportive care. 9. Monitor blood pressure closely. May need to be transferred to the IMCU. -Calcium given for contractility -Repeat cardiac Enzymes -Repeat EKG -Albumin ordered. 10. Obtain UA for occult infection as the patient has had UTIs in the past. 11. Activity with assistance only. 12. The patient is a DNR, orders have been reflected. 13. Prophylaxis will be famotidine and SCDs. 14. Access, or peripheral IVs tubes, left chest tube. DISPOSITION: Surgery [facility], may need transfer as noted. DIET: Regular diet. I have updated Ms. Carias at the bedside and answered all questions. Coordinated care with the bedside RN and Dr. Ornelas. VILMA
[2018-02-02 12:08] LABS: Actual Bicarbonate (HCO3a) 25.4 mEq/L (22-28); CO2 Tension 50.7 mmHg (35.0-45.0); Hemoglobin (Hb) 10.2 g/dL (12.0-16.0); O2 Tension (PaO2) 60.1 mmHg (> 70.0); Potassium - ABG Lab 4.36 mmol/L (3.70-5.30); pH, Arterial 7.32 (7.35-7.45)
[2018-02-02 12:11] LABS: ALV-art Gradient 133.205 (0-20); Puncture Site RRA
[2018-02-02] MEDS ORDERED: Aspirin 325 MG TAB PO SCH (13:30)
[2018-02-02 18:04] LABS: CKMB 2.9 ng/mL (0-6.6); Troponin I 0.141 ng/mL (< 0.028)
[2018-02-02] MEDS: Senokot 8.6 MG TAB PO SCH (20:49)
[2018-02-02] MEDS: Primidone 50 MG TAB PO SCH (20:49)
[2018-02-02] MEDS: Docusate 100 MG CAP PO SCH (20:49)
[2018-02-02] MEDS: Mirtazapine 15 MG TAB PO SCH (20:50)
[2018-02-02] MEDS: Diazepam 5 MG TAB PO SCH (20:54)
[2018-02-03] MEDS: Acetaminophen 500 MG TAB PO SCH ×4 (00:16→17:43)
[2018-02-03] MEDS: traMADol HCl 50 MG TAB PO SCH ×4 (00:16→17:43)
[2018-02-03 04:34] LABS: Anion Gap 12 mmol/L (10-20); BUN (Urea Nitrogen) 30 mg/dL (9.8-20.1); Calc. Creatinine Clearance 47 mL/min (70-130); Carbon Dioxide 26 mmol/L (23-31); Chloride 98 mmol/L (98-107); Estimated GFR-MDRD 62; Glucose 111 mg/dL (83-110); Potassium 4.3 mmol/L (3.5-5.1); Sodium 132 mmol/L (136-145)
[2018-02-03 04:45] LABS: Hemoglobin 9.9 g/dL (12.0-16.0); Mean Corpuscular HGB CONC 31.8 g/dL (32.0-36.0); Mean Corpuscular Hemoglobin 32.1 pg (27.0-31.0); Mean Platelet Volume 8.5 fL (7.4-10.4); Platelet Count 115 thou/uL (130-400); RBC Distribution Width 13.9 % (11.5-14.5); Red Blood Cell (RBC) Count 3.07 mill/uL (4.20-5.40); White Blood Cell (WBC) Count 12.7 thou/uL (4.8-10.8)
[2018-02-03 04:46] LABS: Band 35 % (5-11); Lymphocytes 10 % (21-51); MDiff Complete? YES; Metamyelocyte 2 % (0-0); Monocytes 7 % (0-10); Neutrophil 46 % (42-75); PLT Morphology Comment Appears Decreased
[2018-02-03] MEDS: Ibuprofen 600 MG TAB PO SCH ×3 (05:19→20:59)
[2018-02-03] MEDS: Mometasone/Formoterol 120 PUFF INHALER INH SCH ×2 (07:10→18:52)
--- NOTE | 2018-02-03 08:39 | RAD ---
PORTABLE CHEST 1 VIEW: DATE: 02/03/2018. TIME: 4:46 a.m. HISTORY: Pneumothorax. There is mild increase in the opacity at the right lung base. A tiny left apical pneumothorax is see n. Remainder of the exam is otherwise stable. POS: [facility]
[2018-02-03] MEDS: predniSONE 20 MG TAB PO SCH (09:25)
[2018-02-03] MEDS: Aspirin 81 mg Enteric Coated Tablet PO SCH ×2 (09:26→20:58)
[2018-02-03] MEDS: Ascorbic Acid 500 mg Chewable Tablet PO SCH ×2 (09:26→20:58)
[2018-02-03] MEDS: Atorvastatin Calcium 40 MG TAB PO SCH (09:26)
[2018-02-03] MEDS: Gabapentin 300 MG CAP PO SCH ×2 (09:26→20:59)
[2018-02-03] MEDS: Folic Acid 1 MG TAB PO SCH (09:26)
[2018-02-03] MEDS: Famotidine 20 MG TAB PO SCH (09:26)
[2018-02-03] MEDS: Piperacillin/Tazobactam 4.5 GM in Sodium Chloride 0.9% 100 ML IVPB SCH ×3 (09:34→20:59)
[2018-02-03] MEDS: Vancomycin HCl 1 GM in Premix Bag 1 BAG IVPB SCH (10:14)
--- NOTE | 2018-02-03 15:28 | PRG ---
DATE OF SERVICE: 02/03/2018 SUBJECTIVE: Ms. Carias is a 77-year-old woman with history of severe oxygen and steroid dependent CO PD. The patient sustained multiple left rib fractures, left pneumothorax following a ground level fa ll. This was treated with a tube thoracostomy. The patient was readmitted with recurrent left pneumothor ax. Chest tube was placed to water seal yesterday. There was no air leak. Today, the patient is evaluated, reporting adequate pain control. She reports worsening cough today, although with difficulty trying to expectorate. She denies any fevers or chills. She tolerates gen eral diet. Urinary output is adequate. OBJECTIVE: VITAL SIGNS: This morning include blood pressure 91/52, pulse is 84, respiratory rate is 24, tempera ture is 98.1 degrees Fahrenheit, oxygen saturation is 94% on 4 liters by nasal cannula oxygen. HEENT: Reveals pupils equal, round, and reactive to light and accommodation. She has no jugular savannah ous distention noted. HEART: Reveals regular rate and rhythm. No murmurs or gallops auscultated. LUNGS: Reveal bibasilar coarse rhonchi. Breathing is regular and unlabored. Chest tube remains in place, no air leaks noted. ABDOMEN: Soft, nontender, nondistended. EXTREMITIES: Reveal 2+ radial and pedal pulses bilaterally. No ankle edema is present. NEUROLOGIC: Reveals no focal deficits present. LABORATORY DATA: Today includes a CBC with 12,700 white blood cells, hemoglobin and hematocrit are 9 .9 and 31.1 respectively. Platelet count is 115,000. Differential counts as follows, 46 segmented n eutrophils, 35 bands, 10 lymphocytes, 7 monocytes. Metabolic Profile: Sodium 132, potassium is 4.3, chloride is 98, bicarbonate is 26, BUN is 30, creatinine is 0.89, glucose is 111. I have personally reviewed the chest x-ray obtained today which shows mild increase in the right basi lar opacification. There is a tiny residual left apical pneumothorax present. IMPRESSION: 1. Residual left apical pneumothorax. 2. Likely right lower lobe pneumonia. PLAN: 1. We will obtain respiratory cultures and initiate broad spectrum antibiotic therapy until studies and sensitivities return. 2. We will continue to maintain chest tube to waterseal. 3. Increase activity as tolerated. Above findings and plan discussed with the patient who indicates understanding of information given. We will discontinue Kovacs catheter at this time.
[2018-02-03] MEDS: Primidone 50 MG TAB PO SCH (20:58)
[2018-02-03] MEDS: Mirtazapine 15 MG TAB PO SCH (20:59)
[2018-02-03] MEDS: Docusate 100 MG CAP PO SCH (20:59)
[2018-02-03] MEDS: Diazepam 5 MG TAB PO SCH (21:00)
[2018-02-04] MEDS: Acetaminophen 500 MG TAB PO SCH ×4 (00:33→18:19)
[2018-02-04] MEDS: traMADol HCl 50 MG TAB PO SCH ×4 (00:33→18:19)
[2018-02-04] MEDS: Piperacillin/Tazobactam 4.5 GM in Sodium Chloride 0.9% 100 ML IVPB SCH ×4 (02:51→21:05)
[2018-02-04] MEDS: Ibuprofen 600 MG TAB PO SCH ×3 (06:16→21:05)
[2018-02-04] MEDS: Mometasone/Formoterol 120 PUFF INHALER INH SCH ×2 (08:02→19:03)
--- NOTE | 2018-02-04 08:32 | RAD ---
RADIOGRAPH CHEST 1 VIEW: Date: 02-04-18 Time: 7:39 a.m. HISTORY: 77-year-old female with pneumothorax. COMPARISON: 02-03-18 at 4:46 a.m. FINDINGS: The previously demonstrated small left apical pneumothorax is no longer visualized. The left sided ch est tube remains with distal tip near the apex. Again noted are the left rib fractures. No interval c hange in the bilateral pleural effusions and consolidations at the bilateral lung bases. IMPRESSION: 1. Left sided small pneumothorax is no longer visualized. 2. No other interval change. RENETTA POS: [facility]
[2018-02-04] MEDS: Atorvastatin Calcium 40 MG TAB PO SCH (09:14)
[2018-02-04] MEDS: Famotidine 20 MG TAB PO SCH (09:14)
[2018-02-04] MEDS: Gabapentin 300 MG CAP PO SCH ×2 (09:14→21:05)
[2018-02-04] MEDS: Ascorbic Acid 500 mg Chewable Tablet PO SCH ×2 (09:14→21:05)
[2018-02-04] MEDS: Aspirin 81 mg Enteric Coated Tablet PO SCH ×2 (09:14→21:05)
[2018-02-04] MEDS: predniSONE 20 MG TAB PO SCH (09:15)
[2018-02-04] MEDS: Folic Acid 1 MG TAB PO SCH (09:15)
[2018-02-04 09:30] LABS: Hemoglobin 11.5 g/dL (12.0-16.0); Mean Corpuscular HGB CONC 30.7 g/dL (32.0-36.0); Mean Corpuscular Hemoglobin 31.3 pg (27.0-31.0); Mean Platelet Volume 9.4 fL (7.4-10.4); Platelet Count 115 thou/uL (130-400); RBC Distribution Width 14.1 % (11.5-14.5); Red Blood Cell (RBC) Count 3.68 mill/uL (4.20-5.40); White Blood Cell (WBC) Count 11.8 thou/uL (4.8-10.8)
[2018-02-04 09:47] LABS: Anion Gap 13 mmol/L (10-20); BUN (Urea Nitrogen) 26 mg/dL (9.8-20.1); Calc. Creatinine Clearance 48 mL/min (70-130); Calcium 8.6 mg/dL (7.8-10.44); Carbon Dioxide 24 mmol/L (23-31); Chloride 98 mmol/L (98-107); Estimated GFR-MDRD 64; Glucose 76 mg/dL (83-110); Magnesium 1.9 mg/dL (1.6-2.6); Potassium 4.2 mmol/L (3.5-5.1); Sodium 131 mmol/L (136-145)
[2018-02-04 10:44] LABS: Band 42 % (5-11); Lymphocytes 8 % (21-51); MDiff Complete? YES; Monocytes 4 % (0-10); Neutrophil 46 % (42-75); PLT Morphology Comment Appears Decreased; Toxic Granulation SLIGHT
[2018-02-04] MEDS: Vancomycin HCl 1 GM in Premix Bag 1 BAG IVPB SCH (10:54)
--- NOTE | 2018-02-04 11:39 | PRG ---
DATE OF SERVICE: 02/04/2018 SUBJECTIVE: Ms. Carias is a 77-year-old woman with history of severe oxygen and steroid dependent CO PD. The patient sustained multiple left-sided rib fractures and left pneumothorax after a ground lev el fall She was successfully treated with a tube thoracostomy and readmitted with recurrent left pneumothorax which required a repeat thoracostomy tube placement. The chest tube was placed on waterseal 2 days ago. Chest x-ray yesterday revealed a small residual l eft apical pneumothorax. The chest tube was continued on waterseal over the last 24 hours. This mor mariusz the patient is awake and alert. She reports adequate pain control. The patient was started on empiric antibiotics yesterday for presumed pneumonia. This morning, she reports no dyspnea. She remains on 4 liters nasal cannula oxygen, which is her bas abdifatah. She tolerates general diet, having normal bowel and urinary function. PHYSICAL EXAMINATION: VITAL SIGNS: This morning includes blood pressure 165/88, pulse is 85, respiration rate is 17, tempe rature is 98.2 degrees Fahrenheit. Oxygen saturation is 96% on 4 liters by nasal cannula oxygen. HEENT: Reveals pupils equal, round, reactive to light and accommodation. She has no jugular venous distention noted. HEART: Reveals regular rate and rhythm. LUNGS: Reveals bilateral scattered rhonchi. Breathing regular and unlabored. ABDOMEN: Soft, nontender, nondistended. Bowel sounds in all 4 quadrants, appear normoactive. EXTREMITIES: Reveals 2+ radial and pedal pulses bilaterally. No ankle edema is present. NEUROLOGIC: Reveals no focal deficits present. LABORATORY DATA: Today includes a CBC with 11,800 white blood cells, hemoglobin and hematocrit 11.5 and 37.5 respectively. Platelet count is 115,000. Metabolic profile: Sodium 131, potassium is 4.2, chloride is 98, bicarbonate is 24, BUN is 26, creatinine is 0.86, glucose is 76. Magnesium 1.9, dillon sphorus is 3.0. Chest x-ray obtained today reveals no residual left pneumothorax. IMPRESSION: 1. Resolved recurrent left pneumothorax. 2. Severe chronic obstructive pulmonary disease, stable. 3. Presumed pneumonia, stable. We will begin to deescalate antibiotic therapy. The patient is hemodynamically stable for transfer t o the surgical floor where we will continue with her physical and occupational therapy in anticipatio n for discharge to inpatient rehabilitation in the next few days.
--- NOTE | 2018-02-04 14:50 | PQF ---
CLINICAL DOCUMENTATION IMPROVEMENT CLARIFICATION FORM: ICD-10 Updated PLEASE DO AN ADDENDUM TO THE PROGRESS NOTE WITH ANY DOCUMENTATION UPDATES OR ADDITIONS AND CARRY THROUGH TO DC SUMMARY. THANK YOU. DATE: 02/04/18 ATTN: Dr. Ornelas Please exercise your independent, professional judgment in responding to the clarification form. Clinical indicators are provided on the bottom of this form for your review Please check appropriate box(s): [ ] Aspiration Pneumonia [ ] Empirically treating Gram Negative Pneumonia [ ] Empirically treating Anaerobic Pneumonia [ ] Pneumonia secondary to [ x ] Simple Pneumonia (community acquired - nosocomial) [ ] Pneumonia of unknown etiology [ ] Other diagnosis [ ] Unable to determine In addition, please specify: Present on Admission (POA): [ x ] Yes [ ] No [ ] Unable to determine For continuity of documentation, please document condition throughout progress notes and discharge summary. Thank You. CLINICAL INDICATORS - SIGNS / SYMPTOMS / LABS H&P 02/01: On 4 liters of oxygen NC saturating 92% w/ a left chest tube in place PN 02/03: Chest X-ray obtained today shows mild increase in the r basilar opacification. Likely r lower lobe pneumonia RISKS: H&P 02/01: Recently discharged from our facility on 01/31/2018 to [facility]. S/p fall resulting in multiple l sided rib fractures and a l pneumothorax. Hx of Severe COPD. HTN. CAD. CHF. TREATMENT: ORDER 02/03 ZOSYN 4.5 gm IV ORDER 02/03: VANCOMYCIN HCL 1 gm IV ORDER 02/03: LEVAQUIN IV 750 MG Thank you, Avani (This form is maintained as a part of the permanent medical record) 2015 [employer]. All Rights Reserved Avani Lee RN, BSN [email or web address] Office: [phone] [facility]
[2018-02-04] MEDS: Mirtazapine 15 MG TAB PO SCH (21:05)
[2018-02-04] MEDS: Docusate 100 MG CAP PO SCH (21:05)
[2018-02-04] MEDS: Diazepam 5 MG TAB PO SCH (21:05)
[2018-02-04] MEDS: Primidone 50 MG TAB PO SCH (22:21)
[2018-02-05] MEDS: Acetaminophen 500 MG TAB PO SCH ×4 (00:03→17:24)
[2018-02-05] MEDS: traMADol HCl 50 MG TAB PO SCH ×4 (00:03→17:25)
[2018-02-05] MEDS: Piperacillin/Tazobactam 4.5 GM in Sodium Chloride 0.9% 100 ML IVPB SCH ×4 (03:33→21:08)
[2018-02-05] MEDS: Ibuprofen 600 MG TAB PO SCH ×3 (05:43→21:13)
[2018-02-05 06:03] LABS: Anion Gap 14 mmol/L (10-20); BUN (Urea Nitrogen) 24 mg/dL (9.8-20.1); Calc. Creatinine Clearance 53 mL/min (70-130); Calcium 7.9 mg/dL (7.8-10.44); Carbon Dioxide 23 mmol/L (23-31); Chloride 101 mmol/L (98-107); Estimated GFR-MDRD 72; Glucose 66 mg/dL (83-110); Magnesium 1.9 mg/dL (1.6-2.6); Phosphorus 2.5 mg/dL (2.3-4.7); Potassium 4.5 mmol/L (3.5-5.1); Sodium 133 mmol/L (136-145)
[2018-02-05 06:22] LABS: Band 31 % (5-11); Hemoglobin 12.4 g/dL (12.0-16.0); Lymphocytes 14 % (21-51); MDiff Complete? YES; Mean Corpuscular HGB CONC 32.2 g/dL (32.0-36.0); Mean Corpuscular Hemoglobin 31.6 pg (27.0-31.0); Mean Corpuscular Volume 98.1 fL (78.0-98.0); Mean Platelet Volume 8.9 fL (7.4-10.4); Monocytes 9 % (0-10); Neutrophil 46 % (42-75); Platelet Count 138 thou/uL (130-400); RBC Distribution Width 14.2 % (11.5-14.5); Red Blood Cell (RBC) Count 3.92 mill/uL (4.20-5.40); White Blood Cell (WBC) Count 19.6 thou/uL (4.8-10.8)
[2018-02-05] MEDS: Mometasone/Formoterol 120 PUFF INHALER INH SCH ×2 (07:10→19:41)
[2018-02-05] MEDS: Ascorbic Acid 500 mg Chewable Tablet PO SCH ×2 (07:52→21:11)
[2018-02-05] MEDS: Gabapentin 300 MG CAP PO SCH ×2 (07:52→21:10)
[2018-02-05] MEDS: Aspirin 81 mg Enteric Coated Tablet PO SCH ×2 (07:52→21:13)
[2018-02-05] MEDS: predniSONE 20 MG TAB PO SCH (07:52)
[2018-02-05] MEDS: Famotidine 20 MG TAB PO SCH (07:52)
[2018-02-05] MEDS: Atorvastatin Calcium 40 MG TAB PO SCH (07:52)
[2018-02-05] MEDS: Lisinopril 10 MG TAB PO SCH (07:52)
[2018-02-05] MEDS: Folic Acid 1 MG TAB PO SCH (07:53)
[2018-02-05 10:02] LABS: Vancomycin, Trough 10.4 ug/mL
[2018-02-05] MEDS: Vancomycin HCl 1 GM in Premix Bag 1 BAG IVPB SCH (10:19)
--- NOTE | 2018-02-05 10:19 | RAD ---
CHEST ONE VIEW: History: Follow up. Comparison: Prior day. FINDINGS: Multiple rib fractures. Thoracostomy tube is in place with side port outside the chest cavity. There is mild increased subcutaneous emphysema. Bilateral effusions. IMPRESSION: The thoracostomy tube side port is outside the chest cavity. Recommend advancing. POS: [facility]
--- NOTE | 2018-02-05 18:42 | PRG ---
DATE OF SERVICE: 02/05/2018 The patient is currently on the surgical floor. She is a 77-year-old woman who was admitted for recu rrent left pneumothorax which required a chest tube that was placed. The patient is currently on travon erseal for the second day starting on the third day. It was left in for an extended period of time d ue to continued small residual left apical pneumothorax. The patient overnight has not had any issues. She is tolerating her diet and her pain is controlled. She states that she is working with physical and occupational therapy. PHYSICAL EXAMINATION: VITAL SIGNS: Temperature is 97.7, heart rate 92, blood pressure 123/79, respirations 20, oxygen satu ration is 94% on 3 liters via nasal cannula. GENERAL: The patient is resting comfortably in bed. She is awake, alert, and oriented x3. [place] coma scale is 15. HEENT: Unremarkable. LUNGS: She has scattered rhonchi on the right, clear on the left. ABDOMEN: Soft, flat, nontender, active bowel sounds. EXTREMITIES: Neurovascularly intact x4. The left chest tube does not show an air leak. LABORATORY DATA: White blood cell count 19.6, hemoglobin 12.4, hematocrit 38.4, platelets 138. Sodi um 133, potassium 4.5, chloride 101, CO2 of 23, BUN 24, creatinine 0.78, glucose 66. Magnesium 1.9, phosphorus 2.5. Chest radiograph shows multiple rib fractures. Mild increase in subcutaneous emphys josephine what appears to be a residual apical pneumothorax and appears also that the tube site port was ou tside of the chest cavity. ASSESSMENT AND PLAN: 1. Status post recurrent left pneumothorax, improving. 2. Severe chronic obstructive pulmonary disease, stable. 3. Presumed pneumonia, awaiting respiratory cultures. Plan will be to continue IV antibiotics, supportive care, physical and occupational therapy and likel y consider discontinuing chest tube tomorrow.
[2018-02-05] MEDS: Mirtazapine 15 MG TAB PO SCH (21:12)
[2018-02-05] MEDS: Primidone 50 MG TAB PO SCH (21:12)
[2018-02-05] MEDS: Docusate 100 MG CAP PO SCH (21:12)
[2018-02-05] MEDS: Diazepam 5 MG TAB PO SCH (21:13)
[2018-02-06] MEDS: Acetaminophen 500 MG TAB PO SCH ×5 (00:36→23:32)
[2018-02-06] MEDS: traMADol HCl 50 MG TAB PO SCH ×5 (00:37→23:32)
[2018-02-06] MEDS: Piperacillin/Tazobactam 4.5 GM in Sodium Chloride 0.9% 100 ML IVPB SCH ×2 (03:25→10:22)
[2018-02-06] MEDS ORDERED: Vancomycin HCl 1 GM in Premix Bag 1 BAG IVPB SCH (04:00)
[2018-02-06] MEDS: Ibuprofen 600 MG TAB PO SCH ×3 (05:54→21:31)
[2018-02-06 06:08] LABS: Anion Gap 13 mmol/L (10-20); BUN (Urea Nitrogen) 19 mg/dL (9.8-20.1); Calc. Creatinine Clearance 59 mL/min (70-130); Carbon Dioxide 25 mmol/L (23-31); Chloride 101 mmol/L (98-107); Estimated GFR-MDRD 81; Glucose 79 mg/dL (83-110); Magnesium 1.9 mg/dL (1.6-2.6); Phosphorus 2.4 mg/dL (2.3-4.7); Potassium 4.3 mmol/L (3.5-5.1); Sodium 135 mmol/L (136-145)
[2018-02-06 06:16] LABS: Band 12 % (5-11); Hemoglobin 12.7 g/dL (12.0-16.0); Lymphocytes 9 % (21-51); MDiff Complete? YES; Mean Corpuscular HGB CONC 32.3 g/dL (32.0-36.0); Mean Platelet Volume 8.4 fL (7.4-10.4); Monocytes 11 % (0-10); Neutrophil 68 % (42-75); Platelet Count 150 thou/uL (130-400); RBC Distribution Width 14.4 % (11.5-14.5); Red Blood Cell (RBC) Count 3.96 mill/uL (4.20-5.40)
[2018-02-06] MEDS: Mometasone/Formoterol 120 PUFF INHALER INH SCH ×2 (06:40→19:24)
--- NOTE | 2018-02-06 08:57 | RAD ---
CHEST 1 VIEW: HISTORY: Chest pain. Followup. COMPARISON: 02/05/2018. FINDINGS: Cardiac silhouette is magnified and partially obscured by bibasilar infiltrates. Right pleural fluid has increased slightly. Mediastinum remains midline. Left thoracostomy tube is in place and has be en advanced slightly, now so that the proximal port lies just medial to the chest wall. Left chest w all gas is similar in appearance to the prior study. No recurrent pneumothorax. Mediastinum is midl ine. IMPRESSION: 1. Left thoracostomy tube now in good radiographic position. 2. Slight interval increase in right pleural fluid. POS: [facility]
[2018-02-06] MEDS: predniSONE 20 MG TAB PO SCH (10:21)
[2018-02-06] MEDS: Lisinopril 10 MG TAB PO SCH (10:21)
[2018-02-06] MEDS: Gabapentin 300 MG CAP PO SCH ×2 (10:21→21:30)
[2018-02-06] MEDS: Folic Acid 1 MG TAB PO SCH (10:22)
[2018-02-06] MEDS: Atorvastatin Calcium 40 MG TAB PO SCH (10:22)
[2018-02-06] MEDS: Famotidine 20 MG TAB PO SCH (10:22)
[2018-02-06] MEDS: Aspirin 81 mg Enteric Coated Tablet PO SCH ×2 (10:22→21:29)
[2018-02-06] MEDS: Ascorbic Acid 500 mg Chewable Tablet PO SCH ×3 (10:22→21:42)
--- NOTE | 2018-02-06 13:05 | PRG ---
DATE OF SERVICE: 02/06/2018 SUBJECTIVE: The patient is currently on the surgical floor. She is status post recurrent left pneum othorax that required a chest tube being placed. The chest tube has been on waterseal for the last 3 days and after viewing of this morning's radiograph, we will discontinue the chest tube this morning . The patient had no issues overnight. She is tolerating a diet. Her pain was controlled. She is continuing to work with physical and occupational therapy. PHYSICAL EXAMINATION: VITAL SIGNS: Temperature is 97.7, heart rate 92, blood pressure 130/81, respirations 16, oxygen satu ration is 97% on room air. GENERAL: The patient is resting comfortably in bed. She is awake, alert, oriented, conversant and a ppropriate. HEENT: Unremarkable. LUNGS: Clear to auscultation on the left. The right still has scant rhonchi, but has improved since yesterday. ABDOMEN: Soft, flat, nontender with active bowel sounds. EXTREMITIES: Neurovascularly intact x4. LABORATORY DATA: White blood cell count 23.0, hemoglobin 12.7, hematocrit 39.2, platelets 150. Sodi um 135, potassium 4.3, chloride 101, CO2 25, BUN 19, creatinine 0.70, glucose 79, magnesium 1.9, phos phorus 2.4. X-RAY FINDINGS: Chest x-ray this morning shows a left chest tube in place, slight increase of right pleural fluid. ASSESSMENT AND PLAN: 1. Status post recurrent left pneumothorax, resolved. 2. Severe chronic obstructive pulmonary disease, stable. 3. Presumed pneumonia. Respiratory culture shows moderate gram positive cocci in clusters, few gram positive cocci in pairs and rare yeast. Plan will be to continue IV antibiotics, discontinue chest tubes, a repeat chest x-ray in the morning . Continue physical and occupational therapy and likely the patient will be able to be placed tomorr ow. The evaluation and examination were done with Dr. Ornelas during rounds this morning.
[2018-02-06] MEDS: Diazepam 5 MG TAB PO SCH (21:29)
[2018-02-06] MEDS: Primidone 50 MG TAB PO SCH (21:30)
[2018-02-06] MEDS: Sulfameth/Trimethoprim DS 800-160mg TAB PO SCH (21:30)
[2018-02-06] MEDS: Mirtazapine 15 MG TAB PO SCH (21:30)
[2018-02-06] MEDS: Docusate 100 MG CAP PO SCH ×2 (21:31→21:43)
[2018-02-07] MEDS: traMADol HCl 50 MG TAB PO SCH ×3 (05:09→18:21)
[2018-02-07] MEDS: Acetaminophen 500 MG TAB PO SCH ×3 (05:12→18:21)
[2018-02-07] MEDS: Ibuprofen 600 MG TAB PO SCH ×3 (05:13→21:47)
[2018-02-07 06:21] LABS: Band 8 % (5-11); Hemoglobin 12.8 g/dL (12.0-16.0); Lymphocytes 12 % (21-51); MDiff Complete? YES; Mean Corpuscular HGB CONC 33.8 g/dL (32.0-36.0); Mean Corpuscular Hemoglobin 33.2 pg (27.0-31.0); Mean Corpuscular Volume 98.1 fL (78.0-98.0); Mean Platelet Volume 7.8 fL (7.4-10.4); Monocytes 10 % (0-10); Neutrophil 68 % (42-75); PLT Morphology Comment Appears Adequate; Platelet Count 166 thou/uL (130-400); RBC Distribution Width 14.4 % (11.5-14.5); Reactive Lymphocytes 2 % (0-10); Red Blood Cell (RBC) Count 3.85 mill/uL (4.20-5.40); White Blood Cell (WBC) Count 19.2 thou/uL (4.8-10.8)
[2018-02-07 06:24] LABS: Anion Gap 13 mmol/L (10-20); BUN (Urea Nitrogen) 15 mg/dL (9.8-20.1); Calc. Creatinine Clearance 65 mL/min (70-130); Calcium 8.3 mg/dL (7.8-10.44); Carbon Dioxide 27 mmol/L (23-31); Chloride 101 mmol/L (98-107); Estimated GFR-MDRD 90; Glucose 68 mg/dL (83-110); Magnesium 1.9 mg/dL (1.6-2.6); Phosphorus 2.4 mg/dL (2.3-4.7); Potassium 3.7 mmol/L (3.5-5.1); Sodium 137 mmol/L (136-145)
[2018-02-07] MEDS: Mometasone/Formoterol 120 PUFF INHALER INH SCH ×2 (06:40→19:48)
[2018-02-07] MEDS: Gabapentin 300 MG CAP PO SCH ×2 (08:12→20:39)
[2018-02-07] MEDS: Ascorbic Acid 500 mg Chewable Tablet PO SCH ×2 (08:12→20:39)
[2018-02-07] MEDS: Famotidine 20 MG TAB PO SCH (08:12)
[2018-02-07] MEDS: predniSONE 20 MG TAB PO SCH (08:12)
[2018-02-07] MEDS: Aspirin 81 mg Enteric Coated Tablet PO SCH ×2 (08:12→20:39)
[2018-02-07] MEDS: Folic Acid 1 MG TAB PO SCH (08:12)
[2018-02-07] MEDS: Atorvastatin Calcium 40 MG TAB PO SCH (08:13)
[2018-02-07] MEDS: Lisinopril 10 MG TAB PO SCH (08:13)
[2018-02-07] MEDS: Sulfameth/Trimethoprim DS 800-160mg TAB PO SCH ×2 (08:13→20:39)
--- NOTE | 2018-02-07 10:44 | RAD ---
CHEST 1 VIEW: HISTORY: Chest tube removal. COMPARISON: Radiograph of prior day. FINDINGS: Interval removal of the left-sided thoracostomy tube with small apical pneumothorax. Multiple segmen gisele left-sided rib fractures. Subcutaneous emphysema is improving. Layering right effusion. IMPRESSION: Interval removal of the thoracostomy tube with small left apical pneumothorax. POS: [facility]
--- NOTE | 2018-02-07 14:20 | DIS ---
DATE OF ADMISSION: 02/01/2018 DATE OF DISCHARGE: 02/08/2018 ADMISSION DIAGNOSES: 1. Recurrent pneumothorax status post previous fall with rib fractures on the left. 2. Chronic obstructive pulmonary disease, acute on chronic. 3. Hyponatremia, acute on chronic. 4. Left-sided rib fractures. CONSULTATIONS: None. PROCEDURES: Left chest tube placement. SUMMARY: The patient is a 77-year-old female who had recently been discharged from our facility after sustaining a fall with multiple left-sided rib fractures. She presented back to the hospital from her [facility] facility with shortness of breath. Repeat radiograph showed a left pneumothorax , which required a tube that was placed. This would stay in place for several days until it is able to be removed. At the time of discharge, she did again have a small residual apical pneumothorax, but this had remained the same for the last 2 days, so I felt safe to discharge her again with close followup. At the time of discharge, the patient was working with physical and occupational therapy. Her pain was controlled. She was tolerating a diet. Her bowel function had returned. The patient will follow up with [facility] 2 weeks with a repeat chest x-ray. She may return sooner as needed. VILMA
[2018-02-07] MEDS: Diazepam 5 MG TAB PO SCH (20:39)
[2018-02-07] MEDS: Docusate 100 MG CAP PO SCH (20:39)
[2018-02-07] MEDS: Mirtazapine 15 MG TAB PO SCH (20:40)
[2018-02-07] MEDS: Primidone 50 MG TAB PO SCH (21:18)
[2018-02-08] MEDS: traMADol HCl 50 MG TAB PO SCH ×3 (00:12→13:09)
[2018-02-08] MEDS: Acetaminophen 500 MG TAB PO SCH ×3 (00:12→13:08)
[2018-02-08] MEDS: Ibuprofen 600 MG TAB PO SCH (06:10)
[2018-02-08 06:49] LABS: Band 4 % (5-11); Eosinophils 1 % (0-10); Hemoglobin 10.7 g/dL (12.0-16.0); Lymphocytes 15 % (21-51); MDiff Complete? YES; Mean Corpuscular HGB CONC 32.6 g/dL (32.0-36.0); Mean Corpuscular Volume 98.4 fL (78.0-98.0); Mean Platelet Volume 7.6 fL (7.4-10.4); Monocytes 11 % (0-10); Myelocyte 2 % (0-0); Neutrophil 67 % (42-75); Platelet Count 182 thou/uL (130-400); RBC Distribution Width 14.5 % (11.5-14.5); Red Blood Cell (RBC) Count 3.33 mill/uL (4.20-5.40); White Blood Cell (WBC) Count 13.8 thou/uL (4.8-10.8)
[2018-02-08] MEDS: Mometasone/Formoterol 120 PUFF INHALER INH SCH (06:56)
--- NOTE | 2018-02-08 08:37 | RAD ---
UPRIGHT PORTABLE CHEST 1 VIEW: HISTORY: A 77-year-old female with a history of followup left side pneumothorax. COMPARISON: 02/07/2018. FINDINGS: Numerous displaced and nondisplaced left rib fractures. Again noted is a small left apical pneumotho rax showing little change from study. It certainly has not increased in size. Bilateral pleural eff usions and bibasilar pulmonary parenchymal changes, stable. IMPRESSION: Stable very small apical pneumothorax on the left side. Bibasilar pleural and parenchymal changes. Left rib fractures. Continued short-term followup. POS: [facility]
[2018-02-08] MEDS: Lisinopril 10 MG TAB PO SCH (09:42)
[2018-02-08] MEDS: Folic Acid 1 MG TAB PO SCH (09:42)
[2018-02-08] MEDS: Gabapentin 300 MG CAP PO SCH (09:42)
[2018-02-08] MEDS: Ascorbic Acid 500 mg Chewable Tablet PO SCH (09:43)
[2018-02-08] MEDS: Aspirin 81 mg Enteric Coated Tablet PO SCH (09:43)
[2018-02-08] MEDS: Sulfameth/Trimethoprim DS 800-160mg TAB PO SCH (09:43)
[2018-02-08] MEDS: Atorvastatin Calcium 40 MG TAB PO SCH (09:43)
[2018-02-08] MEDS: predniSONE 20 MG TAB PO SCH (09:43)
[2018-02-08] MEDS: Famotidine 20 MG TAB PO SCH (09:43)
[2018-02-08 12:42] VITALS: BP 138/84; TEMP 98.6
--- NOTE | 2018-02-08 21:20 | EKG ---
Test Reason : Blood Pressure : / mmHG Vent. Rate : 096 BPM Atrial Rate : 096 BPM P-R Int : 150 ms QRS Dur : 070 ms QT Int : 328 ms P-R-T Axes : 056 010 053 degrees QTc Int : 414 ms Normal sinus rhythm Normal ECG When compared with ECG of 28-JAN-2018 07:09, (Unconfirmed) Fusion complexes are no longer Present Non-specific change in ST segment in Inferior leads Confirmed by CANELO SALDAÑA (2) on 02/08/2018 9:19:52 PM Referred By: Rick ALLAN Confirmed By:CANELO SALDAÑA
== END 2018-02-08 14:00 | DRG 199 ==
LOC: ERS 15:10 → SURG A 15:23 → IMCU/EMU 02-02 12:56 → SURG A 02-04 16:01
PROVIDERS: ADMIT Surgery; ATTEND Surgery
PROC: 0W9B30Z Drainage of Left Pleural Cavity with Drainage Device, Percutaneous Approach (ICD-10-PCS; principal; 2018-02-01)
DX: S27.0XXA Traumatic pneumothorax, initial encounter (principal); J18.9 Pneumonia, unspecified organism; S22.42XA Multiple fractures of ribs, left side, initial encounter for closed fracture; J44.1 Chronic obstructive pulmonary disease with (acute) exacerbation; E87.1 Hypo-osmolality and hyponatremia; I10 Essential (primary) hypertension; I25.10 Atherosclerotic heart disease of native coronary artery without angina pectoris; I11.0 Hypertensive heart disease with heart failure; F31.9 Bipolar disorder, unspecified; S00.03XA Contusion of scalp, initial encounter; E86.0 Dehydration; I95.9 Hypotension, unspecified; I50.9 Heart failure, unspecified; F41.9 Anxiety disorder, unspecified; E03.9 Hypothyroidism, unspecified; H35.30 Unspecified macular degeneration; M19.90 Unspecified osteoarthritis, unspecified site; Z79.899 Other long term (current) drug therapy; Z79.52 Long term (current) use of systemic steroids; Z79.82 Long term (current) use of aspirin; W19.XXXA Unspecified fall, initial encounter
CPT/HCPCS: 36415; 70450; 71045; 72125; 80048; 80053; 80202; 81003; 81015; 82553; 82805; 83735; 84100; 84484; 85025; 87070; 87205; 89220; 93005; 93010; 93306; 94640; G8978-GP-CL; G8979-GP-CK; G8987-GO-CK; G8987-GO-CM; G8988-GO-CJ; G8988-GO-CK; J1956; J2543; J3370; J7050; J7506; J7620; P9045

== ENCOUNTER 2018-02-21 12:08 | Inpatient (IN) | payer MEDICARE ==
[2018-02-21] MEDS ORDERED: Piperacillin/Tazobactam 4.5 GM VIAL ONE (12:30)
[2018-02-21 12:42] LABS: #Basophils 0.1 thou/uL (0.0-0.2); #Lymphocytes 1.3 thou/uL (1.20-3.40); #Monocytes 0.9 thou/uL (0.11-0.59); %Basophils 0.9 % (0.0-1.0); %Eosinophils 0.6 % (0.0-10.0); %Lymphocytes 18.2 % (21.0-51.0); %Monocytes 12.1 % (0.0-10.0); %Neutrophils 68.2 % (42.0-75.0); Hemoglobin 9.3 g/dL (12.0-16.0); Mean Corpuscular HGB CONC 33.9 g/dL (32.0-36.0); Mean Corpuscular Hemoglobin 34.1 pg (27.0-31.0); Mean Platelet Volume 7.5 fL (7.4-10.4); Platelet Count 212 thou/uL (130-400); RBC Distribution Width 15.8 % (11.5-14.5); Red Blood Cell (RBC) Count 2.72 mill/uL (4.20-5.40); White Blood Cell (WBC) Count 7.3 thou/uL (4.8-10.8)
[2018-02-21 12:43] LABS: Bilirubin Negative (Negative); Blood, Urine Negative (Negative); Clarity CLEAR (Clear); Glucose, Urine (Dipstick) Negative (Negative); Leukocyte Negative (Negative); Nitrite Negative (Negative); Protein, Urine (Dipstick) Negative (Neg-Trace); Specific Gravity, Urine 1.014 (1.002-1.036); pH, Urine 7.5 (5.0-9.0)
--- NOTE | 2018-02-21 13:05 | RAD ---
PORTABLE CHEST: DATE: 02/21/2018. PROVIDED CLINICAL HISTORY: Dyspnea. FINDINGS: Comparison is made with a study dated 02/10/2018. Persistent and probably increased left basilar ple ural parenchymal opacity. Multiple left-sided rib fractures are redemonstrated. There is no definit e evidence for pneumothorax. Apical opacity on the left appears somewhat more conspicuous than on pr ior. Vascular calcification is again seen. Subsegmental atelectatic changes are seen at the right l herbie base. IMPRESSION: Cardiomegaly with persistent and probably increased left basilar pleural parenchymal opacity. POS: [facility]
[2018-02-21 13:08] LABS: ALT (SGPT) 22 U/L (8-55); AST (SGOT) 28 U/L (5-34); Albumin 3.1 g/dL (3.4-4.8); Alkaline Phosphatase 74 U/L (40-150); Anion Gap 14 mmol/L (10-20); BUN (Urea Nitrogen) 31 mg/dL (9.8-20.1); Bilirubin, Total 0.4 mg/dL (0.2-1.2); Calc. Creatinine Clearance 0 mL/min (70-130); Calcium 8.3 mg/dL (7.8-10.44); Carbon Dioxide 31 mmol/L (23-31); Chloride 95 mmol/L (98-107); Estimated GFR-MDRD 56; Glucose 144 mg/dL (83-110); Potassium 4.8 mmol/L (3.5-5.1); Protein, Total 5.1 g/dL (6.0-8.3); Sodium 135 mmol/L (136-145)
[2018-02-21] MEDS ORDERED: Vancomycin HCl 1.25 GM in Sodium Chloride 0.9% 250 ML 250 ML IVPB SCH (13:15)
[2018-02-21] MEDS ORDERED: Iopamidol 370 76% 100 ML VIAL ONE (13:36)
--- NOTE | 2018-02-21 14:22 | PDOC.FPRHP ---
- History of Present Illness Chief Complaint: AMS, SOB History of Present Illness: This is a 77 yo F who presents to the ED via EMS for AMS and SOB. Information obtained from ER records as patient is unable to provide a detailed history. Patient was GCS of 10 when EMS arrived and received duonebs and fluid. Patient had a reported SBP of 62 at this time. Patients GCS upon arrival to the ED was 14. Patient is able to nod/shake head and indicates yes or no. Patient is still currently GCS 14. Patient was recently hospitalized for left pneumothorax that required a chest tube. Patient was also hospitalized in Dec for PNA. ED Course: Patient given 2 L IVF, started on levofed, vanc and zosyn - Allergies/Adverse Reactions Allergies Allergy/AdvReac Type Severity Reaction Status Date / Time No Known Drug Allergies Allergy Verified 09/10/17 20:04 - Home Medications Medication Instructions Recorded Confirmed Type RX: Atorvastatin Calcium [Lipitor] 40 mg PO DAILY 03/13/13 02/02/18 History RX: Docusate [Colace] 100 mg PO HS 01/22/17 02/02/18 History RX: Gabapentin [Neurontin] 300 mg PO BID 01/22/17 02/02/18 History RX: Mirtazapine 15 mg PO HS 07/09/17 02/02/18 History RX: Alendronate Sodium [Fosamax] 70 mg PO Q7D 12/27/17 02/02/18 History RX: Diazepam 5 mg PO HS 12/27/17 02/02/18 History RX: Primidone [Mysoline] 50 mg PO HS 12/27/17 02/02/18 History RX: Folic Acid [Folvite] 1 mg PO DAILY #30 tab 12/31/17 02/02/18 Rx RX: Lisinopril [Zestril] 20 mg PO BID #60 tab 12/31/17 02/02/18 Rx RX: predniSONE [Prednisone] 40 mg PO DAILY #4 tablet 12/31/17 02/02/18 Rx RX: Acetaminophen [Tylenol Extra 1,000 mg PO Q6HR tab 01/31/18 02/02/18 Rx Strength] RX: Aspirin [Ecotrin Low Strength] 81 mg PO BID tab 01/31/18 02/02/18 Rx RX: Cyclobenzaprine [Flexeril] 5 mg PO TID PRN tab 01/31/18 02/02/18 Rx RX: Famotidine [Pepcid] 20 mg PO BID tab 01/31/18 02/02/18 Rx RX: Ibuprofen [Motrin] 600 mg PO Q8HR tab 01/31/18 02/02/18 Rx RX: Ipratropium/Albuterol Sulfate 3 ml NEB [id number] neb 01/31/18 02/02/18 Rx [DuoNeb] RX: Mometasone/Formoterol 100/5 2 puff INH BID 01/31/18 02/02/18 History [Dulera 100 mcg/5 mcg Inhaler] RX: Ondansetron [Zofran ODT] 4 mg PO Q6HR PRN 01/31/18 02/02/18 History RX: Polyethylene Glycol 3350 17 gm PO DAILY pk 01/31/18 02/02/18 Rx [Miralax] RX: Sennosides [Senna] 8.6 mg PO HS PRN 01/31/18 02/02/18 History RX: traMADol HCl [Ultram] 100 mg PO Q6HR tab 01/31/18 02/02/18 Rx RX: Nicotine [Nicoderm CQ] 21 mg TD DAILY #30 patch 02/01/18 02/02/18 Rx RX: Acetaminophen [Tylenol Extra 1,000 mg PO Q6HR tab 02/07/18 Rx Strength] RX: Ascorbic Acid [Vitamin C] 500 mg PO BID tab 02/07/18 Rx RX: Ibuprofen [Motrin] 600 mg PO Q8HR tab 02/07/18 Rx RX: Sulfamethoxazole/Trimethoprim 1 tab PO BID 6 Days tab 02/07/18 Rx [Bactrim DS] RX: traMADol HCl [Ultram] 100 mg PO Q6HR tab 02/07/18 Rx - History PMHx: COPD stage IV, CHF, HTN, HLD, hypothyroid, depression, anxiety, bipolar, recent pna, left sided rib fx PSHx: right inguinal hernia repair, recent chest tube for rib fx FHx: non contributory Social: current smoker, denies alcohol or drug use - Review of Systems General: denies: fever/chills, weight/appetite/sleep changes, night sweats Respiratory: reports: shortness of breath. denies: cough, congestion Cardiovascular: denies: chest pain, palpitation, edema Gastrointestinal: denies: nausea, vomiting, diarrhea, constipation, abdominal pain Musculoskeletal: denies: pain, tenderness - Vital signs BP: SBP 40-60s->105/70 HR: 89 RR: 19 Tmax: 99.3 Pox: 80% on Bipap Wt: 54kg - Physical Exam -Constitutional: elderly female, mod resp distress on bipap HEENT: normocephalic and atraumatic, PERRLA, EOMI Neck: supple, FROM Chest: no-tender to palpation, no lesions Heart: RRR, normal S1/S2 -Lungs: left sided crackles heard throughout Abdomen: soft, non-tender, bowel sounds present Musculoskeletal: normal structure, normal tone Neurological: no focal deficit FMR H&P: Results - Labs Result Diagrams: 02/22/18 03:30 02/22/18 03:30 Lab results: WBC 7.3 thou/uL (4.8-10.8) 02/21/18 12:24 Hgb 9.3 g/dL (12.0-16.0) L 02/21/18 12:24 Hct 27.3 % (36.0-47.0) L 02/21/18 12:24 MCV 101.0 fL (78.0-98.0) H 02/21/18 12:24 Plt Count 212 thou/uL (130-400) 02/21/18 12:24 Neutrophils % 68.2 % (42.0-75.0) 02/21/18 12:24 Sodium 135 mmol/L (136-145) L 02/21/18 12:24 Potassium 4.8 mmol/L (3.5-5.1) 02/21/18 12:24 Chloride 95 mmol/L (98-107) L 02/21/18 12:24 Carbon Dioxide 31 mmol/L (23-31) 02/21/18 12:24 BUN 31 mg/dL (9.8-20.1) H 02/21/18 12:24 Creatinine 0.96 mg/dL (0.6-1.1) 02/21/18 12:24 Glucose 144 mg/dL (83-110) H 02/21/18 12:24 Lactic Acid 2.7 mmol/L (0.5-2.2) H 02/21/18 12:24 Calcium 8.3 mg/dL (7.8-10.44) 02/21/18 12:24 Total Bilirubin 0.4 mg/dL (0.2-1.2) 02/21/18 12:24 AST 28 U/L (5-34) 02/21/18 12:24 ALT 22 U/L (8-55) 02/21/18 12:24 Alkaline Phosphatase 74 U/L (40-150) 02/21/18 12:24 Serum Total Protein 5.1 g/dL (6.0-8.3) L 02/21/18 12:24 Albumin 3.1 g/dL (3.4-4.8) L 02/21/18 12:24 Urine Ketones Negative mg/dL (Negative) 02/21/18 12:20 Urine Blood Negative (Negative) 02/21/18 12:20 Urine Nitrite Negative (Negative) 02/21/18 12:20 Ur Leukocyte Esterase Negative (Negative) 02/21/18 12:20 - Radiology Interpretation Chest x-ray Status: report reviewed by me (left pleural effusion) CT scan - chest Status: report reviewed by me (occlusion of left lower lobe bronchus; left lower lobe and lingular aspiration pneumonitis/pneumonia; large left and small right pleural effusions; no evidence of PE) FMR H&P: A/P - Problem List (1) Acute and chronic respiratory failure with hypoxia Current Visit: No Status: Acute Code(s): J96.21 - ACUTE AND CHRONIC RESPIRATORY FAILURE WITH HYPOXIA (2) CAD (coronary artery disease) Current Visit: No Status: Chronic Code(s): I25.10 - ATHSCL HEART DISEASE OF [place] CORONARY ARTERY W/O ANG PCTRS Qualifiers: Coronary Disease-Associated Artery/Lesion type: unspecified vessel or lesion type [place] vs. transplanted heart: [place] heart Associated angina: without angina Qualified Code(s): I25.10 - Atherosclerotic heart disease of [place] coronary artery without angina pectoris Comment: Stable (3) COPD (chronic obstructive pulmonary disease) Current Visit: No Status: Chronic Comment: stable (4) HLD (hyperlipidemia) Current Visit: No Status: Chronic Code(s): E78.5 - HYPERLIPIDEMIA, UNSPECIFIED Qualifiers: Hyperlipidemia type: unspecified Qualified Code(s): E78.5 - Hyperlipidemia , unspecified Comment: continue statin - Plan Acute Hypoxic Resp Failure 2/2 COPD vs PNA - patient satting 60% on arrival - currently on Bipap and satting mid 80s - Dr. Bryson notified in the ED - CXR showing L pleural effusion; CT confirming - Pt started on vanc and zosyn - will continue at this time - pt refusing intubation intially, but after discussion with the family, agree to intubate as Bipap in a patient with PNA could worsen prognosis. - thoracentesis on L side - Will continue to monitor resp status Sepsis 2/2 to LLL PNA - CTA r/o PE, did show LLL pleural effusion - ABG: - Blood and urine cx pending - continue vanc/zosyn - continue mIVF - pt will be intubated - lactic acid elevated to 2.7, repeat in 4 hours from initial - Levophed gtt to goal MAP > 65 COPD/Tobacco use - Dr Vickers pt - previously counseled on smoking cessation - on prednisone and dulera at home Hypotension - pt currently getting levofed through [facility] - Will place central line - pt/family consented; L subclavian - Pt intubate only - MPOA on way to provide paperwork Hyponatremia - patient getting fluids in the ED - Will monitor fluid status and trend HFpEF - Recent echo 01/2018 with EF 60-65% HTN/HLD/CAD/macular degeneration/hypothyroidism/osteoarthritis - Home meds when able DISPO: admit to CCU CODE: Intubate only vte ppx: lovenox GI ppx: protonix Case discussed with Dr. Singh FMR H&P: Upper Level - Pertinent history 77 yo F with 2 recent hospitalizations for L pneumothorax who presents via EMS from home for AMS. She reportedly called EMS for shortness of breath and when they arrived she was minimally responsive with BP and O2 sats both in the 60s. She was started on BiPAP in the ED and at this time is able to respond appropriately to questions though it is difficult for her to communicate with BiPAP. She denies any new LE edema or swelling/pain. She denies fever/chills and reports that she was doing well at home after recent SNF discharge. - Pertinent findings BP 100s/60s with MAP in the 70s on Levophed gtt @ 3. SpO2 100% on BiPAP 12/6 with FiO2 100%. P80. RR 10-14. Gen: awake, opens eyes when questioned, appropriately responding to questions, very thin HEENT: atraumatic, BiPAP in place CV: RRR, difficult to auscultate heart sounds over diffuse rhonchi RESP: Rhonchi diffusely, decreased air entry in LLL ABD: soft, nontender nondistended EXT: no edema - Plan Date/Time: 02/21/18 1419 77 yo F here with acute respiratory failure 2/2 suspected L pleural effusion/ empyema 1. Acute respiratory failure - ABG pending, suspect hypoxic - BiPAP started in ED, continue d/c if no hypercapnea - CTA pending to r/o PE and better characterize LLL finding on CXR - Dr. Bryson notified in ED - Lactic acid elevated to 2.7, will repeat in 4 hours 2. Sepsis 2/2 LLL PNA - BCx and UCx ordered in ED - Continue Vanc and Zosyn - s/p 2.6L in ED, continue maintenance fluids - Levophed gtt to goal MAP > 65 3. COPD/tobacco abuse - Dr. Vickers following on prior admissions - On prednisone & dulera at home 4. HFpEF - Recent echo 01/2018 with EF 60-65% 5. HTN/HLD/CAD/macular degeneration/hypothyroidism/osteoarthritis - Home meds when able DNR/DNI status confirmed with patient today. She is agreeable to central line if indicated. Will await CTA to discuss further recommendations. I, Maddie Chatterjee MD, PGY-3, have evaluated this patient and agree with findings/ plan as outlined by help desk internship resident. Pertinent changes/additions are listed here.
[2018-02-21 14:29] LABS: Bilirubin Negative (Negative); Blood, Urine Negative (Negative); Clarity CLEAR (Clear); Glucose, Urine (Dipstick) Negative (Negative); Leukocyte Negative (Negative); Nitrite Negative (Negative); Protein, Urine (Dipstick) 30 mg/dL (Neg-Trace); Specific Gravity, Urine 1.016 (1.002-1.036); pH, Urine 7.5 (5.0-9.0)
[2018-02-21 14:31] LABS: Bacteria/HPF None Seen HPF (None Seen); Pathc Cast-AUWi Flag 3.19 (0-2.49); RBC/HPF 0-3 HPF (0-3); Squamous Epithelial 0-3 HPF (0-3); WBC/HPF 0-3 HPF (0-3)
[2018-02-21 14:40] LABS: Other Casts/LPF 0-3 FINELY GRAN LPF (0-3 Hyaline)
[2018-02-21 14:41] LABS: Transitional Epithelial 0-3 HPF (0-3)
[2018-02-21 14:49] LABS: Actual Bicarbonate (HCO3a) 26.5 mEq/L (22-28); Analyzer IN Cardio ER; Base Excess (BEa) 0.8 mEq/L (-2.0 to +3.0); CO2 Tension 47.9 mmHg (35.0-45.0); Calcium, Ionized 1.07 mmol/L (1.12-1.30); Carboxyhemoglobin (COHb) 0.9 gm% (0.0-3.0); Hemoglobin (Hb) 9.6 g/dL (12.0-16.0); O2 Tension (PaO2) 95.8 mmHg (> 70.0); Potassium - ABG Lab 4.23 mmol/L (3.70-5.30); pH, Arterial 7.36 (7.35-7.45)
[2018-02-21 14:51] LABS: ALV-art Gradient 557.325 (0-20); Puncture Site LBA
--- NOTE | 2018-02-21 15:36 | CT ---
CT PULMONARY ANGIOGRAM WITH IV CONTRAST AND 3D MIP RECONSTRUCTIONS: DATE: 02/21/2018. PROVIDED CLINICAL HISTORY: Hypoxia, shortness of breath. FINDINGS: Comparison is made with the study dated 12/27/2017. There is no evidence for central or segmental pu lmonary embolus. The heart, pericardium, and great vessels demonstrate an unchanged CT appearance wi th respect to the prior study. There is material of increased density present within the dependent distal trachea. There is complet e opacification of the left lower lobe bronchus. Partial opacification of lingular bronchi. There is consolidation involving the entirety of the left lower lobe as well as a lingula. There is a large left pleural effusion. There is minimal probable atelectatic change at the right lung base and there is a small right pleural effusion. Conspicuous emphysematous changes are again seen. There is no e vidence for thoracic lymph node enlargement. The visualized portions of the upper abdomen demonstrat e apparent mural thickening involving a portion of the transverse colon. IMPRESSION: 1. Occlusion of the left lower lobe bronchus presumably on the basis of aspiration with associated l eft lower lobe and lingular aspiration pneumonitis/pneumonia. Large left and small right pleural eff usions. No evidence for central or segmental pulmonary embolus. 2. Nonspecific mural thickening involving colon. Correlate with concerns for colitis. POS: [facility]
[2018-02-21] MEDS ORDERED: Ondansetron PF 4 MG/2 ML Vial IVP PRN ×2 (15:41→20:28)
[2018-02-21] MEDS ORDERED: Ondansetron ODT 4 MG TAB SL PRN (15:41)
[2018-02-21] MEDS ORDERED: Norepinephrine 8 MG/250 ML BAG IVPB PRN (15:42)
[2018-02-21] MEDS ORDERED: Midazolam HCl 2 mg/2 ml Vial ONE (17:27)
--- NOTE | 2018-02-21 18:00 | PDOC.EVN ---
Event Note - Event Note Event Note: Findings and recommendation for central line and thoracentesis/decortication discussed with patient and daughter. At this time, patient and family agree to temporary intubation for procedures. L subclavian central line placed without issue (see operative note), and intubation performed with Dixie Scope, 2mg versed and 20 mg Etomidate without complication. STAT CXR ordered.
--- NOTE | 2018-02-21 18:01 | PDOC.OP ---
Operative Note - Operative Note Operative Note: L subclavian Central Line Placement INDICATION: Hemodynamic instability RESIDENTS: Maddie Chatterjee MD and Gabi Nuno MD ATTENDING PHYSICIAN: Cy Singh MD CONSENT: Obtained from patient and her daughter who is her designated medical decision maker Consent was obtained from patient and daugther prior to the procedure. Indications, risks, and benefits were explained at length. PROCEDURE SUMMARY: A time out was performed. Handwashing was performed immediately prior to procedure and sterile technique was observed. The patient was placed in Trendelenburg position. The left chest region was prepped using chlorhexidine scrub and draped in sterile fashion using a three quarter sheet drape. Anesthesia was achieved with 1% lidocaine. The introducer needle was inserted approximately two centimeters lateral to and 1 cm inferior to the normal curvature of the patient's clavicle. Venous blood was withdrawn. The guidewire was advanced through the syringe. The syringe was removed and a small incision was made at the skin surface with a scalpel and the dilator was introduced. The dilator was exchanged over the wire for a 7F central venous catheter. The wire was removed and the catheter was sutured in place at 17 cm. A sterile shield was placed over the catheter at the insertion site. The patient tolerated the procedure without any hemodynamic compromise. At time of procedure completion, all ports aspirated and flushed properly. Post-procedure chest x-ray showed appropriate placement. Estimaged blood loss is < 10 mL.
[2018-02-21] MEDS ORDERED: Lorazepam 2 MG/ML VIAL SLOW IVP PRN (18:08)
[2018-02-21] MEDS ORDERED: Morphine 2 MG/ML SYRINGE SLOW IVP PRN (18:08)
[2018-02-21] MEDS ORDERED: Propofol BOLUS 1,000 MG/100 ML VIAL IV PRN (18:08)
[2018-02-21] MEDS ORDERED: Fentanyl BOLUS 250 ML IVPB PRN (18:08)
[2018-02-21] MEDS ORDERED: Propofol 1,000 MG/100 ML VIAL IV PRN (18:08)
[2018-02-21] MEDS ORDERED: DISCONTINUE PREVIOUS NARCOTIC PAIN MEDICATIONS AND BENZODIAZEPINES FS SCH (18:08)
[2018-02-21] MEDS ORDERED: fentaNYL Citrate/PF 2,000 MCG in Sodium Chloride 0.9% 60 ML IV SCH (18:08)
[2018-02-21] MEDS ORDERED: Ventilator Sedation Protocol 1 EACH FS SCH (18:15)
--- NOTE | 2018-02-21 18:23 | RAD ---
PORTABLE AP CHEST X-RAY: 02/21/18 HISTORY: Central line placement. COMPARISON: 02/21/18 at 1130 hours. FINDINGS: Endotracheal tube is now noted in place with the tip overlying the level of the T4-5 level and above the level of the john. There has also been interval placement of left subclavian central venous cat heter with the tip overlying the expected location of the SVC. No pneumothorax is appreciated. Pleur al and parenchymal changes are seen throughout the left hemithorax related to large left pleural effu katerin with parenchymal changes which may be related to aspiration pneumonitis/pneumonia. Chronic lung changes are again seen on the right. Left cardiac border is obscured. Prominent vascular calcificatio n seen in the thoracic aorta. No other interval change. IMPRESSION: 1. Interval placement of endotracheal tube and left subclavian central venous catheter. No pneum othorax is seen. 2. Pleural and parenchymal changes left hemithorax with greater pleural based density extending along the left lateral chest to the left lung apex with increased density involving the previously se en aerated lung in the left upper lung zone. These findings again may be related to aspiration pneumo nitis and/or pneumonia as well as volume loss due to pleural effusion. POS: [facility]
[2018-02-21] MEDS: Piperacillin/Tazobactam 4.5 GM in Sodium Chloride 0.9% 100 ML IVPB SCH (18:31)
[2018-02-21] MEDS: Lactated Ringer's 1,000 ML IV SCH (18:37)
[2018-02-21 18:54] LABS: Lactic Acid 1.7 mmol/L (0.5-2.2)
[2018-02-21 18:58] LABS: Base Excess (BEa) 2.3 mEq/L (-2.0 to +3.0); CO2 Tension 56.5 mmHg (35.0-45.0); Calcium, Ionized 1.07 mmol/L (1.12-1.30); Carboxyhemoglobin (COHb) 1.4 gm% (0.0-3.0); Hemoglobin (Hb) 9.5 g/dL (12.0-16.0); pH, Arterial 7.33 (7.35-7.45)
[2018-02-21] MEDS ORDERED: Ondansetron ODT 4 MG TAB PO PRN (20:28)
[2018-02-21] MEDS ORDERED: Acetaminophen 325 MG TAB PO PRN (20:28)
--- NOTE | 2018-02-21 21:10 | CON ---
DATE OF CONSULTATION: 02/21/2018 SERVICE: Pulmonary Medicine. REASON FOR CONSULT: ICU patient. HISTORY OF PRESENT ILLNESS: The patient is a very pleasant 77-year-old white female with past medical history significant for 2 rounds of pneumothorax associated with some rib fractures remotely. She was in her usual state of health. She was working well with rehabilitation, ultimately got discharged to home. She did fantastic for a day and a half before she had an abrupt onset of increasing fatigue, and weakness. She was running some fevers and was brought to the emergency department. Her blood pressures were low. She got 3L of fluid. She responded to each one of these liters of fluid, but ultimately became hypotensive once again. As such, peripherally Levophed was initiated. She is finishing up her 3rd liter fluid now. She is a little encephalopathic, but remains awake. She has some conversational dyspnea. She denies any current nausea or vomiting. She did not have any dysuria, frequency, or diarrhea. Prior to the symptoms previously noted, she was actually doing quite well. PAST MEDICAL HISTORY: 1. COPD. 2. Hypertension. 3. Dyslipidemia. 4. Coronary artery disease. 5. Congestive heart failure. 6. Bipolar disorder. 7. Anxiety disorder. 8. Hypothyroidism. 9. Osteoarthritis. 10. Macular degeneration. PAST SURGICAL HISTORY: 1. Cholecystectomy. 2. Stent placement. 3. Right inguinal hernia repair. 4. Eye injections. 5. Left thoracostomy tubes x2. SOCIAL HISTORY: She up until recently smoked a pack of cigarettes on a daily basis. She denies any illicit drugs, or alcohol. She has no exposure to chemicals, dust, asbestos, or tuberculosis. FAMILY HISTORY: Noncontributory. ALLERGIES: NO KNOWN DRUG ALLERGIES. MEDICATIONS: List of her inpatient medications was reviewed. No specific updates were made at this time. REVIEW OF SYSTEMS: This cannot be obtained as the patient is currently a little somnolent. She is also wearing BiPAP. PHYSICAL EXAMINATION: VITAL SIGNS: Afebrile, pulse 76, blood pressure 98/44, respirations 18, and saturation 99% on 60% FiO2 and a PEEP of 8. HEENT: Normocephalic and atraumatic. Sclerae white. Conjunctivae pink. Oral mucosa is moist without lesions. LUNGS: Decent air entry. There is a prolonged expiratory phase. Wheezing is present. Rhonchi are also noted. HEART: Normal rate, regular. ABDOMEN: Soft, nontender, and nondistended. Bowel sounds are positive. MUSCULOSKELETAL: No cyanosis or clubbing. There is no pitting in the bilateral lower extremities. NEUROLOGIC: Grossly nonfocal. LABORATORY DATA: WBC is 7.3, hemoglobin 9.3, and platelets 212,000. pH 7.36, pCO2 of 47, pO2 of 95 despite the fact that she was on BiPAP with an FiO2 of 100%. Comprehensive metabolic profile is essentially unremarkable. Lactate 2.7. Urinalysis is unremarkable. IMAGING DATA: CTA of the chest is negative for any evidence of pulmonary embolism. She has got a loculated effusion in the left base. She also has dense consolidating changes in the left lower lobe with air bronchograms. I do not see any evidence of a pulmonary embolism. Nonspecific thickening of the colon is noted. ASSESSMENT: 1. Acute hypoxic and hypercapnic respiratory failure. 2. Septic shock. 3. Healthcare associated pneumonia. 4. Pleural effusion with loculations, suspecting empyema. 5. Chronic diastolic heart failure, currently hypovolemic. 6. Chronic obstructive pulmonary disease with acute exacerbation. DISCUSSION AND PLAN: In addition to appropriate HCAP antibiotics, we will initiate steroids and start frequent nebulized medications. We are in the process of putting a central line in. That way we can deliver her Levophed safely. After her hemodynamics are secured, we will likely proceed with intubation. Following this, we will be able to safely do a thoracentesis to prove whether or not she has an empyema. If present, in 24 to 48 hours, she may need to move forward with a VATS decortication. Bronchoscopy will be entertained to see if there is any significant sputum retained in the left lower lobe. Ultimately, the patient has multiple things that need to be done in order to verify that we were treating her correctly. Pulmonary Critical Care will certainly continue to follow through time. CRITICAL CARE TIME: 90 minutes. Job ID: [id number]
[2018-02-21] MEDS ORDERED: Prevnar 13-Val Conj/PF 0.5 ML SYRINGE IM ONE (22:30)
[2018-02-21 23:57] LABS: O2 Tension (PaO2) 56.6 mmHg (> 70.0)
[2018-02-21 23:58] LABS: Puncture Site LBA
[2018-02-21 23:59] LABS: ALV-art Gradient 157.975 (0-20)
[2018-02-22] MEDS: Piperacillin/Tazobactam 4.5 GM in Sodium Chloride 0.9% 100 ML IVPB SCH ×5 (00:10→23:22)
[2018-02-22 03:56] LABS: #Eosinphils 0.1 thou/uL (0.0-0.7); #Monocytes 0.7 thou/uL (0.11-0.59); #Neutrophils 4.4 thou/uL (1.40-6.50); %Basophils 0.6 % (0.0-1.0); %Eosinophils 1.4 % (0.0-10.0); %Lymphocytes 16.2 % (21.0-51.0); %Monocytes 11.5 % (0.0-10.0); %Neutrophils 70.3 % (42.0-75.0); Hemoglobin 8.1 g/dL (12.0-16.0); Mean Corpuscular HGB CONC 33.8 g/dL (32.0-36.0); Mean Corpuscular Hemoglobin 33.6 pg (27.0-31.0); Mean Corpuscular Volume 99.7 fL (78.0-98.0); Mean Platelet Volume 7.8 fL (7.4-10.4); Platelet Count 171 thou/uL (130-400); RBC Distribution Width 15.9 % (11.5-14.5); Red Blood Cell (RBC) Count 2.42 mill/uL (4.20-5.40); White Blood Cell (WBC) Count 6.3 thou/uL (4.8-10.8)
--- NOTE | 2018-02-22 04:03 | OP ---
DATE OF PROCEDURE: 02/21/2018 PROCEDURE PERFORMED: Emergent endotracheal intubation. CONSENT: Procedure was performed emergently secondary to clinical deterioration, and respiratory failure. STAFF PHYSICIAN: Vickey Bryson MD PROCEDURE EDUCATIONAL PROGRAMMING DIRECTOR: Maddie Chatterjee M.D. MEDICATIONS USED: 1. Versed 2 mg IV push. 2. Etomidate 20 mg IV push. PREPROCEDURE DIAGNOSES: 1. Acute hypoxic respiratory failure. 2. Septic shock. POSTPROCEDURE DIAGNOSES: 1. Acute hypoxic respiratory failure. 2. Septic shock. DESCRIPTION OF PROCEDURE: Vital signs monitoring was accomplished by noninvasive hemodynamic monitoring, pulse oximetry, and telemetry. In the supine position, the patient was preoxygenated with BiPAP. She was maintained with saturations of 100%. Following induction of anesthesia, a Glidescope was inserted through the mouth offering clear identification of the posterior oropharynx and laryngeal structures with a grade 1 view. An endotracheal tube was visualized passing through the vocal cords. Placement was confirmed by condensation in the endotracheal tube, and bi-axillary chest auscultation. Endotracheal tube was secured at 23 cm, measured at the teeth. The patient was placed on mechanical ventilation with good return of volumes. Postprocedure x-ray demonstrated good location of the endotracheal tube within the trachea. ESTIMATED BLOOD LOSS: None. COMPLICATIONS: None. Job ID: [id number]
[2018-02-22 04:05] LABS: Anion Gap 10 mmol/L (10-20); BUN (Urea Nitrogen) 24 mg/dL (9.8-20.1); Calc. Creatinine Clearance 58 mL/min (70-130); Calcium 7.4 mg/dL (7.8-10.44); Carbon Dioxide 29 mmol/L (23-31); Chloride 102 mmol/L (98-107); Estimated GFR-MDRD 82; Glucose 87 mg/dL (83-110); Potassium 3.9 mmol/L (3.5-5.1); Sodium 137 mmol/L (136-145)
[2018-02-22] MEDS: Lactated Ringer's 1,000 ML IV SCH ×2 (05:11→18:38)
[2018-02-22] MEDS ORDERED: Acetaminophen 325 MG/10.15 ML UDCUP PO PRN (08:00)
[2018-02-22] MEDS: Enoxaparin Sodium 40 MG/0.4 ML SYRINGE SC SCH (08:26)
[2018-02-22] MEDS: Pantoprazole 40 MG VIAL IVP SCH (08:26)
--- NOTE | 2018-02-22 09:05 | PDOC.FM ---
- Subjective Subjective: Patient intubated. She is able to nod to indicate understanding. Nursing noted no events overnight. - Objective MAR Reviewed: Yes Vital Signs & Weight: Vital Signs (12 hours) Pulse Resp BP Pulse Ox 02/22/18 07:39 79 82/56 L 98 02/22/18 06:00 13 02/22/18 04:00 13 02/22/18 02:00 13 02/22/18 00:00 13 02/21/18 22:00 13 Weight Weight 52 kg Most Recent Monitor Data Heart Rate from ECG 81 NIBP 91/52 NIBP BP-Mean 65 Respiration from ECG 23 SpO2 98 I&O: 02/21/18 02/22/18 02/23/18 06:59 06:59 06:59 Intake Total 2537 Output Total 795 50 Balance 1742 -50 Result Diagrams: 02/22/18 03:30 02/22/18 03:30 Phys Exam - Physical Examination Constitutional: NAD HEENT: sclera anicteric Intubated Neck: supple Respiratory: no wheezing, no rales, no rhonchi Decrease lung sound in lower lobe Cardiovascular: RRR, no significant murmur Gastrointestinal: soft, non-tender, no distention Musculoskeletal: no edema Neurological: non-focal, moves all 4 limbs Spontaneous eye opening, follows command Lymphatic: no nodes Psychiatric: normal affect Skin: no rash, cap refill <2 seconds Dx/Plan (1) Sepsis due to pneumonia Code(s): J18.9 - PNEUMONIA, UNSPECIFIED ORGANISM; A41.9 - SEPSIS, UNSPECIFIED ORGANISM Status: Acute (2) Acute and chronic respiratory failure with hypoxia Code(s): J96.21 - ACUTE AND CHRONIC RESPIRATORY FAILURE WITH HYPOXIA Status: Acute (3) COPD (chronic obstructive pulmonary disease) Status: Chronic (4) Sepsis associated hypotension Code(s): A41.9 - SEPSIS, UNSPECIFIED ORGANISM; I95.9 - HYPOTENSION, UNSPECIFIED Status: Acute (5) Hyponatremia Code(s): E87.1 - HYPO-OSMOLALITY AND HYPONATREMIA Status: Acute (6) HTN (hypertension) Code(s): I10 - ESSENTIAL (PRIMARY) HYPERTENSION Status: Chronic (7) HLD (hyperlipidemia) Code(s): E78.5 - HYPERLIPIDEMIA, UNSPECIFIED Status: Chronic (8) Hypothyroidism Code(s): E03.9 - HYPOTHYROIDISM, UNSPECIFIED Status: Chronic - Plan Plan: Acute Hypoxic Resp Failure 2/2 COPD vs PNA - Currently intubated, on volume control. Patient tolerating well, satting over 92% - Patient is doing well off of sedation. - Plan for thoracentesis. There is possibility of decortication and bronchoscopy to follow - Continue with vanc and zosyn. Sepsis 2/2 to LLL PNA - CTA r/o PE, did show LLL pleural effusion - Blood and urine cx pending - continue vanc/zosyn - Latic acid improving - DC levophed gtt, MAP over 65 COPD/Tobacco use - Dr Vickers pt - on prednisone and dulera at home. - Reconcile medication, neb treatment as needed Hypotension - Resolved issue. - Will restart levophed if needed, central line has been placed Hyponatremia - Resolved issue, sodium 137 today HFpEF - Recent echo 01/2018 with EF 60-65% HTN - Will reconcile home med, resume when patient is clearly recovered from sepsis HLD - Reconcile and continue when extubated Hypothyroidism - Reconcile and continue when extubated. If prolong extubation, consider IV
--- NOTE | 2018-02-22 10:20 | PRG ---
DATE OF SERVICE: 02/22/2018 SERVICE: Pulmonary Medicine. INTERVAL HISTORY: The patient is doing okay from a respiratory standpoint. She is breathing comfortably on mechanical ventilation. She is a little bit sleepy, but she is awake. She indicates she is not having any discomfort or shortness of breath. PHYSICAL EXAMINATION: VITAL SIGNS: Temperature max is 101.0, pulse 81, blood pressure 91/52, respirations 23, and saturation 98% on 30% FiO2. GENERAL: The patient is intubated and sedated. HEENT: Normocephalic, atraumatic. Sclerae are white. Conjunctivae pink. Oral mucosa is moist without lesions. LUNGS: Decent air entry. There is rhonchi present, particularly on the left. HEART: Normal rate. Regular. ABDOMEN: Soft, nontender, and nondistended. Bowel sounds are positive. MUSCULOSKELETAL: No cyanosis or clubbing. There is no pitting in the bilateral lower extremities. NEUROLOGIC: Grossly nonfocal. LABORATORY DATA: WBC 6.3, hemoglobin 8.1, platelets 171,000. Basic metabolic profile is unremarkable. Lactate has cleared to 1.7. ASSESSMENT: 1. Acute hypoxic and hypercapnic respiratory failure. 2. Septic shock, improving. 3. Healthcare-associated pneumonia. 4. Pleural effusion with loculation, suspecting empyema. 5. Chronic diastolic heart failure, currently hypovolemic. 6. Chronic obstructive pulmonary disease with acute exacerbation. DISCUSSION AND PLAN: The patient is on appropriate HCAP antibiotics. Pulmonary Critical Care will continue to follow along. Today, we will need to firm up her blood pressure. We will transduce a CVP. If it is low, additional boluses of fluid will be administered. I will titrate her Levophed to maintain a MAP of 65. Once this is done, we will set her up for diagnostic thoracentesis, so we can see whether or not this space is infected. If she has an empyema or a complicated parapneumonic pleural effusion, Thoracic Surgery will be called. Lastly, bronchoscopy will be entertained to make certain we clear any mucous or debris from the left lower lobe before extubation. CRITICAL CARE TIME: 30 minutes. Job ID: [id number]
[2018-02-22 11:22] LABS: Fluid, Triglycerides 29 mg/dL (Not Available); Pleural Fluid, Amylase Less than 30 U/L (Not Available); Pleural Fluid, Glucose 91 mg/dL; Pleural Fluid, LDH 174 U/L (Not Available); Pleural Fluid, Protein 2.3 g/dL
[2018-02-22 11:24] LABS: Body Fluid Source THORACENTESIS FLD; Clarity Cloudy/Turbid (Clear)
[2018-02-22 11:25] LABS: BF Color Yellow; RBC Background Count 0.001; RBC Count-Automated 1120000 /cumm; WBC/NonHematic-Auto 1400 /cumm
--- NOTE | 2018-02-22 11:59 | PDOC.OP ---
Operative Note - Operative Note Operative Note: Thoracentesis Procedure Note Indication: L pleural fluid collection, concerning for empyema or loculated effusion Resident: Maddie Chatterjee MD, PGY-3 Attending: Vickey Bryson MD Procedure in Detail: After risks, benefits and alternatives to the procedure were discussed with the patient and her daughter, they agreed to proceed. A time out was performed. The patient was positioned sitting and the L lower lung field was prepped and draped in the usual sterile fashion posteriorly after the area was visualized with ultrasound and a large pocket was identified. 1% Lidocaine was used to anesthetize the area directly superior to rib. A standard thoracentesis needle was introduced into the pleural space and bloody fluid was aspirated. The thoracentesis catheter was advanced and the needle was withdrawn. The fluid was sent for further analysis and a subsequent 650 mL ( total 700) of sanguinous fluid was aspirated from the L pleural cavity. The thoracentesis catheter was removed and a bandage was applied. The patients vital signs remained stable throughout the procedure and she was in no distress. The area was re-ultrasounded and showed the lung to have re-expanded. Complications: None EBL: 700 mL withdrawn, additional blood loss < [address] Bryson was present during the entire procedure.
[2018-02-22 12:10] LABS: BF Segmented Neutrophils 9 %; Cell Count Non Hematic 86 %; Lymphocytes 5 %
--- NOTE | 2018-02-22 14:04 | RAD ---
PORTABLE CHEST: DATE: 02/22/2018. PROVIDED CLINICAL HISTORY: Status post thoracentesis. FINDINGS: Comparison is made with the examination dated 02/21/2018. Interval reduction in the degree of hemitho racic pleural opacity compatible with the provided clinical history of interval thoracentesis. Left apical pleural gas is suspected. Lines and tubes appear stable. Additional significant interval pierre nge with respect to the prior study is not apparent. IMPRESSION: Interval reduction in degree of left pleural opacity status post thoracentesis. A very small left ap ical pneumothorax is suspected. POS: [facility]
[2018-02-22] MEDS: Vancomycin HCl 1.25 GM in Sodium Chloride 0.9% 250 ML 250 ML IVPB SCH (15:53)
[2018-02-22] MEDS ORDERED: Acetaminophen 650 MG/20.3 ML UDCUP PO PRN (16:15)
[2018-02-23] MEDS: Piperacillin/Tazobactam 4.5 GM in Sodium Chloride 0.9% 100 ML IVPB SCH ×4 (05:48→23:55)
[2018-02-23] MEDS: Lactated Ringer's 1,000 ML IV SCH (07:50)
[2018-02-23] MEDS: Pantoprazole 40 MG VIAL IVP SCH (07:59)
[2018-02-23] MEDS: Enoxaparin Sodium 40 MG/0.4 ML SYRINGE SC SCH (07:59)
--- NOTE | 2018-02-23 08:30 | RAD ---
CHEST 1 VIEW: HISTORY: Apical pneumothorax. COMPARISON: Radiograph from prior day. FINDINGS: The exam is severe limited due to rightward patient rotation. Multiple left-sided rib fractures. Li yuan left basilar pneumothorax. Endotracheal tube tip is above the john. Enteric tube tip is belo w the diaphragm out of the field of view. Layering effusions. Heart size is enlarged. IMPRESSION: Likely left basilar pneumothorax with numerous left-sided chest rib fractures. Given the history of thoracentesis, trapped lung is likely the cause of the left basilar lucency. POS: [facility]
[2018-02-23] MEDS ORDERED: Lidocaine 1% (PF) 30 ML VIAL ONE (09:22)
[2018-02-23] MEDS ORDERED: Fentanyl 100 MCG/2 ML VIAL ONE (09:25)
--- NOTE | 2018-02-23 09:28 | PDOC.FM ---
- Subjective Subjective: ULICES events overnight. Pt denies CP, SOB, fever, chills, abd pain. - Objective Vital Signs & Weight: Vital Signs (12 hours) Temp Pulse Resp BP 02/23/18 07:00 79 136/88 02/23/18 06:00 16 02/23/18 04:00 99.3 F 13 02/23/18 02:09 86 02/23/18 02:00 13 02/23/18 00:00 100.7 F H 15 02/22/18 22:11 82 02/22/18 22:00 18 Weight Weight 52 kg Most Recent Monitor Data Heart Rate from ECG 83 NIBP 132/77 NIBP BP-Mean 95 Respiration from ECG 20 SpO2 95 I&O: 02/22/18 02/23/18 02/24/18 06:59 06:59 06:59 Intake Total 2537 1783 Output Total 795 1535 Balance 1742 248 Result Diagrams: 02/22/18 03:30 02/22/18 03:30 <John Kearney - Last Filed: 02/23/18 09:27> - Objective Vital Signs & Weight: Vital Signs (12 hours) Temp Pulse Resp BP 02/23/18 10:23 72 120/68 02/23/18 07:00 79 136/88 02/23/18 06:00 16 02/23/18 04:00 99.3 F 13 02/23/18 02:09 86 02/23/18 02:00 13 Weight Weight 52 kg Most Recent Monitor Data Heart Rate from ECG 76 NIBP 120/68 NIBP BP-Mean 85 Respiration from ECG 16 SpO2 100 I&O: 02/22/18 02/23/18 02/24/18 06:59 06:59 06:59 Intake Total 2537 1783 Output Total 795 1535 Balance 1742 248 Result Diagrams: 02/22/18 03:30 02/22/18 03:30 <Patrick Antonio - Last Filed: 02/23/18 12:06> Phys Exam - Physical Examination Constitutional: NAD HEENT: PERRLA, moist MMs, sclera anicteric, oral pharynx no lesions Neck: no nodes, no JVD, supple Respiratory: no wheezing, no rales scattered rhonchi, diminished bases Cardiovascular: RRR, no significant murmur, no rub Gastrointestinal: soft, non-tender, no distention, positive bowel sounds Musculoskeletal: no edema Neurological: non-focal, normal sensation, moves all 4 limbs Psychiatric: normal affect, A&O x 3 Skin: no rash, normal turgor, cap refill <2 seconds <John Kearney - Last Filed: 02/23/18 09:27> Dx/Plan (1) Sepsis associated hypotension Code(s): A41.9 - SEPSIS, UNSPECIFIED ORGANISM; I95.9 - HYPOTENSION, UNSPECIFIED Status: Acute (2) Sepsis due to pneumonia Code(s): J18.9 - PNEUMONIA, UNSPECIFIED ORGANISM; A41.9 - SEPSIS, UNSPECIFIED ORGANISM Status: Acute (3) HCAP (healthcare-associated pneumonia) Code(s): J18.9 - PNEUMONIA, UNSPECIFIED ORGANISM Status: Acute (4) COPD (chronic obstructive pulmonary disease) Status: Chronic (5) HLD (hyperlipidemia) Code(s): E78.5 - HYPERLIPIDEMIA, UNSPECIFIED Status: Chronic Qualifiers: Hyperlipidemia type: unspecified Qualified Code(s): E78.5 - Hyperlipidemia , unspecified (6) HTN (hypertension) Code(s): I10 - ESSENTIAL (PRIMARY) HYPERTENSION Status: Chronic Qualifiers: Hypertension type: essential hypertension Qualified Code(s): I10 - Essential (primary) hypertension (7) Hypothyroid Code(s): E03.9 - HYPOTHYROIDISM, UNSPECIFIED Status: Chronic Qualifiers: Hypothyroidism type: unspecified Qualified Code(s): E03.9 - Hypothyroidism , unspecified (8) Acute respiratory failure Code(s): J96.00 - ACUTE RESPIRATORY FAILURE, UNSP W HYPOXIA OR HYPERCAPNIA Status: Resolved (9) Sepsis associated hypotension Code(s): A41.9 - SEPSIS, UNSPECIFIED ORGANISM Status: Resolved - Plan Plan: Acute Hypoxic Resp Failure 2/2 COPD vs PNA - Currently intubated, on AC. Patient tolerating well, satting over 92% - Patient is doing well off of sedation. - thoracentesis showed exudative by tam Guevara loculated effusion , vats vs chest tube placement, pt to remain intubated and managed per pulm - Continue with vanc and zosyn. Sepsis 2/2 to LLL PNA - LLL loculated effusion on CT - s/p thoracentesis w/ symptomatic improvement COPD/Tobacco use - Dr Vickers pt - on prednisone and dulera at home. - Reconcile medication, neb treatment as needed - stable; however, will need vats vs chest tube for loculated effusion Hypotension - resolved, levophed stopped and MAP >65 Hyponatremia - Resolved issue. Stable - monitor elytes HFpEF - Recent echo 01/2018 with EF 60-65% - no acute exacerbation - stable HTN - hold HTN meds for now and monitor pressures - consider restarting if BP stabilizes and increases HLD - Reconcile and continue when extubated Hypothyroidism - Reconcile and continue when extubated. If prolong extubation, consider IV Dispo: Pt will likley need vats vs chest tube for loculated effusion. Cont broad spectrum abx and cover for HAP. Cont ICU care. <John Kearney - Last Filed: 02/23/18 09:27> Attending Addendum - Attending Addendum Date/Time: 02/23/18 1205 I personally evaluated the patient and discussed the management with Dr. Kearney. I agree with and repeated the History, Examination, Assessment and Plan documented above with any addition or exceptions noted below. Please note pt not AOx3; she is intubated but responds purposely to stimuli. A small caliber ct has been placed with 200-300 out of ss drainage. Very small and intermittent leak. Continue current management. <Patrick Antoino - Last Filed: 02/23/18 12:06>
[2018-02-23] MEDS ORDERED: Midazolam HCl 2 mg/2 ml Vial ONE (09:49)
--- NOTE | 2018-02-23 10:20 | PRG ---
DATE OF SERVICE: 02/23/2018 SUBJECTIVE: This is a 77-year-old female, who is intubated on the vent, awake, responsive, presented with respiratory failure, required thoracentesis of 700 mL of fluid, apparently bloody this morning. OBJECTIVE: VITAL SIGNS: Her blood pressure is 136/88, pulse 79, saturations are 98%, respiratory rate 18. I's and O's 1783 in and 1535 out. CHEST: Decreased breath sounds. No wheezing. CARDIAC: Normal S1 and S2. No gallop. ABDOMEN: No masses. LABORATORY DATA: White count of 6000, hemoglobin and hematocrit 8 and 24, and platelet count 171. Lytes are normal. IMPRESSION: 1. Respiratory failure. 2. Chronic obstructive pulmonary disease. 3. Severe deconditioning. 4. Left-sided pleural effusion. 5. Recent fall with fractured multiple ribs. PLAN: She probably needs a chest tube on the left side. We will consult CV Surgery. Otherwise, continue antibiotics, neb treatments, supportive care. We will wean as tolerated. One half hour of critical care time. Job ID: [id number]
[2018-02-23] MEDS: Vancomycin HCl 1.25 GM in Sodium Chloride 0.9% 250 ML 250 ML IVPB SCH (13:31)
[2018-02-23 14:01] LABS: Vancomycin, Trough 12.3 ug/mL
--- NOTE | 2018-02-23 14:56 | RAD ---
CHEST 1 VIEW: Date: 02/23/18 HISTORY: Chest tube insertion. COMPARISON: Chest radiograph same date. FINDINGS: Left side thoracostomy tube tip at the level of the upper lung. Left basilar lucency is improving. Sm all right effusion. Ventricular tube tip is above the john, approximately 1.8 cm. IMPRESSION: Satisfactory position of the left thoracostomy tube. POS: [facility]
[2018-02-24] MEDS: Lactated Ringer's 1,000 ML IV SCH (06:06)
[2018-02-24] MEDS: Piperacillin/Tazobactam 4.5 GM in Sodium Chloride 0.9% 100 ML IVPB SCH ×3 (06:06→17:03)
--- NOTE | 2018-02-24 07:35 | OP ---
DATE OF PROCEDURE: 02/23/2018 PROCEDURE NOTE: This is a 77-year-old intubated female, who suffered trauma with a fall, breaking multiple rib fractures in the past. She was seen on the Trauma Service, receiving two chest tubes and then presented again with respiratory insufficiency and a left pleural effusion. Yesterday, she had thoracentesis at about 700 mL of fluid and I was asked today to place a chest tube with small bore by Dr. Vickers to assist with evacuation of fluid and weaning from the ventilator. After prepping and draping and after IV sedation with fentanyl and Versed, 1% lidocaine was used to infiltrate the skin. Incision was made. Tunnel created and the chest entered where a 20-Romanian chest tube was inserted without difficulty and about 300 mL of serosanguinous fluid evacuated, and the chest x-ray showed good lung re-expansion with perhaps a small effusion at the base, although the patient was supine. The patient tolerated the procedure well. Job ID: [id number]
[2018-02-24 07:57] LABS: #Eosinphils 0.1 thou/uL (0.0-0.7); #Lymphocytes 1.3 thou/uL (1.20-3.40); #Monocytes 0.8 thou/uL (0.11-0.59); #Neutrophils 4.9 thou/uL (1.40-6.50); %Basophils 0.5 % (0.0-1.0); %Eosinophils 0.9 % (0.0-10.0); %Lymphocytes 18.9 % (21.0-51.0); %Neutrophils 68.6 % (42.0-75.0); Hemoglobin 9.4 g/dL (12.0-16.0); Mean Corpuscular HGB CONC 32.2 g/dL (32.0-36.0); Mean Corpuscular Volume 99.3 fL (78.0-98.0); Mean Platelet Volume 8.2 fL (7.4-10.4); Platelet Count 191 thou/uL (130-400); Red Blood Cell (RBC) Count 2.94 mill/uL (4.20-5.40); White Blood Cell (WBC) Count 7.1 thou/uL (4.8-10.8)
[2018-02-24] MEDS: Pantoprazole 40 MG VIAL IVP SCH (07:59)
[2018-02-24] MEDS: Enoxaparin Sodium 40 MG/0.4 ML SYRINGE SC SCH (08:00)
[2018-02-24 08:04] LABS: Anion Gap 12 mmol/L (10-20); BUN (Urea Nitrogen) 20 mg/dL (9.8-20.1); Calc. Creatinine Clearance 56 mL/min (70-130); Calcium 7.5 mg/dL (7.8-10.44); Carbon Dioxide 23 mmol/L (23-31); Chloride 105 mmol/L (98-107); Estimated GFR-MDRD 88; Glucose 146 mg/dL (83-110); Potassium 3.2 mmol/L (3.5-5.1); Sodium 137 mmol/L (136-145)
--- NOTE | 2018-02-24 08:37 | PDOC.FM ---
- Subjective Subjective: ULICES overnight. Pt remains on ventilator as of this morning, plan to wean and extubate later. Denies cp, sob, difficulty breathing and pain. - Objective Vital Signs & Weight: Vital Signs (12 hours) Pulse Resp BP Pulse Ox 02/24/18 08:15 93 115/69 02/24/18 06:48 88 126/65 02/24/18 06:47 81 17 98 02/24/18 06:00 21 H 02/24/18 04:00 18 02/24/18 02:38 74 101/61 02/24/18 02:00 19 02/24/18 00:21 73 15 99 02/24/18 00:00 18 02/23/18 22:15 75 114/71 02/23/18 22:00 18 Weight Admit Weight 51.71 kg Weight 48.8 kg Most Recent Monitor Data Heart Rate from ECG 77 NIBP 126/65 NIBP BP-Mean 85 Respiration from ECG 21 SpO2 99 I&O: 02/23/18 02/24/18 02/25/18 06:59 06:59 06:59 Intake Total 1783 1639 Output Total 1535 2200 Balance 248 -561 Result Diagrams: 02/24/18 07:34 02/24/18 07:34 <John Kearney - Last Filed: 02/24/18 08:35> - Objective Vital Signs & Weight: Vital Signs (12 hours) Temp Pulse Resp BP Pulse Ox 02/24/18 08:15 93 115/69 02/24/18 08:00 23 H 02/24/18 07:00 98.5 F 02/24/18 06:48 88 126/65 02/24/18 06:47 81 17 98 02/24/18 06:00 21 H 02/24/18 04:00 18 02/24/18 02:38 74 101/61 02/24/18 02:00 19 02/24/18 00:21 73 15 99 02/24/18 00:00 18 Weight Admit Weight 51.71 kg Weight 48.8 kg Most Recent Monitor Data Heart Rate from ECG 86 NIBP 117/80 NIBP BP-Mean 92 Respiration from ECG 27 SpO2 93 I&O: 02/23/18 02/24/18 02/25/18 06:59 06:59 06:59 Intake Total 1783 1639 65 Output Total 1535 2200 53 Balance 248 -561 12 Result Diagrams: 02/24/18 07:34 02/24/18 07:34 <Patrick Antonio - Last Filed: 02/24/18 11:24> Phys Exam - Physical Examination Constitutional: NAD HEENT: PERRLA, moist MMs, sclera anicteric Neck: no nodes, no JVD Respiratory: no wheezing, no rales scattered rhonchi Cardiovascular: RRR, no significant murmur, no rub Gastrointestinal: soft, non-tender, no distention, positive bowel sounds Musculoskeletal: no edema, pulses present Neurological: non-focal, normal sensation, moves all 4 limbs Psychiatric: normal affect Skin: no rash, cap refill <2 seconds <John Kearney - Last Filed: 02/24/18 08:35> Dx/Plan (1) Sepsis associated hypotension Code(s): A41.9 - SEPSIS, UNSPECIFIED ORGANISM; I95.9 - HYPOTENSION, UNSPECIFIED Status: Resolved (2) Sepsis due to pneumonia Code(s): J18.9 - PNEUMONIA, UNSPECIFIED ORGANISM; A41.9 - SEPSIS, UNSPECIFIED ORGANISM Status: Resolved (3) HCAP (healthcare-associated pneumonia) Code(s): J18.9 - PNEUMONIA, UNSPECIFIED ORGANISM Status: Inactive (4) COPD (chronic obstructive pulmonary disease) Status: Chronic (5) HLD (hyperlipidemia) Code(s): E78.5 - HYPERLIPIDEMIA, UNSPECIFIED Status: Chronic Qualifiers: Hyperlipidemia type: unspecified Qualified Code(s): E78.5 - Hyperlipidemia , unspecified (6) HTN (hypertension) Code(s): I10 - ESSENTIAL (PRIMARY) HYPERTENSION Status: Chronic Qualifiers: Hypertension type: essential hypertension Qualified Code(s): I10 - Essential (primary) hypertension (7) Hypothyroid Code(s): E03.9 - HYPOTHYROIDISM, UNSPECIFIED Status: Chronic Qualifiers: Hypothyroidism type: unspecified Qualified Code(s): E03.9 - Hypothyroidism , unspecified (8) Acute respiratory failure Code(s): J96.00 - ACUTE RESPIRATORY FAILURE, UNSP W HYPOXIA OR HYPERCAPNIA Status: Resolved (9) Sepsis associated hypotension Code(s): A41.9 - SEPSIS, UNSPECIFIED ORGANISM Status: Resolved - Plan Plan: Acute Hypoxic Resp Failure 2/2 COPD vs PNA - Currently intubated, on volume control. Patient tolerating well, satting over 92% settings switched to CPAP while at bedside and attempting to wean and extubate - Patient is doing well off of sedation. - thoracentesis showed exudative by Lights criteria, likely loculated effusion - pigtail cath CT placed by CV surg has drained approx 450cc serosanguineous liquid from thorax - cont zosyn, vanc DCd per pulm Sepsis 2/2 to LLL PNA - LLL loculated effusion on CT - chest tube to remain in place - tam extubate today COPD/Tobacco use - Dr Vickers pt - on prednisone and dulera at home. - Reconcile medication, neb treatment as needed - duonebs, prednisone and albuterol PRN per pulm Hypotension - resolved, levophed stopped and MAP >65 - cont to monitor pressures, consider restarting home meds for elevated BPs Hyponatremia - Resolved issue - monitor elytes HFpEF - Recent echo 01/2018 with EF 60-65% - no acute exacerbation - stable HTN - hold HTN meds for now and monitor pressures HLD - Reconcile and continue when extubated, likely cont today Hypothyroidism - Reconcile and continue when extubated. - likely restart today after extubation Dispo: Chest tube remains in place and draining well. Cont baileysyn, leopoldo vanc. Pleural fluid culture pending. Cont ICU care. <John Kearney - Last Filed: 02/24/18 08:35> Attending Addendum - Attending Addendum Date/Time: 02/24/18 1123 I personally evaluated the patient and discussed the management with Dr. Kearney. I agree with and repeated the History, Examination, Assessment and Plan documented above with any addition or exceptions noted below. Patient in good spirits and conversant with no inc wob s/p extubation. No leak in CT. Monitor and likely can be xferred to IMCU vs tele pending course. Antibiotics deescalated by Dr. Vickers. Would continue gnr/anaerobic x 7 days. Being feeds. Consult PT. <Patrick Antonio - Last Filed: 02/24/18 11:24>
[2018-02-24] MEDS ORDERED: Potassium Chloride 40 MEQ in Premix Bag 1 BAG IVPB SCH (08:45)
--- NOTE | 2018-02-24 09:53 | PRG ---
DATE OF SERVICE: 02/24/2018 OBJECTIVE: GENERAL: She is awake, alert, responsive this morning. VITAL SIGNS: Blood pressure is 126/65, sats are 98% room air, respirations 17, pulse 81, temperature 99. CHEST: Decreased breath sounds and wheezing. CARDIAC: Normal S1 and S2. No gallops. ABDOMEN: No masses. LABORATORY DATA: White count 7000. Lytes are normal. Kidney function normal. Potassium 3.2. Blood cultures, coagulase negative staphylococcus is probably a contamination. IMPRESSION: 1. Respiratory failure. 2. Chronic obstructive pulmonary disease. 3. Pleural effusion. 4. Fractured ribs. PLAN: Observation. We will try wean and extubate this morning. In the meantime, continue antibiotics, neb treatment, and supportive care. One half hour of critical care time. Job ID: [id number]
--- NOTE | 2018-02-24 10:15 | RAD ---
PORTABLE AP CHEST RADIOGRAPH: Date: 02-24-18 History: On ventilator. Follow up evaluation. Comparison: 02-23-18 FINDINGS: Endotracheal tube, left subclavian central venous catheter, nasogastric tube and left sided thoracost teja tube remain in place and unchanged in position. No obvious pneumothorax is appreciated. There are increased interstitial densities seen within the left lung with multiple left sided rib fractures ag ain seen. Small right pleural effusion is present which appears improved. There is atelectasis at the left lung base. Nasogastric tube is in place. No other interval change. IMPRESSION: 1. Lines and tubes stable in position. No pneumothorax is seen. 2. Multiple left sided rib fractures. 3. Increased interstitial densities throughout the left lung, greater at the left lung base, overall stable. 4. Improvement in small right pleural effusion. POS: [facility]
[2018-02-24] MEDS ORDERED: DC Sedation Protocol FS ONE (10:32)
[2018-02-24] MEDS ORDERED: Vancomycin HCl 1.5 GM in Sodium Chloride 0.9% 250 ML 300 ML IVPB SCH (13:00)
[2018-02-25] MEDS: Piperacillin/Tazobactam 4.5 GM in Sodium Chloride 0.9% 100 ML IVPB SCH ×2 (00:07→05:36)
[2018-02-25 04:45] LABS: #Lymphocytes 0.7 thou/uL (1.20-3.40); #Monocytes 0.3 thou/uL (0.11-0.59); #Neutrophils 6.1 thou/uL (1.40-6.50); %Basophils 0.1 % (0.0-1.0); %Eosinophils 0.4 % (0.0-10.0); %Lymphocytes 9.1 % (21.0-51.0); %Monocytes 4.8 % (0.0-10.0); %Neutrophils 85.6 % (42.0-75.0); Hemoglobin 9.7 g/dL (12.0-16.0); Mean Corpuscular Hemoglobin 33.3 pg (27.0-31.0); Mean Platelet Volume 8.1 fL (7.4-10.4); Platelet Count 208 thou/uL (130-400); RBC Distribution Width 16.5 % (11.5-14.5); Red Blood Cell (RBC) Count 2.91 mill/uL (4.20-5.40); White Blood Cell (WBC) Count 7.1 thou/uL (4.8-10.8)
[2018-02-25 04:57] LABS: Anion Gap 10 mmol/L (10-20); BUN (Urea Nitrogen) 18 mg/dL (9.8-20.1); Calc. Creatinine Clearance 62 mL/min (70-130); Calcium 7.8 mg/dL (7.8-10.44); Carbon Dioxide 27 mmol/L (23-31); Chloride 106 mmol/L (98-107); Estimated GFR-MDRD Greater than 90; Glucose 141 mg/dL (83-110); Sodium 139 mmol/L (136-145)
--- NOTE | 2018-02-25 08:46 | CT ---
PRELIMINARY REPORT/[facility]/EMERGENTY AFTER-HOURS PROCEDURE CT Chest Without Contrast EXAM DATE/TIME: 02/25/2018 3:38 AM CLINICAL HISTORY: 77 years old, female; Condition or disease; Other: Chest tube/ hemo thorax; Patient HX: Hemothorax po st tube placement follow up TECHNIQUE: Axial computed tomography images of the chest without intravenous contrast. COMPARISON: CTA Angio Chest W WO Con 02/21/2018 3:09 PM FINDINGS: Tubes, catheters and devices: Left subclavian central line terminating in the SVC. Left chest tube al joshua the posteromedial pleural space at the mid hemithorax. Lungs: Severe centrilobular emphysematous changes. Improved aeration of the left lung with segmental/ subsegmental atelectasis medially in the left lower lobe. Complete atelectasis of the right lower lob e with mucus plugging. Pleural space: Small right pleural effusion, increased. No significant left pleural effusion. Heart: Minimal pericardial effusion, unchanged. Coronary calcifications. Aorta: Ectatic ascending aorta. Moderate atherosclerotic calcifications. Lymph nodes: Unremarkable. No enlarged lymph nodes. Bones/joints: Left scapular and left rib fractures again noted. T10 compression deformity, unchanged. Soft tissues: Unremarkable. Upper abdomen: Calcified splenic granulomas. Trace perihepatic fluid. IMPRESSION: Resolution of the left pleural fluid collection. Mild increased right pleural effusion and complete r ight lower lobe atelectasis with mucus plugging. Thank you for allowing us to participate in the care of your patient. Dictated and Authenticated by: Aditya Law MD 02/25/2018 4:56 AM Central Time ([place] & [place]) FINAL REPORT: CHEST CT WITHOUT CONTRAST Date: 02-25-18 Comparison: 12-25-17 History: Chest tube, hemothorax. FINDINGS: I agree with the preliminary [facility] report dictated by Dr. Aditya Law. The lack of contrast media limits assessment of the imaged viscera, vascular structures, and for lymp hadenopathy. No discrete axillary adenopathy is seen on either side. There is diffuse coronary arteri al calcification. There is diffuse calcification of the aortic arch, ascending aorta, proximal great vessels, and descending thoracic aorta. There are numerous granulomata noted within the spleen. There is trace paracardial fluid. There is an inferior left sided chest tube. There are severe emphysematous changes noted throughout both lungs. There is an apical pneumothorax o n the left seen on the coronal imaging measuring up to approximately 7 mm in craniocaudal dimension. There is a left sided vascular catheter, distal tip in the region of the origin of the superior vena cava. There is dense opacity within the right lower lobe with complete consolidation/collapse of right lowe r lobe and associated small right pleural effusion. There is opacification of the bronchi supplying t he right lower lobe suggesting extensive right lower lobe mucous plugging. Osseous structures demonstrate severe compression deformity of the T10 vertebral body. There are nume lukasz incompletely assessed old and new/acute left sided rib fractures. IMPRESSION: 1. Complete opacification of right lower lobe with associated right pleural effusion. Findings suspic ious for mucous plugging in this region. Small apical pneumothorax on the left. POS: [facility]
--- NOTE | 2018-02-25 08:56 | RAD ---
SINGLE VIEW OF THE CHEST: COMPARISON: 02/24/2018. HISTORY: Ventilated patient with respiratory failure. Right fractures and left pneumothorax. FINDINGS: A single view of the chest shows an enlarged but stable cardiomediastinal silhouette. The left chest tube and central venous catheter are unchanged in position. The endotracheal tube and NG tube have been removed. Multiple left rib fractures are seen. Biapical pleural thickening is seen. No pneumo thorax is present. IMPRESSION: Stale exam status post extubation. POS: [facility]
--- NOTE | 2018-02-25 09:07 | PDOC.FM ---
- Subjective Subjective: ULICES overnight. Pt reports she is breathing comfortably. Denies fever, chills, cp , sob, NVDC, abd pain. - Objective Vital Signs & Weight: Vital Signs (12 hours) Pulse Resp Pulse Ox 02/25/18 06:55 76 21 H 99 02/25/18 00:46 67 16 96 Weight Admit Weight 51.71 kg Weight 53.9 kg Most Recent Monitor Data Heart Rate from ECG 82 NIBP 122/69 NIBP BP-Mean 86 Respiration from ECG 24 SpO2 97 I&O: 02/24/18 02/25/18 02/26/18 06:59 06:59 06:59 Intake Total 1639 1008 Output Total 2200 767 Balance -561 241 Result Diagrams: 02/25/18 04:04 02/25/18 04:04 <John Kearney - Last Filed: 02/25/18 09:05> - Objective Vital Signs & Weight: Vital Signs (12 hours) Temp Pulse Pulse Resp BP BP Pulse Ox 02/25/18 13:13 97 02/25/18 13:05 97.4 F L 98 14 113/74 97 02/25/18 11:23 98.1 F 02/25/18 09:34 99 133/82 02/25/18 08:00 95 02/25/18 06:55 76 21 H 99 Pulse Ox 02/25/18 13:13 02/25/18 13:05 02/25/18 11:23 02/25/18 09:34 94 L 02/25/18 08:00 02/25/18 06:55 Weight Admit Weight 51.71 kg Weight 53.9 kg Most Recent Monitor Data Heart Rate from ECG 90 NIBP 123/83 NIBP BP-Mean 96 Respiration from ECG 25 SpO2 99 I&O: 02/24/18 02/25/18 02/26/18 06:59 06:59 06:59 Intake Total 1639 1008 Output Total 2200 767 147 Balance -561 241 -147 Result Diagrams: 02/25/18 04:04 02/25/18 04:04 <Patrick Antonio - Last Filed: 02/25/18 16:52> Phys Exam - Physical Examination Constitutional: NAD HEENT: PERRLA, sclera anicteric Neck: no nodes, no JVD Respiratory: no wheezing, no rales, no rhonchi, clear to auscultation bilateral Cardiovascular: RRR, no significant murmur, no rub Gastrointestinal: soft, non-tender, no distention, positive bowel sounds Musculoskeletal: no edema, pulses present Neurological: non-focal, moves all 4 limbs Skin: no rash, cap refill <2 seconds <John Kearney - Last Filed: 02/25/18 09:05> Dx/Plan (1) Sepsis associated hypotension Code(s): A41.9 - SEPSIS, UNSPECIFIED ORGANISM; I95.9 - HYPOTENSION, UNSPECIFIED Status: Resolved (2) Sepsis due to pneumonia Code(s): J18.9 - PNEUMONIA, UNSPECIFIED ORGANISM; A41.9 - SEPSIS, UNSPECIFIED ORGANISM Status: Resolved (3) COPD (chronic obstructive pulmonary disease) Status: Chronic (4) HLD (hyperlipidemia) Code(s): E78.5 - HYPERLIPIDEMIA, UNSPECIFIED Status: Chronic Qualifiers: Hyperlipidemia type: unspecified Qualified Code(s): E78.5 - Hyperlipidemia , unspecified (5) HTN (hypertension) Code(s): I10 - ESSENTIAL (PRIMARY) HYPERTENSION Status: Chronic Qualifiers: Hypertension type: essential hypertension Qualified Code(s): I10 - Essential (primary) hypertension (6) Hypothyroid Code(s): E03.9 - HYPOTHYROIDISM, UNSPECIFIED Status: Chronic Qualifiers: Hypothyroidism type: unspecified Qualified Code(s): E03.9 - Hypothyroidism , unspecified - Plan Plan: Acute Hypoxic Resp Failure 2/2 COPD vs PNA - extubated yesterday and currently satting well on 1L NC - pigtail ct removed yesterday - overall, resolved - ok for transfer to floor and continued pulse ox monitoring - add IS - wean O2 as tolerated Sepsis 2/2 to LLL PNA - resolved - off pressors - transfer to floor and switch abx zosyn-> augmentin per pulm recs to PO for 5 more days COPD/Tobacco use - stable, cont supportive care Hypotension - resume home BP meds when pressure stabilizes Hyponatremia - Resolved issue - monitor elytes HFpEF - no acute exacerbation - stable HTN - hold HTN meds for now and monitor pressures - resume when BP stabilizes HLD -resume home meds Hypothyroidism - resume home meds Dispo: Chest tube removed yesterday and pt doing well on 1L NC. Will transfer to floor, resume home meds, dc am labs and monitor vitals. Switch IV zosyn to PO augmentin per pulm recs. <John Kearney - Last Filed: 02/25/18 09:05> Attending Addendum - Attending Addendum Date/Time: 02/25/18 1259 I personally evaluated the patient and discussed the management with Dr. Kearney. I agree with and repeated the History, Examination, Assessment and Plan documented above with any addition or exceptions noted below. <Patrick Antonio - Last Filed: 02/25/18 16:52>
--- NOTE | 2018-02-25 09:51 | PRG ---
DATE OF SERVICE: 02/25/2018 SUBJECTIVE:_ awake, alert, and responsive. Chest tube removed. X-ray looks much improved, stable. No new findings. OBJECTIVE: VITAL SIGNS: Saturations of 98% on room air, respirations 21, pulse 76, and blood pressure 122/69. CHEST: No wheezing or crackles. CARDIAC: Normal S1 and S2. No gallops. ABDOMEN: No masses. LABORATORY DATA: Unremarkable. IMPRESSION: Status post respiratory failure; chronic obstructive pulmonary disease; tobacco abuse; effusion, resolved. PLAN: Switch over to oral medication. She can be transferred out of the ICU. When she is ambulating, she can be discharged home. She may need home health. Job ID: [id number] MTDD
[2018-02-25] MEDS: Enoxaparin Sodium 40 MG/0.4 ML SYRINGE SC SCH (10:09)
[2018-02-25] MEDS: Amoxicillin/Potassium Clav 500 MG TAB PO SCH ×2 (10:09→20:32)
[2018-02-25] MEDS: Pantoprazole 40 MG VIAL IVP SCH (10:09)
[2018-02-25 12:04] VITALS: BMI 23.2
[2018-02-25] MEDS: Lactated Ringer's 1,000 ML IV SCH (14:31)
[2018-02-25] MEDS: Gabapentin 300 MG CAP PO SCH (20:32)
[2018-02-25] MEDS: Atorvastatin Calcium 40 MG TAB PO SCH (20:32)
[2018-02-25] MEDS: Aspirin 81 mg Enteric Coated Tablet PO SCH (20:32)
[2018-02-25] MEDS: Famotidine 20 MG TAB PO SCH (20:32)
--- NOTE | 2018-02-26 08:52 | PDOC.FM ---
- Subjective Subjective: ULICES overnight. Pt reports she is doing well and is ambulating with PT. Reports no cp, sob, abd pain, NVDC. - Objective MAR Reviewed: Yes Vital Signs & Weight: Vital Signs (12 hours) Temp Pulse Resp BP Pulse Ox 02/26/18 06:39 91 18 96 02/26/18 05:01 97.4 F L 85 22 H 116/64 90 L 02/26/18 00:14 77 16 94 L 02/26/18 00:00 98.1 F 74 22 H 110/72 100 Weight Admit Weight 51.71 kg Weight 56.518 kg Most Recent Monitor Data Heart Rate from ECG 90 NIBP 123/83 NIBP BP-Mean 96 Respiration from ECG 25 SpO2 99 I&O: 02/25/18 02/26/18 02/27/18 06:59 06:59 06:59 Intake Total 1008 1000 Output Total 767 147 Balance 241 853 Result Diagrams: 02/25/18 04:04 02/25/18 04:04 <John Kearney - Last Filed: 02/26/18 08:50> - Objective Vital Signs & Weight: Vital Signs (12 hours) Temp Pulse Resp BP Pulse Ox 02/26/18 08:00 98.4 F 94 18 103/65 95 02/26/18 06:39 91 18 96 02/26/18 05:01 97.4 F L 85 22 H 116/64 90 L 02/26/18 00:14 77 16 94 L 02/26/18 00:00 98.1 F 74 22 H 110/72 100 Weight Admit Weight 51.71 kg Weight 56.518 kg Most Recent Monitor Data Heart Rate from ECG 90 NIBP 123/83 NIBP BP-Mean 96 Respiration from ECG 25 SpO2 99 I&O: 02/25/18 02/26/18 02/27/18 06:59 06:59 06:59 Intake Total 1008 1000 Output Total 767 147 Balance 241 853 Result Diagrams: 02/25/18 04:04 02/25/18 04:04 <Patrick Antonio - Last Filed: 02/26/18 10:52> Phys Exam - Physical Examination Constitutional: NAD HEENT: PERRLA, sclera anicteric Respiratory: no wheezing, no rales, no rhonchi, clear to auscultation bilateral Cardiovascular: RRR, no significant murmur, no rub Gastrointestinal: soft, non-tender, no distention, positive bowel sounds Musculoskeletal: no edema, pulses present Neurological: non-focal, moves all 4 limbs Psychiatric: normal affect Skin: no rash, cap refill <2 seconds <John Kearney - Last Filed: 02/26/18 08:50> Dx/Plan (1) Sepsis associated hypotension Code(s): A41.9 - SEPSIS, UNSPECIFIED ORGANISM; I95.9 - HYPOTENSION, UNSPECIFIED Status: Resolved (2) Sepsis due to pneumonia Code(s): J18.9 - PNEUMONIA, UNSPECIFIED ORGANISM; A41.9 - SEPSIS, UNSPECIFIED ORGANISM Status: Resolved (3) COPD (chronic obstructive pulmonary disease) Status: Chronic (4) HLD (hyperlipidemia) Code(s): E78.5 - HYPERLIPIDEMIA, UNSPECIFIED Status: Chronic Qualifiers: Hyperlipidemia type: unspecified Qualified Code(s): E78.5 - Hyperlipidemia , unspecified (5) HTN (hypertension) Code(s): I10 - ESSENTIAL (PRIMARY) HYPERTENSION Status: Chronic Qualifiers: Hypertension type: essential hypertension Qualified Code(s): I10 - Essential (primary) hypertension (6) Hypothyroid Code(s): E03.9 - HYPOTHYROIDISM, UNSPECIFIED Status: Chronic Qualifiers: Hypothyroidism type: unspecified Qualified Code(s): E03.9 - Hypothyroidism , unspecified - Plan Plan: Acute Hypoxic Resp Failure 2/2 COPD vs PNA - chest tube removed - currently satting at 96 on 2L NC - will perfomr walk test today to assess for home O2 needs - consider rehab consult/screen - add IS - cont PT OT Sepsis 2/2 to LLL PNA - resolved - cont augmentin COPD/Tobacco use - supportive care - add IS HFpEF - home meds - no exacerbation - monitor daily weights and Is/Os HTN - resume home meds HLD -resume home meds Hypothyroidism - resume home meds Dispo: Cont PT/OT and add IS today. Will await pulm recs, but tam SNF vs inpt rehab today or tomorrow. <John Kearney - Last Filed: 02/26/18 08:50> Attending Addendum - Attending Addendum Date/Time: 02/26/18 1052 I personally evaluated the patient and discussed the management with Dr. Kearney. I agree with and repeated the History, Examination, Assessment and Plan documented above with any addition or exceptions noted below. <Patrick Antonio - Last Filed: 02/26/18 10:52>
[2018-02-26] MEDS: Aspirin 81 mg Enteric Coated Tablet PO SCH ×2 (09:32→20:45)
[2018-02-26] MEDS: Amoxicillin/Potassium Clav 500 MG TAB PO SCH ×2 (09:32→20:44)
[2018-02-26] MEDS: Pantoprazole 40 MG VIAL IVP SCH (09:32)
[2018-02-26] MEDS: Enoxaparin Sodium 40 MG/0.4 ML SYRINGE SC SCH (09:32)
[2018-02-26] MEDS: predniSONE 20 MG TAB PO SCH (09:33)
[2018-02-26] MEDS: Gabapentin 300 MG CAP PO SCH ×2 (09:33→20:45)
[2018-02-26] MEDS: Famotidine 20 MG TAB PO SCH ×2 (09:39→20:44)
--- NOTE | 2018-02-26 10:33 | PRG ---
DATE OF SERVICE: 02/26/2018 SUBJECTIVE: Mayi Carias is a 77-year-old female, status post chest tube insertion for loculated pneumothorax, much better. OBJECTIVE: VITAL SIGNS: Saturations 93 on 2 L, respiratory rate 18, temperature 97, blood pressure 160/64. CHEST: Decreased breath sounds. No wheezing. CARDIAC: Normal S1 and S2. No gallops. ABDOMEN: No masses. She has COPD, tobacco abuse, pleural effusion, status post chest tube. She is stable enough to be discharged home. Antibiotics for 5 days or so. Taper prednisone. Otherwise, continue on home medication. I will be seeing her in the office in about a month. Job ID: [id number] MTDD
--- NOTE | 2018-02-26 14:14 | EKG ---
Test Reason : Blood Pressure : / mmHG Vent. Rate : 094 BPM Atrial Rate : 094 BPM P-R Int : 126 ms QRS Dur : 070 ms QT Int : 358 ms P-R-T Axes : 056 025 061 degrees QTc Int : 447 ms Sinus rhythm with sinus arrhythmia with occasional Premature ventricular complexes Low voltage QRS Abnormal ECG Confirmed by DEIRCK GARZA DO ([id number]), research editor KEERTHI PARKER ([id number]) on 02/26/2018 2:13:48 PM Referred By: Confirmed By:DERICK GARZA DO
[2018-02-26] MEDS ORDERED: Nicotine 14 MG PATCH TOP SCH (20:00)
[2018-02-26] MEDS: Atorvastatin Calcium 40 MG TAB PO SCH (20:45)
[2018-02-27] MEDS: Amoxicillin/Potassium Clav 500 MG TAB PO SCH (08:59)
[2018-02-27] MEDS: predniSONE 20 MG TAB PO SCH (09:00)
[2018-02-27] MEDS: Gabapentin 300 MG CAP PO SCH (09:00)
[2018-02-27] MEDS: Aspirin 81 mg Enteric Coated Tablet PO SCH (09:01)
[2018-02-27] MEDS: Enoxaparin Sodium 40 MG/0.4 ML SYRINGE SC SCH (09:01)
[2018-02-27] MEDS: Famotidine 20 MG TAB PO SCH (09:01)
--- NOTE | 2018-02-27 09:22 | PDOC.FM ---
- Subjective Subjective: Pt reports she is doing well and has no complaints. No sob, CP, abd pain, fever , chills, sweats. - Objective Vital Signs & Weight: Vital Signs (12 hours) Temp Pulse Resp BP Pulse Ox 02/27/18 08:18 99.0 F 75 18 124/72 94 L 02/27/18 00:32 67 16 93 L Weight Admit Weight 51.71 kg Weight 58.151 kg Most Recent Monitor Data Heart Rate from ECG 90 NIBP 123/83 NIBP BP-Mean 96 Respiration from ECG 25 SpO2 99 I&O: 02/26/18 02/27/18 02/28/18 06:59 06:59 06:59 Intake Total 1000 2080 Output Total 147 0 Balance 853 2079 Result Diagrams: 02/25/18 04:04 02/25/18 04:04 <John Kearney - Last Filed: 02/27/18 09:18> - Objective Vital Signs & Weight: Vital Signs (12 hours) Temp Pulse Resp BP Pulse Ox 02/27/18 08:18 99.0 F 75 18 124/72 94 L 02/27/18 08:00 93 L 02/27/18 00:32 67 16 93 L Weight Admit Weight 51.71 kg Weight 58.151 kg Most Recent Monitor Data Heart Rate from ECG 90 NIBP 123/83 NIBP BP-Mean 96 Respiration from ECG 25 SpO2 99 I&O: 02/26/18 02/27/18 02/28/18 06:59 06:59 06:59 Intake Total 1000 2080 Output Total 147 0 Balance 853 2079 Result Diagrams: 02/25/18 04:04 02/25/18 04:04 <Patrick Antonio - Last Filed: 02/27/18 11:47> Phys Exam - Physical Examination Constitutional: NAD HEENT: PERRLA Neck: no nodes Respiratory: no wheezing, no rales, no rhonchi, clear to auscultation bilateral Cardiovascular: RRR, no significant murmur, no rub Gastrointestinal: soft, non-tender, no distention, positive bowel sounds Musculoskeletal: no edema, pulses present Neurological: non-focal, moves all 4 limbs Skin: no rash, cap refill <2 seconds <oJhn Kearney - Last Filed: 02/27/18 09:18> Dx/Plan (1) Sepsis associated hypotension Code(s): A41.9 - SEPSIS, UNSPECIFIED ORGANISM; I95.9 - HYPOTENSION, UNSPECIFIED Status: Resolved (2) Sepsis due to pneumonia Code(s): J18.9 - PNEUMONIA, UNSPECIFIED ORGANISM; A41.9 - SEPSIS, UNSPECIFIED ORGANISM Status: Resolved (3) COPD (chronic obstructive pulmonary disease) Status: Chronic (4) HLD (hyperlipidemia) Code(s): E78.5 - HYPERLIPIDEMIA, UNSPECIFIED Status: Chronic Qualifiers: Hyperlipidemia type: unspecified Qualified Code(s): E78.5 - Hyperlipidemia , unspecified (5) HTN (hypertension) Code(s): I10 - ESSENTIAL (PRIMARY) HYPERTENSION Status: Chronic Qualifiers: Hypertension type: essential hypertension Qualified Code(s): I10 - Essential (primary) hypertension (6) Hypothyroid Code(s): E03.9 - HYPOTHYROIDISM, UNSPECIFIED Status: Chronic Qualifiers: Hypothyroidism type: unspecified Qualified Code(s): E03.9 - Hypothyroidism , unspecified - Plan Plan: Acute Hypoxic Resp Failure 2/2 COPD vs PNA - resolved - pt ok for DC to SNF vs rehab - waiting plaemnt and DC today Sepsis 2/2 to LLL PNA - resolved - cont augmentin - DC COPD/Tobacco use - supportive care - add IS - ok for DC HFpEF - home meds - no exacerbation - monitor daily weights and Is/Os - ok for DC HTN - resume home meds HLD -resume home meds Hypothyroidism - resume home meds Dispo: Stable for dc TO snf vs rehab. <John Kearney - Last Filed: 02/27/18 09:18> Attending Addendum - Attending Addendum Date/Time: 02/27/18 1146 I personally evaluated the patient and discussed the management with Dr. Kearney. I agree with the History, Examination, Assessment and Plan documented above with any addition or exceptions noted below. Scant crackles LLL otherwise reassuring exam. <Patrick Antonio - Last Filed: 02/27/18 11:47>
--- NOTE | 2018-02-27 10:34 | PRG ---
DATE OF SERVICE: 02/27/2018 SUBJECTIVE: This morning, she is much better, less short of breath, less cough. They are trying to get into [place], to a rehab over there, swing bed. OBJECTIVE: VITAL SIGNS: Sats are 94% on 2 L, respirations 18, temperature 99, blood pressure was 120/72. CHEST: Decreased breath sounds. No wheezing. CARDIAC: Normal S1 and S2. No gallop. ABDOMEN: No masses. IMPRESSION: 1. Chronic obstructive pulmonary disease, end stage. 2. Left-sided hemothorax, status post chest tube. PLAN: Transfer to the rehab. Supportive care, PT. Job ID: [id number]
[2018-02-27 13:16] VITALS: BP 143/83; TEMP 98.1
== END 2018-02-27 13:56 | DRG 871 ==
LOC: ERS 12:08 → CCU 13:45 → T4-B 02-25 12:59
PROVIDERS: ADMIT Family Medicine; ATTEND Family Medicine
PROC: 02HV33Z Insertion of Infusion Device into Superior Vena Cava, Percutaneous Approach (ICD-10-PCS; principal; 2018-02-21)
PROC: 0BH17EZ Insertion of Endotracheal Airway into Trachea, Via Natural or Artificial Opening (ICD-10-PCS; 2018-02-21)
PROC: 5A1945Z Respiratory Ventilation, 24-96 Consecutive Hours (ICD-10-PCS; 2018-02-21)
PROC: 0W9B3ZZ Drainage of Left Pleural Cavity, Percutaneous Approach (ICD-10-PCS; 2018-02-22)
PROC: 0W9B30Z Drainage of Left Pleural Cavity with Drainage Device, Percutaneous Approach (ICD-10-PCS; 2018-02-23)
DX: A41.9 Sepsis, unspecified organism (principal); J96.21 Acute and chronic respiratory failure with hypoxia; R65.21 Severe sepsis with septic shock; J18.9 Pneumonia, unspecified organism; J44.0 Chronic obstructive pulmonary disease with (acute) lower respiratory infection; E87.1 Hypo-osmolality and hyponatremia; I50.32 Chronic diastolic (congestive) heart failure; J44.1 Chronic obstructive pulmonary disease with (acute) exacerbation; J90 Pleural effusion, not elsewhere classified; J94.2 Hemothorax; I25.10 Atherosclerotic heart disease of native coronary artery without angina pectoris; E78.5 Hyperlipidemia, unspecified; F17.210 Nicotine dependence, cigarettes, uncomplicated; I11.0 Hypertensive heart disease with heart failure; E03.9 Hypothyroidism, unspecified; M19.90 Unspecified osteoarthritis, unspecified site; H35.30 Unspecified macular degeneration; Z66 Do not resuscitate; I95.9 Hypotension, unspecified
CPT/HCPCS: 36415; 51702; 71045; 71250; 71275; 80048; 80053; 80202; 81003; 81015; 82150; 82805; 82945; 83605; 83615; 83986; 84145; 84157; 84478; 85025; 85060; 87040; 87070; 87086; 87116; 87149; 87205; 87206; 89051; 93005; 93010; 94002; 94003; 94640; 94660; 94760; 96361; 96365; 96366; 96367; 99292; A4353; C9113; G8978-GP-CN; G8979-GP-CK; G8987-GO-CK; G8988-GO-CJ; J1650; J2001; J2250; J2543; J2704; J2920; J3010; J3370; J3480; J7050; J7506; J7620